=== PATIENT | male | born 1975 | race Caucasian/White ===

== ENCOUNTER 2017-04-22 06:57 | Inpatient (IN) | payer OTHER ==
[2017-04-22] MEDS ORDERED: ZOFRAN IV ONE (07:20)
[2017-04-22] MEDS ORDERED: NACL 0.9% 1000 ML 1,000 ML IV ONE (07:20)
[2017-04-22] MEDS ORDERED: DILAUDID IV ONE (07:20)
--- NOTE | 2017-04-22 07:31 | Emergency Department Report ---
ED Abdominal Pain HPI - General Chief Complaint: Nausea/Vomiting/Diarrhea Stated Complaint: N/V Time Seen by Provider: 04/22/17 07:17 Source: EMS Mode of arrival: Stretcher Limitations: No Limitations - History of Present Illness Initial Comments: Mr. Hanson has history of alcoholism. He is a patient at [facility]. He has noted his epistaxis and bleeding gums. Also has had vomit streaked with blood today. MD Complaint: abdominal pain -: Gradual, days(s) (1) Location: LUQ, epigastric Radiation: back Severity scale (0 -10): 10 Quality: sharp Consistency: constant Improves With: nothing Worsens With: movement Associated Symptoms: vomiting, hematemesis (mucous streaked with blood) - Related Data Previous Rx's Medication Instructions Recorded Last Taken Type Ibuprofen [Motrin] 600 mg PO Q8H PRN #60 tablet 12/27/14 Unknown Rx Ondansetron [Zofran Odt] 4 mg PO Q6H PRN #14 tab.rapdis 12/27/14 Unknown Rx traMADol [Ultram] 50 mg PO Q6HR PRN #14 tablet 12/27/14 Unknown Rx Allergies Allergy/AdvReac Type Severity Reaction Status Date / Time No Known Allergies Allergy Verified 12/26/14 12:21 ED Review of Systems ROS: Stated complaint: N/V Other details as noted in HPI Comment: All other systems reviewed and negative Constitutional: malaise. denies: chills, fever Gastrointestinal: abdominal pain, vomiting ED Past Medical Hx - Past Medical History Hx Hypertension: No Hx CVA: No Hx Heart Attack/AMI: No Hx Congestive Heart Failure: No Hx Diabetes: No Hx Deep Vein Thrombosis: No Hx Pulmonary Embolism: No Hx GERD: No Hx Liver Disease: No Hx Renal Disease: No Hx Sickle Cell Disease: No Hx Arthritis: No Hx Headaches / Migraines: No Hx Seizures: No Hx Kidney Stones: No Hx Psychiatric Treatment: No Hx Asthma: No Hx COPD: No Hx Tuberculosis: No Hx Dementia: No Hx HIV: No Additional medical history: Alcohol-induced pancreatitis - Surgical History Hx Coronary Stent: No Hx Open Heart Surgery: No Hx Pacemaker: No Hx Internal Defibrillator: No Hx Cholecystectomy: No Hx Appendectomy: No Hx Breast Surgery: No - Social History Smoking Status: Never Smoker Substance Use Type: Alcohol - Medications Home Medications: Home Medications Medication Instructions Recorded Confirmed Last Taken Type Ibuprofen [Motrin] 600 mg PO Q8H PRN #60 tablet 12/27/14 Unknown Rx Ondansetron [Zofran Odt] 4 mg PO Q6H PRN #14 tab.rapdis 12/27/14 Unknown Rx traMADol [Ultram] 50 mg PO Q6HR PRN #14 tablet 12/27/14 Unknown Rx ED Physical Exam - General Limitations: No Limitations General appearance: alert, in no apparent distress, other (appears ill, icteric sclera) - Head Head exam: Present: atraumatic, normocephalic - Eye Eye exam: Present: normal appearance, PERRL, scleral icterus. Absent: conjunctival injection, nystagmus - ENT ENT exam: Present: normal exam, mucous membranes moist - Neck Neck exam: Present: normal inspection. Absent: meningismus - Respiratory Respiratory exam: Present: normal lung sounds bilaterally. Absent: respiratory distress, wheezes, rales, rhonchi - Cardiovascular Cardiovascular Exam: Present: regular rate, normal rhythm. Absent: systolic murmur, diastolic murmur, rubs, gallop - GI/Abdominal GI/Abdominal exam: Present: soft, tenderness (left upper quadrant epigastric), guarding, normal bowel sounds. Absent: distended, rebound - Rectal Rectal exam: Present: deferred - Extremities Exam Extremities exam: Present: normal inspection - Back Exam Back exam: Present: normal inspection - Neurological Exam Neurological exam: Present: alert, oriented X3 - Psychiatric Psychiatric exam: Present: normal affect, normal mood - Skin Skin exam: Present: warm, dry, intact, normal color. Absent: rash ED Course Vital Signs 04/22/17 04/22/17 04/22/17 07:11 07:12 07:23 Temperature 98.6 F 98.6 F Pulse Rate 71 81 71 Respiratory 15 13 15 Rate Blood Pressure 128/49 Blood Pressure 128/49 [Right] O2 Sat by Pulse 100 99 99 Oximetry 04/22/17 04/22/17 04/22/17 07:30 08:00 08:30 Temperature Pulse Rate 64 81 89 Respiratory 13 12 13 Rate Blood Pressure 122/72 116/69 121/65 Blood Pressure [Right] O2 Sat by Pulse 99 98 99 Oximetry 04/22/17 04/22/17 04/22/17 09:00 10:00 10:30 Temperature Pulse Rate 85 72 69 Respiratory 12 12 10 L Rate Blood Pressure 109/62 134/68 126/68 Blood Pressure [Right] O2 Sat by Pulse 99 99 99 Oximetry ED Medical Decision Making - Lab Data Result diagrams: 04/22/17 07:34 04/22/17 07:34 Laboratory Results - last 24 hr 04/22/17 04/22/17 04/22/17 07:34 07:34 07:34 WBC 1.3 L* RBC 4.00 Hgb 12.2 Hct 36.0 MCV 90 MCH 31 MCHC 34 RDW 14.5 Plt Count 10 L* Add Manual Diff Complete Total Counted 50 Seg Neuts % (Manual) 68.0 Band Neutrophils % 0 Lymphocytes % (Manual) 20.0 Reactive Lymphs % (Man) 0 Monocytes % (Manual) 10.0 H Eosinophils % (Manual) 2.0 Basophils % (Manual) 0 Metamyelocytes % 0 Myelocytes % 0 Promyelocytes % 0 Blast Cells % 0 Nucleated RBC % Not Reportable Seg Neutrophils # Man 0.9 L Band Neutrophils # 0.0 Lymphocytes # (Manual) 0.3 L Abs React Lymphs (Man) 0.0 Monocytes # (Manual) 0.1 Eosinophils # (Manual) 0.0 Basophils # (Manual) 0.0 Metamyelocytes # 0.0 Myelocytes # 0.0 Promyelocytes # 0.0 Blast Cells # 0.0 WBC Morphology Not Reportable Hypersegmented Neuts Not Reportable Hyposegmented Neuts Not Reportable Hypogranular Neuts Not Reportable Smudge Cells Not Reportable Toxic Granulation Not Reportable Toxic Vacuolation Not Reportable Dohle Bodies Not Reportable Pelger-Huet Anomaly Not Reportable [place] Rods Not Reportable Platelet Estimate Cons Clumped Platelets Not Reportable Plt Clumps, EDTA Not Reportable Large Platelets Not Reportable Giant Platelets Not Reportable Platelet Satelliting Not Reportable Plt Morphology Comment Not Reportable RBC Morphology Normal Dimorphic RBCs Not Reportable Polychromasia Not Reportable Hypochromasia Not Reportable Poikilocytosis Not Reportable Anisocytosis Not Reportable Microcytosis Not Reportable Macrocytosis Not Reportable Spherocytes Not Reportable Pappenheimer Bodies Not Reportable Sickle Cells Not Reportable Target Cells Not Reportable Tear Drop Cells Not Reportable Ovalocytes Not Reportable Helmet Cells Not Reportable [place] Bodies Not Reportable [place] Rings Not Reportable Damian Cells Not Reportable Bite Cells Not Reportable Crenated Cell Not Reportable Elliptocytes Not Reportable Acanthocytes (Spur) Not Reportable Rouleaux Not Reportable Hemoglobin C Crystals Not Reportable Schistocytes Not Reportable Malaria parasites Not Reportable Chevy Bodies Not Reportable Hem Pathologist Commnt No PT 17.5 H INR 1.35 H Sodium Potassium Chloride Carbon Dioxide Anion Gap BUN Creatinine Estimated GFR BUN/Creatinine Ratio Glucose Calcium Total Bilirubin 2.80 H Direct Bilirubin 1.4 H Indirect Bilirubin 1.4 AST 174 H ALT 50 Alkaline Phosphatase 213 H Ammonia Total Protein 7.5 Albumin 3.2 L Albumin/Globulin Ratio 0.7 Lipase 78 H Blood Type 04/22/17 04/22/17 04/22/17 07:34 07:34 08:06 WBC RBC Hgb Hct MCV MCH MCHC RDW Plt Count Add Manual Diff Total Counted Seg Neuts % (Manual) Band Neutrophils % Lymphocytes % (Manual) Reactive Lymphs % (Man) Monocytes % (Manual) Eosinophils % (Manual) Basophils % (Manual) Metamyelocytes % Myelocytes % Promyelocytes % Blast Cells % Nucleated RBC % Seg Neutrophils # Man Band Neutrophils # Lymphocytes # (Manual) Abs React Lymphs (Man) Monocytes # (Manual) Eosinophils # (Manual) Basophils # (Manual) Metamyelocytes # Myelocytes # Promyelocytes # Blast Cells # WBC Morphology Hypersegmented Neuts Hyposegmented Neuts Hypogranular Neuts Smudge Cells Toxic Granulation Toxic Vacuolation Dohle Bodies Pelger-Huet Anomaly [place] Platelet Estimate Clumped Platelets Plt Clumps, EDTA Large Platelets Giant Platelets Platelet Satelliting Plt Morphology Comment RBC Morphology Dimorphic RBCs Polychromasia Hypochromasia Poikilocytosis Anisocytosis Microcytosis Macrocytosis Spherocytes Pappenheimer Bodies Sickle Cells Target Cells Tear Drop Cells Ovalocytes Helmet Cells [place]es[place] Bodies [place] Cells Bite Cells Crenated Cell Elliptocytes Acanthocytes (Spur) Rouleaux Hemoglobin C Crystals Schistocytes Malaria parasites Chevy Bodies Hem Pathologist Commnt PT INR Sodium 139 Potassium 3.4 L Chloride 100.2 Carbon Dioxide 21 L Anion Gap 21 BUN 6 L Creatinine 0.4 L Estimated GFR > 60 BUN/Creatinine Ratio 15 Glucose 113 H Calcium 8.1 L Total Bilirubin 2.70 H Direct Bilirubin Indirect Bilirubin AST 175 H ALT 50 Alkaline Phosphatase 212 H Ammonia 75.0 H Total Protein 7.4 Albumin 3.2 L Albumin/Globulin Ratio 0.8 Lipase Blood Type O POSITIVE - Radiology Data Radiology results: report reviewed - Medical Decision Making MR. Hanson presents with abdominal pain with thrombocytopenia and leukopenia due to cirrhosis. Abdominal pain could be attributed to chronic pancreatitis versus alcoholic gastritis. Admitted to Hospitalist service. Dr. Brothers accepted admission. Critical care attestation.: If time is entered above; I have spent that time in minutes in the direct care of this critically ill patient, excluding procedure time. ED Disposition Clinical Impression: Cirrhosis, Thrombocytopenia, Abdominal pain, Alcoholic gastritis Disposition: OP ADMIT IP TO THIS HOSP Is pt being admited?: Yes Does the pt Need Aspirin: No Condition: Fair Referrals: PRIMARY CARE, [Primary Care Provider] - 3-5 Days Time of Disposition: 12:08
[2017-04-22 07:45] LABS: Hemoglobin 12.2 gm/dl (11.8-15.2); Mean Corpuscular HGB Conc 34 % (32-34); Mean Corpuscular Hemoglobin 31 pg (28-32); Mean Corpuscular Volume 90 fl (84-94); Red Cell Distribution Width 14.5 % (13.2-15.2)
[2017-04-22 07:51] LABS: Platelet Count 10 K/mm3 (140-440)
[2017-04-22] MEDS ORDERED: NACL 0.9% 500 ML 500 ML IV ONE (07:58)
[2017-04-22 08:08] LABS: INR 1.35 (0.87-1.13)
[2017-04-22 08:16] LABS: Albumin 3.2 g/dL (3.9-5); Bilirubin,Direct 1.4 mg/dL (0-0.2)
[2017-04-22] MEDS ORDERED: ATIVAN IV ONE ×2 (08:28→12:16)
[2017-04-22 09:12] LABS: Alanine Aminotransferase 50 units/L (7-56); Albumin 3.2 g/dL (3.9-5); BUN/Creatinine Ratio 15; Blood Urea Nitrogen 6 mg/dL (9-20); Calcium 8.1 mg/dL (8.4-10.2); Hemolysis Index 11
[2017-04-22 09:19] LABS: Basophils % (Manual) 0 % (0.0-1.8); Total Cells Counted 50
[2017-04-22 09:21] LABS: Platelet Estimate Cons; RBC Morphology Normal
--- NOTE | 2017-04-22 10:25 | Cat Scan Report ---
CT ABDOMEN AND PELVIS WITH CONTRAST INDICATION: Abdominal pain. COMPARISON: 12/27/2014. FINDINGS: Abdomen and pelvis CT performed following intravenous administration of 100 cc of Omnipaque 300. LUNG BASES: Mild bibasilar dependent atelectasis. Top normal heart size. Nonspecific distal esophageal wall prominence/thickening, not excluded for gastroesophageal reflux and/or hiatal hernia, amongst others. ABDOMEN: Liver approximately 19.5 cm in midclavicular length (previously 21 cm) and mildly cirrhotic. Left hepatic lobe tip again wraps around the spleen in the left upper quadrant. Spleen approximately 17 cm craniocaudal, previously 15.6 cm, again partly effacing the left upper renal cortex. No focal suspicious lesions or biliary dilatation. Patent veins. Pancreas, adrenals, aorta, IVC and kidneys within normal limits. No ascites or size significant adenopathy. Nonopacified GI tract evaluation limited, though grossly nonobstructive. Normal appendix. Mild colonic stool, most along the ascending colon/cecum. PELVIS: Urinary bladder, seminal vesicles, prostate and rectosigmoid grossly within normal limits. No free fluid or significant adenopathy. Mild increased L3 degenerative changes superiorly. CONCLUSION: No acute CT abnormality in this patient with cirrhosis and splenomegaly again noted, as described. Please correlate. Thank you for the opportunity to participate in this patient's care.
[2017-04-22] MEDS ORDERED: ATIVAN ONE (12:12)
[2017-04-22] MEDS ORDERED: ATIVAN IV PRN ×3 (12:43)
--- NOTE | 2017-04-22 12:56 | History and Physical Report ---
History of Present Illness Chief complaint: confusion, Nausea, vomiting, History of present illness: 41 YO Male currently admitted to [place] with ETOH Abuse, Cirrhosis, Pancreatitis presents to ED for evaluation. Pt unable to provide detailed history, but history taken from ED staff, medical record, and [facility] staff. Pt was found to have nausea, vomiting, epistaxis, and gingival bleeding today. EMS notified, and patient was transported to [facility] for further care and evaluation. Pt seen and evaluated in the ED and found to have encephalopathy secondary to hepatic failure. Pt also found to have ETOH Withdrawl complicated by auditory/visual hallucinations, pancytopenia, with a platelet count of 10. Pt admitted to medical floor. Past History Past Medical History: liver disease, other (Cirrhosis, ETOH dependence) Past Surgical History: No surgical history, Other (reviewed) Social history: , lives with family, alcohol abuse. denies: smoking, prescription drug abuse, IV drug use Family history: no significant family history, other (reviewed) Medications and Allergies Allergies Allergy/AdvReac Type Severity Reaction Status Date / Time No Known Allergies Allergy Verified 12/26/14 12:21 Home Medications Medication Instructions Recorded Confirmed Last Taken Type No Known Home Medications [No 04/22/17 04/22/17 Unknown History Reported Home Medications] Active Meds: Active Medications Lorazepam (Ativan) 2 mg IV Q1HR PRN PRN Reason: CIWA-Ar 8-15 Lorazepam (Ativan) 4 mg IV Q1HR PRN PRN Reason: CIWA-Ar 16-25 Lorazepam (Ativan) 4 mg IV Q15MIN PRN PRN Reason: CIWA-Ar >25 Review of Systems ROS unobtainable: due to mental status Exam - Constitutional Vitals: Temp Pulse Resp BP Pulse Ox 98.6 F 69 10 L 126/68 99 04/22/17 07:23 04/22/17 10:30 04/22/17 10:30 04/22/17 10:30 04/22/17 10:30 General appearance: Present: mild distress - EENT Eyes: Present: PERRL - Neck Neck: Present: supple, normal ROM - Respiratory Respiratory effort: normal Respiratory: bilateral: CTA - Cardiovascular Heart Sounds: Present: S1 & S2. Absent: rub, click - Extremities Extremities: pulses symmetrical, No edema Peripheral Pulses: within normal limits - Abdominal General gastrointestinal: Present: soft, non-tender, non-distended, normal bowel sounds Male genitourinary: Present: normal - Integumentary Integumentary: Present: clear, dry, clammy, decreased turgor - Musculoskeletal Musculoskeletal: generalized weakness - Psychiatric Psychiatric: no intact judgment & insight, no memory intact, agitated - Neurologic Neurologic: CNII-XII intact, moves all extremities, no gait normal Results - Labs CBC & Chem 7: 04/22/17 07:34 04/22/17 07:34 Labs: Abnormal lab results 04/22/17 04/22/17 04/22/17 Range/Units 07:34 07:34 07:34 WBC 1.3 L* (4.5-11.0) K/mm3 Plt Count 10 L* (140-440) K/mm3 Monocytes % (Manual) 10.0 H (0.0-7.3) % Seg Neutrophils # Man 0.9 L (1.8-7.7) K/mm3 Lymphocytes # (Manual) 0.3 L (1.2-5.4) K/mm3 PT 17.5 H (12.2-14.9) Sec. INR 1.35 H (0.87-1.13) Potassium (3.6-5.0) mmol/L Carbon Dioxide (22-30) mmol/L BUN (9-20) mg/dL Creatinine (0.8-1.5) mg/dL Glucose (75-100) mg/dL Calcium (8.4-10.2) mg/dL Total Bilirubin 2.80 H (0.1-1.2) mg/dL Direct Bilirubin 1.4 H (0-0.2) mg/dL AST 174 H (5-40) units/L Alkaline Phosphatase 213 H (35-129) units/L Ammonia (25-60) umol/L Albumin 3.2 L (3.9-5) g/dL Lipase 78 H (13-60) units/L 04/22/17 04/22/17 Range/Units 07:34 07:34 WBC (4.5-11.0) K/mm3 Plt Count (140-440) K/mm3 Monocytes % (Manual) (0.0-7.3) % Seg Neutrophils # Man (1.8-7.7) K/mm3 Lymphocytes # (Manual) (1.2-5.4) K/mm3 PT (12.2-14.9) Sec. INR (0.87-1.13) Potassium 3.4 L (3.6-5.0) mmol/L Carbon Dioxide 21 L (22-30) mmol/L BUN 6 L (9-20) mg/dL Creatinine 0.4 L (0.8-1.5) mg/dL Glucose 113 H (75-100) mg/dL Calcium 8.1 L (8.4-10.2) mg/dL Total Bilirubin 2.70 H (0.1-1.2) mg/dL Direct Bilirubin (0-0.2) mg/dL AST 175 H (5-40) units/L Alkaline Phosphatase 212 H (35-129) units/L Ammonia 75.0 H (25-60) umol/L Albumin 3.2 L (3.9-5) g/dL Lipase (13-60) units/L Assessment and Plan - Patient Problems (1) Alcohol withdrawal delirium Current Visit: Yes Status: Acute Plan to address problem: IVF resuscitation, CIWA protocol, Ativan prn, Banana bag, supportive care, neuro checks. (2) Metabolic acidosis Current Visit: Yes Status: Acute Plan to address problem: repeat bmp, IVF resuscitation, supportive care. (3) Cirrhosis Current Visit: Yes Status: Acute Qualifiers: Hepatic cirrhosis type: alcoholic cirrhosis Ascites presence: with ascites Qualified Code(s): K70.31 - Alcoholic cirrhosis of liver with ascites Plan to address problem: Fluid restriction, pain control, supportive care, outpatient GI f/u, ETOH cessation. (4) Thrombocytopenia Current Visit: Yes Status: Acute Plan to address problem: Platelet transfusion, supportive care, fall precautions, (5) Alcohol abuse Current Visit: No Status: Acute Plan to address problem: ETOH cessation counseling when awake and alert, IVF resuscitation, CIWA protocol. (6) Metabolic encephalopathy Current Visit: Yes Status: Acute Plan to address problem: IVF, supportive care, Ammonia level, CT head, Neuro checks, (7) DVT prophylaxis Current Visit: Yes Status: Acute
[2017-04-22] MEDS ORDERED: ZOFRAN IV PRN (13:16)
[2017-04-22] MEDS ORDERED: MILK OF MAGNESIA PO PRN (13:16)
[2017-04-22] MEDS ORDERED: DULCOLAX PR PRN (13:16)
[2017-04-22] MEDS ORDERED: PROVENTIL IH PRN (13:16)
[2017-04-22] MEDS ORDERED: NACL 0.9% 500 ML 500 ML ONE (16:42)
[2017-04-23] MEDS ORDERED: NACL 0.9% 500 ML 500 ML IV ONE (09:33)
--- NOTE | 2017-04-23 09:33 | Progress Note ---
Assessment and Plan Assessment and plan: Alcohol withdrawal delirium IVF resuscitation, CIWA protocol, Ativan prn, Banana bag, supportive care, neuro checks. Cirrhosis Fluid restriction, pain control, supportive care, outpatient GI f/u, ETOH cessation. Pancytopenia Pt. with significant thrombocytopenia. Platelet transfusion for plt < 10, supportive care, fall precautions. No active bleeding. Etiology likely secondary to Alcoholism/Cirrhosis. Heme consult Thrombocytopenia As above Alcohol abuse ETOH cessation counseling when awake and alert, IVF resuscitation, CIWA protocol. Metabolic encephalopathy IVF, supportive care, Ammonia level, CT head, Neuro checks, DVT prophylaxis SCDs given thrombocytopenia History Interval history: no new issues Hospitalist Physical - Constitutional Vitals: Temp Pulse Resp BP Pulse Ox 98.6 F 89 22 112/71 98 04/23/17 08:02 04/23/17 08:02 04/23/17 08:02 04/23/17 08:02 04/23/17 08:02 General appearance: Present: mild distress - EENT Eyes: Present: PERRL, EOM intact ENT: hearing intact, clear oral mucosa, dentition normal - Neck Neck: Present: supple, normal ROM - Respiratory Respiratory effort: normal Respiratory: bilateral: CTA - Cardiovascular Rhythm: regular Heart Sounds: Present: S1 & S2. Absent: gallop, rub - Extremities Extremities: no ischemia, No edema, Full ROM - Abdominal General gastrointestinal: soft, non-tender, non-distended, normal bowel sounds - Integumentary Integumentary: Present: clear, warm, dry - Neurologic Neurologic: CNII-XII intact, moves all extremities Results - Labs CBC & Chem 7: 04/22/17 07:34 04/22/17 07:34 Labs: Laboratory Last Values WBC 1.3 K/mm3 (4.5-11.0) L* 04/22/17 07:34 RBC 4.00 M/mm3 (3.65-5.03) 04/22/17 07:34 Hgb 12.2 gm/dl (11.8-15.2) 04/22/17 07:34 Hct 36.0 % (35.5-45.6) 04/22/17 07:34 MCV 90 fl (84-94) 04/22/17 07:34 MCH 31 pg (28-32) 04/22/17 07:34 MCHC 34 % (32-34) 04/22/17 07:34 RDW 14.5 % (13.2-15.2) 04/22/17 07:34 Plt Count 10 K/mm3 (140-440) L* 04/22/17 07:34 Add Manual Diff Complete 04/22/17 07:34 Total Counted 50 04/22/17 07:34 Seg Neuts % (Manual) 68.0 % (40.0-70.0) 04/22/17 07:34 Band Neutrophils % 0 % 04/22/17 07:34 Lymphocytes % (Manual) 20.0 % (13.4-35.0) 04/22/17 07:34 Reactive Lymphs % (Man) 0 % 04/22/17 07:34 Monocytes % (Manual) 10.0 % (0.0-7.3) H 04/22/17 07:34 Eosinophils % (Manual) 2.0 % (0.0-4.3) 04/22/17 07:34 Basophils % (Manual) 0 % (0.0-1.8) 04/22/17 07:34 Metamyelocytes % 0 % 04/22/17 07:34 Myelocytes % 0 % 04/22/17 07:34 Promyelocytes % 0 % 04/22/17 07:34 Blast Cells % 0 % 04/22/17 07:34 Nucleated RBC % Not Reportable 04/22/17 07:34 Seg Neutrophils # Man 0.9 K/mm3 (1.8-7.7) L 04/22/17 07:34 Band Neutrophils # 0.0 K/mm3 04/22/17 07:34 Lymphocytes # (Manual) 0.3 K/mm3 (1.2-5.4) L 04/22/17 07:34 Abs React Lymphs (Man) 0.0 K/mm3 04/22/17 07:34 Monocytes # (Manual) 0.1 K/mm3 (0.0-0.8) 04/22/17 07:34 Eosinophils # (Manual) 0.0 K/mm3 (0.0-0.4) 04/22/17 07:34 Basophils # (Manual) 0.0 K/mm3 (0.0-0.1) 04/22/17 07:34 Metamyelocytes # 0.0 K/mm3 04/22/17 07:34 Myelocytes # 0.0 K/mm3 04/22/17 07:34 Promyelocytes # 0.0 K/mm3 04/22/17 07:34 Blast Cells # 0.0 K/mm3 04/22/17 07:34 WBC Morphology Not Reportable 04/22/17 07:34 Hypersegmented Neuts Not Reportable 04/22/17 07:34 Hyposegmented Neuts Not Reportable 04/22/17 07:34 Hypogranular Neuts Not Reportable 04/22/17 07:34 Smudge Cells Not Reportable 04/22/17 07:34 Toxic Granulation Not Reportable 04/22/17 07:34 Toxic Vacuolation Not Reportable 04/22/17 07:34 Dohle Bodies Not Reportable 04/22/17 07:34 Pelger-Huet Anomaly Not Reportable 04/22/17 07:34 El Rods Not Reportable 04/22/17 07:34 Platelet Estimate Cons 04/22/17 07:34 Clumped Platelets Not Reportable 04/22/17 07:34 Plt Clumps, EDTA Not Reportable 04/22/17 07:34 Large Platelets Not Reportable 04/22/17 07:34 Giant Platelets Not Reportable 04/22/17 07:34 Platelet Satelliting Not Reportable 04/22/17 07:34 Plt Morphology Comment Not Reportable 04/22/17 07:34 RBC Morphology Normal 04/22/17 07:34 Dimorphic RBCs Not Reportable 04/22/17 07:34 Polychromasia Not Reportable 04/22/17 07:34 Hypochromasia Not Reportable 04/22/17 07:34 Poikilocytosis Not Reportable 04/22/17 07:34 Anisocytosis Not Reportable 04/22/17 07:34 Microcytosis Not Reportable 04/22/17 07:34 Macrocytosis Not Reportable 04/22/17 07:34 Spherocytes Not Reportable 04/22/17 07:34 Pappenheimer Bodies Not Reportable 04/22/17 07:34 Sickle Cells Not Reportable 04/22/17 07:34 Target Cells Not Reportable 04/22/17 07:34 Tear Drop Cells Not Reportable 04/22/17 07:34 Ovalocytes Not Reportable 04/22/17 07:34 Helmet Cells Not Reportable 04/22/17 07:34 Gongora-Padroni Bodies Not Reportable 04/22/17 07:34 [place] Rings Not Reportable 04/22/17 07:34 Damian Cells Not Reportable 04/22/17 07:34 Bite Cells Not Reportable 04/22/17 07:34 Crenated Cell Not Reportable 04/22/17 07:34 Elliptocytes Not Reportable 04/22/17 07:34 Acanthocytes (Spur) Not Reportable 04/22/17 07:34 Rouleaux Not Reportable 04/22/17 07:34 Hemoglobin C Crystals Not Reportable 04/22/17 07:34 Schistocytes Not Reportable 04/22/17 07:34 Malaria parasites Not Reportable 04/22/17 07:34 Chevy Bodies Not Reportable 04/22/17 07:34 Hem Pathologist Commnt No 04/22/17 07:34 PT 17.5 Sec. (12.2-14.9) H 04/22/17 07:34 INR 1.35 (0.87-1.13) H 04/22/17 07:34 Sodium 139 mmol/L (137-145) 04/22/17 07:34 Potassium 3.4 mmol/L (3.6-5.0) L 04/22/17 07:34 Chloride 100.2 mmol/L (98-107) 04/22/17 07:34 Carbon Dioxide 21 mmol/L (22-30) L 04/22/17 07:34 Anion Gap 21 mmol/L 04/22/17 07:34 BUN 6 mg/dL (9-20) L 04/22/17 07:34 Creatinine 0.4 mg/dL (0.8-1.5) L 04/22/17 07:34 Estimated GFR > 60 ml/min 04/22/17 07:34 BUN/Creatinine Ratio 15 % 04/22/17 07:34 Glucose 113 mg/dL (75-100) H 04/22/17 07:34 Calcium 8.1 mg/dL (8.4-10.2) L 04/22/17 07:34 Total Bilirubin 2.70 mg/dL (0.1-1.2) H 04/22/17 07:34 Direct Bilirubin 1.4 mg/dL (0-0.2) H 04/22/17 07:34 Indirect Bilirubin 1.4 mg/dL 04/22/17 07:34 AST 175 units/L (5-40) H 04/22/17 07:34 ALT 50 units/L (7-56) 04/22/17 07:34 Alkaline Phosphatase 212 units/L (35-129) H 04/22/17 07:34 Ammonia 75.0 umol/L (25-60) H 04/22/17 07:34 Total Protein 7.4 g/dL (6.3-8.2) 04/22/17 07:34 Albumin 3.2 g/dL (3.9-5) L 04/22/17 07:34 Albumin/Globulin Ratio 0.8 % 04/22/17 07:34 Lipase 78 units/L (13-60) H 04/22/17 07:34 Plasma/Serum Alcohol < 0.01 % (0-0.07) 04/22/17 16:13 Blood Type O POSITIVE 04/22/17 08:06
--- NOTE | 2017-04-23 15:24 | Hem/Onc Consultation ---
History of Present Illness - Reason for Consult Consult date: 04/23/17 - History of Present Illness 41 YO Male currently with ETOH Abuse, Cirrhosis, Pancreatitis. Pt unable to provide detailed history, but history taken from ED staff, medical record, and [facility] staff. Pt was found to have nausea, vomiting, epistaxis, and gingival bleeding today. EMS notified, and patient was transported to [facility] for further care and evaluation. Pt seen and evaluated in the ED and found to have encephalopathy secondary to hepatic failure. Pt also found to have ETOH Withdrawl complicated by auditory/visual hallucinations, pancytopenia, with a platelet count of 10. Pt admitted to medical floor. He denies any bleeding now except stain on the pillow. Complains of abdominal pain. And reports chills. Past History Past Medical History: liver disease, other (Cirrhosis, ETOH dependence) Past Surgical History: No surgical history, Other (reviewed) Social history: , lives with family, alcohol abuse. denies: smoking, prescription drug abuse, IV drug use Family history: no significant family history, other (reviewed) Medications and Allergies Allergies Allergy/AdvReac Type Severity Reaction Status Date / Time No Known Allergies Allergy Verified 12/26/14 12:21 Home Medications Medication Instructions Recorded Confirmed Last Taken Type No Known Home Medications [No 04/22/17 04/22/17 Unknown History Reported Home Medications] Active Meds: Active Medications Albuterol (Proventil) 2.5 mg IH Q4HRT PRN PRN Reason: Shortness Of Breath Bisacodyl (Dulcolax) 10 mg CO QDAY PRN PRN Reason: Constipation unrelieved by MOM Lorazepam (Ativan) 2 mg IV Q1HR PRN PRN Reason: CIWA-Ar 8-15 Last Admin: 04/23/17 14:08 Dose: 2 mg Lorazepam (Ativan) 4 mg IV Q1HR PRN PRN Reason: CIWA-Ar 16-25 Last Admin: 04/23/17 00:02 Dose: 4 mg Lorazepam (Ativan) 4 mg IV Q15MIN PRN PRN Reason: CIWA-Ar >25 Magnesium Hydroxide (Milk Of Magnesia) 30 ml PO Q4H PRN PRN Reason: Constipation Ondansetron HCl (Zofran) 4 mg IV Q8H PRN PRN Reason: N/V unrelieved by Reglan Review of Systems All systems: negative Exam - Constitutional Vitals: Last Vital Signs Temp 98.6 F 04/23/17 08:02 Pulse 89 04/23/17 08:02 Resp 22 04/23/17 08:02 BP 112/71 04/23/17 08:02 Pulse Ox 98 04/23/17 10:15 General appearance: no acute distress Performance status: 3-limited selfcare - EENT Eyes: scleral icterus Lymph node exam: negative cervical, negative supraclavicular, negative axillary - Respiratory Respiratory: negative: CTA - Cardiovascular Rhythm: regular Heart Sounds: Present: S1 & S2 Extremities: no ischemia, No edema, normal color (no petechiae) Results - Labs lab Results: Laboratory Results - last 24 hr 04/22/17 04/23/17 16:13 09:46 Plasma/Serum Alcohol < 0.01 Blood Type O POSITIVE - Imaging and cardiology CT scan - abdomen: report reviewed Assessment and Plan 1-pancytopenia: WBC1.3, platelets 10- s/p one unit plat. transfusion in the ER. I suspect this all related to alcohol abuse and cirrhosis with bone marrow suppression. will order a CBC before the other platelets units are transfused. Continue supportive care. would consider culturing to r/o an infection contributing to the pancytopenia. 2- Cirrhosis with splenomegaly 3- alcohol withdrawal. 4- metabolic encephalopathy- improving
[2017-04-23 17:36] LABS: Hemoglobin 11.9 gm/dl (11.8-15.2); Mean Corpuscular HGB Conc 34 % (32-34); Mean Corpuscular Hemoglobin 31 pg (28-32); Mean Corpuscular Volume 90 fl (84-94); Red Blood Count 3.87 M/mm3 (3.65-5.03); Red Cell Distribution Width 14.6 % (13.2-15.2)
[2017-04-23 17:39] LABS: Platelet Count 16 K/mm3 (140-440)
[2017-04-23 19:05] LABS: Total Cells Counted 100
[2017-04-23 19:09] LABS: Anisocytosis 1+; Ovalocytes 1+; Platelet Estimate Appears Decreased
[2017-04-24 05:58] LABS: Hematocrit 34.6 % (35.5-45.6); Hemoglobin 11.7 gm/dl (11.8-15.2); Mean Corpuscular HGB Conc 34 % (32-34); Mean Corpuscular Hemoglobin 31 pg (28-32); Mean Corpuscular Volume 91 fl (84-94); Red Blood Count 3.82 M/mm3 (3.65-5.03); Red Cell Distribution Width 14.6 % (13.2-15.2)
[2017-04-24 06:06] LABS: Platelet Count 36 K/mm3 (140-440)
[2017-04-24 06:21] LABS: BUN/Creatinine Ratio 15; Blood Urea Nitrogen 6 mg/dL (9-20); Hemolysis Index 0
[2017-04-24 07:08] LABS: Band Neutrophils # (Manual) 0.1 K/mm3; Basophils % (Manual) 0 % (0.0-1.8); Total Cells Counted 100
[2017-04-24 07:09] LABS: Anisocytosis 1+; Platelet Estimate Consistent w Auto
--- NOTE | 2017-04-24 07:31 | Hem/Onc Progress Note ---
Assessment and Plan 1-pancytopenia: WBC and platelets are better. s/p 3 units plat transfusion. would continue to monitor counts and support as needed. cultures are pending 2- Cirrhosis with splenomegaly 3- alcohol withdrawal. 4- metabolic encephalopathy- improving Subjective Date of service: 04/24/17 Interval history: feels better. tremors better. Objective - Constitutional Vitals: Last Vital Signs Temp 98.2 F 04/23/17 23:00 Pulse 70 04/23/17 23:00 Resp 18 04/23/17 23:00 BP 118/68 04/23/17 23:00 Pulse Ox 98 04/23/17 23:00 General appearance: no acute distress - Respiratory Respiratory: bilateral: CTA - Cardiovascular Rhythm: regular - Neurologic Neurologic: CNII-XII intact - Labs Lab Results: Laboratory Results - last 24 hr 04/23/17 04/23/17 04/24/17 09:46 17:13 05:48 WBC 1.4 L* 1.6 L* RBC 3.87 3.82 Hgb 11.9 11.7 L Hct 35.0 L 34.6 L MCV 90 91 MCH 31 31 MCHC 34 34 RDW 14.6 14.6 Plt Count 16 L* 36 L D Add Manual Diff Complete Complete Total Counted 100 100 Seg Neuts % (Manual) 58.0 57.0 Band Neutrophils % 2.0 9.0 Lymphocytes % (Manual) 32.0 25.0 Reactive Lymphs % (Man) 0 0 Monocytes % (Manual) 4.0 6.0 Eosinophils % (Manual) 3.0 3.0 Basophils % (Manual) 1.0 0 Metamyelocytes % 0 0 Myelocytes % 0 0 Promyelocytes % 0 0 Blast Cells % 0 0 Nucleated RBC % Not Reportable Not Reportable Seg Neutrophils # Man 0.8 L 0.9 L Band Neutrophils # 0.0 0.1 Lymphocytes # (Manual) 0.4 L 0.4 L Abs React Lymphs (Man) 0.0 0.0 Monocytes # (Manual) 0.1 0.1 Eosinophils # (Manual) 0.0 0.0 Basophils # (Manual) 0.0 0.0 Metamyelocytes # 0.0 0.0 Myelocytes # 0.0 0.0 Promyelocytes # 0.0 0.0 Blast Cells # 0.0 0.0 WBC Morphology Not Reportable Not Reportable Hypersegmented Neuts Not Reportable Not Reportable Hyposegmented Neuts Not Reportable Not Reportable Hypogranular Neuts Not Reportable Not Reportable Smudge Cells Not Reportable Not Reportable Toxic Granulation Not Reportable Not Reportable Toxic Vacuolation Not Reportable Not Reportable Dohle Bodies Not Reportable Not Reportable Pelger-Huet Anomaly Not Reportable Not Reportable [place] Rods Not Reportable Not Reportable Platelet Estimate Appears decreased Consistent w auto Clumped Platelets Not Reportable Not Reportable Plt Clumps, EDTA Not Reportable Not Reportable Large Platelets Not Reportable Not Reportable Giant Platelets Not Reportable Not Reportable Platelet Satelliting Not Reportable Not Reportable Plt Morphology Comment Not Reportable Not Reportable RBC Morphology Not Reportable Not Reportable Dimorphic RBCs Not Reportable Not Reportable Polychromasia Not Reportable Not Reportable Hypochromasia Not Reportable Not Reportable Poikilocytosis Not Reportable Not Reportable Anisocytosis 1+ 1+ Microcytosis Not Reportable Not Reportable Macrocytosis Not Reportable Not Reportable Spherocytes Not Reportable Not Reportable Pappenheimer Bodies Not Reportable Not Reportable Sickle Cells Not Reportable Not Reportable Target Cells Not Reportable Not Reportable Tear Drop Cells Not Reportable Not Reportable Ovalocytes 1+ Not Reportable Helmet Cells Not Reportable Not Reportable [place] Bodies Not Reportable Not Reportable [place] Rings Not Reportable Not Reportable Damian Cells Not Reportable Not Reportable Bite Cells Not Reportable Not Reportable Crenated Cell Not Reportable Not Reportable Elliptocytes Not Reportable Not Reportable Acanthocytes (Spur) Not Reportable Not Reportable Rouleaux Not Reportable Not Reportable Hemoglobin C Crystals Not Reportable Not Reportable Schistocytes Not Reportable Not Reportable Malaria parasites Not Reportable Not Reportable [place] Bodies Not Reportable Not Reportable Hem Pathologist Commnt No No Sodium Potassium Chloride Carbon Dioxide Anion Gap BUN Creatinine Estimated GFR BUN/Creatinine Ratio Glucose Calcium Blood Type O POSITIVE 04/24/17 05:48 WBC RBC Hgb Hct MCV MCH MCHC RDW Plt Count Add Manual Diff Total Counted Seg Neuts % (Manual) Band Neutrophils % Lymphocytes % (Manual) Reactive Lymphs % (Man) Monocytes % (Manual) Eosinophils % (Manual) Basophils % (Manual) Metamyelocytes % Myelocytes % Promyelocytes % Blast Cells % Nucleated RBC % Seg Neutrophils # Man Band Neutrophils # Lymphocytes # (Manual) Abs React Lymphs (Man) Monocytes # (Manual) Eosinophils # (Manual) Basophils # (Manual) Metamyelocytes # Myelocytes # Promyelocytes # Blast Cells # WBC Morphology Hypersegmented Neuts Hyposegmented Neuts Hypogranular Neuts Smudge Cells Toxic Granulation Toxic Vacuolation Dohle Bodies Pelger-Huet Anomaly [place] Platelet Estimate Clumped Platelets Plt Clumps, EDTA Large Platelets Giant Platelets Platelet Satelliting Plt Morphology Comment RBC Morphology Dimorphic RBCs Polychromasia Hypochromasia Poikilocytosis Anisocytosis Microcytosis Macrocytosis Spherocytes Pappenheimer Bodies Sickle Cells Target Cells Tear Drop Cells Ovalocytes Helmet Cells [place] Bodies [place] Clear Cells Bite Cells Crenated Cell Elliptocytes Acanthocytes (Spur) Rouleaux Hemoglobin C Crystals Schistocytes Malaria parasites Chevy Bodies Hem Pathologist Commnt Sodium 138 Potassium 3.5 L Chloride 100.2 Carbon Dioxide 23 Anion Gap 18 BUN 6 L Creatinine 0.4 L Estimated GFR > 60 BUN/Creatinine Ratio 15 Glucose 101 H Calcium 8.0 L Blood Type
--- NOTE | 2017-04-24 09:52 | Progress Note ---
Assessment and Plan Assessment and plan: Alcohol withdrawal delirium IVF resuscitation, CIWA protocol, Ativan prn, Banana bag, supportive care, neuro checks. Cirrhosis with splenomegaly Fluid restriction, pain control, supportive care, outpatient GI f/u, ETOH cessation. Pancytopenia Pt. with significant thrombocytopenia. Platelet transfusion for plt < 10, supportive care, fall precautions. No active bleeding. Etiology likely secondary to Alcoholism/Cirrhosiswith splenomegaly/splenic sequestration/bone marrow suppression. Heme following Thrombocytopenia As above Alcohol abuse ETOH cessation counseling when awake and alert, IVF resuscitation, CIWA protocol. Metabolic encephalopathy IVF, supportive care, Ammonia level, CT head, Neuro check. Recheck ammonia levels Bilateral LE cramping check lytes DVT prophylaxis SCDs given thrombocytopenia History Interval history: no new issues. CIWA score aprox 4-6 Hospitalist Physical - Constitutional Vitals: Temp Pulse Resp BP Pulse Ox 98.3 F 66 20 113/61 100 04/24/17 07:37 04/24/17 07:37 04/24/17 07:37 04/24/17 07:37 04/24/17 08:26 General appearance: Present: mild distress - EENT Eyes: Present: PERRL, EOM intact ENT: hearing intact, clear oral mucosa, dentition normal - Neck Neck: Present: supple, normal ROM - Respiratory Respiratory effort: normal Respiratory: bilateral: CTA - Cardiovascular Rhythm: regular Heart Sounds: Present: S1 & S2. Absent: gallop, rub - Extremities Extremities: no ischemia, No edema, Full ROM - Abdominal General gastrointestinal: soft, non-tender, non-distended, normal bowel sounds - Integumentary Integumentary: Present: clear, warm, dry - Neurologic Neurologic: CNII-XII intact, moves all extremities Results - Labs CBC & Chem 7: 04/24/17 05:48 04/24/17 05:48 Labs: Laboratory Last Values WBC 1.6 K/mm3 (4.5-11.0) L* 04/24/17 05:48 RBC 3.82 M/mm3 (3.65-5.03) 04/24/17 05:48 Hgb 11.7 gm/dl (11.8-15.2) L 04/24/17 05:48 Hct 34.6 % (35.5-45.6) L 04/24/17 05:48 MCV 91 fl (84-94) 04/24/17 05:48 MCH 31 pg (28-32) 04/24/17 05:48 MCHC 34 % (32-34) 04/24/17 05:48 RDW 14.6 % (13.2-15.2) 04/24/17 05:48 Plt Count 36 K/mm3 (140-440) L D 04/24/17 05:48 Add Manual Diff Complete 04/24/17 05:48 Total Counted 100 04/24/17 05:48 Seg Neuts % (Manual) 57.0 % (40.0-70.0) 04/24/17 05:48 Band Neutrophils % 9.0 % 04/24/17 05:48 Lymphocytes % (Manual) 25.0 % (13.4-35.0) 04/24/17 05:48 Reactive Lymphs % (Man) 0 % 04/24/17 05:48 Monocytes % (Manual) 6.0 % (0.0-7.3) 04/24/17 05:48 Eosinophils % (Manual) 3.0 % (0.0-4.3) 04/24/17 05:48 Basophils % (Manual) 0 % (0.0-1.8) 04/24/17 05:48 Metamyelocytes % 0 % 04/24/17 05:48 Myelocytes % 0 % 04/24/17 05:48 Promyelocytes % 0 % 04/24/17 05:48 Blast Cells % 0 % 04/24/17 05:48 Nucleated RBC % Not Reportable 04/24/17 05:48 Seg Neutrophils # Man 0.9 K/mm3 (1.8-7.7) L 04/24/17 05:48 Band Neutrophils # 0.1 K/mm3 04/24/17 05:48 Lymphocytes # (Manual) 0.4 K/mm3 (1.2-5.4) L 04/24/17 05:48 Abs React Lymphs (Man) 0.0 K/mm3 04/24/17 05:48 Monocytes # (Manual) 0.1 K/mm3 (0.0-0.8) 04/24/17 05:48 Eosinophils # (Manual) 0.0 K/mm3 (0.0-0.4) 04/24/17 05:48 Basophils # (Manual) 0.0 K/mm3 (0.0-0.1) 04/24/17 05:48 Metamyelocytes # 0.0 K/mm3 04/24/17 05:48 Myelocytes # 0.0 K/mm3 04/24/17 05:48 Promyelocytes # 0.0 K/mm3 04/24/17 05:48 Blast Cells # 0.0 K/mm3 04/24/17 05:48 WBC Morphology Not Reportable 04/24/17 05:48 Hypersegmented Neuts Not Reportable 04/24/17 05:48 Hyposegmented Neuts Not Reportable 04/24/17 05:48 Hypogranular Neuts Not Reportable 04/24/17 05:48 Smudge Cells Not Reportable 04/24/17 05:48 Toxic Granulation Not Reportable 04/24/17 05:48 Toxic Vacuolation Not Reportable 04/24/17 05:48 Dohle Bodies Not Reportable 04/24/17 05:48 Pelger-Huet Anomaly Not Reportable 04/24/17 05:48 El Rods Not Reportable 04/24/17 05:48 Platelet Estimate Consistent w auto 04/24/17 05:48 Clumped Platelets Not Reportable 04/24/17 05:48 Plt Clumps, EDTA Not Reportable 04/24/17 05:48 Large Platelets Not Reportable 04/24/17 05:48 Giant Platelets Not Reportable 04/24/17 05:48 Platelet Satelliting Not Reportable 04/24/17 05:48 Plt Morphology Comment Not Reportable 04/24/17 05:48 RBC Morphology Not Reportable 04/24/17 05:48 Dimorphic RBCs Not Reportable 04/24/17 05:48 Polychromasia Not Reportable 04/24/17 05:48 Hypochromasia Not Reportable 04/24/17 05:48 Poikilocytosis Not Reportable 04/24/17 05:48 Anisocytosis 1+ 04/24/17 05:48 Microcytosis Not Reportable 04/24/17 05:48 Macrocytosis Not Reportable 04/24/17 05:48 Spherocytes Not Reportable 04/24/17 05:48 Pappenheimer Bodies Not Reportable 04/24/17 05:48 Sickle Cells Not Reportable 04/24/17 05:48 Target Cells Not Reportable 04/24/17 05:48 Tear Drop Cells Not Reportable 04/24/17 05:48 Ovalocytes Not Reportable 04/24/17 05:48 Helmet Cells Not Reportable 04/24/17 05:48 [place] Bodies Not Reportable 04/24/17 05:48 [place] Rings Not Reportable 04/24/17 05:48 [place] Cells Not Reportable 04/24/17 05:48 Bite Cells Not Reportable 04/24/17 05:48 Crenated Cell Not Reportable 04/24/17 05:48 Elliptocytes Not Reportable 04/24/17 05:48 Acanthocytes (Spur) Not Reportable 04/24/17 05:48 Rouleaux Not Reportable 04/24/17 05:48 Hemoglobin C Crystals Not Reportable 04/24/17 05:48 Schistocytes Not Reportable 04/24/17 05:48 Malaria parasites Not Reportable 04/24/17 05:48 Chevy Bodies Not Reportable 04/24/17 05:48 Hem Pathologist Commnt No 04/24/17 05:48 PT 17.5 Sec. (12.2-14.9) H 04/22/17 07:34 INR 1.35 (0.87-1.13) H 04/22/17 07:34 Sodium 138 mmol/L (137-145) 04/24/17 05:48 Potassium 3.5 mmol/L (3.6-5.0) L 04/24/17 05:48 Chloride 100.2 mmol/L (98-107) 04/24/17 05:48 Carbon Dioxide 23 mmol/L (22-30) 04/24/17 05:48 Anion Gap 18 mmol/L 04/24/17 05:48 BUN 6 mg/dL (9-20) L 04/24/17 05:48 Creatinine 0.4 mg/dL (0.8-1.5) L 04/24/17 05:48 Estimated GFR > 60 ml/min 04/24/17 05:48 BUN/Creatinine Ratio 15 % 04/24/17 05:48 Glucose 101 mg/dL (75-100) H 04/24/17 05:48 Calcium 8.0 mg/dL (8.4-10.2) L 04/24/17 05:48 Magnesium 1.30 mg/dL (1.7-2.3) L 04/24/17 05:48 Total Bilirubin 2.70 mg/dL (0.1-1.2) H 04/22/17 07:34 Direct Bilirubin 1.4 mg/dL (0-0.2) H 04/22/17 07:34 Indirect Bilirubin 1.4 mg/dL 04/22/17 07:34 AST 175 units/L (5-40) H 04/22/17 07:34 ALT 50 units/L (7-56) 04/22/17 07:34 Alkaline Phosphatase 212 units/L (35-129) H 04/22/17 07:34 Ammonia 75.0 umol/L (25-60) H 04/22/17 07:34 Total Protein 7.4 g/dL (6.3-8.2) 04/22/17 07:34 Albumin 3.2 g/dL (3.9-5) L 04/22/17 07:34 Albumin/Globulin Ratio 0.8 % 04/22/17 07:34 Lipase 78 units/L (13-60) H 04/22/17 07:34 Plasma/Serum Alcohol < 0.01 % (0-0.07) 04/22/17 16:13 Blood Type O POSITIVE 04/23/17 09:46
[2017-04-24] MEDS ORDERED: MORPHINE IV PRN ×2 (11:09→16:00)
[2017-04-24] MEDS ORDERED: MAGNESIUM SULFATE IV ONE (11:11)
[2017-04-24] MEDS ORDERED: MAGNESIUM SULFATE 2GM/50ML 2 GM/50 ML BAG IV SCH (12:30)
[2017-04-25 05:26] LABS: Hematocrit 34.9 % (35.5-45.6); Hemoglobin 11.8 gm/dl (11.8-15.2); Mean Corpuscular HGB Conc 34 % (32-34); Mean Corpuscular Hemoglobin 31 pg (28-32); Mean Corpuscular Volume 91 fl (84-94); Red Blood Count 3.85 M/mm3 (3.65-5.03); Red Cell Distribution Width 15.1 % (13.2-15.2)
[2017-04-25 05:40] LABS: Platelet Count 38 K/mm3 (140-440)
[2017-04-25 06:34] LABS: Band Neutrophils # (Manual) 0.1 K/mm3; Basophils % (Manual) 0 % (0.0-1.8); Monocytes % (Manual) 0 % (0.0-7.3); Total Cells Counted 25
[2017-04-25 06:35] LABS: Macrocytosis Few; Platelet Estimate Appears Decreased
[2017-04-25 07:05] LABS: BUN/Creatinine Ratio 14; Blood Urea Nitrogen 7 mg/dL (9-20); Hemolysis Index 8
--- NOTE | 2017-04-25 09:29 | Discharge Summary ---
Providers - Providers Date of Admission: 04/22/17 13:16 Date of discharge: 04/25/17 Attending physician: IGNACIO IBRAHIM 04/23/17 09:33 Consult to Physician [CONS] Routine Consulting Provider: GRACIA JHA Reason For Exam: pancytopenia Place consult to:: dr. jha Notified:: answering service Phone number called:: Was contact made?: Yes If yes, spoke with:: yoselin Time called:: 10:28 Primary care physician: [facility] Hospitalization Condition: Fair Exam - Constitutional Vitals: Temp Pulse Resp BP Pulse Ox 98.4 F 82 18 117/73 98 04/25/17 08:38 04/25/17 08:38 04/25/17 08:38 04/25/17 08:38 04/25/17 08:38 Plan Follow up with: PRIMARY MD PATSY [Primary Care Provider] - 3-5 Days
[2017-04-25 12:35] VITALS: BP 133/82
--- NOTE | 2017-04-25 14:21 | Hem/Onc Progress Note ---
Assessment and Plan 1. pancytopenia- likely related to cirrhosis and toxic effect from heavy alcohol use. Counts improving, continue to monitor. Subjective Date of service: 04/25/17 Interval history: Pt states he is feeling much better. No bleeding. Tremor improving. Objective - Constitutional Vitals: Last Vital Signs Temp 97.9 F 04/25/17 12:30 Pulse 84 04/25/17 12:30 Resp 18 04/25/17 12:30 BP 133/82 04/25/17 12:30 Pulse Ox 98 04/25/17 12:30 General appearance: no acute distress - Neck Neck: supple - Respiratory Respiratory effort: Positive: normal Respiratory: bilateral: CTA - Cardiovascular Rhythm: regular Extremities: No edema - Gastrointestinal General gastrointestinal: Present: soft - Psychiatric Psychiatric: appropriate mood/affect - Labs Lab Results: Laboratory Results - last 24 hr 04/25/17 04/25/17 05:05 05:05 WBC 1.9 L* RBC 3.85 Hgb 11.8 Hct 34.9 L MCV 91 MCH 31 MCHC 34 RDW 15.1 Plt Count 38 L Add Manual Diff Complete Total Counted 25 Seg Neuts % (Manual) 56.0 Band Neutrophils % 4.0 Lymphocytes % (Manual) 32.0 Reactive Lymphs % (Man) 0 Monocytes % (Manual) 0 Eosinophils % (Manual) 8.0 H Basophils % (Manual) 0 Metamyelocytes % 0 Myelocytes % 0 Promyelocytes % 0 Blast Cells % 0 Nucleated RBC % Not Reportable Seg Neutrophils # Man 1.1 L Band Neutrophils # 0.1 Lymphocytes # (Manual) 0.6 L Abs React Lymphs (Man) 0.0 Monocytes # (Manual) 0.0 Eosinophils # (Manual) 0.2 Basophils # (Manual) 0.0 Metamyelocytes # 0.0 Myelocytes # 0.0 Promyelocytes # 0.0 Blast Cells # 0.0 WBC Morphology Not Reportable Hypersegmented Neuts Not Reportable Hyposegmented Neuts Not Reportable Hypogranular Neuts Not Reportable Smudge Cells Not Reportable Toxic Granulation Not Reportable Toxic Vacuolation Not Reportable Dohle Bodies Not Reportable Pelger-Huet Anomaly Not Reportable [place] Not Reportable Platelet Estimate Appears decreased Clumped Platelets Not Reportable Plt Clumps, EDTA Not Reportable Large Platelets Not Reportable Giant Platelets Not Reportable Platelet Satelliting Not Reportable Plt Morphology Comment Not Reportable RBC Morphology Not Reportable Dimorphic RBCs Not Reportable Polychromasia Not Reportable Hypochromasia Not Reportable Poikilocytosis Not Reportable Anisocytosis Not Reportable Microcytosis Not Reportable Macrocytosis Few Spherocytes Not Reportable Pappenheimer Bodies Not Reportable Sickle Cells Not Reportable Target Cells Not Reportable Tear Drop Cells Not Reportable Ovalocytes Not Reportable Helmet Cells Not Reportable [place] Bodies Not Reportable [place] Rings Not Reportable Damian Cells Not Reportable Bite Cells Not Reportable Crenated Cell Not Reportable Elliptocytes Not Reportable Acanthocytes (Spur) Not Reportable Rouleaux Not Reportable Hemoglobin C Crystals Not Reportable Schistocytes Not Reportable Malaria parasites Not Reportable [place]vy Bodies Not Reportable Hem Pathologist Commnt No Sodium 136 L Potassium 3.7 Chloride 100.2 Carbon Dioxide 23 Anion Gap 17 BUN 7 L Creatinine 0.5 L Estimated GFR > 60 BUN/Creatinine Ratio 14 Glucose 111 H Calcium 8.0 L
== END 2017-04-25 14:35 | disposition home or self-care (01) | DRG 441 ==
LOC: ED 06:57 → 3A 13:16
PROVIDERS: ADMIT Internal Medicine; ATTEND Hospitalist
PROC: 30233R1 Transfusion of Nonautologous Platelets into Peripheral Vein, Percutaneous Approach (ICD-10-PCS; principal; 2017-04-22)
DX: K72.90 Hepatic failure, unspecified without coma (principal); G93.41 Metabolic encephalopathy; D61.818 Other pancytopenia; F10.239 Alcohol dependence with withdrawal, unspecified; F10.231 Alcohol dependence with withdrawal delirium; K74.60 Unspecified cirrhosis of liver; D69.6 Thrombocytopenia, unspecified; R04.0 Epistaxis; K29.20 Alcoholic gastritis without bleeding; Y90.9 Presence of alcohol in blood, level not specified
CPT/HCPCS: 36415; 36430; 74177; 80048; 80053; 80074; 80320; 82140; 83690; 83735; 85007; 85025; 85610; 86900; 86901; 87040; 93970; 96361; 96374; 96375; 96376; G0480; J1170; J2060; J2270; J2405; J3475; J7030; J7040; P9035; Q9967

== ENCOUNTER 2018-09-22 23:44 | Inpatient (IN) | payer OTHER ==
[2018-09-23 01:04] LABS: Hematocrit 37.8 % (35.5-45.6); Hemoglobin 12.7 gm/dl (11.8-15.2); Mean Corpuscular HGB Conc 34 % (32-34); Mean Corpuscular Volume 90 fl (84-94); Red Blood Count 4.22 M/mm3 (3.65-5.03); Red Cell Distribution Width 17.1 % (13.2-15.2)
[2018-09-23 01:31] LABS: Alanine Aminotransferase 47 units/L (7-56); Albumin 3.7 g/dL (3.9-5); BUN/Creatinine Ratio 10; Blood Urea Nitrogen 6 mg/dL (9-20); Calcium 8.9 mg/dL (8.4-10.2); Hemolysis Index 3
[2018-09-23] MEDS ORDERED: MORPHINE IV ONE (01:52)
[2018-09-23] MEDS ORDERED: ZOFRAN IV ONE (01:52)
--- NOTE | 2018-09-23 01:56 | Emergency Department Report ---
ED GI Bleed HPI - General Chief complaint: Abdominal Pain Stated complaint: ABD PAIN/EMESIS/ABD CRAMPS Time Seen by Provider: 09/23/18 01:41 Source: patient, family Mode of arrival: Ambulatory Limitations: Language Barrier - History of Present Illness Initial comments: Patient is 42 years old male with history of alcoholic liver cirrhosis presented to the ER complaining of hematemesis and hematochezia that he started today. Patient is vomiting blood in the emergency room. Patient stated that he had this episodes before. Patient is also complaining of abdominal pain, diffuse with no radiation. Patient denied any fever or chills. MD complaint: gross hematemesis, gross hematochezia -: This morning Location: diffuse Radiation: none Severity scale (0 -10): 6 Quality: sharp Consistency: constant Context: history of GI bleed, liver disease - Related Data Home Medications Medication Instructions Recorded Confirmed Last Taken No Known Home Medications [No 04/22/17 04/22/17 Unknown Reported Home Medications] Allergies Allergy/AdvReac Type Severity Reaction Status Date / Time No Known Allergies Allergy Verified 12/26/14 12:21 ED Review of Systems ROS: Stated complaint: ABD PAIN/EMESIS/ABD CRAMPS Other details as noted in HPI Comment: All other systems reviewed and negative Constitutional: denies: chills, fever Respiratory: denies: cough, shortness of breath, SOB with exertion Cardiovascular: denies: chest pain, palpitations Gastrointestinal: abdominal pain, nausea, vomiting, hematemesis, hematochezia Genitourinary: denies: urgency, dysuria, frequency, hematuria Musculoskeletal: denies: back pain Neurological: denies: headache, weakness ED Past Medical Hx - Past Medical History Previous Medical History?: Yes Hx Hypertension: Yes (as stated by patient.) Hx CVA: No Hx Heart Attack/AMI: No Hx Congestive Heart Failure: No Hx Diabetes: Yes Hx Deep Vein Thrombosis: No Hx Pulmonary Embolism: No Hx GERD: No Hx Liver Disease: No Hx Renal Disease: No Hx Sickle Cell Disease: No Hx Arthritis: No Hx Headaches / Migraines: No Hx Seizures: No Hx Kidney Stones: No Hx Psychiatric Treatment: No Hx Asthma: No Hx COPD: No Hx Tuberculosis: No Hx Dementia: No Hx HIV: No Additional medical history: Alcohol-induced pancreatitis - Surgical History Past Surgical History?: No Hx Coronary Stent: No Hx Open Heart Surgery: No Hx Pacemaker: No Hx Internal Defibrillator: No Hx Cholecystectomy: No Hx Appendectomy: No Hx Breast Surgery: No - Social History Smoking Status: Never Smoker Substance Use Type: Alcohol - Medications Home Medications: Home Medications Medication Instructions Recorded Confirmed Last Taken Type No Known Home Medications [No 04/22/17 04/22/17 Unknown History Reported Home Medications] ED Physical Exam - General Limitations: Language Barrier General appearance: alert, in no apparent distress - Head Head exam: Present: atraumatic, normocephalic, normal inspection - Eye Eye exam: Present: normal appearance, PERRL - ENT ENT exam: Present: normal exam, normal orophraynx, mucous membranes moist - Neck Neck exam: Present: normal inspection, full ROM. Absent: tenderness, meningismus, lymphadenopathy, thyromegaly - Respiratory Respiratory exam: Present: normal lung sounds bilaterally - Cardiovascular Cardiovascular Exam: Present: regular rate, normal rhythm, normal heart sounds - GI/Abdominal GI/Abdominal exam: Present: soft, normal bowel sounds. Absent: distended, tenderness, guarding, rebound, rigid, organomegaly, mass, bruit, pulsatile mass, hernia - Extremities Exam Extremities exam: Present: normal inspection, full ROM, normal capillary refill - Back Exam Back exam: Present: normal inspection, full ROM. Absent: CVA tenderness (R), CVA tenderness (L), muscle spasm, paraspinal tenderness, vertebral tenderness - Neurological Exam Neurological exam: Present: alert, oriented X3, CN II-XII intact, normal gait, reflexes normal - Psychiatric Psychiatric exam: Present: normal mood - Skin Skin exam: Present: warm, intact, normal color ED Course Vital Signs 09/23/18 00:07 Temperature 98.2 F Pulse Rate 84 Respiratory 18 Rate Blood Pressure 137/84 O2 Sat by Pulse 98 Oximetry ED Medical Decision Making - Lab Data Result diagrams: 09/23/18 00:21 09/23/18 00:21 - Radiology Data Radiology results: report reviewed - Medical Decision Making Patient is 42 years old male with history of alcoholic liver cirrhosis presented to the ER complaining of hematemesis and hematochezia that he started today. Patient is vomiting blood in the emergency room. Patient stated that he had this episodes before. Patient is also complaining of abdominal pain, diffuse with no radiation. Patient denied any fever or chills. I discussed the patient was Drs. TRAN, from gastroenterology. Advised patient needed to be admitted to the ICU for possible endoscopy in the morning. Patient remained stable with a stable vital signs. No more hematemesis or hematochezia noticed in the ER. CT abdomen and pelvis is unremarkable for acute findings. I Discussed the patient with Dr. Josefina Wells, She agreed to admit the patient to medical service. Critical Care Time: Yes Critical care time in (mins) excluding proc time.: 30 Critical care attestation.: If time is entered above; I have spent that time in minutes in the direct care of this critically ill patient, excluding procedure time. ED Disposition Clinical Impression: Alcohol abuse, GI bleed Disposition: OP ADMIT IP TO THIS HOSP Is pt being admited?: Yes Condition: Stable Referrals: BRANDEE RIOS MD [Primary Care Provider] - 3-5 Days
[2018-09-23 02:36] LABS: INR 1.49 (0.87-1.13)
[2018-09-23 02:37] LABS: Partial Thromboplastin Time 36.2 Sec. (24.2-36.6)
[2018-09-23 02:39] LABS: Bilirubin,Urine NEG (Negative); Blood,Urine SM (Negative); Color,Urine Yellow (Yellow); Mucus,Urine FEW /HPF; Protein,Urine <15 mg/dL mg/dL (Negative); RBC,Urine < 1.0 /HPF (0.0-6.0); Urobilinogen,Urine < 2.0 mg/dL (<2.0); WBC,Urine < 1.0 /HPF (0.0-6.0)
--- NOTE | 2018-09-23 03:34 | Cat Scan Report ---
CT abdomen pelvis w con INDICATION / CLINICAL INFORMATION: abdominal pain. TECHNIQUE: All CT scans at this location are performed using CT dose reduction for ALARA by means of automated e xposure control. 100 cc of Omnipaque 300 was administered intravenously COMPARISON: Report from 04/22/2017. Images are not available FINDINGS: No free fluid is seen in the abdomen. Diffuse fatty infiltration is present in the liver without foca l abnormality. Splenomegaly is present. Gastric wall is thickened although the stomach is not markedl y distended. The kidneys, pancreas, adrenal glands and great vessels are normal. No enlarged retroper itoneal lymph nodes are seen. In the pelvis, no free fluid is seen. No enlarged lymph nodes are identified. Bladder is minimally di stended. The appendix is normal. No significant skeletal abnormality is identified. IMPRESSION: 1. Thickening of the gastric wall which may be due to a lack of distention 2. Splenomegaly 3. Diffuse fatty infiltration in the liver without focal abnormality Signer Name: Pa ROSE Signed: 09/23/2018 3:30 AM Workstation Name: [id number]
[2018-09-23] MEDS ORDERED: MORPHINE ONE (04:38)
[2018-09-23] MEDS ORDERED: ZOFRAN ONE (04:39)
[2018-09-23] MEDS: PROTONIX 80 MG in NACL 0.9% 100 ML IV SCH ×2 (04:50→13:34)
[2018-09-23] MEDS: SandoSTATIN 500 MCG in NACL 0.9% 100 ML IV SCH (04:50)
--- NOTE | 2018-09-23 05:08 | History and Physical Report ---
History of Present Illness History of present illness: 42 -year-old man with a history of cirrhosis comes to the emergency room with complaints of vomiting blood since yesrerday, multiple episodes. also had episodes of voting blood last week. He also complained of abdominal pain, LLQ, intermittent every 20 minutes, described as a dull sensation, with intensity of 7/10, no radiation, relieved with pain medications. No NSAIDS use Review of systems Constitutional: no weight loss, fever, chills Ears, eyes, nose, mouth and throat: no nasal congestion, no nasal discharge, no sinus pressure, no vision change, no red eye. Neck: No neck pain or rigidity. Cardiovascular: no palpitations, chest pain Respiratory: no cough, shortness of breath Gastrointestinal: no hematochezia Genitourinary : no frequency , no hematuria Musculoskeletal: no joint swelling or muscle ache Integumentary: no rash, no pruritis Neurological: no parathesias, no focal weakness Endocrine: no cold or heat intolerance, no polyuria or polydipsia Hematologic/Lymphatic: no easy bruising, no easy bleeding, no gland swelling Allergic/Immunologic: no urticaria, no angioedema. PAST MEDICAL HISTORY: Cirrhoss PAST SURGICAL HISTORY: None SOCIAL HISTORY: Drinks 8 beers/day, no tobacco or drug use FAMILY HISTORY: Hypertension Medications and Allergies Allergies Allergy/AdvReac Type Severity Reaction Status Date / Time No Known Allergies Allergy Verified 12/26/14 12:21 Home Medications Medication Instructions Recorded Confirmed Last Taken Type No Known Home Medications [No 09/23/18 09/23/18 Unknown History Reported Home Medications] Active Meds: Active Medications Pantoprazole Sodium 80 mg/ (Sodium Chloride) 100 mls @ 10 mls/hr IV DIRECT JORDAN Last Admin: 09/23/18 04:50 Dose: 8 mg/hr, 10 mls/hr Documented by: Octreotide Acetate 500 mcg/ (Sodium Chloride) 101 mls @ 5.05 mls/hr IV TITR JORDAN; Protocol Last Admin: 09/23/18 04:50 Dose: 25 mcg/hr, 5.05 mls/hr Documented by: Exam - Physical Exam Narrative exam: Gen. appearance: Patient lying in bed, no apparent distress HEENT: Normocephalic, atraumatic, pupils equally round and reactive to light, extraocular movement intact, and no sclericterus,. No JVD or thyromegaly or nodule,neck supple, no carotid bruit ,mucous membranes moist, no exudate or erythema Heart: S1, S2, regular rate and rhythm Lungs: Clear to auscultation bilaterally, breathing comfortable Abdomen: Positive bowel sounds, tender in LLQ, nondistended Extremity: No edema, cyanosis, clubbing Skin: No rash, nodules, warm, dry Neuro: Oriented 3, cranial nerves II-12 intact, speech/motor fluent - Constitutional Vitals: Temp Pulse Resp BP Pulse Ox 98.2 F 74 16 118/67 98 09/23/18 00:07 09/23/18 04:30 09/23/18 04:30 09/23/18 04:30 09/23/18 04:30 Results - Labs CBC & Chem 7: 09/29/18 08:39 09/29/18 04:01 Labs: Abnormal lab results 09/23/18 09/23/18 09/23/18 Range/Units 00:21 00:21 02:04 WBC 2.2 L (4.5-11.0) K/mm3 RDW 17.1 H (13.2-15.2) % PT 17.7 H (12.2-14.9) Sec. INR 1.49 H (0.87-1.13) BUN 6 L (9-20) mg/dL Creatinine 0.6 L (0.8-1.5) mg/dL Glucose 148 H (75-100) mg/dL Total Bilirubin 3.50 H (0.1-1.2) mg/dL AST 203 H (5-40) units/L Alkaline Phosphatase 195 H (35-129) units/L Total Protein 9.2 H (6.3-8.2) g/dL Albumin 3.7 L (3.9-5) g/dL Lipase 90 H (13-60) units/L - Imaging and Cardiology CT scan - abdomen: report reviewed CT scan - pelvis: report reviewed Assessment and Plan Assessment GI Bleed , r/o variceal Abdominal pain Thrombocytopenia Cirrhosis Plan Admit to [facility] [place] Continue protonix, octreotide drip, IV fluid check serial h/h, Gi was consulted to see pt Consult critical care,IV morphine Monitor platelets DVT prophalaxis
[2018-09-23] MEDS ORDERED: SODIUM CHLORIDE FLUSH SYRINGE 10 ML IV PRN (05:09)
[2018-09-23] MEDS ORDERED: ZOFRAN IV PRN (05:09)
[2018-09-23 05:10] LABS: Anisocytosis 1+; Basophils % (Manual) 0 % (0.0-1.8); Eosinophils % (Manual) 0 % (0.0-4.3); Total Cells Counted 100
[2018-09-23 05:11] LABS: Platelet Estimate Consistent w Auto
[2018-09-23 05:14] LABS: Platelet Count 41 K/mm3 (140-440)
[2018-09-23] MEDS ORDERED: NACL 0.9% 1000 ML 1,000 ML IV SCH (06:00)
[2018-09-23 06:07] LABS: Hemoglobin 11.4 gm/dl (11.8-15.2)
[2018-09-23] MEDS: NACL 0.9% 1000 ML 1,000 ML IV SCH ×3 (06:36→20:21)
--- NOTE | 2018-09-23 09:16 | Consultation ---
History of Present Illness Consult date: 09/23/18 Requesting physician: YORDAN WELLS Reason for consult: other (Acute G.I. Bleed; EtOH Abuse) History of present illness: PULMONARY/CCM CONSULT NOTE (Full dictation # [id number] & [id number]) Please see dictated notes for full details - serial H&H - endoscopy - empiric CIWA protocol - thiamine and folate placement - empiric AB's in likely cirrhotic - octreotide - PPI therapy .... thanks for the consult Dr. Wells ...... we will follow along Medications and Allergies Allergies Allergy/AdvReac Type Severity Reaction Status Date / Time No Known Allergies Allergy Verified 12/26/14 12:21 Home Medications Medication Instructions Recorded Confirmed Last Taken Type No Known Home Medications [No 09/23/18 09/23/18 Unknown History Reported Home Medications] Active Meds: Active Medications Pantoprazole Sodium 80 mg/ (Sodium Chloride) 100 mls @ 10 mls/hr IV DIRECT JORDAN Last Admin: 09/23/18 04:50 Dose: 8 mg/hr, 10 mls/hr Documented by: Octreotide Acetate 500 mcg/ (Sodium Chloride) 101 mls @ 5.05 mls/hr IV TITR JORDAN; Protocol Last Admin: 09/23/18 04:50 Dose: 25 mcg/hr, 5.05 mls/hr Documented by: Sodium Chloride (Nacl 0.9% 1000 Ml) 1,000 mls @ 150 mls/hr IV DIRECT JORDAN Last Admin: 09/23/18 06:36 Dose: 150 mls/hr Documented by: Morphine Sulfate (Morphine) 2 mg IV Q4H PRN PRN Reason: Pain, Moderate (4-6) Ondansetron HCl (Zofran) 4 mg IV Q4H PRN PRN Reason: Nausea And Vomiting Sodium Chloride (Sodium Chloride Flush Syringe 10 Ml) 10 ml IV BID JORDAN Sodium Chloride (Sodium Chloride Flush Syringe 10 Ml) 10 ml IV PRN PRN PRN Reason: LINE FLUSH Physical Examination Vital signs: Vital Signs Temp Pulse Resp BP Pulse Ox 98.2 F 84 18 137/84 98 09/23/18 00:07 09/23/18 00:07 09/23/18 00:07 09/23/18 00:07 09/23/18 00:07 Results - Laboratory Findings CBC and BMP: 09/23/18 09:20 09/23/18 00:21 PT/INR, D-dimer PT 17.7 Sec. (12.2-14.9) H 09/23/18 02:04 INR 1.49 (0.87-1.13) H 09/23/18 02:04 Abnormal lab findings: Abnormal Labs 09/23/18 09/23/18 09/23/18 00:21 00:21 02:04 WBC 2.2 L Hgb Hct RDW 17.1 H Plt Count 41 L Seg Neutrophils # Man 1.3 L Lymphocytes # (Manual) 0.7 L PT 17.7 H INR 1.49 H BUN 6 L Creatinine 0.6 L Glucose 148 H Total Bilirubin 3.50 H AST 203 H Alkaline Phosphatase 195 H Total Protein 9.2 H Albumin 3.7 L Lipase 90 H 09/23/18 05:36 WBC Hgb 11.4 L Hct 34.0 L RDW Plt Count Seg Neutrophils # Man Lymphocytes # (Manual) PT INR BUN Creatinine Glucose Total Bilirubin AST Alkaline Phosphatase Total Protein Albumin Lipase
[2018-09-23] MEDS: SODIUM CHLORIDE FLUSH SYRINGE 10 ML IV SCH ×2 (09:31→22:00)
[2018-09-23 09:33] LABS: Hemoglobin 11.3 gm/dl (11.8-15.2)
[2018-09-23] MEDS ORDERED: ATIVAN IV PRN ×2 (09:46)
[2018-09-23] MEDS ORDERED: HALDOL IV PRN (09:46)
[2018-09-23] MEDS ORDERED: XYLOCAINE 1% MPF 5 mL INFILTRATI ONE (09:49)
[2018-09-23] MEDS ORDERED: ROCEPHIN IM SCH (10:00)
--- NOTE | 2018-09-23 10:13 | Event Note ---
Date: 09/23/18 Resting comfortable still encephalopathic Continue current management, GI eval pending.
[2018-09-23] MEDS ORDERED: VERSED ONE (10:23)
[2018-09-23] MEDS ORDERED: XYLOCAINE 1% 20 mL ONE (10:23)
[2018-09-23] MEDS ORDERED: DIPRIVAN 10 MG/ML IV ONE ×2 (10:23)
[2018-09-23] MEDS ORDERED: WATER FOR IRRIG STERILE IR ONE (10:33)
[2018-09-23] MEDS ORDERED: WATER FOR IRRIG STERILE ONE (10:33)
--- NOTE | 2018-09-23 10:33 | Consultation ---
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 He had 4 bouts of hematemesis and presented to the emergency room. The last bout was witnessed in the emergency room and patient was therefore admitted for further evaluation. Patient has a known history of alcohol abuse and drinks up to 8 beers a day. He last drank 2 days ago. Patient states at the left upper quadrant pain is sharp and stabbing. He had a very mildly for the last 3 months but it became worse yesterday. He denies aspirin or non-steroidal usage. As been no change in his bowel movements. He denies melena or hematochezia. Patient has a history of alcohol abuse since at least 2013, when he was apparently in rehabilitation at [facility]. He underwent an upper endoscopy by Dr. kenneth herring and had gastritis and esophagitis. He was hospitalized here in March and noted to have marked thrombocytopenia and leukopenia. He was seen by hematology and findings were determined to be due to alcohol abuse. Currently, patient awake and alert. Mild left upper quadrant pain, he denies complaints. He did have a small amount of emesis 5 minutes prior to visit with blood in emesis bag noted. Past History Past Medical History: hypertension, liver disease, other (alcohol abuse) Past Surgical History: No surgical history Social history: alcohol abuse. denies: smoking Family history: no significant family history Medications and Allergies Allergies Allergy/AdvReac Type Severity Reaction Status Date / Time No Known Allergies Allergy Verified 12/26/14 12:21 Home Medications Medication Instructions Recorded Confirmed Last Taken Type No Known Home Medications [No 09/23/18 09/23/18 Unknown History Reported Home Medications] Active Meds: Active Medications Ceftriaxone Sodium (Rocephin) 1 gm IM Q24HR JORDAN; Protocol Haloperidol Lactate (Haldol) 5 mg IV Q4H PRN PRN Reason: Unrespon. to mult. doses BZD's Stop: 09/26/18 09:45 Pantoprazole Sodium 80 mg/ (Sodium Chloride) 100 mls @ 10 mls/hr IV DIRECT JORDAN Last Admin: 09/23/18 04:50 Dose: 8 mg/hr, 10 mls/hr Documented by: Octreotide Acetate 500 mcg/ (Sodium Chloride) 101 mls @ 5.05 mls/hr IV TITR JORDAN; Protocol Last Admin: 09/23/18 04:50 Dose: 25 mcg/hr, 5.05 mls/hr Documented by: Sodium Chloride (Nacl 0.9% 1000 Ml) 1,000 mls @ 150 mls/hr IV DIRECT JORDAN Last Admin: 09/23/18 06:36 Dose: 150 mls/hr Documented by: Folic Acid 1 mg/ Sodium (Chloride) 50.2 mls @ 200.8 mls/hr IV QDAY JORDAN Thiamine HCl 100 mg/ Sodium (Chloride) 51 mls @ 100 mls/hr IV QDAY JORDAN Lidocaine (Xylocaine 1% Mpf 5 Ml) 2 ml INFILTRATI ONCE ONE Stop: 09/23/18 09:50 Lorazepam (Ativan) 2 mg IV Q1HR PRN PRN Reason: CIWA-Ar 8-15 Lorazepam (Ativan) 4 mg IV Q1HR PRN PRN Reason: CIWA-Ar 16-25 Morphine Sulfate (Morphine) 2 mg IV Q4H PRN PRN Reason: Pain, Moderate (4-6) Ondansetron HCl (Zofran) 4 mg IV Q4H PRN PRN Reason: Nausea And Vomiting Sodium Chloride (Sodium Chloride Flush Syringe 10 Ml) 10 ml IV BID JORDAN Last Admin: 09/23/18 09:31 Dose: 10 ml Documented by: Sodium Chloride (Sodium Chloride Flush Syringe 10 Ml) 10 ml IV PRN PRN PRN Reason: LINE FLUSH Meds reviewed. Review of Systems All systems: negative (as noted in HPI. No CP or SOB. Denies GERD symptoms.) Exam - Constitutional Vitals: Temp Pulse Resp BP Pulse Ox 98.2 F 75 10 L 130/44 98 09/23/18 00:07 09/23/18 10:20 09/23/18 10:20 09/23/18 10:20 09/23/18 10:20 General appearance: Present: no acute distress - EENT Eyes: Present: PERRL, EOM intact, scleral icterus ENT: hearing intact - Respiratory Respiratory effort: normal Respiratory: bilateral: CTA - Cardiovascular Rhythm: regular Heart Sounds: Present: S1 & S2 - Extremities Extremities: No edema - Abdominal General gastrointestinal: Present: soft, tender (Mild in LUQ) - Rectal Rectal Exam: stool brown Results - Labs CBC & Chem 7: 09/23/18 09:20 09/23/18 00:21 Labs: Abnormal lab results 09/23/18 09/23/18 09/23/18 Range/Units 00:21 00:21 02:04 WBC 2.2 L (4.5-11.0) K/mm3 Hgb (11.8-15.2) gm/dl Hct (35.5-45.6) % RDW 17.1 H (13.2-15.2) % Plt Count 41 L (140-440) K/mm3 Seg Neutrophils # Man 1.3 L (1.8-7.7) K/mm3 Lymphocytes # (Manual) 0.7 L (1.2-5.4) K/mm3 PT 17.7 H (12.2-14.9) Sec. INR 1.49 H (0.87-1.13) BUN 6 L (9-20) mg/dL Creatinine 0.6 L (0.8-1.5) mg/dL Glucose 148 H (75-100) mg/dL Total Bilirubin 3.50 H (0.1-1.2) mg/dL AST 203 H (5-40) units/L Alkaline Phosphatase 195 H (35-129) units/L Total Protein 9.2 H (6.3-8.2) g/dL Albumin 3.7 L (3.9-5) g/dL Lipase 90 H (13-60) units/L 09/23/18 09/23/18 Range/Units 05:36 09:20 WBC (4.5-11.0) K/mm3 Hgb 11.4 L 11.3 L (11.8-15.2) gm/dl Hct 34.0 L 34.0 L (35.5-45.6) % RDW (13.2-15.2) % Plt Count (140-440) K/mm3 Seg Neutrophils # Man (1.8-7.7) K/mm3 Lymphocytes # (Manual) (1.2-5.4) K/mm3 PT (12.2-14.9) Sec. INR (0.87-1.13) BUN (9-20) mg/dL Creatinine (0.8-1.5) mg/dL Glucose (75-100) mg/dL Total Bilirubin (0.1-1.2) mg/dL AST (5-40) units/L Alkaline Phosphatase (35-129) units/L Total Protein (6.3-8.2) g/dL Albumin (3.9-5) g/dL Lipase (13-60) units/L - Imaging and Cardiology CT scan - abdomen: report reviewed Assessment and Plan 1. Hematemesis - H/H stable, no melena. C/w esophagitis bleed, though PUD and varices need to be considered. Hemodynamically stable. On PPI and octreotide drip. - will do urgent EGD to assess and treat appropriately 2. LUQ pain - etiology unclear. CT negative. May be related to PUD. - monitor for response 3. EtOH abuse - with likely cirrhosis. - discussed abstinence and prognosis. 4. Abnormal LFTs - due to EtOH most likely. May consider U/S.
--- NOTE | 2018-09-23 11:13 | Consultation ---
PULMONARY CRITICAL CARE CONSULTATION CONSULTING PHYSICIAN: Izzy Wells DO REASON FOR CONSULTATION: Acute GI bleeding. CHIEF COMPLAINT AND HISTORY OF PRESENT ILLNESS: As follows: The patient is a 42-year-old male with past medical history significant for, according to him, daily alcohol use, but in moderation he tells me, came into the Emergency Room complaining of hematemesis and hematochezia that started on the day of presentation, which was yesterday. He was having episodes of hematemesis in the Emergency Room. He mentions when I asked him that he may have a history of esophageal varices, he was also complaining of diffuse abdominal pain. He denied any trauma. He denied any excessive analgesic use in particular, denies aspirin or NSAID use. He was evaluated in the Emergency Room and was mostly relatively hemodynamically stable. A CT scan of the abdomen and pelvis shows thickening of the gastric wall, splenomegaly and diffuse fatty infiltration of the liver without any real mention of cirrhosis. When I stopped by to see him, he was resting on the bed. He was still throwing up some minor amounts of blood. He denied fevers or chills. He denies a history of tobacco use or abuse. He also denies any history of delirium tremens or alcohol withdrawal symptoms in the past, but he also tells me that he had endoscopy last night, and he reportedly did not have it done. PAST MEDICAL HISTORY: 1. Alcohol abuse. 2. Possible history of esophageal varices. 3. Also has history of hypertension per the patient. 4. History of diabetes. 5. History of alcohol-induced pancreatitis in the past. PAST SURGICAL HISTORY: He denied. MEDICATIONS: He was on at the time I stopped by to see him were reviewed. Pertinent medications included the following, morphine sulfate 2 mg IV q. 4 hours p.r.n. moderate pain, octreotide drip was going at 25 mcg per hour, Protonix drip was going at 8 mg per hour, Zofran 4 mg IV q. 4 hours p.r.n. nausea and vomiting. ALLERGIES: No known drug allergies. DIET: Well-built gentleman. Denies acute weight loss or gain in the preceding few weeks to months. FAMILY AND SOCIAL HISTORY: Lives in the community, daily alcohol drinker. Denies tobacco or illicit drug use or abuse. Family history is otherwise unknown. REVIEW OF SYSTEMS: No loss of consciousness. No new onset seizures. No new onset focal weakness. He did complain of hematochezia. He has had hematemesis. He denies heat or cold intolerance. Denies polydipsia. Denies polyuria. Denies any new lumps, bumps, or rashes on his body. Denies periods of unexplained sadness and/or elation as may be consistent with clinical depression or eugenio. Complete 13-system review of systems obtained. Pertinent positives and/or negatives as in body of history above, otherwise noncontributory. PHYSICAL EXAMINATION: VITAL SIGNS: At presentation, afebrile, temperature 98.2 degrees Fahrenheit, pulse of 84, respiratory rate of 18, blood pressure 137/84, and O2 sats were 98%, inspired oxygen concentration was not recorded. At the time I saw him, O2 sats were 98% and that was on room air. GENERAL: He is a middle-aged male, normocephalic, atraumatic, talking to me in full sentences without significant respiratory distress. HEAD, EYES, EARS, NOSE AND THROAT: He has scleral icterus. No erythema. Oropharynx is moist. There is some crusted blood over the lower lip. No gross jugular venous distention, no thyromegaly. Oropharynx is a Mallampati #2 oropharynx. Grossly no palpable lymph nodes in the supraclavicular or submandibular lymph node chains. LUNGS: Auscultation of both lung reis unremarkable. Lungs are clear bilaterally. HEART: Heart sounds 1 and 2 are heard. They were regular in rate and rhythm at time of my evaluation without overt rubs or murmurs. ABDOMEN: Soft, flat. Bowel sounds are positive, mildly tender in the epigastric area in particular. No hepatosplenomegaly. EXTREMITIES: Without overt digital clubbing or cyanosis and no pedal edema. Pedal pulses are palpable 2+ bilaterally. NEUROLOGIC: Pupils equal, round, about 4 mm, reactive to light. Extraocular movements were intact. He moved all 4 extremities spontaneously. SKIN: Skin is of normal turgor without overt cellulitis or rash. PSYCHIATRIC: Mood is normal. Affect is appropriate. LABORATORY DATA: From my review, white cell count 2200, hemoglobin 12.7, hematocrit 37.8, platelet count was 41. INR 1.49. Serum sodium 139, potassium 3.9, chloride 101, bicarbonate 25, BUN 6, creatinine 0.6, glucose 148. Total bilirubin was up at 3.5. AST was up at 203, ALT within normal limits. Albumin was 3.7, lipase was also elevated at 90. Urinalysis: Small blood, negative for leukocyte esterase and nitrites. No microbiology studies. A CT scan of the abdomen and pelvis has been described as above. ASSESSMENT AND PLAN: 1. Acute gastrointestinal bleed. 2. Possible liver cirrhosis based on clinical characteristics, although not described on the CT abdomen and pelvis. 3. Abdominal pain. 4. Alcohol abuse. 5. Thrombocytopenia. 6. History of hypertension. 7. History of diabetes. 8. Leukopenia. 9. Coagulopathy. 10. Hyperbilirubinemia. 11. Acute pancreatitis. PLAN: We will continue to observe him in the intensive care unit. We will have the GI team, is planning to scope him here this morning. With relative pancytopenia, leukopenia, thrombocytopenia, history of liver cirrhosis, despite the mention of a cirrhotic liver, we will empirically cover him with Rocephin monotherapy. In the meantime, in fact, I will draw blood cultures, especially in light of his leukopenia before we give him the antibiotics. He is hemodynamically stable at this time. We will be getting magnesium and phosphorus levels and repeat those as necessary. I will start him empirically on IV thiamine and folic acid. We will continue serial H and H determinations. We will continue the octreotide drip and continue the proton pump inhibitor drip. We will watch very closely for withdrawal symptoms. I will actually start him on a CIWA protocol just empirically. He will be placed on DVT prophylaxis in the form of SCDs. Flu and pneumonia vaccination will be addressed per protocol. He looks relatively stable now, but certainly, I know that could change at any point. He is critically ill, at very high risk of decompensation including the risk of from gastrointestinal and hematologic system decompensation. At this time, I spent about 35-40 minutes of critical care time without overlap and excluding any procedural time that will be necessary. Tobacco abstinence has been counseled. Thank you very much for the consult, Dr. Wells. We will follow along. We will make further recommendations as picture progresses/becomes clearer. make further recommendations as picture progresses/becomes clearer. JOB# [id number] ALEX/TONY CRISTINA
--- NOTE | 2018-09-23 11:50 | Post Operative Note ---
Pre-op diagnosis: Hematemesis Post-op diagnosis: other (Esophageal varices) Findings: 1. Grade 4 distal esophageal varices - 6 bands placed. No active bleeding or stigmata. 2. Normal stomach except for small amount of adherent blood in cardia. No ulcers. 3. Normal duodenum and bulb. Procedure: EGD with variceal banding Anesthesia: MAC Surgeon: ANN TRAN Estimated blood loss: none Pathology: none Condition: stable Disposition: ICU (Keep on octreotide drip. NPO today. Monitor H/H and transfuse as needed.)
--- NOTE | 2018-09-23 11:56 | Anesthesia Consultation ---
Anesthesia Consult and Med Hx Date of service: 09/23/18 - Airway Anesthetic Teeth Evaluation: Good ROM Head & Neck: Adequate Mental/Hyoid Distance: Adequate Mallampati Class: Class II Intubation Access Assessment: Good - Pulmonary Exam CTA: Yes - Pre-Operative Health Status ASA Pre-Surgery Classification: ASA4, Emergency Proposed Anesthetic Plan: MAC - Pulmonary Hx Asthma: No COPD: No Hx Pneumonia: No - Cardiovascular System Hx Hypertension: Yes (as stated by patient.) Hx Heart Attack/AMI: No Hx Pacemaker: No Hx Internal Defibrillator: No - Central Nervous System Hx Seizures: No Hx Psychiatric Problems: No - Endocrine Hx Renal Disease: No Hx End Stage Renal Disease: No Hx Liver Disease: No - Hematic Hx Anemia: No Hx Sickle Cell Disease: No - Other Systems Hx Cancer: No
--- NOTE | 2018-09-23 11:57 | Anesthesia Day of Surgery ---
Anesthesia Day of Surgery - Day of Surgery Patient Examined: Yes Patient H&P Reviewed: Yes Patient is NPO: Yes
[2018-09-23] MEDS ORDERED: MAGNESIUM SULFATE 4GM/100ML 4 GM/100 ML BAG IV NR (12:00)
[2018-09-23] MEDS: FOLVITE 1 MG in NACL 0.9% 50 ML IV SCH (12:03)
[2018-09-23] MEDS: ROCEPHIN/NS 1 GM/50 ML 1 GM/50 ML BAG IV SCH (12:11)
[2018-09-23] MEDS: MORPHINE IV PRN (12:11)
--- NOTE | 2018-09-23 12:20 | Operative Report ---
PROCEDURE: Upper endoscopy with variceal banding. PREOPERATIVE DIAGNOSIS: Hematemesis. POSTOPERATIVE DIAGNOSIS: Esophageal varices. SEDATION: MAC by Anesthesia. 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 He has thrombocytopenia. He comes in with a 1-day history of hematemesis and left upper quadrant pain. He has no melena. Procedure, indications, risks, and benefits were explained and consent was obtained. The patient was placed in left lateral decubitus position and sedated. Video upper endoscope was passed through the mouth and oropharynx into the descending duodenum and then gradually withdrawn with close inspection of mucosa. FINDINGS: 1. Grade 4 distal esophageal varices with no stigmata or active bleeding noted. Six bands were placed sequentially. 2. Retroflexed examination of gastric cardia showed small amount of fresh adherent blood, but no active bleeding and no source identified. There were no gastric varices or ulcers. 3. Normal stomach otherwise. 4. Normal appearing duodenal bulb and duodenum. The patient tolerated the procedure well without immediate complication. IMPRESSION: 1. Grade 4 esophageal varices - banded x 6. 2. Small amount of fresh adherent blood in gastric cardia with no bleeding source other than likely, the varices or portal gastropathy. 3. Otherwise, normal stomach. 4. Normal duodenal bulb and duodenum. JOB# [id number] HRC/NTS
[2018-09-23 14:33] LABS: Hematocrit 32.5 % (35.5-45.6); Hemoglobin 10.9 gm/dl (11.8-15.2)
[2018-09-23] MEDS: VITAMIN B-1 100 MG in NACL 0.9% 50 ML IV SCH (16:00)
[2018-09-23 16:31] LABS: Hematocrit 34.1 % (35.5-45.6); Hemoglobin 11.4 gm/dl (11.8-15.2)
[2018-09-24] MEDS: PROTONIX 80 MG in NACL 0.9% 100 ML IV SCH (02:58)
[2018-09-24 03:49] LABS: Hematocrit 33.7 % (35.5-45.6); Hemoglobin 11.3 gm/dl (11.8-15.2); Mean Corpuscular HGB Conc 34 % (32-34); Mean Corpuscular Volume 89 fl (84-94)
[2018-09-24 04:02] LABS: Platelet Count 7 K/mm3 (140-440)
[2018-09-24 04:09] LABS: BUN/Creatinine Ratio 16; Blood Urea Nitrogen 8 mg/dL (9-20); Calcium 7.6 mg/dL (8.4-10.2); Hemolysis Index 4
[2018-09-24] MEDS: NACL 0.9% 1000 ML 1,000 ML IV SCH ×3 (04:57→18:57)
[2018-09-24 05:05] LABS: Total Cells Counted 100
[2018-09-24 05:06] LABS: Anisocytosis Few; Platelet Estimate Consistent w Auto
--- NOTE | 2018-09-24 08:54 | Progress Note ---
Assessment and Plan Assessment and plan: Patient 42 -year-old man with a history of cirrhosis comes to the emergency room with complaints of vomiting blood since yesterday, multiple episodes. also had episodes of voting blood last week. He also complained of abdominal pain, LLQ, intermittent every 20 minutes, described as a dull sensation, with intensity of 7/10, no radiation, relieved with pain medications. No NSAIDS use Patient is not quit forthcoming about his medical condition but appears to have extensive ETOH history. * Patient underwent EGD s/p EGD with variceal banding with notation as below * Grade 4 distal esophageal varices - 6 bands placed. No active bleeding or stigmata. * Normal stomach except for small amount of adherent blood in cardiac. No ulcers. * Normal duodenum and bulb. * ICU (Keep on octreotide drip. NPO today. 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 ETOH USE DISORDER Hypomoagesemia Plan Continue supportive care Replace electrolytes GI and Belting Cutter input noted Transfuse Platelet Hematology consult Keep Neutropenic precautions Continue octreotide drip, Monitor H/H, IV fluid Change Protonix to IV BID Extensive counselling about Etoh use, also advised need for [id number] US of liver for HCC screening Consult critical care, IV morphine DVT prophalaxis The high probability of a clinically significant, sudden or life threatening deterioration of the [GI, AMS] system(s) required my full and direct attention, intervention and personal management. The aggregate critical care time was [35] minutes. This time is in addition to time spent performing reported procedures but includes the following: [x] Data Review and interpretation [x] Patient assessment and monitoring of vital signs [x] Documentation [x] Medication orders and management History Interval history: Patient seen and examined, clinically improving but still with some abdominal pain. No nausea or vomiting reported overnight. Hospitalist Physical - Physical exam Narrative exam: General Appearance: Patient lying in bed, no apparent distress HEENT: Normocephalic, atraumatic, pupils equally round and reactive to light, extraocular movement intact, and no sclericterus,. No JVD or thyromegaly or nodule,neck supple, no carotid bruit ,mucous membranes moist, no exudate or erythema, Heart: S1, S2, regular rate and rhythm Lungs: Clear to auscultation bilaterally, breathing comfortable Abdomen: Positive bowel sounds, tender in LLQ improved, non-distended Extremity: No edema, cyanosis, clubbing Skin: No rash, nodules, warm, dry Neuro: Oriented 3, cranial nerves II-12 intact, speech/motor fluent - Constitutional Vitals: Temp Pulse Resp BP Pulse Ox 99.2 F 76 15 122/59 98 09/24/18 07:56 09/24/18 08:00 09/24/18 08:00 09/24/18 08:00 09/24/18 08:00 General appearance: Present: no acute distress Results - Labs CBC & Chem 7: 09/24/18 03:30 09/24/18 03:30 Labs: Laboratory Last Values WBC 1.1 K/mm3 (4.5-11.0) L* 09/24/18 03:30 RBC 3.80 M/mm3 (3.65-5.03) 09/24/18 03:30 Hgb 11.3 gm/dl (11.8-15.2) L 09/24/18 03:30 Hct 33.7 % (35.5-45.6) L 09/24/18 03:30 MCV 89 fl (84-94) 09/24/18 03:30 MCH 30 pg (28-32) 09/24/18 03:30 MCHC 34 % (32-34) 09/24/18 03:30 RDW 17.0 % (13.2-15.2) H 09/24/18 03:30 Plt Count 7 K/mm3 (140-440) L* 09/24/18 03:30 Add Manual Diff Complete 09/24/18 03:30 Total Counted 100 09/24/18 03:30 Seg Neuts % (Manual) 80.0 % (40.0-70.0) H 09/24/18 03:30 0 % 09/24/18 03:30 12.0 % (13.4-35.0) L 09/24/18 03:30 Reactive Lymphs % (Man) 0 % 09/24/18 03:30 5.0 % (0.0-7.3) 09/24/18 03:30 1.0 % (0.0-4.3) 09/24/18 03:30 2.0 % (0.0-1.8) H 09/24/18 03:30 0 % 09/24/18 03:30 0 % 09/24/18 03:30 0 % 09/24/18 03:30 0 % 09/24/18 03:30 Nucleated RBC % Not Reportable 09/24/18 03:30 Seg Neutrophils # Man 0.9 K/mm3 (1.8-7.7) L 09/24/18 03:30 Band Neutrophils # 0.0 K/mm3 09/24/18 03:30 0.1 K/mm3 (1.2-5.4) L 09/24/18 03:30 Abs React Lymphs (Man) 0.0 K/mm3 09/24/18 03:30 0.1 K/mm3 (0.0-0.8) 09/24/18 03:30 0.0 K/mm3 (0.0-0.4) 09/24/18 03:30 0.0 K/mm3 (0.0-0.1) 09/24/18 03:30 0.0 K/mm3 09/24/18 03:30 0.0 K/mm3 09/24/18 03:30 0.0 K/mm3 09/24/18 03:30 Blast Cells # 0.0 K/mm3 09/24/18 03:30 WBC Morphology Not Reportable 09/24/18 03:30 Hypersegmented Neuts Not Reportable 09/24/18 03:30 Hyposegmented Neuts Not Reportable 09/24/18 03:30 Hypogranular Neuts Not Reportable 09/24/18 03:30 Not Reportable 09/24/18 03:30 Not Reportable 09/24/18 03:30 Not Reportable 09/24/18 03:30 Not Reportable 09/24/18 03:30 Not Reportable 09/24/18 03:30 Not Reportable 09/24/18 03:30 Consistent w auto 09/24/18 03:30 Not Reportable 09/24/18 03:30 Plt Clumps, EDTA Not Reportable 09/24/18 03:30 Not Reportable 09/24/18 03:30 Not Reportable 09/24/18 03:30 Not Reportable 09/24/18 03:30 Plt Morphology Comment Not Reportable 09/24/18 03:30 RBC Morphology Not Reportable 09/24/18 03:30 Dimorphic RBCs Not Reportable 09/24/18 03:30 Not Reportable 09/24/18 03:30 Not Reportable 09/24/18 03:30 Not Reportable 09/24/18 03:30 Few 09/24/18 03:30 Not Reportable 09/24/18 03:30 Not Reportable 09/24/18 03:30 Not Reportable 09/24/18 03:30 Not Reportable 09/24/18 03:30 Not Reportable 09/24/18 03:30 Not Reportable 09/24/18 03:30 Not Reportable 09/24/18 03:30 Not Reportable 09/24/18 03:30 Not Reportable 09/24/18 03:30 Not Reportable 09/24/18 03:30 Not Reportable 09/24/18 03:30 Not Reportable 09/24/18 03:30 Not Reportable 09/24/18 03:30 Not Reportable 09/24/18 03:30 Not Reportable 09/24/18 03:30 Acanthocytes (Spur) Not Reportable 09/24/18 03:30 Rouleaux Not Reportable 09/24/18 03:30 Not Reportable 09/24/18 03:30 Not Reportable 09/24/18 03:30 Not Reportable 09/24/18 03:30 Not Reportable 09/24/18 03:30 Hem Pathologist Commnt No 09/24/18 03:30 PT 17.7 Sec. (12.2-14.9) H 09/23/18 02:04 INR 1.49 (0.87-1.13) H 09/23/18 02:04 APTT 36.2 Sec. (24.2-36.6) 09/23/18 02:04 Sodium 136 mmol/L (137-145) L 09/24/18 03:30 Potassium 4.0 mmol/L (3.6-5.0) 09/24/18 03:30 Chloride 100.7 mmol/L (98-107) 09/24/18 03:30 Carbon Dioxide 24 mmol/L (22-30) 09/24/18 03:30 15 mmol/L 09/24/18 03:30 BUN 8 mg/dL (9-20) L 09/24/18 03:30 0.5 mg/dL (0.8-1.5) L 09/24/18 03:30 Estimated GFR > 60 ml/min 09/24/18 03:30 16 % 09/24/18 03:30 Glucose 126 mg/dL (75-100) H 09/24/18 03:30 POC Glucose 92 (70-105) 09/23/18 06:57 Lactic Acid 1.20 mmol/L (0.7-2.0) 09/24/18 03:30 Calcium 7.6 mg/dL (8.4-10.2) L 09/24/18 03:30 Phosphorus 3.10 mg/dL (2.5-4.5) 09/24/18 03:30 Magnesium 1.50 mg/dL (1.7-2.3) L 09/24/18 03:30 3.50 mg/dL (0.1-1.2) H 09/23/18 00:21 AST 203 units/L (5-40) H 09/23/18 00:21 ALT 47 units/L (7-56) 09/23/18 00:21 195 units/L (35-129) H 09/23/18 00:21 81.0 umol/L (25-60) H 09/23/18 10:03 0.20 mg/dL (0.00-1.30) 09/23/18 10:03 9.2 g/dL (6.3-8.2) H 09/23/18 00:21 3.7 g/dL (3.9-5) L 09/23/18 00:21 0.7 % 09/23/18 00:21 90 units/L (13-60) H 09/23/18 00:21 Yellow (Yellow) 09/23/18 01:50 Clear (Clear) 09/23/18 01:50 6.0 (5.0-7.0) 09/23/18 01:50 Ur Specific Payne 1.005 (1.003-1.030) 09/23/18 01:50 <15 mg/dl mg/dL (Negative) 09/23/18 01:50 Neg mg/dL (Negative) 09/23/18 01:50 Neg mg/dL (Negative) 09/23/18 01:50 Sm (Negative) 09/23/18 01:50 Neg (Negative) 09/23/18 01:50 Neg (Negative) 09/23/18 01:50 < 2.0 mg/dL (<2.0) 09/23/18 01:50 Ur Leukocyte Esterase Neg (Negative) 09/23/18 01:50 < 1.0 /HPF (0.0-6.0) 09/23/18 01:50 < 1.0 /HPF (0.0-6.0) 09/23/18 01:50 Few /HPF 09/23/18 01:50 Blood Type O POSITIVE 09/23/18 02:05 Antibody Screen Negative 09/23/18 02:05 Active Medications - Current Medications Current Medications: Generic Name Dose Route Start Last Admin Trade Name Freq PRN Reason Stop Dose Admin Haloperidol Lactate 5 mg 09/23/18 09:46 Haldol IV 09/26/18 09:45 Q4H PRN Unrespon. to mult. doses BZD's Octreotide Acetate 500 mcg/ 101 mls @ 5.05 mls/hr 09/23/18 03:00 09/23/18 04: 50 Sodium Chloride IV 25 mcg/hr TITR JORDAN 5.05 mls/hr Administration Protocol 25 MCG/HR Sodium Chloride 1,000 mls @ 150 mls/hr 09/23/18 06:00 09/24/18 04:57 Nacl 0.9% 1000 Ml IV 150 mls/hr DIRECT JORDAN Administration Folic Acid 1 mg/ Sodium 50.2 mls @ 200.8 mls/hr 09/23/18 11:00 09/23/18 12:03 Chloride IV 200.8 mls/hr QDAY JORDAN Administration Thiamine HCl 100 mg/ Sodium 51 mls @ 100 mls/hr 09/23/18 12:00 09/23/18 16:00 Chloride IV 100 mls/hr QDAY JORDAN Administration Ceftriaxone Sodium 1 gm in 50 mls @ 100 mls/hr 09/23/18 11:00 09/23/18 12:11 Rocephin/Ns 1 Gm/50 Ml IV 100 mls/hr Q24H JORDAN Administration Sodium Chloride 500 mls @ 0 mls/hr 09/24/18 09:00 Nacl 0.9% 500 Ml IV 09/24/18 09:01 ONCE ONE As Directed Lorazepam 2 mg 09/23/18 09:46 09/24/18 00:55 Ativan IV 2 mg Q1HR PRN Administration CIWA-Ar 8-15 Lorazepam 4 mg 09/23/18 09:46 Ativan IV Q1HR PRN CIWA-Ar 16-25 Morphine Sulfate 2 mg 09/23/18 05:09 09/23/18 12:11 Morphine IV 2 mg Q4H PRN Administration Pain, Moderate (4-6) Ondansetron HCl 4 mg 09/23/18 05:09 Zofran IV Q4H PRN Nausea And Vomiting Pantoprazole Sodium 40 mg 09/24/18 10:00 Protonix IV BID JORDAN Sodium Chloride 10 ml 09/23/18 10:00 09/23/18 22:00 Sodium Chloride Flush Syringe 10 Ml IV 10 ml BID JORDAN Administration Sodium Chloride 10 ml 09/23/18 05:09 Sodium Chloride Flush Syringe 10 Ml IV PRN PRN LINE FLUSH
[2018-09-24] MEDS ORDERED: NACL 0.9% 500 ML 500 ML IV ONE (09:00)
[2018-09-24] MEDS: PROTONIX IV SCH ×2 (09:24→21:50)
[2018-09-24] MEDS ORDERED: MAGNESIUM SULFATE 1 GM in NACL 0.9% 50 ML IV ONE (09:25)
[2018-09-24] MEDS: SODIUM CHLORIDE FLUSH SYRINGE 10 ML IV SCH ×2 (10:17→21:50)
[2018-09-24] MEDS: MORPHINE IV PRN ×2 (10:22→17:17)
[2018-09-24] MEDS: FOLVITE 1 MG in NACL 0.9% 50 ML IV SCH (11:52)
[2018-09-24] MEDS: ROCEPHIN/NS 1 GM/50 ML 1 GM/50 ML BAG IV SCH (12:19)
[2018-09-24] MEDS: VITAMIN B-1 100 MG in NACL 0.9% 50 ML IV SCH (13:25)
--- NOTE | 2018-09-24 14:30 | Progress Note ---
Assessment and Plan 1. Variceal bleed - s/p banding. H/H stable, no melena. Continue octreotide drip. - clear liquids - transfuse plt > 40K - monitor H/H and transfuse as needed 3. EtOH abuse - with likely cirrhosis. - discussed abstinence and prognosis. 4. Abnormal LFTs - due to EtOH most likely. May consider U/S. Subjective Date of service: 09/24/18 Interval history: Patient resting comfortably in bed. Complains of mild epigastric and substernal discomfort. No evidence of ongoing GI bleeding. Objective - Constitutional Vitals: Vital Signs - 12hr 09/24/18 09/24/18 09/24/18 02:30 02:40 02:50 Temperature Pulse Rate 76 77 69 Respiratory 14 13 15 Rate Blood Pressure 135/80 135/80 135/80 O2 Sat by Pulse 98 98 99 Oximetry 09/24/18 09/24/18 09/24/18 03:00 03:10 03:20 Temperature Pulse Rate 79 72 76 Respiratory 16 15 15 Rate Blood Pressure 135/80 116/56 135/80 O2 Sat by Pulse 96 98 97 Oximetry 09/24/18 09/24/18 09/24/18 03:30 03:40 03:50 Temperature Pulse Rate 91 H 73 73 Respiratory 15 14 14 Rate Blood Pressure 135/80 125/71 125/71 O2 Sat by Pulse 98 96 97 Oximetry 09/24/18 09/24/18 09/24/18 03:53 04:00 04:10 Temperature 98.8 F Pulse Rate 76 78 Respiratory 18 17 Rate Blood Pressure 137/78 137/78 O2 Sat by Pulse 98 98 Oximetry 09/24/18 09/24/18 09/24/18 04:20 04:30 04:40 Temperature Pulse Rate 75 78 71 Respiratory 16 16 15 Rate Blood Pressure 137/78 112/57 112/57 O2 Sat by Pulse 98 96 97 Oximetry 09/24/18 09/24/18 09/24/18 04:50 05:00 05:10 Temperature Pulse Rate 77 90 83 Respiratory 13 14 20 Rate Blood Pressure 112/57 124/87 124/87 O2 Sat by Pulse 98 99 98 Oximetry 09/24/18 09/24/18 09/24/18 05:20 05:30 05:40 Temperature Pulse Rate 70 72 79 Respiratory 17 16 15 Rate Blood Pressure 124/87 117/58 117/58 O2 Sat by Pulse 98 97 99 Oximetry 09/24/18 09/24/18 09/24/18 05:50 06:00 06:10 Temperature Pulse Rate 79 86 74 Respiratory 15 20 16 Rate Blood Pressure 117/58 121/87 121/87 O2 Sat by Pulse 98 98 97 Oximetry 09/24/18 09/24/18 09/24/18 06:20 06:30 06:40 Temperature Pulse Rate 79 78 75 Respiratory 13 14 15 Rate Blood Pressure 121/87 124/79 124/79 O2 Sat by Pulse 97 97 98 Oximetry 09/24/18 09/24/18 09/24/18 06:50 07:00 07:10 Temperature Pulse Rate 77 90 73 Respiratory 14 13 13 Rate Blood Pressure 124/79 126/62 126/62 O2 Sat by Pulse 97 97 97 Oximetry 09/24/18 09/24/18 09/24/18 07:16 07:20 07:30 Temperature Pulse Rate 84 81 Respiratory 16 16 14 Rate Blood Pressure 126/62 126/62 O2 Sat by Pulse 98 98 97 Oximetry 09/24/18 09/24/18 09/24/18 07:40 07:50 07:56 Temperature 99.2 F Pulse Rate 74 68 Respiratory 14 17 Rate Blood Pressure 117/60 117/60 O2 Sat by Pulse 97 98 Oximetry 09/24/18 09/24/18 09/24/18 08:00 08:10 08:20 Temperature Pulse Rate 76 72 76 Respiratory 15 15 18 Rate Blood Pressure 122/59 122/59 122/59 O2 Sat by Pulse 98 98 97 Oximetry 09/24/18 09/24/18 09/24/18 08:30 08:40 08:50 Temperature Pulse Rate 88 70 69 Respiratory 17 16 13 Rate Blood Pressure 131/62 131/62 131/62 O2 Sat by Pulse 96 98 98 Oximetry 09/24/18 09/24/18 09/24/18 09:00 09:08 09:10 Temperature Pulse Rate 73 87 Respiratory 16 17 Rate Blood Pressure 122/67 122/67 O2 Sat by Pulse 97 98 97 Oximetry 09/24/18 09/24/18 09/24/18 09:20 09:30 09:40 Temperature Pulse Rate 76 81 73 Respiratory 16 17 14 Rate Blood Pressure 122/67 135/79 135/79 O2 Sat by Pulse 98 100 98 Oximetry 09/24/18 09/24/18 09/24/18 09:50 10:00 10:10 Temperature Pulse Rate 72 76 70 Respiratory 14 13 16 Rate Blood Pressure 135/79 110/59 110/59 O2 Sat by Pulse 98 98 99 Oximetry 09/24/18 09/24/18 09/24/18 10:20 10:30 10:40 Temperature Pulse Rate 75 78 75 Respiratory 13 12 14 Rate Blood Pressure 110/59 128/72 128/72 O2 Sat by Pulse 98 94 98 Oximetry 09/24/18 09/24/18 09/24/18 10:50 11:00 11:10 Temperature Pulse Rate 79 76 76 Respiratory 13 11 L 11 L Rate Blood Pressure 128/72 132/74 132/74 O2 Sat by Pulse 98 94 97 Oximetry 09/24/18 09/24/18 09/24/18 11:20 11:30 11:40 Temperature Pulse Rate 76 78 76 Respiratory 12 15 12 Rate Blood Pressure 132/74 131/71 131/71 O2 Sat by Pulse 97 97 97 Oximetry 09/24/18 09/24/18 09/24/18 11:50 12:00 12:10 Temperature 98.6 F Pulse Rate 75 83 76 Respiratory 12 10 L 8 L Rate Blood Pressure 131/71 128/82 128/82 O2 Sat by Pulse 98 98 97 Oximetry 09/24/18 09/24/18 09/24/18 12:20 12:30 12:40 Temperature Pulse Rate 70 68 67 Respiratory 11 L 11 L 12 Rate Blood Pressure 128/82 128/82 112/50 O2 Sat by Pulse 98 99 99 Oximetry 09/24/18 09/24/18 09/24/18 12:50 13:00 13:10 Temperature Pulse Rate 70 73 71 Respiratory 10 L 10 L 14 Rate Blood Pressure 112/50 120/60 112/50 O2 Sat by Pulse 97 96 97 Oximetry 09/24/18 09/24/18 09/24/18 13:20 13:30 13:40 Temperature Pulse Rate 84 73 87 Respiratory 15 12 21 Rate Blood Pressure 112/50 130/70 130/70 O2 Sat by Pulse 99 97 100 Oximetry 09/24/18 09/24/18 13:50 14:02 Temperature Pulse Rate 75 73 Respiratory 14 13 Rate Blood Pressure 130/70 O2 Sat by Pulse 99 98 Oximetry General appearance: Present: no acute distress - EENT Eyes: PERRL, EOM intact, scleral icterus ENT: hearing intact - Respiratory Respiratory effort: normal - Gastrointestinal General gastrointestinal: Present: soft, non-tender - Labs CBC & Chem 7: 09/24/18 03:30 09/24/18 03:30 Labs: Abnormal lab results 09/23/18 09/23/18 09/23/18 Range/Units 14:00 14:00 15:59 WBC (4.5-11.0) K/mm3 Hgb 10.9 L 11.4 L (11.8-15.2) gm/dl Hct 32.5 L 34.1 L (35.5-45.6) % RDW (13.2-15.2) % Plt Count (140-440) K/mm3 Seg Neuts % (Manual) (40.0-70.0) % Lymphocytes % (Manual) (13.4-35.0) % Basophils % (Manual) (0.0-1.8) % Seg Neutrophils # Man (1.8-7.7) K/mm3 Lymphocytes # (Manual) (1.2-5.4) K/mm3 Sodium (137-145) mmol/L BUN (9-20) mg/dL Creatinine (0.8-1.5) mg/dL Glucose (75-100) mg/dL Lactic Acid 2.50 H* (0.7-2.0) mmol/L Calcium (8.4-10.2) mg/dL Magnesium (1.7-2.3) mg/dL 09/24/18 09/24/18 09/24/18 Range/Units 03:30 03:30 03:30 WBC 1.1 L* (4.5-11.0) K/mm3 Hgb 11.3 L (11.8-15.2) gm/dl Hct 33.7 L (35.5-45.6) % RDW 17.0 H (13.2-15.2) % Plt Count 7 L* (140-440) K/mm3 Seg Neuts % (Manual) 80.0 H (40.0-70.0) % Lymphocytes % (Manual) 12.0 L (13.4-35.0) % Basophils % (Manual) 2.0 H (0.0-1.8) % Seg Neutrophils # Man 0.9 L (1.8-7.7) K/mm3 Lymphocytes # (Manual) 0.1 L (1.2-5.4) K/mm3 Sodium 136 L (137-145) mmol/L BUN 8 L (9-20) mg/dL Creatinine 0.5 L (0.8-1.5) mg/dL Glucose 126 H (75-100) mg/dL Lactic Acid (0.7-2.0) mmol/L Calcium 7.6 L (8.4-10.2) mg/dL Magnesium 1.50 L (1.7-2.3) mg/dL Medications & Allergies - Medications Allergies/Adverse Reactions: Allergies No Known Allergies Allergy (Verified 12/26/14 12:21) Home Medications: Home Medications Medication Instructions Recorded Confirmed Last Taken Type No Known Home Medications [No 09/23/18 09/23/18 Unknown History Reported Home Medications] Active Medications: Generic Name Dose Route Start Last Admin Trade Name Freq PRN Reason Stop Dose Admin Haloperidol Lactate 5 mg 09/23/18 09:46 Haldol IV 09/26/18 09:45 Q4H PRN Unrespon. to mult. doses BZD's Octreotide Acetate 500 mcg/ 101 mls @ 5.05 mls/hr 09/23/18 03:00 09/23/18 04:50 Sodium Chloride IV 25 mcg/hr TITR JORDAN 5.05 mls/hr Administration Protocol 25 MCG/HR Sodium Chloride 1,000 mls @ 150 mls/hr 09/23/18 06:00 09/24/18 11:52 Nacl 0.9% 1000 Ml IV 150 mls/hr DIRECT JORDAN Administration Folic Acid 1 mg/ Sodium 50.2 mls @ 200.8 mls/hr 09/23/18 11:00 09/24/18 11:52 Chloride IV 200.8 mls/hr QDAY JORDAN Administration Thiamine HCl 100 mg/ Sodium 51 mls @ 100 mls/hr 09/23/18 12:00 09/24/18 13:25 Chloride IV 100 mls/hr QDAY JORDAN Administration Ceftriaxone Sodium 1 gm in 50 mls @ 100 mls/hr 09/23/18 11:00 09/24/18 12:19 Rocephin/Ns 1 Gm/50 Ml IV 100 mls/hr Q24H JORDAN Administration Lorazepam 2 mg 09/23/18 09:46 09/24/18 00:55 Ativan IV 2 mg Q1HR PRN Administration CIWA-Ar 8-15 Lorazepam 4 mg 09/23/18 09:46 Ativan IV Q1HR PRN CIWA-Ar 16-25 Morphine Sulfate 2 mg 09/23/18 05:09 09/24/18 10:22 Morphine IV 2 mg Q4H PRN Administration Pain, Moderate (4-6) Ondansetron HCl 4 mg 09/23/18 05:09 Zofran IV Q4H PRN Nausea And Vomiting Pantoprazole Sodium 40 mg 09/24/18 10:00 09/24/18 09:24 Protonix IV Not Given BID JORDAN Sodium Chloride 10 ml 09/23/18 10:00 09/24/18 10:17 Sodium Chloride Flush Syringe 10 Ml IV 10 ml BID JORDAN Administration Sodium Chloride 10 ml 09/23/18 05:09 Sodium Chloride Flush Syringe 10 Ml IV PRN PRN LINE FLUSH
--- NOTE | 2018-09-24 15:14 | Progress Note ---
Assessment and Plan Acute gastrointestinal bleed (Suspect Variceal) Likely liver cirrhosis Abdominal pain. Alcohol abuse. Thrombocytopenia. History of hypertension. History of diabetes. Leukopenia. Coagulopathy. Hyperbilirubinemia. Acute pancreatitis. - continue PPI therapy - continue octreeotide - to begin clear liquids - contine CIWA protocol - watch closely for bleeding as still with significant coagulopathy - ID consulted re: leucopenia - platel;et transfusion today for platelet count of 7k - neutropenic precations - continue other cafe per attending / other consultants ... re-evaluate in am & prn I have spent ( >35 ) minutes with the patient w/ >50% of the time spent counseling and/or coordinating care for this patient. Counseling topics and/or how time was spent coordinating patient's care is outlined in the impression and plan above. Subjective Date of service: 09/24/18 Principal diagnosis: Ac GI Bleed; Cirrhosis ; Ac pancreatitis; Pancytopenia; HTN; DM II Interval history: Patient is seen today for: Acute GI Bleed; liver cirrhosis ; Acute pancreatitis; Abdominal pain; Alcohol abuse; Thrombocytopenia; HTN; DM II; Leukopenia; Coagulopathy; Hyperbilirubinemia Seen and examined at bedside; 24hour events reviewed; nursing and respiratory care staff consulted; no adverse overnight events reported to me; resting peacefully in bed; EGD revealed stigmata of variceal bleed; no recurrence; denies acute chest pains or palpitations Objective Vital Signs - 12hr 09/24/18 09/24/18 09/24/18 03:20 03:30 03:40 Temperature Pulse Rate 76 91 H 73 Respiratory 15 15 14 Rate Blood Pressure 135/80 135/80 125/71 O2 Sat by Pulse 97 98 96 Oximetry 09/24/18 09/24/18 09/24/18 03:50 03:53 04:00 Temperature 98.8 F Pulse Rate 73 76 Respiratory 14 18 Rate Blood Pressure 125/71 137/78 O2 Sat by Pulse 97 98 Oximetry 09/24/18 09/24/18 09/24/18 04:10 04:20 04:30 Temperature Pulse Rate 78 75 78 Respiratory 17 16 16 Rate Blood Pressure 137/78 137/78 112/57 O2 Sat by Pulse 98 98 96 Oximetry 09/24/18 09/24/18 09/24/18 04:40 04:50 05:00 Temperature Pulse Rate 71 77 90 Respiratory 15 13 14 Rate Blood Pressure 112/57 112/57 124/87 O2 Sat by Pulse 97 98 99 Oximetry 09/24/18 09/24/18 09/24/18 05:10 05:20 05:30 Temperature Pulse Rate 83 70 72 Respiratory 20 17 16 Rate Blood Pressure 124/87 124/87 117/58 O2 Sat by Pulse 98 98 97 Oximetry 09/24/18 09/24/18 09/24/18 05:40 05:50 06:00 Temperature Pulse Rate 79 79 86 Respiratory 15 15 20 Rate Blood Pressure 117/58 117/58 121/87 O2 Sat by Pulse 99 98 98 Oximetry 09/24/18 09/24/18 09/24/18 06:10 06:20 06:30 Temperature Pulse Rate 74 79 78 Respiratory 16 13 14 Rate Blood Pressure 121/87 121/87 124/79 O2 Sat by Pulse 97 97 97 Oximetry 09/24/18 09/24/18 09/24/18 06:40 06:50 07:00 Temperature Pulse Rate 75 77 90 Respiratory 15 14 13 Rate Blood Pressure 124/79 124/79 126/62 O2 Sat by Pulse 98 97 97 Oximetry 09/24/18 09/24/18 09/24/18 07:10 07:16 07:20 Temperature Pulse Rate 73 84 Respiratory 13 16 16 Rate Blood Pressure 126/62 126/62 O2 Sat by Pulse 97 98 98 Oximetry 09/24/18 09/24/18 09/24/18 07:30 07:40 07:50 Temperature Pulse Rate 81 74 68 Respiratory 14 14 17 Rate Blood Pressure 126/62 117/60 117/60 O2 Sat by Pulse 97 97 98 Oximetry 09/24/18 09/24/18 09/24/18 07:56 08:00 08:10 Temperature 99.2 F Pulse Rate 76 72 Respiratory 15 15 Rate Blood Pressure 122/59 122/59 O2 Sat by Pulse 98 98 Oximetry 09/24/18 09/24/18 09/24/18 08:20 08:30 08:40 Temperature Pulse Rate 76 88 70 Respiratory 18 17 16 Rate Blood Pressure 122/59 131/62 131/62 O2 Sat by Pulse 97 96 98 Oximetry 09/24/18 09/24/18 09/24/18 08:50 09:00 09:08 Temperature Pulse Rate 69 73 Respiratory 13 16 Rate Blood Pressure 131/62 122/67 O2 Sat by Pulse 98 97 98 Oximetry 09/24/18 09/24/18 09/24/18 09:10 09:20 09:30 Temperature Pulse Rate 87 76 81 Respiratory 17 16 17 Rate Blood Pressure 122/67 122/67 135/79 O2 Sat by Pulse 97 98 100 Oximetry 09/24/18 09/24/18 09/24/18 09:40 09:50 10:00 Temperature Pulse Rate 73 72 76 Respiratory 14 14 13 Rate Blood Pressure 135/79 135/79 110/59 O2 Sat by Pulse 98 98 98 Oximetry 09/24/18 09/24/18 09/24/18 10:10 10:20 10:30 Temperature Pulse Rate 70 75 78 Respiratory 16 13 12 Rate Blood Pressure 110/59 110/59 128/72 O2 Sat by Pulse 99 98 94 Oximetry 09/24/18 09/24/18 09/24/18 10:40 10:50 11:00 Temperature Pulse Rate 75 79 76 Respiratory 14 13 11 L Rate Blood Pressure 128/72 128/72 132/74 O2 Sat by Pulse 98 98 94 Oximetry 09/24/18 09/24/18 09/24/18 11:10 11:20 11:30 Temperature Pulse Rate 76 76 78 Respiratory 11 L 12 15 Rate Blood Pressure 132/74 132/74 131/71 O2 Sat by Pulse 97 97 97 Oximetry 09/24/18 09/24/18 09/24/18 11:40 11:50 12:00 Temperature 98.6 F Pulse Rate 76 75 83 Respiratory 12 12 10 L Rate Blood Pressure 131/71 131/71 128/82 O2 Sat by Pulse 97 98 98 Oximetry 09/24/18 09/24/18 09/24/18 12:10 12:20 12:30 Temperature Pulse Rate 76 70 68 Respiratory 8 L 11 L 11 L Rate Blood Pressure 128/82 128/82 128/82 O2 Sat by Pulse 97 98 99 Oximetry 09/24/18 09/24/18 09/24/18 12:40 12:50 13:00 Temperature Pulse Rate 67 70 73 Respiratory 12 10 L 10 L Rate Blood Pressure 112/50 112/50 120/60 O2 Sat by Pulse 99 97 96 Oximetry 09/24/18 09/24/18 09/24/18 13:10 13:20 13:30 Temperature Pulse Rate 71 84 73 Respiratory 14 15 12 Rate Blood Pressure 112/50 112/50 130/70 O2 Sat by Pulse 97 99 97 Oximetry 09/24/18 09/24/18 09/24/18 13:40 13:50 14:02 Temperature Pulse Rate 87 75 73 Respiratory 21 14 13 Rate Blood Pressure 130/70 130/70 O2 Sat by Pulse 100 99 98 Oximetry 09/24/18 09/24/18 09/24/18 14:11 14:21 14:31 Temperature Pulse Rate 68 68 81 Respiratory 12 12 11 L Rate Blood Pressure 135/78 138/77 O2 Sat by Pulse 98 98 99 Oximetry 09/24/18 09/24/18 09/24/18 14:41 14:46 14:51 Temperature 98.5 F Pulse Rate 74 71 Respiratory 12 12 Rate Blood Pressure 138/77 138/77 O2 Sat by Pulse 97 98 Oximetry 09/24/18 15:00 Temperature Pulse Rate 68 Respiratory 13 Rate Blood Pressure 116/61 O2 Sat by Pulse 97 Oximetry Constitutional: no acute distress, other (middle aged male, normocephalic and atraumatic wit normal respiratory effort at rest) Eyes: icteric ENT: oropharynx moist, other (mallampati 2) Neck: supple, no lymphadenopathy, no JVD Effort: mildly labored Ascultation: Bilateral: clear Percussion: Bilateral: not dull Cardiovascular: regular rate and rhythm Gastrointestinal: normoactive bowel sounds, soft, tender (mild epigastric), non- distended Integumentary: normal Extremities: no cyanosis, no edema, pink and warm, pulses normal, no ischemia or petechiae Neurologic: normal mental status, non-focal exam, pupils equal and round, motor strength normal and Psychiatric: mood appropriate, affect normal CBC and BMP: 09/27/18 09:56 09/27/18 04:55 ABG, PT/INR, D-dimer: PT/INR, D-dimer PT 17.7 Sec. (12.2-14.9) H 09/23/18 02:04 INR 1.49 (0.87-1.13) H 09/23/18 02:04 Abnormal lab findings: Abnormal Labs 09/23/18 09/23/18 09/23/18 00:21 00:21 02:04 WBC 2.2 L Hgb Hct RDW 17.1 H Plt Count 41 L Seg Neuts % (Manual) Lymphocytes % (Manual) Basophils % (Manual) Seg Neutrophils # Man 1.3 L Lymphocytes # (Manual) 0.7 L PT 17.7 H INR 1.49 H Sodium BUN 6 L Creatinine 0.6 L Glucose 148 H Lactic Acid Calcium Magnesium Total Bilirubin 3.50 H AST 203 H Alkaline Phosphatase 195 H Ammonia Total Protein 9.2 H Albumin 3.7 L Lipase 90 H 09/23/18 09/23/18 09/23/18 05:36 09:20 10:03 WBC Hgb 11.4 L 11.3 L Hct 34.0 L 34.0 L RDW Plt Count Seg Neuts % (Manual) Lymphocytes % (Manual) Basophils % (Manual) Seg Neutrophils # Man Lymphocytes # (Manual) PT INR Sodium BUN Creatinine Glucose Lactic Acid Calcium Magnesium Total Bilirubin AST Alkaline Phosphatase Ammonia 81.0 H Total Protein Albumin Lipase 09/23/18 09/23/18 09/23/18 10:03 10:03 14:00 WBC Hgb 10.9 L Hct 32.5 L RDW Plt Count Seg Neuts % (Manual) Lymphocytes % (Manual) Basophils % (Manual) Seg Neutrophils # Man Lymphocytes # (Manual) PT INR Sodium BUN Creatinine Glucose Lactic Acid 2.60 H* Calcium Magnesium 1.30 L Total Bilirubin AST Alkaline Phosphatase Ammonia Total Protein Albumin Lipase 09/23/18 09/23/18 09/24/18 14:00 15:59 03:30 WBC 1.1 L* Hgb 11.4 L 11.3 L Hct 34.1 L 33.7 L RDW 17.0 H Plt Count 7 L* Seg Neuts % (Manual) 80.0 H Lymphocytes % (Manual) 12.0 L Basophils % (Manual) 2.0 H Seg Neutrophils # Man 0.9 L Lymphocytes # (Manual) 0.1 L PT INR Sodium BUN Creatinine Glucose Lactic Acid 2.50 H* Calcium Magnesium Total Bilirubin AST Alkaline Phosphatase Ammonia Total Protein Albumin Lipase 09/24/18 09/24/18 03:30 03:30 WBC Hgb Hct RDW Plt Count Seg Neuts % (Manual) Lymphocytes % (Manual) Basophils % (Manual) Seg Neutrophils # Man Lymphocytes # (Manual) PT INR Sodium 136 L BUN 8 L Creatinine 0.5 L Glucose 126 H Lactic Acid Calcium 7.6 L Magnesium 1.50 L Total Bilirubin AST Alkaline Phosphatase Ammonia Total Protein Albumin Lipase Allied health notes reviewed: nursing
--- NOTE | 2018-09-24 15:54 | Consultation ---
History of Present Illness - Reason for Consult Consult date: 09/24/18 Leucopenia, lactic acidosis Requesting physician: JANINE MELÉNDEZ - History of Present Illness The patient is a 42-year-old male with alcohol abuse, cirrhosis presented to the emergency room on 09/23/2018 with complaints of hematemesis. He underwent an EGD which showed grade 4 distal esophageal varices which were banded. He is currently in ICU. Infectious diseases was consulted due to leukopenia and lactic acidosis. Currently, he denies any fevers or chills. Has remained afebrile. Complains of upper abdominal pain. Admits to significant, ongoing alcohol use. Denies previously been tested for HIV. Review of Systems: General: no fevers, chills or rigors HEENT: no new visual disturbance Respiratory: No cough, sputum, hemoptysis or shortness of breath Cardiovascular: No chest pain, syncope Gastrointestinal: No nausea, vomiting or diarrhea Genitourinary: No dysuria or hematuria Musculoskeletal: No new or worsening neck pain or back pain Neurologic: No headaches, seizures Hematologic: No easy bruising or active bleeding Endocrine: No night sweats or acute weight loss Skin: negative for rash, jaundice Psychiatric: No suicidal or homicidal ideation Past History Past Medical History: hypertension, liver disease, other (alcohol abuse) Past Surgical History: No surgical history Social history: alcohol abuse. denies: smoking Family history: no significant family history Medications and Allergies Allergies Allergy/AdvReac Type Severity Reaction Status Date / Time No Known Allergies Allergy Verified 12/26/14 12:21 Home Medications Medication Instructions Recorded Confirmed Last Taken Type No Known Home Medications [No 09/23/18 09/23/18 Unknown History Reported Home Medications] Active Meds: Active Medications Haloperidol Lactate (Haldol) 5 mg IV Q4H PRN PRN Reason: Unrespon. to mult. doses BZD's Stop: 09/26/18 09:45 Octreotide Acetate 500 mcg/ (Sodium Chloride) 101 mls @ 5.05 mls/hr IV TITR JORDAN; Protocol Last Admin: 09/23/18 04:50 Dose: 25 mcg/hr, 5.05 mls/hr Documented by: Sodium Chloride (Nacl 0.9% 1000 Ml) 1,000 mls @ 150 mls/hr IV DIRECT JORDAN Last Admin: 09/24/18 11:52 Dose: 150 mls/hr Documented by: Folic Acid 1 mg/ Sodium (Chloride) 50.2 mls @ 200.8 mls/hr IV QDAY [facility] Last Admin: 09/24/18 11:52 Dose: 200.8 mls/hr Documented by: Thiamine HCl 100 mg/ Sodium (Chloride) 51 mls @ 100 mls/hr IV QDAY [facility] Last Admin: 09/24/18 13:25 Dose: 100 mls/hr Documented by: Ceftriaxone Sodium (Rocephin/Ns 1 Gm/50 Ml) 1 gm in 50 mls @ 100 mls/hr IV Q24H [facility] Last Admin: 09/24/18 12:19 Dose: 100 mls/hr Documented by: Lorazepam (Ativan) 2 mg IV Q1HR PRN PRN Reason: Ninfa 8-15 Last Admin: 09/24/18 00:55 Dose: 2 mg Documented by: Lorazepam (Ativan) 4 mg IV Q1HR PRN PRN Reason: iNnfa 16- Morphine Sulfate (Morphine) 2 mg IV Q4H PRN PRN Reason: Pain, Moderate (4-6) Last Admin: 09/24/18 10:22 Dose: 2 mg Documented by: Ondansetron HCl (Zofran) 4 mg IV Q4H PRN PRN Reason: Nausea And Vomiting Pantoprazole Sodium (Protonix) 40 mg IV BID [facility] Last Admin: 09/24/18 09:24 Dose: Not Given Documented by: Sodium Chloride (Sodium Chloride Flush Syringe 10 Ml) 10 ml IV BID [facility] Last Admin: 09/24/18 10:17 Dose: 10 ml Documented by: Sodium Chloride (Sodium Chloride Flush Syringe 10 Ml) 10 ml IV PRN PRN PRN Reason: LINE FLUSH Physical Examination - Physical Exam Narrative exam: Physical Exam: Constitutional: Alert, cooperative. No acute distress Head, Ears, Nose: Normocephalic, atraumatic. External ears, nose normal Eyes: Conjunctivae/corneas clear. No icterus. No ptosis. Neck: Supple, no meningeal signs Cardiovascular: S1, S2 normal. Respiratory: Good air entry, clear to auscultation bilaterally GI: Soft, mild epigastric tenderness; bowel sounds normal. No peritoneal signs Musculoskeletal: No pedal edema, no cyanosis. Skin: No rash or abscess Hem/Lymphatic: No palpable cervical or supraclavicular nodes. No lymphangitis Psych: Mood ok. Affect normal Neurological: Awake, alert, oriented. No gross abnormality - Constitutional Vitals: Vital Signs Temp Pulse Resp BP Pulse Ox 98.5 F 68 13 116/61 97 09/24/18 14:46 09/24/18 15:00 09/24/18 15:00 09/24/18 15:00 09/24/18 15:00 Temperature -Last 24 Hours Temperature 98.5 F Temperature 98.6 F Temperature 99.2 F Temperature 98.8 F Temperature 98.7 F Temperature 98.6 F Temperature 97.9 F Results - Labs CBC & Chem 7: 09/24/18 03:30 09/24/18 03:30 Labs: Abnormal lab results 09/23/18 09/24/18 09/24/18 Range/Units 15:59 03:30 03:30 WBC 1.1 L* (4.5-11.0) K/mm3 Hgb 11.4 L 11.3 L (11.8-15.2) gm/dl Hct 34.1 L 33.7 L (35.5-45.6) % RDW 17.0 H (13.2-15.2) % Plt Count 7 L* (140-440) K/mm3 Seg Neuts % (Manual) 80.0 H (40.0-70.0) % Lymphocytes % (Manual) 12.0 L (13.4-35.0) % Basophils % (Manual) 2.0 H (0.0-1.8) % Seg Neutrophils # Man 0.9 L (1.8-7.7) K/mm3 Lymphocytes # (Manual) 0.1 L (1.2-5.4) K/mm3 Sodium 136 L (137-145) mmol/L BUN 8 L (9-20) mg/dL Creatinine 0.5 L (0.8-1.5) mg/dL Glucose 126 H (75-100) mg/dL Calcium 7.6 L (8.4-10.2) mg/dL Magnesium (1.7-2.3) mg/dL 09/24/18 Range/Units 03:30 WBC (4.5-11.0) K/mm3 Hgb (11.8-15.2) gm/dl Hct (35.5-45.6) % RDW (13.2-15.2) % Plt Count (140-440) K/mm3 Seg Neuts % (Manual) (40.0-70.0) % Lymphocytes % (Manual) (13.4-35.0) % Basophils % (Manual) (0.0-1.8) % Seg Neutrophils # Man (1.8-7.7) K/mm3 Lymphocytes # (Manual) (1.2-5.4) K/mm3 Sodium (137-145) mmol/L BUN (9-20) mg/dL Creatinine (0.8-1.5) mg/dL Glucose (75-100) mg/dL Calcium (8.4-10.2) mg/dL Magnesium 1.50 L (1.7-2.3) mg/dL - Imaging and Cardiology CT scan - abdomen: report reviewed, image reviewed (Splenomegaly) Assessment and Plan Cultures: 09/23/2018 blood culture: No growth in 24 hours A/P: 42-year-old male with alcohol abuse, cirrhosis presented to the emergency room on 09/23/2018 with complaints of hematemesis. also with: 1) Pancytopenia: Anemia is likely due to acute blood loss. Patient has significant thrombocytopenia as well as leukopenia. His appears chronic and was noted on his labs during his previous hospitalization in March 2017. Suspected secondary to alcohol abuse and cirrhosis, hypersplenism/splenomegaly. We will also check HIV, consent obtained from patient. 2) Lactic acidosis: Now resolved. 3) Acute blood loss anemia, esophageal varices: There is some data with benefit from ceftriaxone for acute variceal bleed. Recs: HIV test ordered IV ceftriaxone 1 g daily for 5 days D/W Dr. Arnaldo Sheikh MD, FACP [facility] C: [phone] O: [phone] F: [phone]
[2018-09-24] MEDS: SandoSTATIN 500 MCG in NACL 0.9% 100 ML IV SCH (20:05)
[2018-09-25] MEDS: NACL 0.9% 1000 ML 1,000 ML IV SCH ×4 (01:19→21:56)
[2018-09-25 05:08] LABS: Hematocrit 32.5 % (35.5-45.6); Mean Corpuscular HGB Conc 34 % (32-34); Mean Corpuscular Volume 89 fl (84-94); Red Blood Count 3.64 M/mm3 (3.65-5.03); Red Cell Distribution Width 16.7 % (13.2-15.2)
[2018-09-25 05:18] LABS: Platelet Count 13 K/mm3 (140-440)
[2018-09-25 05:25] LABS: Alanine Aminotransferase 28 units/L (7-56); Albumin 2.8 g/dL (3.9-5); BUN/Creatinine Ratio 20; Blood Urea Nitrogen 8 mg/dL (9-20); Calcium 7.8 mg/dL (8.4-10.2); Hemolysis Index 31
[2018-09-25 08:36] LABS: Iron 103 ug/dL (49-181); Total Iron Binding Capacity 235 mcg/dL (250-450)
--- NOTE | 2018-09-25 09:56 | Progress Note ---
Assessment and Plan 1. Variceal bleed - s/p banding. H/H relatively stable, no melena. Continue octreotide drip. - advance diet - transfuse plt > 40K - monitor H/H and transfuse as needed - if remains stable, may consider D/C tomorrow, possibly on nonselective B- blockers - agree with Ceftriaxone 3. EtOH abuse - with likely cirrhosis. - discussed abstinence and prognosis. 4. Abnormal LFTs - due to EtOH most likely. May consider U/S in future. Subjective Date of service: 09/25/18 Principal diagnosis: Ac GI Bleed; Cirrhosis ; Ac pancreatitis; Pancytopenia; HTN; DM II Interval history: Patient resting comfortably in bed. Complains of mild epigastric and substernal discomfort. No evidence of ongoing GI bleeding. Asking when he gets to go home. Objective - Constitutional Vitals: Vital Signs - 12hr 09/24/18 09/24/18 09/24/18 22:00 22:15 22:31 Temperature Pulse Rate 73 71 80 Pulse Rate [ From Monitor] Respiratory 13 14 11 L Rate Respiratory 12 Rate [Abdomen] Blood Pressure 143/62 143/62 143/62 O2 Sat by Pulse 97 98 98 Oximetry 09/24/18 09/24/18 09/24/18 22:45 23:00 23:15 Temperature Pulse Rate 81 75 69 Pulse Rate [ From Monitor] Respiratory 15 13 12 Rate Respiratory Rate [Abdomen] Blood Pressure 143/62 145/67 145/67 O2 Sat by Pulse 98 98 98 Oximetry 09/24/18 09/24/18 09/25/18 23:31 23:45 00:00 Temperature 99.1 F Pulse Rate 78 91 H 77 Pulse Rate [ 73 From Monitor] Respiratory 14 14 12 Rate Respiratory Rate [Abdomen] Blood Pressure 145/67 145/67 143/69 O2 Sat by Pulse 98 99 97 Oximetry 09/25/18 09/25/18 09/25/18 00:15 00:31 00:45 Temperature Pulse Rate 72 79 74 Pulse Rate [ From Monitor] Respiratory 13 15 14 Rate Respiratory Rate [Abdomen] Blood Pressure 143/69 143/69 143/69 O2 Sat by Pulse 97 98 98 Oximetry 09/25/18 09/25/18 09/25/18 01:00 01:15 01:31 Temperature Pulse Rate 69 71 86 Pulse Rate [ From Monitor] Respiratory 13 12 12 Rate Respiratory Rate [Abdomen] Blood Pressure 128/59 143/69 143/69 O2 Sat by Pulse 96 98 97 Oximetry 09/25/18 09/25/18 09/25/18 01:45 02:00 02:15 Temperature Pulse Rate 71 69 75 Pulse Rate [ From Monitor] Respiratory 13 12 12 Rate Respiratory Rate [Abdomen] Blood Pressure 143/69 138/61 128/59 O2 Sat by Pulse 98 97 98 Oximetry 09/25/18 09/25/18 09/25/18 02:31 02:45 03:00 Temperature Pulse Rate 76 77 71 Pulse Rate [ From Monitor] Respiratory 10 L 13 13 Rate Respiratory Rate [Abdomen] Blood Pressure 128/59 128/59 125/55 O2 Sat by Pulse 98 98 96 Oximetry 09/25/18 09/25/18 09/25/18 03:15 03:31 03:45 Temperature Pulse Rate 72 73 76 Pulse Rate [ From Monitor] Respiratory 12 13 18 Rate Respiratory Rate [Abdomen] Blood Pressure 138/61 138/61 138/61 O2 Sat by Pulse 96 98 98 Oximetry 09/25/18 09/25/18 09/25/18 04:00 04:15 04:31 Temperature 99.0 F Pulse Rate 75 74 69 Pulse Rate [ 76 From Monitor] Respiratory 14 13 11 L Rate Respiratory Rate [Abdomen] Blood Pressure 135/72 135/72 135/72 O2 Sat by Pulse 97 96 97 Oximetry 09/25/18 09/25/18 09/25/18 04:45 05:00 05:15 Temperature Pulse Rate 81 68 78 Pulse Rate [ From Monitor] Respiratory 12 12 13 Rate Respiratory Rate [Abdomen] Blood Pressure 135/72 131/53 131/53 O2 Sat by Pulse 97 98 97 Oximetry 09/25/18 09/25/18 09/25/18 05:31 05:45 06:00 Temperature Pulse Rate 72 94 H 68 Pulse Rate [ From Monitor] Respiratory 13 14 13 Rate Respiratory Rate [Abdomen] Blood Pressure 131/53 131/53 124/54 O2 Sat by Pulse 96 97 97 Oximetry 09/25/18 09/25/18 06:15 08:00 Temperature 98.7 F Pulse Rate 69 Pulse Rate [ From Monitor] Respiratory 13 Rate Respiratory Rate [Abdomen] Blood Pressure 131/53 O2 Sat by Pulse 97 Oximetry General appearance: Present: no acute distress - EENT Eyes: PERRL, EOM intact, scleral icterus ENT: hearing intact - Respiratory Respiratory effort: normal - Gastrointestinal General gastrointestinal: Present: soft, tender (Mild epigastric) - Labs CBC & Chem 7: 09/25/18 04:02 09/25/18 04:02 Labs: Abnormal lab results 09/24/18 09/25/18 09/25/18 Range/Units 03:30 04:02 04:02 WBC 1.1 L* 1.7 L* (4.5-11.0) K/mm3 RBC 3.64 L (3.65-5.03) M/mm3 Hgb 11.3 L 11.0 L (11.8-15.2) gm/dl Hct 33.7 L 32.5 L (35.5-45.6) % RDW 17.0 H 16.7 H (13.2-15.2) % Plt Count 7 L* 13 L* (140-440) K/mm3 Seg Neuts % (Manual) 80.0 H (40.0-70.0) % Lymphocytes % (Manual) 12.0 L (13.4-35.0) % Basophils % (Manual) 2.0 H (0.0-1.8) % Seg Neutrophils # Man 0.9 L (1.8-7.7) K/mm3 Lymphocytes # (Manual) 0.1 L (1.2-5.4) K/mm3 Sodium 133 L (137-145) mmol/L Carbon Dioxide 20 L (22-30) mmol/L BUN 8 L (9-20) mg/dL Creatinine 0.4 L (0.8-1.5) mg/dL Glucose 102 H (75-100) mg/dL Calcium 7.8 L (8.4-10.2) mg/dL TIBC (250-450) mcg/dL Total Bilirubin 3.70 H (0.1-1.2) mg/dL AST 96 H (5-40) units/L Alkaline Phosphatase 134 H (35-129) units/L Albumin 2.8 L (3.9-5) g/dL Vitamin B12 (211-911) pg/mL 09/25/18 09/25/18 Range/Units 07:57 07:57 WBC (4.5-11.0) K/mm3 RBC (3.65-5.03) M/mm3 Hgb (11.8-15.2) gm/dl Hct (35.5-45.6) % RDW (13.2-15.2) % Plt Count (140-440) K/mm3 Seg Neuts % (Manual) (40.0-70.0) % Lymphocytes % (Manual) (13.4-35.0) % Basophils % (Manual) (0.0-1.8) % Seg Neutrophils # Man (1.8-7.7) K/mm3 Lymphocytes # (Manual) (1.2-5.4) K/mm3 Sodium (137-145) mmol/L Carbon Dioxide (22-30) mmol/L BUN (9-20) mg/dL Creatinine (0.8-1.5) mg/dL Glucose (75-100) mg/dL Calcium (8.4-10.2) mg/dL TIBC 235 L (250-450) mcg/dL Total Bilirubin (0.1-1.2) mg/dL AST (5-40) units/L Alkaline Phosphatase (35-129) units/L Albumin (3.9-5) g/dL Vitamin B12 1824 H (211-911) pg/mL Medications & Allergies - Medications Allergies/Adverse Reactions: Allergies No Known Allergies Allergy (Verified 12/26/14 12:21) Home Medications: Home Medications Medication Instructions Recorded Confirmed Last Taken Type No Known Home Medications [No 09/23/18 09/23/18 Unknown History Reported Home Medications] Active Medications: Generic Name Dose Route Start Last Admin Trade Name Mateoq PRN Reason Stop Dose Admin Haloperidol Lactate 5 mg 09/23/18 09:46 Haldol IV 09/26/18 09:45 Q4H PRN Unrespon. to mult. doses BZD's Octreotide Acetate 500 mcg/ 101 mls @ 5.05 mls/hr 09/23/18 03:00 09/24/18 20:05 Sodium Chloride IV 25 mcg/hr TITR JORDAN 5.05 mls/hr Administration Protocol 25 MCG/HR Sodium Chloride 1,000 mls @ 150 mls/hr 09/23/18 06:00 09/25/18 07:27 Nacl 0.9% 1000 Ml IV 150 mls/hr DIRECT JORDAN Administration Folic Acid 1 mg/ Sodium 50.2 mls @ 200.8 mls/hr 09/23/18 11:00 09/24/18 11:52 Chloride IV 200.8 mls/hr QDAY JORDAN Administration Thiamine HCl 100 mg/ Sodium 51 mls @ 100 mls/hr 09/23/18 12:00 09/24/18 13:25 Chloride IV 100 mls/hr QDAY JORDAN Administration Ceftriaxone Sodium 1 gm in 50 mls @ 100 mls/hr 09/23/18 11:00 09/24/18 12:19 Rocephin/Ns 1 Gm/50 Ml IV 09/27/18 11:29 100 mls/hr Q24H JORDAN Administration Magnesium Sulfate 1 gm/ Sodium 52 mls @ 52 mls/hr 09/25/18 10:00 Chloride IV 09/25/18 10:59 ONCE ONE Lorazepam 2 mg 09/23/18 09:46 09/24/18 00:55 Ativan IV 2 mg Q1HR PRN Administration CIWA-Ar 8-15 Lorazepam 4 mg 09/23/18 09:46 Ativan IV Q1HR PRN CIWA-Ar 16-25 Morphine Sulfate 2 mg 09/23/18 05:09 09/24/18 17:17 Morphine IV 2 mg Q4H PRN Administration Pain, Moderate (4-6) Ondansetron HCl 4 mg 09/23/18 05:09 Zofran IV Q4H PRN Nausea And Vomiting Pantoprazole Sodium 40 mg 09/25/18 10:00 Protonix PO DAILY JORDAN Sodium Chloride 10 ml 09/23/18 10:00 09/24/18 21:50 Sodium Chloride Flush Syringe 10 Ml IV 10 ml BID JORDAN Administration Sodium Chloride 10 ml 09/23/18 05:09 09/24/18 17:18 Sodium Chloride Flush Syringe 10 Ml IV 10 ml PRN PRN Administration LINE FLUSH
[2018-09-25] MEDS ORDERED: MAGNESIUM SULFATE 1 GM in NACL 0.9% 50 ML IV ONE (10:00)
--- NOTE | 2018-09-25 10:42 | Progress Note ---
Assessment and Plan 09/23/2018 BCx - NGTD 42 yo M with PMHx of EtOH abuse, cirrhosis initially presented due to hematemesis 2/2 esophageal varices. 1) Acute blood loss 2/2 esophageal varices - will continue to prophylax for infection with ceftriaxone to complete 5 days (stop date: 2) Pancytopenia - thrombocytopenia and leukopenia, most likely 2/2 cirrhosis and alcohol abuse. Appears to be chronic based on previous admission labs. HIV is ne gative. 3) Lactic acidosis - resolved Recs: IV ceftriaxone 1g q24h for 5 days (stop date: 09/28/18) Discussed with Dr. Albertina Ramirez MD [facility] ([facility]) C: [phone] O: [phone] F: [phone] Subjective Date of service: 09/25/18 Principal diagnosis: Ac GI Bleed; Cirrhosis ; Ac pancreatitis; Pancytopenia; HTN; DM II Interval history: Feels well, no complaints at the current time. Denies fevers, sweats, chills. Denies SOB and abdominal pain. Tolerating medications without difficulty. Objective - Constitutional Vitals: Vital Signs Temp Pulse Resp BP Pulse Ox 98.7 F 69 13 131/53 97 09/25/18 08:00 09/25/18 06:15 09/25/18 06:15 09/25/18 06:15 09/25/18 06:15 Temperature -Last 24 Hours Temperature 98.7 F Temperature 99.0 F Temperature 99.1 F Temperature 98.8 F Temperature 98.4 F Temperature 98.4 F Temperature 98.5 F Temperature 98.6 F General appearance: Present: no acute distress, well-nourished - EENT Eyes: no scleral icterus, no conjunctival injection ENT: hearing intact, clear oral mucosa, dentition normal - Neck Neck: supple, normal ROM - Respiratory Respiratory effort: normal Respiratory: bilateral: CTA - Cardiovascular Rhythm: regular Heart Sounds: Present: S1 & S2 Extremities: pulses intact, No edema, normal temperature, Full ROM - Gastrointestinal General gastrointestinal: Present: soft, non-tender, normal bowel sounds - Genitourinary Male genitourinary: deferred - Integumentary Integumentary: clear, warm, dry - Musculoskeletal Musculoskeletal: strength equal bilaterally - Neurologic Neurologic: no focal deficits, moves all extremities - Labs CBC & Chem 7: 09/25/18 04:02 09/25/18 04:02 Labs: Abnormal lab results 09/24/18 09/25/18 09/25/18 Range/Units 03:30 04:02 04:02 WBC 1.1 L* 1.7 L* (4.5-11.0) K/mm3 RBC 3.64 L (3.65-5.03) M/mm3 Hgb 11.3 L 11.0 L (11.8-15.2) gm/dl Hct 33.7 L 32.5 L (35.5-45.6) % RDW 17.0 H 16.7 H (13.2-15.2) % Plt Count 7 L* 13 L* (140-440) K/mm3 Seg Neuts % (Manual) 80.0 H (40.0-70.0) % Lymphocytes % (Manual) 12.0 L (13.4-35.0) % Basophils % (Manual) 2.0 H (0.0-1.8) % Seg Neutrophils # Man 0.9 L (1.8-7.7) K/mm3 Lymphocytes # (Manual) 0.1 L (1.2-5.4) K/mm3 Sodium 133 L (137-145) mmol/L Carbon Dioxide 20 L (22-30) mmol/L BUN 8 L (9-20) mg/dL Creatinine 0.4 L (0.8-1.5) mg/dL Glucose 102 H (75-100) mg/dL Calcium 7.8 L (8.4-10.2) mg/dL TIBC (250-450) mcg/dL Total Bilirubin 3.70 H (0.1-1.2) mg/dL AST 96 H (5-40) units/L Alkaline Phosphatase 134 H (35-129) units/L Albumin 2.8 L (3.9-5) g/dL Vitamin B12 (211-911) pg/mL 09/25/18 09/25/18 Range/Units 07:57 07:57 WBC (4.5-11.0) K/mm3 RBC (3.65-5.03) M/mm3 Hgb (11.8-15.2) gm/dl Hct (35.5-45.6) % RDW (13.2-15.2) % Plt Count (140-440) K/mm3 Seg Neuts % (Manual) (40.0-70.0) % Lymphocytes % (Manual) (13.4-35.0) % Basophils % (Manual) (0.0-1.8) % Seg Neutrophils # Man (1.8-7.7) K/mm3 Lymphocytes # (Manual) (1.2-5.4) K/mm3 Sodium (137-145) mmol/L Carbon Dioxide (22-30) mmol/L BUN (9-20) mg/dL Creatinine (0.8-1.5) mg/dL Glucose (75-100) mg/dL Calcium (8.4-10.2) mg/dL TIBC 235 L (250-450) mcg/dL Total Bilirubin (0.1-1.2) mg/dL AST (5-40) units/L Alkaline Phosphatase (35-129) units/L Albumin (3.9-5) g/dL Vitamin B12 1824 H (211-911) pg/mL - Imaging and cardiology CT scan - abdomen: image reviewed (No acture infectious process)
[2018-09-25] MEDS: FOLVITE 1 MG in NACL 0.9% 50 ML IV SCH (10:47)
[2018-09-25] MEDS: SODIUM CHLORIDE FLUSH SYRINGE 10 ML IV SCH ×2 (10:48→21:56)
[2018-09-25] MEDS: VITAMIN B-1 100 MG in NACL 0.9% 50 ML IV SCH (10:48)
[2018-09-25] MEDS: PROTONIX PO SCH (10:48)
[2018-09-25] MEDS: ROCEPHIN/NS 1 GM/50 ML 1 GM/50 ML BAG IV SCH (10:48)
--- NOTE | 2018-09-25 13:32 | Progress Note ---
Assessment and Plan Patient resting on room air. No complaint of chest pain or shortness of breath or cough.O2 saturation 98%. - Patient Problems (1) Alcohol withdrawal delirium Current Visit: No Status: Acute Plan to address problem: Management as per primary care. (2) Cirrhosis Current Visit: No Status: Acute Qualifiers: Hepatic cirrhosis type: alcoholic cirrhosis Ascites presence: with ascites Qualified Code(s): K70.31 - Alcoholic cirrhosis of liver with ascites Plan to address problem: Management as per primary care. (3) Metabolic acidosis Current Visit: No Status: Acute Plan to address problem: Obtaining blood gases. (4) Metabolic encephalopathy Current Visit: No Status: Acute Plan to address problem: Management as per primary care. (5) Pancreatitis Current Visit: No Status: Acute Plan to address problem: Management as per primary care. Subjective Date of service: 09/25/18 Principal diagnosis: Ac GI Bleed; Cirrhosis ; Ac pancreatitis; Pancytopenia; HTN; DM II Interval history: Patient resting on room air. No complaint of chest pain or shortness of breath or cough.O2 saturation 98%. Objective Vital Signs - 12hr 09/25/18 09/25/18 09/25/18 01:31 01:45 02:00 Temperature Pulse Rate 86 71 69 Pulse Rate [ From Monitor] Respiratory 12 13 12 Rate Blood Pressure 143/69 143/69 138/61 O2 Sat by Pulse 97 98 97 Oximetry 09/25/18 09/25/18 09/25/18 02:15 02:31 02:45 Temperature Pulse Rate 75 76 77 Pulse Rate [ From Monitor] Respiratory 12 10 L 13 Rate Blood Pressure 128/59 128/59 128/59 O2 Sat by Pulse 98 98 98 Oximetry 09/25/18 09/25/18 09/25/18 03:00 03:15 03:31 Temperature Pulse Rate 71 72 73 Pulse Rate [ From Monitor] Respiratory 13 12 13 Rate Blood Pressure 125/55 138/61 138/61 O2 Sat by Pulse 96 96 98 Oximetry 09/25/18 09/25/18 09/25/18 03:45 04:00 04:15 Temperature 99.0 F Pulse Rate 76 75 74 Pulse Rate [ 76 From Monitor] Respiratory 18 14 13 Rate Blood Pressure 138/61 135/72 135/72 O2 Sat by Pulse 98 97 96 Oximetry 09/25/18 09/25/18 09/25/18 04:31 04:45 05:00 Temperature Pulse Rate 69 81 68 Pulse Rate [ From Monitor] Respiratory 11 L 12 12 Rate Blood Pressure 135/72 135/72 131/53 O2 Sat by Pulse 97 97 98 Oximetry 09/25/18 09/25/18 09/25/18 05:15 05:31 05:45 Temperature Pulse Rate 78 72 94 H Pulse Rate [ From Monitor] Respiratory 13 13 14 Rate Blood Pressure 131/53 131/53 131/53 O2 Sat by Pulse 97 96 97 Oximetry 09/25/18 09/25/18 09/25/18 06:00 06:15 08:00 Temperature 98.7 F Pulse Rate 68 69 Pulse Rate [ From Monitor] Respiratory 13 13 Rate Blood Pressure 124/54 131/53 O2 Sat by Pulse 97 97 Oximetry Constitutional: no acute distress, alert, other (middle aged male, normocephalic and atraumatic wit normal respiratory effort at rest) Eyes: icteric ENT: oropharynx moist, other (mallampati 2) Neck: supple, no lymphadenopathy, no JVD Effort: mildly labored Ascultation: Bilateral: clear Percussion: Bilateral: not dull Cardiovascular: regular rate and rhythm Gastrointestinal: normoactive bowel sounds, soft, tender (mild epigastric), non- distended Integumentary: normal Extremities: no cyanosis, no edema, pink and warm, pulses normal, no ischemia or petechiae Neurologic: normal mental status, non-focal exam, pupils equal and round, motor strength normal and Psychiatric: mood appropriate, affect normal CBC and BMP: 09/25/18 04:02 09/25/18 04:02 ABG, PT/INR, D-dimer: PT/INR, D-dimer PT 17.7 Sec. (12.2-14.9) H 09/23/18 02:04 INR 1.49 (0.87-1.13) H 09/23/18 02:04 Abnormal lab findings: Abnormal Labs 09/23/18 09/23/18 09/23/18 00:21 00:21 02:04 WBC 2.2 L RBC Hgb Hct RDW 17.1 H Plt Count 41 L Seg Neuts % (Manual) Lymphocytes % (Manual) Basophils % (Manual) Seg Neutrophils # Man 1.3 L Lymphocytes # (Manual) 0.7 L PT 17.7 H INR 1.49 H Sodium Carbon Dioxide BUN 6 L Creatinine 0.6 L Glucose 148 H Lactic Acid Calcium Magnesium TIBC Total Bilirubin 3.50 H AST 203 H Alkaline Phosphatase 195 H Ammonia Total Protein 9.2 H Albumin 3.7 L Lipase 90 H Vitamin B12 09/23/18 09/23/18 09/23/18 05:36 09:20 10:03 WBC RBC Hgb 11.4 L 11.3 L Hct 34.0 L 34.0 L RDW Plt Count Seg Neuts % (Manual) Lymphocytes % (Manual) Basophils % (Manual) Seg Neutrophils # Man Lymphocytes # (Manual) PT INR Sodium Carbon Dioxide BUN Creatinine Glucose Lactic Acid Calcium Magnesium TIBC Total Bilirubin AST Alkaline Phosphatase Ammonia 81.0 H Total Protein Albumin Lipase Vitamin B12 09/23/18 09/23/18 09/23/18 10:03 10:03 14:00 WBC RBC Hgb 10.9 L Hct 32.5 L RDW Plt Count Seg Neuts % (Manual) Lymphocytes % (Manual) Basophils % (Manual) Seg Neutrophils # Man Lymphocytes # (Manual) PT INR Sodium Carbon Dioxide BUN Creatinine Glucose Lactic Acid 2.60 H* Calcium Magnesium 1.30 L TIBC Total Bilirubin AST Alkaline Phosphatase Ammonia Total Protein Albumin Lipase Vitamin B12 09/23/18 09/23/18 09/24/18 14:00 15:59 03:30 WBC 1.1 L* RBC Hgb 11.4 L 11.3 L Hct 34.1 L 33.7 L RDW 17.0 H Plt Count 7 L* Seg Neuts % (Manual) 80.0 H Lymphocytes % (Manual) 12.0 L Basophils % (Manual) 2.0 H Seg Neutrophils # Man 0.9 L Lymphocytes # (Manual) 0.1 L PT INR Sodium Carbon Dioxide BUN Creatinine Glucose Lactic Acid 2.50 H* Calcium Magnesium TIBC Total Bilirubin AST Alkaline Phosphatase Ammonia Total Protein Albumin Lipase Vitamin B12 09/24/18 09/24/18 09/25/18 03:30 03:30 04:02 WBC 1.7 L* RBC 3.64 L Hgb 11.0 L Hct 32.5 L RDW 16.7 H Plt Count 13 L* Seg Neuts % (Manual) Lymphocytes % (Manual) Basophils % (Manual) Seg Neutrophils # Man Lymphocytes # (Manual) PT INR Sodium 136 L Carbon Dioxide BUN 8 L Creatinine 0.5 L Glucose 126 H Lactic Acid Calcium 7.6 L Magnesium 1.50 L TIBC Total Bilirubin AST Alkaline Phosphatase Ammonia Total Protein Albumin Lipase Vitamin B12 09/25/18 09/25/18 09/25/18 04:02 07:57 07:57 WBC RBC Hgb Hct RDW Plt Count Seg Neuts % (Manual) Lymphocytes % (Manual) Basophils % (Manual) Seg Neutrophils # Man Lymphocytes # (Manual) PT INR Sodium 133 L Carbon Dioxide 20 L BUN 8 L Creatinine 0.4 L Glucose 102 H Lactic Acid Calcium 7.8 L Magnesium TIBC 235 L Total Bilirubin 3.70 H AST 96 H Alkaline Phosphatase 134 H Ammonia Total Protein Albumin 2.8 L Lipase Vitamin B12 1824 H Allied health notes reviewed: nursing
[2018-09-25] MEDS: SandoSTATIN 500 MCG in NACL 0.9% 100 ML IV SCH (16:16)
[2018-09-25] MEDS ORDERED: NACL 0.9% 500 ML 500 ML IV SCH (17:00)
--- NOTE | 2018-09-25 17:04 | Progress Note ---
Assessment and Plan Assessment and plan: Patient 42 -year-old man with a history of cirrhosis comes to the emergency room with complaints of vomiting blood since yesterday, multiple episodes. also had episodes of voting blood last week. He also complained of abdominal pain, LLQ, intermittent every 20 minutes, described as a dull sensation, with intensity of 7/10, no radiation, relieved with pain medications. No NSAIDS use Patient is not quit forthcoming about his medical condition but appears to have extensive ETOH history. * Patient underwent EGD s/p EGD with variceal banding with notation as below * Grade 4 distal esophageal varices - 6 bands placed. No active bleeding or stigmata. * Normal stomach except for small amount of adherent blood in cardiac. No ulcers. * Normal duodenum and bulb. * ICU (Keep on octreotide drip. Monitor H/H and transfuse as needed.) * Transfused platelet with mild improvement. Additional transfusion planned for today GI Bleed Secondary grade 4 distal esophageal variceal Acute Metabolic Encephalopathy-Now resolved Abdominal pain Nuetropenia Acute Metabolic Acidosis Thrombocytopenia Pancytopenia Cirrhosis secondary to Etoh abuse ETOH USE DISORDER Hypomoagesemia Plan Continue supportive care Transfuse Platelet Continue ABX PER ID with ceftriaxone Advance diet Replace electrolytes GI, ID and Shipping Team Leader input noted Transfuse Platelet Hematology consult Keep Neutropenic precautions Continue octreotide drip, Monitor H/H, IV fluid HIV negative per hx Change Protonix to IV BID Extensive counselling about Etoh use, also advised need for [id number] US of liver for HCC screening Consult critical care, IV morphine DVT prophalaxis History Interval history: Patient seen and examined, no new complaints, stable, wants diet advanced. Hospitalist Physical - Physical exam Narrative exam: General Appearance: Patient lying in bed, no apparent distress HEENT: Normocephalic, atraumatic, pupils equally round and reactive to light, extraocular movement intact, and icteric sclera. No JVD or thyromegaly or nodule,neck supple, no carotid bruit ,mucous membranes moist, no exudate or erythema, Heart: S1, S2, regular rate and rhythm Lungs: Clear to auscultation bilaterally, breathing comfortable Abdomen: Positive bowel sounds, tender in LLQ improved, non-distended Extremity: No edema, cyanosis, clubbing Skin: No rash, nodules, warm, dry Neuro: Oriented 3, cranial nerves II-12 intact, speech/motor fluent - Constitutional Vitals: Temp Pulse Resp BP Pulse Ox 98.4 F 72 14 123/50 98 09/25/18 12:00 09/25/18 15:01 09/25/18 15:01 09/25/18 15:01 09/25/18 15:01 General appearance: Present: no acute distress, well-nourished Results - Labs CBC & Chem 7: 09/25/18 04:02 09/25/18 04:02 Labs: Laboratory Last Values WBC 1.7 K/mm3 (4.5-11.0) L* 09/25/18 04:02 RBC 3.64 M/mm3 (3.65-5.03) L 09/25/18 04:02 Hgb 11.0 gm/dl (11.8-15.2) L 09/25/18 04:02 Hct 32.5 % (35.5-45.6) L 09/25/18 04:02 MCV 89 fl (84-94) 09/25/18 04:02 MCH 30 pg (28-32) 09/25/18 04:02 MCHC 34 % (32-34) 09/25/18 04:02 RDW 16.7 % (13.2-15.2) H 09/25/18 04:02 Plt Count 13 K/mm3 (140-440) L* 09/25/18 04:02 Add Manual Diff Complete 09/24/18 03:30 Total Counted 100 09/24/18 03:30 Seg Neuts % (Manual) 80.0 % (40.0-70.0) H 09/24/18 03:30 0 % 09/24/18 03:30 12.0 % (13.4-35.0) L 09/24/18 03:30 Reactive Lymphs % (Man) 0 % 09/24/18 03:30 5.0 % (0.0-7.3) 09/24/18 03:30 1.0 % (0.0-4.3) 09/24/18 03:30 2.0 % (0.0-1.8) H 09/24/18 03:30 0 % 09/24/18 03:30 0 % 09/24/18 03:30 0 % 09/24/18 03:30 0 % 09/24/18 03:30 Nucleated RBC % Not Reportable 09/24/18 03:30 Seg Neutrophils # Man 0.9 K/mm3 (1.8-7.7) L 09/24/18 03:30 Band Neutrophils # 0.0 K/mm3 09/24/18 03:30 0.1 K/mm3 (1.2-5.4) L 09/24/18 03:30 Abs React Lymphs (Man) 0.0 K/mm3 09/24/18 03:30 0.1 K/mm3 (0.0-0.8) 09/24/18 03:30 0.0 K/mm3 (0.0-0.4) 09/24/18 03:30 0.0 K/mm3 (0.0-0.1) 09/24/18 03:30 0.0 K/mm3 09/24/18 03:30 0.0 K/mm3 09/24/18 03:30 0.0 K/mm3 09/24/18 03:30 Blast Cells # 0.0 K/mm3 09/24/18 03:30 Pathologist Review 09/24/18 03:30 WBC Morphology Not Reportable 09/23/18 00:21 Hypersegmented Neuts Not Reportable 09/24/18 03:30 Hyposegmented Neuts Not Reportable 09/24/18 03:30 Hypogranular Neuts Not Reportable 09/24/18 03:30 Not Reportable 09/24/18 03:30 Not Reportable 09/24/18 03:30 Not Reportable 09/24/18 03:30 Not Reportable 09/24/18 03:30 Not Reportable 09/24/18 03:30 Not Reportable 09/24/18 03:30 Consistent w auto 09/24/18 03:30 Not Reportable 09/24/18 03:30 Plt Clumps, EDTA Not Reportable 09/24/18 03:30 Not Reportable 09/24/18 03:30 Not Reportable 09/24/18 03:30 Not Reportable 09/24/18 03:30 Plt Morphology Comment Not Reportable 09/24/18 03:30 RBC Morphology Not Reportable 09/24/18 03:30 Dimorphic RBCs Not Reportable 09/24/18 03:30 Not Reportable 09/24/18 03:30 Not Reportable 09/24/18 03:30 Not Reportable 09/24/18 03:30 Few 09/24/18 03:30 Not Reportable 09/24/18 03:30 Not Reportable 09/24/18 03:30 Not Reportable 09/24/18 03:30 Not Reportable 09/24/18 03:30 Not Reportable 09/24/18 03:30 Not Reportable 09/24/18 03:30 Not Reportable 09/24/18 03:30 Not Reportable 09/24/18 03:30 Not Reportable 09/24/18 03:30 Not Reportable 09/24/18 03:30 Not Reportable 09/24/18 03:30 Not Reportable 09/24/18 03:30 Not Reportable 09/24/18 03:30 Not Reportable 09/24/18 03:30 Not Reportable 09/24/18 03:30 Acanthocytes (Spur) Not Reportable 09/24/18 03:30 Rouleaux Not Reportable 09/24/18 03:30 Not Reportable 09/24/18 03:30 Not Reportable 09/24/18 03:30 Not Reportable 09/24/18 03:30 Not Reportable 09/24/18 03:30 Hem Pathologist Commnt Sent to pathology 09/24/18 03:30 PT 17.7 Sec. (12.2-14.9) H 09/23/18 02:04 INR 1.49 (0.87-1.13) H 09/23/18 02:04 APTT 36.2 Sec. (24.2-36.6) 09/23/18 02:04 Sodium 133 mmol/L (137-145) L 09/25/18 04:02 Potassium 4.1 mmol/L (3.6-5.0) 09/25/18 04:02 Chloride 101.0 mmol/L (98-107) 09/25/18 04:02 Carbon Dioxide 20 mmol/L (22-30) L 09/25/18 04:02 16 mmol/L 09/25/18 04:02 BUN 8 mg/dL (9-20) L 09/25/18 04:02 0.4 mg/dL (0.8-1.5) L 09/25/18 04:02 Estimated GFR > 60 ml/min 09/25/18 04:02 20 % 09/25/18 04:02 Glucose 102 mg/dL (75-100) H 09/25/18 04:02 POC Glucose 92 (70-105) 09/23/18 06:57 Lactic Acid 1.20 mmol/L (0.7-2.0) 09/24/18 03:30 Calcium 7.8 mg/dL (8.4-10.2) L 09/25/18 04:02 Phosphorus 3.10 mg/dL (2.5-4.5) 09/24/18 03:30 Magnesium 1.50 mg/dL (1.7-2.3) L 09/24/18 03:30 Iron 103 ug/dL (49-181) 09/25/18 07:57 TIBC 235 mcg/dL (250-450) L 09/25/18 07:57 126.2 ng/mL (13.0-400.0) 09/25/18 07:57 3.70 mg/dL (0.1-1.2) H 09/25/18 04:02 AST 96 units/L (5-40) H 09/25/18 04:02 ALT 28 units/L (7-56) 09/25/18 04:02 134 units/L (35-129) H 09/25/18 04:02 81.0 umol/L (25-60) H 09/23/18 10:03 0.20 mg/dL (0.00-1.30) 09/23/18 10:03 7.4 g/dL (6.3-8.2) 09/25/18 04:02 2.8 g/dL (3.9-5) L 09/25/18 04:02 0.6 % 09/25/18 04:02 90 units/L (13-60) H 09/23/18 00:21 Vitamin B12 1824 pg/mL (211-911) H 09/25/18 07:57 12.38 ng/mL (7.3-26.0) 09/25/18 07:57 Yellow (Yellow) 09/23/18 01:50 Clear (Clear) 09/23/18 01:50 6.0 (5.0-7.0) 09/23/18 01:50 Ur Specific [place] 1.005 (1.003-1.030) 09/23/18 01:50 <15 mg/dl mg/dL (Negative) 09/23/18 01:50 Neg mg/dL (Negative) 09/23/18 01:50 Neg mg/dL (Negative) 09/23/18 01:50 Sm (Negative) 09/23/18 01:50 Neg (Negative) 09/23/18 01:50 Neg (Negative) 09/23/18 01:50 < 2.0 mg/dL (<2.0) 09/23/18 01:50 Ur Leukocyte Esterase Neg (Negative) 09/23/18 01:50 < 1.0 /HPF (0.0-6.0) 09/23/18 01:50 < 1.0 /HPF (0.0-6.0) 09/23/18 01:50 Few /HPF 09/23/18 01:50 HIV 1&2 Antibody Rapid Non react (Non React) 09/25/18 04:02 Non react (Non React) 09/25/18 04:02 Blood Type O POSITIVE 09/23/18 02:05 Antibody Screen Negative 09/23/18 02:05 Active Medications - Current Medications Current Medications: Generic Name Dose Route Start Last Admin Trade Name Freq PRN Reason Stop Dose Admin Haloperidol Lactate 5 mg 09/23/18 09:46 Haldol IV 09/26/18 09:45 Q4H PRN Unrespon. to mult. doses BZD's Octreotide Acetate 500 mcg/ 101 mls @ 5.05 mls/hr 09/23/18 03:00 09/25/18 16:16 Sodium Chloride IV 25 mcg/hr TITR JORDAN 5.05 mls/hr Administration Protocol 25 MCG/HR Sodium Chloride 1,000 mls @ 150 mls/hr 09/23/18 06:00 09/25/18 16:16 Nacl 0.9% 1000 Ml IV 150 mls/hr DIRECT JORDAN Administration Folic Acid 1 mg/ Sodium 50.2 mls @ 200.8 mls/hr 09/23/18 11:00 09/25/18 10:47 Chloride IV 200.8 mls/hr QDAY JORDAN Administration Thiamine HCl 100 mg/ Sodium 51 mls @ 100 mls/hr 09/23/18 12:00 09/25/18 10:48 Chloride IV 100 mls/hr QDAY JORDAN Administration Ceftriaxone Sodium 1 gm in 50 mls @ 100 mls/hr 09/23/18 11:00 09/25/18 10:48 Rocephin/Ns 1 Gm/50 Ml IV 09/27/18 11:29 100 mls/hr Q24H JORDAN Administration Sodium Chloride 500 mls @ 0 mls/hr 09/25/18 17:00 Nacl 0.9% 500 Ml IV 09/25/18 17:01 ONCE ONE As Directed Lorazepam 2 mg 09/23/18 09:46 09/24/18 00:55 Ativan IV 2 mg Q1HR PRN Administration CIWA-Ar 8-15 Lorazepam 4 mg 09/23/18 09:46 Ativan IV Q1HR PRN CIWA-Ar 16-25 Morphine Sulfate 2 mg 09/23/18 05:09 09/24/18 17:17 Morphine IV 2 mg Q4H PRN Administration Pain, Moderate (4-6) Ondansetron HCl 4 mg 09/23/18 05:09 Zofran IV Q4H PRN Nausea And Vomiting Pantoprazole Sodium 40 mg 09/25/18 10:00 09/25/18 10:48 Protonix PO 40 mg DAILY JORDAN Administration Sodium Chloride 10 ml 09/23/18 10:00 09/25/18 10:48 Sodium Chloride Flush Syringe 10 Ml IV 10 ml BID JORDAN Administration Sodium Chloride 10 ml 09/23/18 05:09 09/24/18 17:18 Sodium Chloride Flush Syringe 10 Ml IV 10 ml PRN PRN Administration LINE FLUSH
[2018-09-26 04:50] LABS: Hematocrit 32.6 % (35.5-45.6); Mean Corpuscular HGB Conc 34 % (32-34); Mean Corpuscular Volume 90 fl (84-94); Red Blood Count 3.64 M/mm3 (3.65-5.03); Red Cell Distribution Width 16.8 % (13.2-15.2)
[2018-09-26 05:04] LABS: Platelet Count 16 K/mm3 (140-440)
[2018-09-26 05:18] LABS: Alanine Aminotransferase 27 units/L (7-56); Albumin 3.1 g/dL (3.9-5); BUN/Creatinine Ratio 10; Blood Urea Nitrogen 5 mg/dL (9-20); Calcium 7.8 mg/dL (8.4-10.2); Hemolysis Index 3
[2018-09-26] MEDS: NACL 0.9% 1000 ML 1,000 ML IV SCH (05:53)
--- NOTE | 2018-09-26 06:55 | Event Note ---
Date: 09/25/18 [id number]
[2018-09-26] MEDS ORDERED: NACL 0.9% 500 ML 500 ML IV NR (07:12)
--- NOTE | 2018-09-26 07:12 | Hem/Onc Progress Note ---
Assessment and Plan low plt - h/o ETOH splenomegaly 1. Thrombocytopenia. This may be secondary to alcohol consumption, cirrhosis, splenomegaly and consumption secondary to the bleeding. 2. History of esophageal varices, as per the information status post banding. 3. The patient has had platelet transfusion. 4. No bowel movement. 5. Leukopenia, is in isolation. Commonly patients with cirrhosis and leukopenia do not have risk of infection. 6. 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 7. History of hematemesis, seen by GI. 8. History of abdominal pain, on supportive care. 9. We will do supportive care for now. I discussed with the patient regarding quitting alcohol. - Patient Problems (1) Thrombocytopenia Current Visit: No Status: Acute Subjective Date of service: 09/26/18 Principal diagnosis: low plt Interval history: wants to eat and go home Objective - Exam Narrative Exam: Pain - none General appearance no acute distress Performance status limited self care Eyes - icterus ENT no thrush LNs cervical not palpable Neck - normal ROM Respiratory Normal Breath sounds - CTA CVS S1 S2 + Extremities normal temperature General GI Soft - distended Rectal deferred male - deferred Skin warm Musculoskeletal moving normal Neurologically no focal deficit - Constitutional Vitals: Last Vital Signs Temp 98.8 F 09/26/18 04:00 Pulse 66 09/26/18 06:00 Resp 13 09/26/18 06:00 BP 138/77 09/26/18 06:00 Pulse Ox 98 09/26/18 06:00 - Labs Lab Results: Laboratory Results - last 24 hr 09/23/18 09/24/18 09/25/18 02:05 03:30 07:57 WBC RBC Hgb Hct MCV MCH MCHC RDW Plt Count Pathologist Review Sodium Potassium Chloride Carbon Dioxide Anion Gap BUN Creatinine Estimated GFR BUN/Creatinine Ratio Glucose Calcium Magnesium Iron 103 TIBC 235 L Ferritin Total Bilirubin AST ALT Alkaline Phosphatase Total Protein Albumin Albumin/Globulin Ratio Vitamin B12 Folate Blood Type O POSITIVE Antibody Screen Negative 09/25/18 09/25/18 09/25/18 07:57 07:57 07:57 WBC RBC Hgb Hct MCV MCH MCHC RDW Plt Count Pathologist Review Sodium Potassium Chloride Carbon Dioxide Anion Gap BUN Creatinine Estimated GFR BUN/Creatinine Ratio Glucose Calcium Magnesium Iron TIBC Ferritin 126.2 Total Bilirubin AST ALT Alkaline Phosphatase Total Protein Albumin Albumin/Globulin Ratio Vitamin B12 1824 H Folate 12.38 Blood Type Antibody Screen 09/26/18 09/26/18 03:45 03:45 WBC 1.6 L* RBC 3.64 L Hgb 11.0 L Hct 32.6 L MCV 90 MCH 30 MCHC 34 RDW 16.8 H Plt Count 16 L* Pathologist Review Sodium 139 Potassium 3.6 Chloride 107.6 H Carbon Dioxide 22 Anion Gap 13 BUN 5 L Creatinine 0.5 L Estimated GFR > 60 BUN/Creatinine Ratio 10 Glucose 108 H Calcium 7.8 L Magnesium 1.40 L Iron TIBC Ferritin Total Bilirubin 3.60 H AST 81 H ALT 27 Alkaline Phosphatase 139 H Total Protein 7.6 Albumin 3.1 L Albumin/Globulin Ratio 0.7 Vitamin B12 Folate Blood Type Antibody Screen Medications & Allergies - Medications Allergies/Adverse Reactions: Allergies No Known Allergies Allergy (Verified 12/26/14 12:21) Home Medications: Home Medications Medication Instructions Recorded Confirmed Last Taken Type RX: No Known Home Medications [No 09/23/18 09/23/18 Unknown History Reported Home Medications] Active Medications: Generic Name Dose Route Start Last Admin Trade Name Freq PRN Reason Stop Dose Admin Haloperidol Lactate 5 mg 09/23/18 09:46 Haldol IV 09/26/18 09:45 Q4H PRN Unrespon. to mult. doses BZD's Octreotide Acetate 500 mcg/ 101 mls @ 5.05 mls/hr 09/23/18 03:00 09/25/18 16:16 Sodium Chloride IV 25 mcg/hr TITR JORDAN 5.05 mls/hr Administration Protocol 25 MCG/HR Sodium Chloride 1,000 mls @ 150 mls/hr 09/23/18 06:00 09/26/18 05:53 Nacl 0.9% 1000 Ml IV 150 mls/hr DIRECT JORDAN Administration Folic Acid 1 mg/ Sodium 50.2 mls @ 200.8 mls/hr 09/23/18 11:00 09/25/18 10:47 Chloride IV 200.8 mls/hr QDAY JORDAN Administration Thiamine HCl 100 mg/ Sodium 51 mls @ 100 mls/hr 09/23/18 12:00 09/25/18 10:48 Chloride IV 100 mls/hr QDAY JORDAN Administration Ceftriaxone Sodium 1 gm in 50 mls @ 100 mls/hr 09/23/18 11:00 09/25/18 10:48 Rocephin/Ns 1 Gm/50 Ml IV 09/27/18 11:29 100 mls/hr Q24H JORDAN Administration Lorazepam 2 mg 09/23/18 09:46 09/24/18 00:55 Ativan IV 2 mg Q1HR PRN Administration CIWA-Ar 8-15 Lorazepam 4 mg 09/23/18 09:46 Ativan IV Q1HR PRN CIWA-Ar 16-25 Morphine Sulfate 2 mg 09/23/18 05:09 09/24/18 17:17 Morphine IV 2 mg Q4H PRN Administration Pain, Moderate (4-6) Ondansetron HCl 4 mg 09/23/18 05:09 Zofran IV Q4H PRN Nausea And Vomiting Pantoprazole Sodium 40 mg 09/25/18 10:00 09/25/18 10:48 Protonix PO 40 mg DAILY JORDAN Administration Sodium Chloride 10 ml 09/23/18 10:00 09/25/18 21:56 Sodium Chloride Flush Syringe 10 Ml IV 10 ml BID JORDAN Administration Sodium Chloride 10 ml 09/23/18 05:09 09/24/18 17:18 Sodium Chloride Flush Syringe 10 Ml IV 10 ml PRN PRN Administration LINE FLUSH
--- NOTE | 2018-09-26 07:50 | Consultation ---
REASON FOR CONSULTATION: Thrombocytopenia. HISTORY OF PRESENT ILLNESS: I saw the patient, a 42-year-old male in the medical floor. The patient has a history of cirrhosis, history of alcohol usage, daily about 5 beers. He came to the hospital because of hematemesis. As per the , he has been having some blood in the morning for a few days. He was found to have low platelets. GI team saw the patient, EGD was done, banding was done. Transfusion platelet support has been given. He has not needed blood transfusion. I was asked to evaluate the patient for low platelet. ID team has seen the patient. HIV test is ongoing. The patient was in ICU. Multiple family members were present. At this time, no headache, no visual disturbances, no ear discharge, no chest pain, no palpitations, no vomiting, no diarrhea, no dysuria. The patient was on n.p.o. and is now on a liquid diet with a plan to progression as tolerated. He did not have a bowel movement. No seizure or syncope. No loss of consciousness. No fever, no chills. PAST MEDICAL HISTORY: Cirrhosis. SOCIAL HISTORY: Drinks 5-8 beers a day. No tobacco. No drug usage. Works in construction industry. SURGICAL HISTORY: None. FAMILY HISTORY: Hypertension. ALLERGIES: None. ACTIVE MEDICATIONS: During this admission include octreotide, thiamine, ceftriaxone, folic acid. PHYSICAL EXAMINATION: VITAL SIGNS: Temperature 98.3, pulse 62, respirations 14, BP 128/65. HEENT: No pallor, icterus present. NECK: No neck lymph nodes. HEART: S1, S2. LUNGS: Clear to auscultation. ABDOMEN: Soft. EXTREMITIES: No calf tenderness. NEUROLOGIC: Alert, awake, oriented. LABORATORY DATA: White cell 1.7, hemoglobin 11, MCV 89, platelet 13, platelet was 7 at admission, potassium 4.1, creatinine 0.4, calcium 7.8, serum iron 103, ferritin 126, bilirubin 3.7, B12 of 1824, folate 12. HIV negative. RADIOLOGY: CT abdomen was done, thickening of gastric wall, splenomegaly, diffuse fatty infiltration of the liver. ASSESSMENT AND PLAN: 1. Thrombocytopenia. This may be secondary to alcohol consumption, cirrhosis, splenomegaly and consumption secondary to the bleeding. 2. History of esophageal varices, as per the information status post banding. 3. The patient has had platelet transfusion. 4. No bowel movement. 5. Leukopenia, is in isolation. Commonly patients with cirrhosis and leukopenia do not have risk of infection. 6. 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 7. History of hematemesis, seen by GI. 8. History of abdominal pain, on supportive care. 9. We will do supportive care for now. I discussed with the patient regarding quitting alcohol. JOB# [id number] NM/NTS
--- NOTE | 2018-09-26 08:03 | XRay Report ---
CHEST 1 VIEW INDICATION: Possible Aspiration. Cough COMPARISON: FINDINGS: Support devices: None. Heart: Within normal limits. Lungs/Pleura: No acute air space or interstitial disease. Additional findings: None. IMPRESSION: No acute findings. Signer Name: Edmundo Lynn Jr, MD Signed: 09/26/2018 7:59 AM Workstation Name: [id number]
[2018-09-26] MEDS ORDERED: MAGNESIUM SULFATE 4GM/100ML 4 GM/100 ML BAG IV ONE (08:30)
[2018-09-26] MEDS: PROTONIX PO SCH (09:54)
[2018-09-26] MEDS: FOLVITE 1 MG in NACL 0.9% 50 ML IV SCH (09:54)
[2018-09-26] MEDS: SODIUM CHLORIDE FLUSH SYRINGE 10 ML IV SCH (09:54)
[2018-09-26] MEDS: VITAMIN B-1 100 MG in NACL 0.9% 50 ML IV SCH (09:54)
--- NOTE | 2018-09-26 11:57 | Progress Note ---
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 -s/p EGD with variceal banding -On octreotide drip, IV Rocephin and Protonix -H/H stable, will monitor -GI following Acute on chronic Thrombocytopenia -Status post transfusion with 1 unit of platelet -Level slightly improved, will cont to monitor Acute Metabolic Encephalopathy -resolved Neutropenia -We'll continue to monitor -Continue neutropenic precautions -Hematology following Acute Metabolic Acidosis -Resolved Pancytopenia -Probably secondary to chronic liver disease -HIV screen negative Hypomagnesemia -Repleted, we'll monitor level Hyponatremia -Improved 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 He denies abdominal pain or bleeding from any orifice. Hospitalist Physical - Constitutional Vitals: Temp Pulse Resp BP Pulse Ox 98.5 F 59 L 14 132/68 99 09/26/18 08:00 09/26/18 11:00 09/26/18 11:00 09/26/18 11:00 09/26/18 11:00 General appearance: Present: no acute distress, well-nourished - EENT Eyes: Present: PERRL, EOM intact ENT: hearing intact, clear oral mucosa - Neck Neck: Present: supple - Respiratory Respiratory effort: normal Respiratory: bilateral: CTA - Cardiovascular Rhythm: regular Heart Sounds: Present: S1 & S2 - Extremities Extremities: No edema - Abdominal General gastrointestinal: soft, non-tender, non-distended, normal bowel sounds - Integumentary Integumentary: Present: clear, warm, dry - Psychiatric Psychiatric: appropriate mood/affect - Neurologic Neurologic: CNII-XII intact Results - Labs CBC & Chem 7: 09/26/18 03:45 09/26/18 03:45 Labs: Laboratory Last Values WBC 1.6 K/mm3 (4.5-11.0) L* 09/26/18 03:45 RBC 3.64 M/mm3 (3.65-5.03) L 09/26/18 03:45 Hgb 11.0 gm/dl (11.8-15.2) L 09/26/18 03:45 Hct 32.6 % (35.5-45.6) L 09/26/18 03:45 MCV 90 fl (84-94) 09/26/18 03:45 MCH 30 pg (28-32) 09/26/18 03:45 MCHC 34 % (32-34) 09/26/18 03:45 RDW 16.8 % (13.2-15.2) H 09/26/18 03:45 Plt Count 16 K/mm3 (140-440) L* 09/26/18 03:45 Add Manual Diff Complete 09/24/18 03:30 Total Counted 100 09/24/18 03:30 Seg Neuts % (Manual) 80.0 % (40.0-70.0) H 09/24/18 03:30 0 % 09/24/18 03:30 12.0 % (13.4-35.0) L 09/24/18 03:30 Reactive Lymphs % (Man) 0 % 09/24/18 03:30 5.0 % (0.0-7.3) 09/24/18 03:30 1.0 % (0.0-4.3) 09/24/18 03:30 2.0 % (0.0-1.8) H 09/24/18 03:30 0 % 09/24/18 03:30 0 % 09/24/18 03:30 0 % 09/24/18 03:30 0 % 09/24/18 03:30 Nucleated RBC % Not Reportable 09/24/18 03:30 Seg Neutrophils # Man 0.9 K/mm3 (1.8-7.7) L 09/24/18 03:30 Band Neutrophils # 0.0 K/mm3 09/24/18 03:30 0.1 K/mm3 (1.2-5.4) L 09/24/18 03:30 Abs React Lymphs (Man) 0.0 K/mm3 09/24/18 03:30 0.1 K/mm3 (0.0-0.8) 09/24/18 03:30 0.0 K/mm3 (0.0-0.4) 09/24/18 03:30 0.0 K/mm3 (0.0-0.1) 09/24/18 03:30 0.0 K/mm3 09/24/18 03:30 0.0 K/mm3 09/24/18 03:30 0.0 K/mm3 09/24/18 03:30 Blast Cells # 0.0 K/mm3 09/24/18 03:30 Pathologist Review 09/24/18 03:30 WBC Morphology Not Reportable 09/24/18 03:30 Hypersegmented Neuts Not Reportable 09/24/18 03:30 Hyposegmented Neuts Not Reportable 09/24/18 03:30 Hypogranular Neuts Not Reportable 09/24/18 03:30 Not Reportable 09/24/18 03:30 Not Reportable 09/24/18 03:30 Not Reportable 09/24/18 03:30 Not Reportable 09/24/18 03:30 Not Reportable 09/24/18 03:30 Not Reportable 09/24/18 03:30 Consistent w auto 09/24/18 03:30 Not Reportable 09/24/18 03:30 Plt Clumps, EDTA Not Reportable 09/24/18 03:30 Not Reportable 09/24/18 03:30 Not Reportable 09/24/18 03:30 Not Reportable 09/24/18 03:30 Plt Morphology Comment Not Reportable 09/24/18 03:30 RBC Morphology Not Reportable 09/24/18 03:30 Dimorphic RBCs Not Reportable 09/24/18 03:30 Not Reportable 09/24/18 03:30 Not Reportable 09/24/18 03:30 Not Reportable 09/24/18 03:30 Few 09/24/18 03:30 Not Reportable 09/24/18 03:30 Not Reportable 09/24/18 03:30 Not Reportable 09/24/18 03:30 Not Reportable 09/24/18 03:30 Not Reportable 09/24/18 03:30 Not Reportable 09/24/18 03:30 Not Reportable 09/24/18 03:30 Not Reportable 09/24/18 03:30 Not Reportable 09/24/18 03:30 Not Reportable 09/24/18 03:30 Not Reportable 09/24/18 03:30 Not Reportable 09/24/18 03:30 Not Reportable 09/24/18 03:30 Not Reportable 09/24/18 03:30 Not Reportable 09/24/18 03:30 Acanthocytes (Spur) Not Reportable 09/24/18 03:30 Rouleaux Not Reportable 09/24/18 03:30 Not Reportable 09/24/18 03:30 Not Reportable 09/24/18 03:30 Not Reportable 09/24/18 03:30 Not Reportable 09/24/18 03:30 Hem Pathologist Commnt Sent to pathology 09/24/18 03:30 PT 17.7 Sec. (12.2-14.9) H 09/23/18 02:04 INR 1.49 (0.87-1.13) H 09/23/18 02:04 APTT 36.2 Sec. (24.2-36.6) 09/23/18 02:04 Sodium 139 mmol/L (137-145) 09/26/18 03:45 Potassium 3.6 mmol/L (3.6-5.0) 09/26/18 03:45 Chloride 107.6 mmol/L (98-107) H 09/26/18 03:45 Carbon Dioxide 22 mmol/L (22-30) 09/26/18 03:45 13 mmol/L 09/26/18 03:45 BUN 5 mg/dL (9-20) L 09/26/18 03:45 0.5 mg/dL (0.8-1.5) L 09/26/18 03:45 Estimated GFR > 60 ml/min 09/26/18 03:45 10 % 09/26/18 03:45 Glucose 108 mg/dL (75-100) H 09/26/18 03:45 POC Glucose 92 (70-105) 09/23/18 06:57 Lactic Acid 1.20 mmol/L (0.7-2.0) 09/24/18 03:30 Calcium 7.8 mg/dL (8.4-10.2) L 09/26/18 03:45 Phosphorus 3.10 mg/dL (2.5-4.5) 09/24/18 03:30 Magnesium 1.40 mg/dL (1.7-2.3) L 09/26/18 03:45 Iron 103 ug/dL (49-181) 09/25/18 07:57 TIBC 235 mcg/dL (250-450) L 09/25/18 07:57 126.2 ng/mL (13.0-400.0) 09/25/18 07:57 3.60 mg/dL (0.1-1.2) H 09/26/18 03:45 AST 81 units/L (5-40) H 09/26/18 03:45 ALT 27 units/L (7-56) 09/26/18 03:45 139 units/L (35-129) H 09/26/18 03:45 81.0 umol/L (25-60) H 09/23/18 10:03 0.20 mg/dL (0.00-1.30) 09/23/18 10:03 7.6 g/dL (6.3-8.2) 09/26/18 03:45 3.1 g/dL (3.9-5) L 09/26/18 03:45 0.7 % 09/26/18 03:45 90 units/L (13-60) H 09/23/18 00:21 Vitamin B12 1824 pg/mL (211-911) H 09/25/18 07:57 12.38 ng/mL (7.3-26.0) 09/25/18 07:57 Yellow (Yellow) 09/23/18 01:50 Clear (Clear) 09/23/18 01:50 6.0 (5.0-7.0) 09/23/18 01:50 Ur Specific [place] 1.005 (1.003-1.030) 09/23/18 01:50 <15 mg/dl mg/dL (Negative) 09/23/18 01:50 Neg mg/dL (Negative) 09/23/18 01:50 Neg mg/dL (Negative) 09/23/18 01:50 Sm (Negative) 09/23/18 01:50 Neg (Negative) 09/23/18 01:50 Neg (Negative) 09/23/18 01:50 < 2.0 mg/dL (<2.0) 09/23/18 01:50 Ur Leukocyte Esterase Neg (Negative) 09/23/18 01:50 < 1.0 /HPF (0.0-6.0) 09/23/18 01:50 < 1.0 /HPF (0.0-6.0) 09/23/18 01:50 Few /HPF 09/23/18 01:50 HIV 1&2 Antibody Rapid Non react (Non React) 09/25/18 04:02 Non react (Non React) 09/25/18 04:02 Blood Type O POSITIVE 09/23/18 02:05 Antibody Screen Negative 09/23/18 02:05 Active Medications - Current Medications Current Medications: Generic Name Dose Route Start Last Admin Trade Name Freq PRN Reason Stop Dose Admin Folic Acid 1 mg 09/27/18 10:00 Folvite PO DAILY JORDAN Octreotide Acetate 500 mcg/ 101 mls @ 5.05 mls/hr 09/23/18 03:00 09/25/18 16:16 Sodium Chloride IV 25 mcg/hr TITR JORDAN 5.05 mls/hr Administration Protocol 25 MCG/HR Sodium Chloride 1,000 mls @ 150 mls/hr 09/23/18 06:00 09/26/18 05:53 Nacl 0.9% 1000 Ml IV 150 mls/hr DIRECT JORDAN Administration Folic Acid 1 mg/ Sodium 50.2 mls @ 200.8 mls/hr 09/23/18 11:00 09/26/18 09:54 Chloride IV 09/26/18 23:59 200.8 mls/hr QDAY JORDAN Administration Thiamine HCl 100 mg/ Sodium 51 mls @ 100 mls/hr 09/23/18 12:00 09/26/18 09:54 Chloride IV 09/26/18 23:59 100 mls/hr QDAY JORDAN Administration Ceftriaxone Sodium 1 gm in 50 mls @ 100 mls/hr 09/23/18 11:00 09/25/18 10:48 Rocephin/Ns 1 Gm/50 Ml IV 09/27/18 11:29 100 mls/hr Q24H JORDAN Administration Sodium Chloride 500 mls @ 0 mls/hr 09/26/18 07:12 Nacl 0.9% 500 Ml IV 09/26/18 13:00 ONCE NR As Directed Magnesium Sulfate 4 gm in 100 mls @ 25 mls/hr 09/26/18 08:30 09/26/18 09:54 Magnesium Sulfate 4gm/100ml IV 09/26/18 12:29 25 mls/hr ONCE ONE Administration Lorazepam 2 mg 09/23/18 09:46 09/24/18 00:55 Ativan IV 2 mg Q1HR PRN Administration CIWA-Ar 8-15 Lorazepam 4 mg 09/23/18 09:46 Ativan IV Q1HR PRN CIWA-Ar 16-25 Morphine Sulfate 2 mg 09/23/18 05:09 09/24/18 17:17 Morphine IV 2 mg Q4H PRN Administration Pain, Moderate (4-6) Ondansetron HCl 4 mg 09/23/18 05:09 Zofran IV Q4H PRN Nausea And Vomiting Pantoprazole Sodium 40 mg 09/25/18 10:00 09/26/18 09:54 Protonix PO 40 mg DAILY JORDAN Administration Sodium Chloride 10 ml 09/23/18 10:00 09/26/18 09:54 Sodium Chloride Flush Syringe 10 Ml IV 10 ml BID JORDAN Administration Sodium Chloride 10 ml 09/23/18 05:09 09/24/18 17:18 Sodium Chloride Flush Syringe 10 Ml IV 10 ml PRN PRN Administration LINE FLUSH Thiamine HCl 100 mg 09/27/18 10:00 Vitamin B-1 PO QDAY JORDAN
[2018-09-26] MEDS: ROCEPHIN/NS 1 GM/50 ML 1 GM/50 ML BAG IV SCH (12:48)
--- NOTE | 2018-09-26 13:51 | Progress Note ---
Assessment and Plan Patient resting on room air. No complaint of chest pain or shortness of breath or cough.O2 saturation 95% on room air. ABGs done on room air PH 7.43, PCO2 31, PO2 100, HCO3 21, O2 saturation 98%. - Patient Problems (1) Alcohol withdrawal delirium Current Visit: No Status: Acute Plan to address problem: Management as per primary care. (2) Cirrhosis Current Visit: No Status: Acute Qualifiers: Hepatic cirrhosis type: alcoholic cirrhosis Ascites presence: with ascites Qualified Code(s): K70.31 - Alcoholic cirrhosis of liver with ascites Plan to address problem: Management as per primary care. (3) Metabolic acidosis Current Visit: No Status: Acute Plan to address problem: Improved. (4) Metabolic encephalopathy Current Visit: No Status: Acute Plan to address problem: Management as per primary care. (5) Pancreatitis Current Visit: No Status: Acute Plan to address problem: Management as per primary care. Subjective Date of service: 09/26/18 Principal diagnosis: low plt Interval history: Patient resting on room air. No complaint of chest pain or shortness of breath or cough.O2 saturation 95% on room air. ABGs done on room air PH 7.43, PCO2 31, PO2 100, HCO3 21, O2 saturation 98%. Objective Vital Signs - 12hr 09/26/18 09/26/18 09/26/18 02:00 02:42 03:00 Temperature 98.8 F Pulse Rate 67 74 Pulse Rate [ From Monitor] Respiratory 14 13 Rate Blood Pressure 147/69 143/81 O2 Sat by Pulse 99 99 Oximetry 09/26/18 09/26/18 09/26/18 04:00 05:00 06:00 Temperature 98.8 F Pulse Rate 60 100 H 66 Pulse Rate [ 60 From Monitor] Respiratory 10 L 18 13 Rate Blood Pressure 153/76 153/76 138/77 O2 Sat by Pulse 99 97 98 Oximetry 09/26/18 09/26/18 09/26/18 07:00 08:00 09:00 Temperature 98.5 F Pulse Rate 59 L 87 62 Pulse Rate [ From Monitor] Respiratory 13 17 13 Rate Blood Pressure 136/75 136/75 134/81 O2 Sat by Pulse 99 97 98 Oximetry 09/26/18 09/26/18 09/26/18 10:00 11:00 12:00 Temperature 98.3 F Pulse Rate 70 59 L 76 Pulse Rate [ From Monitor] Respiratory 13 14 15 Rate Blood Pressure 134/81 132/68 141/63 O2 Sat by Pulse 100 99 98 Oximetry 09/26/18 13:00 Temperature Pulse Rate 75 Pulse Rate [ From Monitor] Respiratory 13 Rate Blood Pressure 141/63 O2 Sat by Pulse 98 Oximetry Constitutional: no acute distress, alert, other (middle aged male, normocephalic and atraumatic wit normal respiratory effort at rest) Eyes: icteric ENT: oropharynx moist, other (mallampati 2) Neck: supple, no lymphadenopathy, no JVD Effort: mildly labored Ascultation: Bilateral: clear Percussion: Bilateral: not dull Cardiovascular: regular rate and rhythm Gastrointestinal: normoactive bowel sounds, soft, tender (mild epigastric), non- distended Integumentary: normal Extremities: no cyanosis, no edema, pink and warm, pulses normal, no ischemia or petechiae Neurologic: normal mental status, non-focal exam, pupils equal and round, motor strength normal and Psychiatric: mood appropriate, affect normal CBC and BMP: 09/26/18 03:45 09/26/18 03:45 ABG, PT/INR, D-dimer: PT/INR, D-dimer PT 17.7 Sec. (12.2-14.9) H 09/23/18 02:04 INR 1.49 (0.87-1.13) H 09/23/18 02:04 Abnormal lab findings: Abnormal Labs 09/23/18 09/23/18 09/23/18 00:21 00:21 02:04 WBC 2.2 L RBC Hgb Hct RDW 17.1 H Plt Count 41 L Seg Neuts % (Manual) Lymphocytes % (Manual) Basophils % (Manual) Seg Neutrophils # Man 1.3 L Lymphocytes # (Manual) 0.7 L PT 17.7 H INR 1.49 H Sodium Chloride Carbon Dioxide BUN 6 L Creatinine 0.6 L Glucose 148 H Lactic Acid Calcium Magnesium TIBC Total Bilirubin 3.50 H AST 203 H Alkaline Phosphatase 195 H Ammonia Total Protein 9.2 H Albumin 3.7 L Lipase 90 H Vitamin B12 09/23/18 09/23/18 09/23/18 05:36 09:20 10:03 WBC RBC Hgb 11.4 L 11.3 L Hct 34.0 L 34.0 L RDW Plt Count Seg Neuts % (Manual) Lymphocytes % (Manual) Basophils % (Manual) Seg Neutrophils # Man Lymphocytes # (Manual) PT INR Sodium Chloride Carbon Dioxide BUN Creatinine Glucose Lactic Acid Calcium Magnesium TIBC Total Bilirubin AST Alkaline Phosphatase Ammonia 81.0 H Total Protein Albumin Lipase Vitamin B12 09/23/18 09/23/18 09/23/18 10:03 10:03 14:00 WBC RBC Hgb 10.9 L Hct 32.5 L RDW Plt Count Seg Neuts % (Manual) Lymphocytes % (Manual) Basophils % (Manual) Seg Neutrophils # Man Lymphocytes # (Manual) PT INR Sodium Chloride Carbon Dioxide BUN Creatinine Glucose Lactic Acid 2.60 H* Calcium Magnesium 1.30 L TIBC Total Bilirubin AST Alkaline Phosphatase Ammonia Total Protein Albumin Lipase Vitamin B12 09/23/18 09/23/18 09/24/18 14:00 15:59 03:30 WBC 1.1 L* RBC Hgb 11.4 L 11.3 L Hct 34.1 L 33.7 L RDW 17.0 H Plt Count 7 L* Seg Neuts % (Manual) 80.0 H Lymphocytes % (Manual) 12.0 L Basophils % (Manual) 2.0 H Seg Neutrophils # Man 0.9 L Lymphocytes # (Manual) 0.1 L PT INR Sodium Chloride Carbon Dioxide BUN Creatinine Glucose Lactic Acid 2.50 H* Calcium Magnesium TIBC Total Bilirubin AST Alkaline Phosphatase Ammonia Total Protein Albumin Lipase Vitamin B12 09/24/18 09/24/18 09/25/18 03:30 03:30 04:02 WBC 1.7 L* RBC 3.64 L Hgb 11.0 L Hct 32.5 L RDW 16.7 H Plt Count 13 L* Seg Neuts % (Manual) Lymphocytes % (Manual) Basophils % (Manual) Seg Neutrophils # Man Lymphocytes # (Manual) PT INR Sodium 136 L Chloride Carbon Dioxide BUN 8 L Creatinine 0.5 L Glucose 126 H Lactic Acid Calcium 7.6 L Magnesium 1.50 L TIBC Total Bilirubin AST Alkaline Phosphatase Ammonia Total Protein Albumin Lipase Vitamin B12 09/25/18 09/25/18 09/25/18 04:02 07:57 07:57 WBC RBC Hgb Hct RDW Plt Count Seg Neuts % (Manual) Lymphocytes % (Manual) Basophils % (Manual) Seg Neutrophils # Man Lymphocytes # (Manual) PT INR Sodium 133 L Chloride Carbon Dioxide 20 L BUN 8 L Creatinine 0.4 L Glucose 102 H Lactic Acid Calcium 7.8 L Magnesium TIBC 235 L Total Bilirubin 3.70 H AST 96 H Alkaline Phosphatase 134 H Ammonia Total Protein Albumin 2.8 L Lipase Vitamin B12 1824 H 09/26/18 09/26/18 03:45 03:45 WBC 1.6 L* RBC 3.64 L Hgb 11.0 L Hct 32.6 L RDW 16.8 H Plt Count 16 L* Seg Neuts % (Manual) Lymphocytes % (Manual) Basophils % (Manual) Seg Neutrophils # Man Lymphocytes # (Manual) PT INR Sodium Chloride 107.6 H Carbon Dioxide BUN 5 L Creatinine 0.5 L Glucose 108 H Lactic Acid Calcium 7.8 L Magnesium 1.40 L TIBC Total Bilirubin 3.60 H AST 81 H Alkaline Phosphatase 139 H Ammonia Total Protein Albumin 3.1 L Lipase Vitamin B12 Chest x-ray: report reviewed (Reported no acute process.), image reviewed Allied health notes reviewed: nursing
--- NOTE | 2018-09-26 14:02 | Progress Note ---
Assessment and Plan 09/23/2018 BCx - NGTD 42 yo M with PMHx of EtOH abuse, cirrhosis initially presented due to hematemesis 2/2 esophageal varices. 1) Acute blood loss 2/2 esophageal varices - will continue to prophylax for infection with ceftriaxone to complete 5 days (stop date: 09/27/18) 2) Pancytopenia - thrombocytopenia and leukopenia, most likely 2/2 cirrhosis and alcohol abuse. Appears to be chronic based on previous admission labs. HIV is negative. 3) Lactic acidosis - resolved Recs: IV ceftriaxone 1g q24h for 5 days (stop date: 09/27/18) We will sign off. Thank you for involving us int eh care of Mr. Margie Johns. Please call us back if you have any questions. Jose Luis Ramirez MD [facility] ([facility]) C: [phone] O: [phone] F: [phone] Subjective Date of service: 09/26/18 Principal diagnosis: low plt Interval history: No new concerns at this time. Afebrile, white count stable. Objective - Exam Narrative Exam: Constitutional: awake, no distress, following commands Head, Ears, Nose: Normocephalic, atraumatic. External ears, nose normal Eyes: Conjunctivae/corneas clear. No icterus. No ptosis. Neck: Supple, no meningeal signs Oral: fair dentition, moist mucous membranes Cardiovascular: S1, S2 normal. Normal rhythm Respiratory: Good air entry, clear to auscultation bilaterally GI: Soft, non-tender; bowel sounds normal. No peritoneal signs Musculoskeletal: No pedal edema, Skin: No rash or abscess Hem/Lymphatic: No palpable cervical or supraclavicular nodes. No lymphangitis Psych: no agitation Neurological: Moves all extremities, no focal defects - Constitutional Vitals: Vital Signs Temp Pulse Resp BP Pulse Ox 98.3 F 75 13 141/63 98 09/26/18 12:00 09/26/18 13:00 09/26/18 13:00 09/26/18 13:00 09/26/18 13:00 Temperature -Last 24 Hours Temperature 98.3 F Temperature 98.5 F Temperature 98.8 F Temperature 98.8 F Temperature 98.3 F Temperature 99 F - Labs CBC & Chem 7: 09/26/18 03:45 09/26/18 03:45 Labs: Abnormal lab results 09/26/18 09/26/18 Range/Units 03:45 03:45 WBC 1.6 L* (4.5-11.0) K/mm3 RBC 3.64 L (3.65-5.03) M/mm3 Hgb 11.0 L (11.8-15.2) gm/dl Hct 32.6 L (35.5-45.6) % RDW 16.8 H (13.2-15.2) % Plt Count 16 L* (140-440) K/mm3 Chloride 107.6 H (98-107) mmol/L BUN 5 L (9-20) mg/dL Creatinine 0.5 L (0.8-1.5) mg/dL Glucose 108 H (75-100) mg/dL Calcium 7.8 L (8.4-10.2) mg/dL Magnesium 1.40 L (1.7-2.3) mg/dL Total Bilirubin 3.60 H (0.1-1.2) mg/dL AST 81 H (5-40) units/L Alkaline Phosphatase 139 H (35-129) units/L Albumin 3.1 L (3.9-5) g/dL - Imaging and cardiology Chest x-ray: image reviewed (Normal. )
--- NOTE | 2018-09-26 17:14 | Progress Note ---
Assessment and Plan 1. Variceal bleed - s/p banding. H/H relatively stable, no melena. - stop octreotide - advance diet - monitor H/H and transfuse as needed - if remains stable, may D/C, possibly on nonselective B-blockers - agree with Ceftriaxone - needs to f/u with GI in 2 wks 3. EtOH abuse - with likely cirrhosis. - discussed abstinence and prognosis. 4. Abnormal LFTs - due to EtOH most likely. May consider U/S in future. Subjective Date of service: 09/26/18 Principal diagnosis: low plt Interval history: Patient resting comfortably in bed. Mild epigastric and substernal discomfort resolved. No evidence of ongoing GI bleeding. Objective - Constitutional Vitals: Vital Signs - 12hr 09/26/18 09/26/18 09/26/18 06:00 07:00 08:00 Temperature 98.5 F Pulse Rate 66 59 L 87 Respiratory 13 13 17 Rate Blood Pressure 138/77 136/75 136/75 O2 Sat by Pulse 98 99 97 Oximetry 09/26/18 09/26/18 09/26/18 09:00 10:00 11:00 Temperature Pulse Rate 62 70 59 L Respiratory 13 13 14 Rate Blood Pressure 134/81 134/81 132/68 O2 Sat by Pulse 98 100 99 Oximetry 09/26/18 09/26/18 09/26/18 12:00 13:00 14:00 Temperature 98.3 F 98.0 F Pulse Rate 76 75 64 Respiratory 15 13 11 L Rate Blood Pressure 141/63 141/63 192/120 O2 Sat by Pulse 98 98 99 Oximetry 09/26/18 09/26/18 09/26/18 14:14 14:29 14:58 Temperature 98.1 F 98.1 F 98.1 F Pulse Rate 63 68 77 Respiratory 18 16 15 Rate Blood Pressure 136/79 130/74 142/68 O2 Sat by Pulse 100 97 98 Oximetry 09/26/18 15:00 Temperature Pulse Rate 68 Respiratory 12 Rate Blood Pressure 131/77 O2 Sat by Pulse 100 Oximetry General appearance: Present: no acute distress - EENT Eyes: PERRL, EOM intact, scleral icterus - Respiratory Respiratory effort: normal - Gastrointestinal General gastrointestinal: Present: soft, non-tender - Labs CBC & Chem 7: 09/26/18 03:45 09/26/18 03:45 Labs: Abnormal lab results 09/26/18 09/26/18 09/26/18 Range/Units 03:45 03:45 15:08 WBC 1.6 L* (4.5-11.0) K/mm3 RBC 3.64 L (3.65-5.03) M/mm3 Hgb 11.0 L (11.8-15.2) gm/dl Hct 32.6 L (35.5-45.6) % RDW 16.8 H (13.2-15.2) % Plt Count 16 L* (140-440) K/mm3 POC ABG pCO2 30.5 L (35-45) Chloride 107.6 H (98-107) mmol/L BUN 5 L (9-20) mg/dL Creatinine 0.5 L (0.8-1.5) mg/dL Glucose 108 H (75-100) mg/dL Calcium 7.8 L (8.4-10.2) mg/dL Magnesium 1.40 L (1.7-2.3) mg/dL Total Bilirubin 3.60 H (0.1-1.2) mg/dL AST 81 H (5-40) units/L Alkaline Phosphatase 139 H (35-129) units/L Albumin 3.1 L (3.9-5) g/dL Medications & Allergies - Medications Allergies/Adverse Reactions: Allergies No Known Allergies Allergy (Verified 12/26/14 12:21) Home Medications: Home Medications Medication Instructions Recorded Confirmed Last Taken Type RX: No Known Home Medications [No 09/23/18 09/23/18 Unknown History Reported Home Medications] Active Medications: Generic Name Dose Route Start Last Admin Trade Name Yulia PRN Reason Stop Dose Admin Folic Acid 1 mg 09/27/18 10:00 Folvite PO DAILY JORDAN Folic Acid 1 mg/ Sodium 50.2 mls @ 200.8 mls/hr 09/23/18 11:00 09/26/18 09:54 Chloride IV 09/26/18 23:59 200.8 mls/hr QDAY JORDAN Administration Thiamine HCl 100 mg/ Sodium 51 mls @ 100 mls/hr 09/23/18 12:00 09/26/18 09:54 Chloride IV 09/26/18 23:59 100 mls/hr QDAY JORDAN Administration Ceftriaxone Sodium 1 gm in 50 mls @ 100 mls/hr 09/23/18 11:00 09/26/18 12:48 Rocephin/Ns 1 Gm/50 Ml IV 09/27/18 11:29 100 mls/hr Q24H JORDAN Administration Lorazepam 2 mg 09/23/18 09:46 09/24/18 00:55 Ativan IV 2 mg Q1HR PRN Administration CIWA-Ar 8-15 Lorazepam 4 mg 09/23/18 09:46 Ativan IV Q1HR PRN CIWA-Ar 16-25 Morphine Sulfate 2 mg 09/23/18 05:09 09/24/18 17:17 Morphine IV 2 mg Q4H PRN Administration Pain, Moderate (4-6) Ondansetron HCl 4 mg 09/23/18 05:09 Zofran IV Q4H PRN Nausea And Vomiting Pantoprazole Sodium 40 mg 09/25/18 10:00 09/26/18 09:54 Protonix PO 40 mg DAILY JORDAN Administration Sodium Chloride 10 ml 09/23/18 10:00 09/26/18 09:54 Sodium Chloride Flush Syringe 10 Ml IV 10 ml BID JORDAN Administration Sodium Chloride 10 ml 09/23/18 05:09 09/24/18 17:18 Sodium Chloride Flush Syringe 10 Ml IV 10 ml PRN PRN Administration LINE FLUSH Thiamine HCl 100 mg 09/27/18 10:00 Vitamin B-1 PO QDAY JORDAN
[2018-09-27 05:59] LABS: BUN/Creatinine Ratio 12; Blood Urea Nitrogen 6 mg/dL (9-20); Calcium 8.3 mg/dL (8.4-10.2); Hemolysis Index 6
--- NOTE | 2018-09-27 07:41 | Hem/Onc Progress Note ---
Assessment and Plan low plt - h/o ETOH splenomegaly 1. Thrombocytopenia. This may be secondary to alcohol consumption, cirrhosis, splenomegaly and consumption secondary to the bleeding. 2. History of esophageal varices, as per the information status post banding. 3. The patient has had platelet transfusion. 4. No bowel movement. 5. Leukopenia, is in isolation. Commonly patients with cirrhosis and leukopenia do not have risk of infection. 6. 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 7. History of hematemesis, seen by GI. 8. History of abdominal pain, on supportive care. 9. We will do supportive care for now. I discussed with the patient regarding quitting alcohol. plt 31- will follow OP follow up an option wbc better - d/c neutropenic precautions hb stable - Patient Problems (1) Thrombocytopenia Current Visit: No Status: Acute Subjective Date of service: 09/27/18 Principal diagnosis: low plt Interval history: eating - feeling better as per RN - plt transfusion given Objective - Exam Narrative Exam: Pain - none General appearance no acute distress Performance status limited self care Eyes - icterus ENT no thrush LNs cervical not palpable Neck - normal ROM Respiratory Normal Breath sounds - CTA CVS S1 S2 + Extremities normal temperature General GI Soft - distended Rectal deferred male - deferred Skin warm Musculoskeletal moving normal Neurologically no focal deficit - Constitutional Vitals: Last Vital Signs Temp 97.8 F 09/27/18 04:00 Pulse 60 09/27/18 06:00 Resp 11 L 09/27/18 06:00 BP 132/77 09/27/18 06:00 Pulse Ox 100 09/27/18 06:00 - Labs Lab Results: Laboratory Results - last 24 hr 09/23/18 09/24/18 09/26/18 02:05 03:30 15:08 WBC Morphology Not Reportable POC ABG pH 7.437 POC ABG pCO2 30.5 L POC ABG pO2 100 POC ABG HCO3 20.6 POC ABG Total CO2 21 POC ABG O2 Sat 98 POC ABG Base Excess -4 FiO2 21 Sodium Potassium Chloride Carbon Dioxide Anion Gap BUN Creatinine Estimated GFR BUN/Creatinine Ratio Glucose Calcium Magnesium Blood Type O POSITIVE Antibody Screen Negative 09/27/18 04:55 WBC Morphology POC ABG pH POC ABG pCO2 POC ABG pO2 POC ABG HCO3 POC ABG Total CO2 POC ABG O2 Sat POC ABG Base Excess FiO2 Sodium 138 Potassium 3.5 L Chloride 103.2 Carbon Dioxide 22 Anion Gap 16 BUN 6 L Creatinine 0.5 L Estimated GFR > 60 BUN/Creatinine Ratio 12 Glucose 116 H Calcium 8.3 L Magnesium 1.60 L Blood Type Antibody Screen Medications & Allergies - Medications Allergies/Adverse Reactions: Allergies No Known Allergies Allergy (Verified 12/26/14 12:21) Home Medications: Home Medications Medication Instructions Recorded Confirmed Last Taken Type No Known Home Medications [No 09/23/18 09/23/18 Unknown History Reported Home Medications] Active Medications: Generic Name Dose Route Start Last Admin Trade Name Freq PRN Reason Stop Dose Admin Folic Acid 1 mg 09/27/18 10:00 Folvite PO DAILY JODRAN Ceftriaxone Sodium 1 gm in 50 mls @ 100 mls/hr 09/23/18 11:00 09/26/18 12:48 Rocephin/Ns 1 Gm/50 Ml IV 09/27/18 11:29 100 mls/hr Q24H JORDAN Administration Lorazepam 2 mg 09/23/18 09:46 09/24/18 00:55 Ativan IV 2 mg Q1HR PRN Administration CIWA-Ar 8-15 Lorazepam 4 mg 09/23/18 09:46 Ativan IV Q1HR PRN CIWA-Ar 16-25 Morphine Sulfate 2 mg 09/23/18 05:09 09/24/18 17:17 Morphine IV 2 mg Q4H PRN Administration Pain, Moderate (4-6) Ondansetron HCl 4 mg 09/23/18 05:09 Zofran IV Q4H PRN Nausea And Vomiting Pantoprazole Sodium 40 mg 09/25/18 10:00 09/26/18 09:54 Protonix PO 40 mg DAILY JORDAN Administration Sodium Chloride 10 ml 09/23/18 10:00 09/26/18 09:54 Sodium Chloride Flush Syringe 10 Ml IV 10 ml BID JORDAN Administration Sodium Chloride 10 ml 09/23/18 05:09 09/24/18 17:18 Sodium Chloride Flush Syringe 10 Ml IV 10 ml PRN PRN Administration LINE FLUSH Thiamine HCl 100 mg 09/27/18 10:00 Vitamin B-1 PO QDAY JORDAN
--- NOTE | 2018-09-27 09:30 | Progress Note ---
Assessment and Plan 1. Variceal bleed - s/p banding. H/H relatively stable, no melena. - advance diet - monitor H/H and transfuse as needed - if H/H stable, may D/C from GI standpoint, possibly on nonselective B-blockers - agree with Ceftriaxone - continue oral abx x 5 days total - needs to f/u with GI in 2 wks, and get repeat EGD for variceal ablation in 4-6 weeks. 3. EtOH abuse - with likely cirrhosis. - discussed abstinence and prognosis. 4. Abnormal LFTs - due to EtOH most likely. May consider U/S in future. Will sign off. Please call as needed. Subjective Date of service: 09/27/18 Principal diagnosis: low plt Interval history: Patient sitting up, eating breakfast. No evidence of ongoing GI bleeding. No BMs. Objective - Constitutional Vitals: Vital Signs - 12hr 09/26/18 09/26/18 09/26/18 22:00 22:59 23:00 Temperature Pulse Rate 66 64 66 Respiratory 10 L 13 12 Rate Blood Pressure 146/95 106/42 127/78 O2 Sat by Pulse 95 100 99 Oximetry 09/26/18 09/27/18 09/27/18 23:18 00:00 01:00 Temperature 98.0 F Pulse Rate 73 71 66 Respiratory 12 15 13 Rate Blood Pressure 127/78 97/58 105/64 O2 Sat by Pulse 99 99 99 Oximetry 09/27/18 09/27/18 09/27/18 02:00 03:00 04:00 Temperature 97.8 F Pulse Rate 74 72 Respiratory 15 11 L Rate Blood Pressure 105/64 105/64 105/64 O2 Sat by Pulse 100 97 Oximetry 09/27/18 09/27/18 09/27/18 05:00 06:00 07:00 Temperature Pulse Rate 67 60 72 Respiratory 14 11 L 14 Rate Blood Pressure 132/77 132/77 132/77 O2 Sat by Pulse 100 100 99 Oximetry 09/27/18 08:00 Temperature 98.3 F Pulse Rate Respiratory Rate Blood Pressure O2 Sat by Pulse Oximetry General appearance: Present: no acute distress - EENT Eyes: PERRL, EOM intact ENT: hearing intact - Respiratory Respiratory effort: normal - Gastrointestinal General gastrointestinal: Present: soft, non-tender - Labs CBC & Chem 7: 09/26/18 03:45 09/27/18 04:55 Labs: Abnormal lab results 09/26/18 09/27/18 Range/Units 15:08 04:55 POC ABG pCO2 30.5 L (35-45) Potassium 3.5 L (3.6-5.0) mmol/L BUN 6 L (9-20) mg/dL Creatinine 0.5 L (0.8-1.5) mg/dL Glucose 116 H (75-100) mg/dL Calcium 8.3 L (8.4-10.2) mg/dL Magnesium 1.60 L (1.7-2.3) mg/dL Medications & Allergies - Medications Allergies/Adverse Reactions: Allergies No Known Allergies Allergy (Verified 12/26/14 12:21) Home Medications: Home Medications Medication Instructions Recorded Confirmed Last Taken Type No Known Home Medications [No 09/23/18 09/23/18 Unknown History Reported Home Medications] Active Medications: Generic Name Dose Route Start Last Admin Trade Name Freq PRN Reason Stop Dose Admin Folic Acid 1 mg 09/27/18 10:00 Folvite PO DAILY JORDAN Ceftriaxone Sodium 1 gm in 50 mls @ 100 mls/hr 09/23/18 11:00 09/26/18 12:48 Rocephin/Ns 1 Gm/50 Ml IV 09/27/18 11:29 100 mls/hr Q24H JORDAN Administration Lorazepam 2 mg 09/23/18 09:46 09/24/18 00:55 Ativan IV 2 mg Q1HR PRN Administration CIWA-Ar 8-15 Lorazepam 4 mg 09/23/18 09:46 Ativan IV Q1HR PRN CIWA-Ar 16-25 Morphine Sulfate 2 mg 09/23/18 05:09 09/24/18 17:17 Morphine IV 2 mg Q4H PRN Administration Pain, Moderate (4-6) Ondansetron HCl 4 mg 09/23/18 05:09 Zofran IV Q4H PRN Nausea And Vomiting Pantoprazole Sodium 40 mg 09/25/18 10:00 09/26/18 09:54 Protonix PO 40 mg DAILY JORDAN Administration Sodium Chloride 10 ml 09/23/18 10:00 09/26/18 09:54 Sodium Chloride Flush Syringe 10 Ml IV 10 ml BID JORDAN Administration Sodium Chloride 10 ml 09/23/18 05:09 09/24/18 17:18 Sodium Chloride Flush Syringe 10 Ml IV 10 ml PRN PRN Administration LINE FLUSH Thiamine HCl 100 mg 09/27/18 10:00 Vitamin B-1 PO QDAY JORDAN
[2018-09-27] MEDS: FOLVITE PO SCH (09:52)
[2018-09-27] MEDS: PROTONIX PO SCH (09:53)
[2018-09-27] MEDS: VITAMIN B-1 PO SCH (09:53)
[2018-09-27] MEDS: ROCEPHIN/NS 1 GM/50 ML 1 GM/50 ML BAG IV SCH (10:02)
[2018-09-27 10:08] LABS: Hematocrit 36.5 % (35.5-45.6); Hemoglobin 12.3 gm/dl (11.8-15.2); Mean Corpuscular HGB Conc 34 % (32-34); Mean Corpuscular Volume 90 fl (84-94); Red Blood Count 4.07 M/mm3 (3.65-5.03); Red Cell Distribution Width 17.5 % (13.2-15.2)
[2018-09-27 10:09] LABS: Platelet Count 31 K/mm3 (140-440)
--- NOTE | 2018-09-27 13:41 | Progress Note ---
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 -s/p EGD with variceal banding -Off octreotide drip and IV Rocephin, cont oral Protonix -H/H stable, will monitor -GI signed off Acute on chronic Thrombocytopenia -Status post transfusion with 1 unit of platelet -Level improving, will cont to monitor Acute Metabolic Encephalopathy -resolved Neutropenia -levels improving, will monitor -Continue neutropenic precautions -Hematology following Acute Metabolic Acidosis -Resolved Pancytopenia -Probably secondary to chronic liver disease -HIV screen negative Hypomagnesemia -On repletion, will monitor level Hypokalemia -Repleted, will monitor Hyponatremia -Resolved 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 -For outpatient follow-up ETOH abuse -On alcohol withdrawal prophylaxis -Patient counseled on cessation Disposition: will transfer pt out of ICU and cont mgx. Pt to be d/lady when cleared by hematology. History Interval history: Patient has no new complaints. He denies abdominal pain or bleeding from any orifice. Hospitalist Physical - Constitutional Vitals: Temp Pulse Resp BP Pulse Ox 98.4 F 67 23 106/66 97 09/27/18 12:00 09/27/18 12:00 09/27/18 12:00 09/27/18 12:00 09/27/18 12:00 General appearance: Present: no acute distress, well-nourished - EENT Eyes: Present: PERRL, EOM intact ENT: hearing intact, clear oral mucosa - Neck Neck: Present: supple - Respiratory Respiratory effort: normal Respiratory: bilateral: CTA - Cardiovascular Rhythm: regular Heart Sounds: Present: S1 & S2 - Extremities Extremities: No edema - Abdominal General gastrointestinal: soft, non-tender, normal bowel sounds - Integumentary Integumentary: Present: clear, warm, dry - Psychiatric Psychiatric: appropriate mood/affect - Neurologic Neurologic: CNII-XII intact Results - Labs CBC & Chem 7: 09/27/18 09:56 09/27/18 04:55 Labs: Laboratory Last Values WBC 2.8 K/mm3 (4.5-11.0) L 09/27/18 09:56 RBC 4.07 M/mm3 (3.65-5.03) 09/27/18 09:56 Hgb 12.3 gm/dl (11.8-15.2) 09/27/18 09:56 Hct 36.5 % (35.5-45.6) 09/27/18 09:56 MCV 90 fl (84-94) 09/27/18 09:56 MCH 30 pg (28-32) 09/27/18 09:56 MCHC 34 % (32-34) 09/27/18 09:56 RDW 17.5 % (13.2-15.2) H 09/27/18 09:56 Plt Count 31 K/mm3 (140-440) L 09/27/18 09:56 Add Manual Diff Complete 09/24/18 03:30 Total Counted 100 09/24/18 03:30 Seg Neuts % (Manual) 80.0 % (40.0-70.0) H 09/24/18 03:30 0 % 09/24/18 03:30 12.0 % (13.4-35.0) L 09/24/18 03:30 Reactive Lymphs % (Man) 0 % 09/24/18 03:30 5.0 % (0.0-7.3) 09/24/18 03:30 1.0 % (0.0-4.3) 09/24/18 03:30 2.0 % (0.0-1.8) H 09/24/18 03:30 0 % 09/24/18 03:30 0 % 09/24/18 03:30 0 % 09/24/18 03:30 0 % 09/24/18 03:30 Nucleated RBC % Not Reportable 09/24/18 03:30 Seg Neutrophils # Man 0.9 K/mm3 (1.8-7.7) L 09/24/18 03:30 Band Neutrophils # 0.0 K/mm3 09/24/18 03:30 0.1 K/mm3 (1.2-5.4) L 09/24/18 03:30 Abs React Lymphs (Man) 0.0 K/mm3 09/24/18 03:30 0.1 K/mm3 (0.0-0.8) 09/24/18 03:30 0.0 K/mm3 (0.0-0.4) 09/24/18 03:30 0.0 K/mm3 (0.0-0.1) 09/24/18 03:30 0.0 K/mm3 09/24/18 03:30 0.0 K/mm3 09/24/18 03:30 0.0 K/mm3 09/24/18 03:30 Blast Cells # 0.0 K/mm3 09/24/18 03:30 Pathologist Review 09/24/18 03:30 WBC Morphology Not Reportable 09/24/18 03:30 Hypersegmented Neuts Not Reportable 09/24/18 03:30 Hyposegmented Neuts Not Reportable 09/24/18 03:30 Hypogranular Neuts Not Reportable 09/24/18 03:30 Not Reportable 09/24/18 03:30 Not Reportable 09/24/18 03:30 Not Reportable 09/24/18 03:30 Not Reportable 09/24/18 03:30 Not Reportable 09/24/18 03:30 Not Reportable 09/24/18 03:30 Consistent w auto 09/24/18 03:30 Not Reportable 09/24/18 03:30 Plt Clumps, EDTA Not Reportable 09/24/18 03:30 Not Reportable 09/24/18 03:30 Not Reportable 09/24/18 03:30 Not Reportable 09/24/18 03:30 Plt Morphology Comment Not Reportable 09/24/18 03:30 RBC Morphology Not Reportable 09/24/18 03:30 Dimorphic RBCs Not Reportable 09/24/18 03:30 Not Reportable 09/24/18 03:30 Not Reportable 09/24/18 03:30 Not Reportable 09/24/18 03:30 Few 09/24/18 03:30 Not Reportable 09/24/18 03:30 Not Reportable 09/24/18 03:30 Not Reportable 09/24/18 03:30 Not Reportable 09/24/18 03:30 Not Reportable 09/24/18 03:30 Not Reportable 09/24/18 03:30 Not Reportable 09/24/18 03:30 Not Reportable 09/24/18 03:30 Not Reportable 09/24/18 03:30 Not Reportable 09/24/18 03:30 Not Reportable 09/24/18 03:30 Not Reportable 09/24/18 03:30 Not Reportable 09/24/18 03:30 Not Reportable 09/24/18 03:30 Not Reportable 09/24/18 03:30 Acanthocytes (Spur) Not Reportable 09/24/18 03:30 Rouleaux Not Reportable 09/24/18 03:30 Not Reportable 09/24/18 03:30 Not Reportable 09/24/18 03:30 Not Reportable 09/24/18 03:30 Not Reportable 09/24/18 03:30 Hem Pathologist Commnt Sent to pathology 09/24/18 03:30 PT 17.7 Sec. (12.2-14.9) H 09/23/18 02:04 INR 1.49 (0.87-1.13) H 09/23/18 02:04 APTT 36.2 Sec. (24.2-36.6) 09/23/18 02:04 POC ABG pH 7.437 (7.35-7.45) 09/26/18 15:08 POC ABG pCO2 30.5 (35-45) L 09/26/18 15:08 POC ABG pO2 100 (80-105) 09/26/18 15:08 POC ABG HCO3 20.6 (22-26 mml/L) 09/26/18 15:08 POC ABG Total CO2 21 (23-27mmol/L) 09/26/18 15:08 POC ABG O2 Sat 98 09/26/18 15:08 POC ABG Base Excess -4 ((-2) - (+3)mmol/L) 09/26/18 15:08 21 % 09/26/18 15:08 Sodium 138 mmol/L (137-145) 09/27/18 04:55 Potassium 3.5 mmol/L (3.6-5.0) L 09/27/18 04:55 Chloride 103.2 mmol/L (98-107) 09/27/18 04:55 Carbon Dioxide 22 mmol/L (22-30) 09/27/18 04:55 16 mmol/L 09/27/18 04:55 BUN 6 mg/dL (9-20) L 09/27/18 04:55 0.5 mg/dL (0.8-1.5) L 09/27/18 04:55 Estimated GFR > 60 ml/min 09/27/18 04:55 12 % 09/27/18 04:55 Glucose 116 mg/dL (75-100) H 09/27/18 04:55 POC Glucose 92 (70-105) 09/23/18 06:57 Lactic Acid 1.20 mmol/L (0.7-2.0) 09/24/18 03:30 Calcium 8.3 mg/dL (8.4-10.2) L 09/27/18 04:55 Phosphorus 3.10 mg/dL (2.5-4.5) 09/24/18 03:30 Magnesium 1.60 mg/dL (1.7-2.3) L 09/27/18 04:55 Iron 103 ug/dL (49-181) 09/25/18 07:57 TIBC 235 mcg/dL (250-450) L 09/25/18 07:57 126.2 ng/mL (13.0-400.0) 09/25/18 07:57 3.60 mg/dL (0.1-1.2) H 09/26/18 03:45 AST 81 units/L (5-40) H 09/26/18 03:45 ALT 27 units/L (7-56) 09/26/18 03:45 139 units/L (35-129) H 09/26/18 03:45 81.0 umol/L (25-60) H 09/23/18 10:03 0.20 mg/dL (0.00-1.30) 09/23/18 10:03 7.6 g/dL (6.3-8.2) 09/26/18 03:45 3.1 g/dL (3.9-5) L 09/26/18 03:45 0.7 % 09/26/18 03:45 90 units/L (13-60) H 09/23/18 00:21 Vitamin B12 1824 pg/mL (211-911) H 09/25/18 07:57 12.38 ng/mL (7.3-26.0) 09/25/18 07:57 Yellow (Yellow) 09/23/18 01:50 Clear (Clear) 09/23/18 01:50 6.0 (5.0-7.0) 09/23/18 01:50 Ur Specific [place] 1.005 (1.003-1.030) 09/23/18 01:50 <15 mg/dl mg/dL (Negative) 09/23/18 01:50 Neg mg/dL (Negative) 09/23/18 01:50 Neg mg/dL (Negative) 09/23/18 01:50 Sm (Negative) 09/23/18 01:50 Neg (Negative) 09/23/18 01:50 Neg (Negative) 09/23/18 01:50 < 2.0 mg/dL (<2.0) 09/23/18 01:50 Ur Leukocyte Esterase Neg (Negative) 09/23/18 01:50 < 1.0 /HPF (0.0-6.0) 09/23/18 01:50 < 1.0 /HPF (0.0-6.0) 09/23/18 01:50 Few /HPF 09/23/18 01:50 HIV 1&2 Antibody Rapid Non react (Non React) 09/25/18 04:02 Non react (Non React) 09/25/18 04:02 Blood Type O POSITIVE 09/23/18 02:05 Antibody Screen Negative 09/23/18 02:05 Active Medications - Current Medications Current Medications: Generic Name Dose Route Start Last Admin Trade Name Freq PRN Reason Stop Dose Admin Folic Acid 1 mg 09/27/18 10:00 09/27/18 09:52 Folvite PO 1 mg DAILY JORDAN Administration Lorazepam 2 mg 09/23/18 09:46 09/24/18 00:55 Ativan IV 2 mg Q1HR PRN Administration CIWA-Ar 8-15 Lorazepam 4 mg 09/23/18 09:46 Ativan IV Q1HR PRN CIWA-Ar 16-25 Morphine Sulfate 2 mg 09/23/18 05:09 09/24/18 17:17 Morphine IV 2 mg Q4H PRN Administration Pain, Moderate (4-6) Ondansetron HCl 4 mg 09/23/18 05:09 Zofran IV Q4H PRN Nausea And Vomiting Pantoprazole Sodium 40 mg 09/25/18 10:00 09/27/18 09:53 Protonix PO 40 mg DAILY JORDAN Administration Sodium Chloride 10 ml 09/23/18 10:00 09/26/18 09:54 Sodium Chloride Flush Syringe 10 Ml IV 10 ml BID JORDAN Administration Sodium Chloride 10 ml 09/23/18 05:09 09/24/18 17:18 Sodium Chloride Flush Syringe 10 Ml IV 10 ml PRN PRN Administration LINE FLUSH Thiamine HCl 100 mg 09/27/18 10:00 09/27/18 09:53 Vitamin B-1 PO 100 mg QDAY JORDAN Administration
[2018-09-27] MEDS ORDERED: K-DUR PO NR (14:00)
[2018-09-27] MEDS ORDERED: MAGNESIUM SULFATE 2GM/50ML 2 GM/50 ML BAG IV ONE (14:00)
--- NOTE | 2018-09-27 21:35 | Event Note ---
Date: 09/27/18 Patient says feeling better. No complaint of chest pain ,shortness of breath or cough.O2 saturation 99% on room air.
[2018-09-28] MEDS: SODIUM CHLORIDE FLUSH SYRINGE 10 ML IV SCH ×5 (01:11→22:16)
[2018-09-28 06:27] LABS: BUN/Creatinine Ratio 18; Blood Urea Nitrogen 9 mg/dL (9-20); Calcium 8.4 mg/dL (8.4-10.2); Hemolysis Index 0
[2018-09-28 06:56] LABS: Hematocrit 31.9 % (35.5-45.6); Hemoglobin 10.4 gm/dl (11.8-15.2); Mean Corpuscular HGB Conc 33 % (32-34); Mean Corpuscular Volume 91 fl (84-94); Red Blood Count 3.51 M/mm3 (3.65-5.03); Red Cell Distribution Width 18.1 % (13.2-15.2)
[2018-09-28 07:03] LABS: Platelet Count 24 K/mm3 (140-440)
--- NOTE | 2018-09-28 07:54 | Hem/Onc Progress Note ---
Assessment and Plan low plt - h/o ETOH splenomegaly 1. Thrombocytopenia. This may be secondary to alcohol consumption, cirrhosis, splenomegaly and consumption secondary to the bleeding. 2. History of esophageal varices, as per the information status post banding. 3. The patient has had platelet transfusion. 4. No bowel movement. 5. Leukopenia, is in isolation. Commonly patients with cirrhosis and leukopenia do not have risk of infection. 6. 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 7. History of hematemesis, seen by GI. 8. History of abdominal pain, on supportive care. 9. We will do supportive care for now. I discussed with the patient regarding quitting alcohol. plt low- will follow OP follow up an option hb stable left eye discomfort - cipro cream trial - Patient Problems (1) Thrombocytopenia Current Visit: No Status: Acute Subjective Date of service: 09/28/18 Principal diagnosis: LOW PLT Interval history: C/O LEFT EYE DISCOMFORT Objective - Exam Narrative Exam: Pain - none General appearance no acute distress Performance status limited self care Eyes - icterus ENT no thrush LNs cervical not palpable Neck - normal ROM Respiratory Normal Breath sounds - CTA CVS S1 S2 + Extremities normal temperature General GI Soft - distended Rectal deferred male - deferred Skin warm Musculoskeletal moving normal Neurologically no focal deficit - Constitutional Vitals: Last Vital Signs Temp 98.8 F 09/28/18 05:56 Pulse 63 09/28/18 05:56 Resp 16 09/28/18 05:56 BP 104/55 09/28/18 05:56 Pulse Ox 98 09/28/18 05:56 - Labs Lab Results: Laboratory Results - last 24 hr 09/27/18 09/28/18 09/28/18 09:56 05:36 05:36 WBC 2.8 L 1.4 L* RBC 4.07 3.51 L Hgb 12.3 10.4 L Hct 36.5 31.9 L MCV 90 91 MCH 30 30 MCHC 34 33 RDW 17.5 H 18.1 H Plt Count 31 L 24 L [place] % (Auto) Pmo Manager Sodium 137 Potassium 3.6 Chloride 104.8 Carbon Dioxide 23 Anion Gap 13 BUN 9 Creatinine 0.5 L Estimated GFR > 60 BUN/Creatinine Ratio 18 Glucose 103 H Calcium 8.4 Magnesium 1.40 L Medications & Allergies - Medications Allergies/Adverse Reactions: Allergies No Known Allergies Allergy (Verified 12/26/14 12:21) Home Medications: Home Medications Medication Instructions Recorded Confirmed Last Taken Type No Known Home Medications [No 09/23/18 09/23/18 Unknown History Reported Home Medications] Active Medications: Generic Name Dose Route Start Last Admin Trade Name Yulia PRN Reason Stop Dose Admin Folic Acid 1 mg 09/27/18 10:00 09/27/18 09:52 Folvite PO 1 mg DAILY JORDAN Administration Magnesium Sulfate 3 gm/ Sodium 106 mls @ 35.333 mls/hr 09/28/18 09:00 Chloride IV 09/28/18 11:59 ONCE ONE Lorazepam 2 mg 09/23/18 09:46 09/24/18 00:55 Ativan IV 2 mg Q1HR PRN Administration CIWA-Ar 8-15 Lorazepam 4 mg 09/23/18 09:46 Ativan IV Q1HR PRN CIWA-Ar 16-25 Morphine Sulfate 2 mg 09/23/18 05:09 09/24/18 17:17 Morphine IV 2 mg Q4H PRN Administration Pain, Moderate (4-6) Moxifloxacin HCl 1 drops 09/28/18 08:00 Vigamox OU 09/30/18 06:01 Q8HR JORDAN Ondansetron HCl 4 mg 09/23/18 05:09 Zofran IV Q4H PRN Nausea And Vomiting Pantoprazole Sodium 40 mg 09/25/18 10:00 09/27/18 09:53 Protonix PO 40 mg DAILY JORDAN Administration Potassium Chloride 40 meq 09/28/18 08:00 K-Dur PO 09/28/18 08:01 ONCE ONE Sodium Chloride 10 ml 09/23/18 10:00 09/28/18 01:12 Sodium Chloride Flush Syringe 10 Ml IV 10 ml BID JORDAN Administration Sodium Chloride 10 ml 09/23/18 05:09 09/24/18 17:18 Sodium Chloride Flush Syringe 10 Ml IV 10 ml PRN PRN Administration LINE FLUSH Thiamine HCl 100 mg 09/27/18 10:00 09/27/18 09:53 Vitamin B-1 PO 100 mg QDAY JORDAN Administration
[2018-09-28] MEDS ORDERED: K-DUR PO ONE (08:00)
[2018-09-28] MEDS ORDERED: MAGNESIUM SULFATE 3 GM in NACL 0.9% 100 ML IV ONE (09:00)
--- NOTE | 2018-09-28 09:34 | Progress Note ---
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 -s/p EGD with variceal banding -Off octreotide drip and IV Rocephin, cont oral Protonix -H/H stable, will monitor -GI signed off Acute on chronic Thrombocytopenia -Status post transfusion with 2 units of platelet -Level trended down to 24,000 today, will cont to monitor -Hematology following Acute Metabolic Encephalopathy -resolved Neutropenia -level fluctuating, will cont to monitor -Continue neutropenic precautions -Hematology following LT eye bacterial conjuctivitis -On Moxifloxacin eye drop x 7 days Acute Metabolic Acidosis -Resolved Pancytopenia -Probably secondary to chronic liver disease -HIV screen negative Hypomagnesemia -On repletion, will monitor level Hypokalemia -Improving on repletion, will monitor Hyponatremia -Resolved 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 History Interval history: Patient complained of left eye discharge with redness Hospitalist Physical - Constitutional Vitals: Temp Pulse Resp BP Pulse Ox 98.8 F 63 16 104/55 98 09/28/18 05:56 09/28/18 05:56 09/28/18 05:56 09/28/18 05:56 09/28/18 05:56 General appearance: Present: no acute distress, well-nourished - EENT Eyes: Present: PERRL, EOM intact (discharge LT eye with mild erythema) ENT: hearing intact, clear oral mucosa - Neck Neck: Present: supple - Respiratory Respiratory effort: normal Respiratory: bilateral: CTA - Cardiovascular Rhythm: regular Heart Sounds: Present: S1 & S2 - Extremities Extremities: No edema - Abdominal General gastrointestinal: soft, non-tender, non-distended, normal bowel sounds - Integumentary Integumentary: Present: clear, warm, dry - Psychiatric Psychiatric: appropriate mood/affect - Neurologic Neurologic: CNII-XII intact Results - Labs CBC & Chem 7: 09/28/18 05:36 09/28/18 05:36 Labs: Laboratory Last Values WBC 1.4 K/mm3 (4.5-11.0) L* 09/28/18 05:36 RBC 3.51 M/mm3 (3.65-5.03) L 09/28/18 05:36 Hgb 10.4 gm/dl (11.8-15.2) L 09/28/18 05:36 Hct 31.9 % (35.5-45.6) L 09/28/18 05:36 MCV 91 fl (84-94) 09/28/18 05:36 MCH 30 pg (28-32) 09/28/18 05:36 MCHC 33 % (32-34) 09/28/18 05:36 RDW 18.1 % (13.2-15.2) H 09/28/18 05:36 Plt Count 24 K/mm3 (140-440) L 09/28/18 05:36 [place] % (Auto) [employer] Operator 09/28/18 05:36 Add Manual Diff Complete 09/24/18 03:30 Total Counted 100 09/24/18 03:30 Seg Neuts % (Manual) 80.0 % (40.0-70.0) H 09/24/18 03:30 0 % 09/24/18 03:30 12.0 % (13.4-35.0) L 09/24/18 03:30 Reactive Lymphs % (Man) 0 % 09/24/18 03:30 5.0 % (0.0-7.3) 09/24/18 03:30 1.0 % (0.0-4.3) 09/24/18 03:30 2.0 % (0.0-1.8) H 09/24/18 03:30 0 % 09/24/18 03:30 0 % 09/24/18 03:30 0 % 09/24/18 03:30 0 % 09/24/18 03:30 Nucleated RBC % Not Reportable 09/24/18 03:30 Seg Neutrophils # Man 0.9 K/mm3 (1.8-7.7) L 09/24/18 03:30 Band Neutrophils # 0.0 K/mm3 09/24/18 03:30 0.1 K/mm3 (1.2-5.4) L 09/24/18 03:30 Abs React Lymphs (Man) 0.0 K/mm3 09/24/18 03:30 0.1 K/mm3 (0.0-0.8) 09/24/18 03:30 0.0 K/mm3 (0.0-0.4) 09/24/18 03:30 0.0 K/mm3 (0.0-0.1) 09/24/18 03:30 0.0 K/mm3 09/24/18 03:30 0.0 K/mm3 09/24/18 03:30 0.0 K/mm3 09/24/18 03:30 Blast Cells # 0.0 K/mm3 09/24/18 03:30 Pathologist Review 09/24/18 03:30 WBC Morphology Not Reportable 09/24/18 03:30 Hypersegmented Neuts Not Reportable 09/24/18 03:30 Hyposegmented Neuts Not Reportable 09/24/18 03:30 Hypogranular Neuts Not Reportable 09/24/18 03:30 Not Reportable 09/24/18 03:30 Not Reportable 09/24/18 03:30 Not Reportable 09/24/18 03:30 Not Reportable 09/24/18 03:30 Not Reportable 09/24/18 03:30 Not Reportable 09/24/18 03:30 Consistent w auto 09/24/18 03:30 Not Reportable 09/24/18 03:30 Plt Clumps, EDTA Not Reportable 09/24/18 03:30 Not Reportable 09/24/18 03:30 Not Reportable 09/24/18 03:30 Not Reportable 09/24/18 03:30 Plt Morphology Comment Not Reportable 09/24/18 03:30 RBC Morphology Not Reportable 09/24/18 03:30 Dimorphic RBCs Not Reportable 09/24/18 03:30 Not Reportable 09/24/18 03:30 Not Reportable 09/24/18 03:30 Not Reportable 09/24/18 03:30 Few 09/24/18 03:30 Not Reportable 09/24/18 03:30 Not Reportable 09/24/18 03:30 Not Reportable 09/24/18 03:30 Not Reportable 09/24/18 03:30 Not Reportable 09/24/18 03:30 Not Reportable 09/24/18 03:30 Not Reportable 09/24/18 03:30 Not Reportable 09/24/18 03:30 Not Reportable 09/24/18 03:30 Not Reportable 09/24/18 03:30 Not Reportable 09/24/18 03:30 Not Reportable 09/24/18 03:30 Not Reportable 09/24/18 03:30 Not Reportable 09/24/18 03:30 Not Reportable 09/24/18 03:30 Acanthocytes (Spur) Not Reportable 09/24/18 03:30 Rouleaux Not Reportable 09/24/18 03:30 Not Reportable 09/24/18 03:30 Not Reportable 09/24/18 03:30 Not Reportable 09/24/18 03:30 Not Reportable 09/24/18 03:30 Hem Pathologist Commnt Sent to pathology 09/24/18 03:30 PT 17.7 Sec. (12.2-14.9) H 09/23/18 02:04 INR 1.49 (0.87-1.13) H 09/23/18 02:04 APTT 36.2 Sec. (24.2-36.6) 09/23/18 02:04 POC ABG pH 7.437 (7.35-7.45) 09/26/18 15:08 POC ABG pCO2 30.5 (35-45) L 09/26/18 15:08 POC ABG pO2 100 (80-105) 09/26/18 15:08 POC ABG HCO3 20.6 (22-26 mml/L) 09/26/18 15:08 POC ABG Total CO2 21 (23-27mmol/L) 09/26/18 15:08 POC ABG O2 Sat 98 09/26/18 15:08 POC ABG Base Excess -4 ((-2) - (+3)mmol/L) 09/26/18 15:08 21 % 09/26/18 15:08 Sodium 137 mmol/L (137-145) 09/28/18 05:36 Potassium 3.6 mmol/L (3.6-5.0) 09/28/18 05:36 Chloride 104.8 mmol/L (98-107) 09/28/18 05:36 Carbon Dioxide 23 mmol/L (22-30) 09/28/18 05:36 13 mmol/L 09/28/18 05:36 BUN 9 mg/dL (9-20) 09/28/18 05:36 0.5 mg/dL (0.8-1.5) L 09/28/18 05:36 Estimated GFR > 60 ml/min 09/28/18 05:36 18 % 09/28/18 05:36 Glucose 103 mg/dL (75-100) H 09/28/18 05:36 POC Glucose 92 (70-105) 09/23/18 06:57 Lactic Acid 1.20 mmol/L (0.7-2.0) 09/24/18 03:30 Calcium 8.4 mg/dL (8.4-10.2) 09/28/18 05:36 Phosphorus 3.10 mg/dL (2.5-4.5) 09/24/18 03:30 Magnesium 1.40 mg/dL (1.7-2.3) L 09/28/18 05:36 Iron 103 ug/dL (49-181) 09/25/18 07:57 TIBC 235 mcg/dL (250-450) L 09/25/18 07:57 126.2 ng/mL (13.0-400.0) 09/25/18 07:57 3.60 mg/dL (0.1-1.2) H 09/26/18 03:45 AST 81 units/L (5-40) H 09/26/18 03:45 ALT 27 units/L (7-56) 09/26/18 03:45 139 units/L (35-129) H 09/26/18 03:45 81.0 umol/L (25-60) H 09/23/18 10:03 0.20 mg/dL (0.00-1.30) 09/23/18 10:03 7.6 g/dL (6.3-8.2) 09/26/18 03:45 3.1 g/dL (3.9-5) L 09/26/18 03:45 0.7 % 09/26/18 03:45 90 units/L (13-60) H 09/23/18 00:21 Vitamin B12 1824 pg/mL (211-911) H 09/25/18 07:57 12.38 ng/mL (7.3-26.0) 09/25/18 07:57 Yellow (Yellow) 09/23/18 01:50 Clear (Clear) 09/23/18 01:50 6.0 (5.0-7.0) 09/23/18 01:50 Ur Specific [place] 1.005 (1.003-1.030) 09/23/18 01:50 <15 mg/dl mg/dL (Negative) 09/23/18 01:50 Neg mg/dL (Negative) 09/23/18 01:50 Neg mg/dL (Negative) 09/23/18 01:50 Sm (Negative) 09/23/18 01:50 Neg (Negative) 09/23/18 01:50 Neg (Negative) 09/23/18 01:50 < 2.0 mg/dL (<2.0) 09/23/18 01:50 Ur Leukocyte Esterase Neg (Negative) 09/23/18 01:50 < 1.0 /HPF (0.0-6.0) 09/23/18 01:50 < 1.0 /HPF (0.0-6.0) 09/23/18 01:50 Few /HPF 09/23/18 01:50 HIV 1&2 Antibody Rapid Non react (Non React) 09/25/18 04:02 Non react (Non React) 09/25/18 04:02 Blood Type O POSITIVE 09/23/18 02:05 Antibody Screen Negative 09/23/18 02:05 Active Medications - Current Medications Current Medications: Generic Name Dose Route Start Last Admin Trade Name Freq PRN Reason Stop Dose Admin Folic Acid 1 mg 09/27/18 10:00 09/27/18 09:52 Folvite PO 1 mg DAILY [facility] Administration Magnesium Sulfate 3 gm/ Sodium 106 mls @ 35.333 mls/hr 09/28/18 09:00 Chloride IV 09/28/18 11:59 ONCE ONE Lorazepam 2 mg 09/23/18 09:46 09/24/18 00:55 Ativan IV 2 mg Q1HR PRN Administration CIWA-Ar 8-15 Lorazepam 4 mg 09/23/18 09:46 Ativan IV Q1HR PRN CIWA-Ar 16-25 Morphine Sulfate 2 mg 09/23/18 05:09 09/24/18 17:17 Morphine IV 2 mg Q4H PRN Administration Pain, Moderate (4-6) Moxifloxacin HCl 1 drops 09/28/18 09:00 Vigamox OU 09/30/18 06:01 Q8HR JORDAN Ondansetron HCl 4 mg 09/23/18 05:09 Zofran IV Q4H PRN Nausea And Vomiting Pantoprazole Sodium 40 mg 09/25/18 10:00 09/27/18 09:53 Protonix PO 40 mg DAILY JORDAN Administration Sodium Chloride 10 ml 09/23/18 10:00 09/28/18 01:12 Sodium Chloride Flush Syringe 10 Ml IV 10 ml BID JORDAN Administration Sodium Chloride 10 ml 09/23/18 05:09 09/24/18 17:18 Sodium Chloride Flush Syringe 10 Ml IV 10 ml PRN PRN Administration LINE FLUSH Thiamine HCl 100 mg 09/27/18 10:00 09/27/18 09:53 Vitamin B-1 PO 100 mg QDAY JORDAN Administration
[2018-09-28 09:42] LABS: Basophils % (Manual) 0 % (0.0-1.8); Smudge Cells Rare; Total Cells Counted 100
[2018-09-28 09:43] LABS: Platelet Estimate Consistent w Auto
[2018-09-28 09:44] LABS: Hypochromasia Few; Macrocytosis 1+
--- NOTE | 2018-09-28 10:16 | Progress Note ---
Assessment and Plan Acute gastrointestinal bleed (Suspect Variceal) Likely liver cirrhosis Abdominal pain. Alcohol abuse. Thrombocytopenia. History of hypertension. History of diabetes. Leukopenia. Coagulopathy. Hyperbilirubinemia. Acute pancreatitis. - continue PPI therapy - continue octreeotide - to begin clear liquids - contine CIWA protocol - watch closely for bleeding as still with significant coagulopathy - ID consulted re: leucopenia - platel;et transfusion today for platelet count of 7k - neutropenic precations - continue other cafe per attending / other consultants ... re-evaluate in am & prn I have spent ( >35 ) minutes with the patient w/ >50% of the time spent counseling and/or coordinating care for this patient. Counseling topics and/or how time was spent coordinating patient's care is outlined in the impression and plan above. Subjective Date of service: 09/28/18 Principal diagnosis: Ac GI Bleed; Cirrhosis ; Ac pancreatitis; Pancytopenia; HTN; DM II Interval history: Patient is seen today for: Acute GI Bleed; liver cirrhosis ; Acute pancreatitis; Abdominal pain; Alcohol abuse; Thrombocytopenia; HTN; DM II; Leukopenia; Coagulopathy; Hyperbilirubinemia Seen and examined at bedside; 24hour events reviewed; nursing and respiratory care staff consulted; no adverse overnight events reported to me; resting peacefully in bed; EGD revealed stigmata of variceal bleed; no recurrence; denies acute chest pains or palpitations Objective Vital Signs - 12hr 09/27/18 09/28/18 22:44 05:56 Temperature 98.4 F 98.8 F Pulse Rate 64 63 Respiratory 18 16 Rate Blood Pressure 101/62 104/55 O2 Sat by Pulse 99 98 Oximetry Constitutional: no acute distress, other (middle aged male, normocephalic and atraumatic wit normal respiratory effort at rest) Eyes: icteric ENT: oropharynx moist, other (mallampati 2) Neck: supple, no lymphadenopathy, no JVD Effort: mildly labored Ascultation: Bilateral: clear Percussion: Bilateral: not dull Cardiovascular: regular rate and rhythm Gastrointestinal: normoactive bowel sounds, soft, tender (mild epigastric), non- distended Integumentary: normal Extremities: no cyanosis, no edema, pink and warm, pulses normal, no ischemia or petechiae Neurologic: normal mental status, non-focal exam, pupils equal and round, motor strength normal and Psychiatric: mood appropriate, affect normal CBC and BMP: 09/28/18 05:36 09/28/18 05:36 ABG, PT/INR, D-dimer: ABG POC ABG pH 7.437 (7.35-7.45) 09/26/18 15:08 POC ABG pCO2 30.5 (35-45) L 09/26/18 15:08 POC ABG pO2 100 (80-105) 09/26/18 15:08 POC ABG HCO3 20.6 (22-26 mml/L) 09/26/18 15:08 POC ABG Total CO2 21 (23-27mmol/L) 09/26/18 15:08 POC ABG O2 Sat 98 09/26/18 15:08 PT/INR, D-dimer PT 17.7 Sec. (12.2-14.9) H 09/23/18 02:04 INR 1.49 (0.87-1.13) H 09/23/18 02:04 Abnormal lab findings: Abnormal Labs 09/23/18 09/23/18 09/23/18 00:21 00:21 02:04 WBC 2.2 L RBC Hgb Hct RDW 17.1 H Plt Count 41 L Seg Neuts % (Manual) Lymphocytes % (Manual) Monocytes % (Manual) Basophils % (Manual) Seg Neutrophils # Man 1.3 L Lymphocytes # (Manual) 0.7 L PT 17.7 H INR 1.49 H POC ABG pCO2 Sodium Potassium Chloride Carbon Dioxide BUN 6 L Creatinine 0.6 L Glucose 148 H Lactic Acid Calcium Magnesium TIBC Total Bilirubin 3.50 H AST 203 H Alkaline Phosphatase 195 H Ammonia Total Protein 9.2 H Albumin 3.7 L Lipase 90 H Vitamin B12 09/23/18 09/23/18 09/23/18 05:36 09:20 10:03 WBC RBC Hgb 11.4 L 11.3 L Hct 34.0 L 34.0 L RDW Plt Count Seg Neuts % (Manual) Lymphocytes % (Manual) Monocytes % (Manual) Basophils % (Manual) Seg Neutrophils # Man Lymphocytes # (Manual) PT INR POC ABG pCO2 Sodium Potassium Chloride Carbon Dioxide BUN Creatinine Glucose Lactic Acid Calcium Magnesium TIBC Total Bilirubin AST Alkaline Phosphatase Ammonia 81.0 H Total Protein Albumin Lipase Vitamin B12 09/23/18 09/23/18 09/23/18 10:03 10:03 14:00 WBC RBC Hgb 10.9 L Hct 32.5 L RDW Plt Count Seg Neuts % (Manual) Lymphocytes % (Manual) Monocytes % (Manual) Basophils % (Manual) Seg Neutrophils # Man Lymphocytes # (Manual) PT INR POC ABG pCO2 Sodium Potassium Chloride Carbon Dioxide BUN Creatinine Glucose Lactic Acid 2.60 H* Calcium Magnesium 1.30 L TIBC Total Bilirubin AST Alkaline Phosphatase Ammonia Total Protein Albumin Lipase Vitamin B12 09/23/18 09/23/18 09/24/18 14:00 15:59 03:30 WBC 1.1 L* RBC Hgb 11.4 L 11.3 L Hct 34.1 L 33.7 L RDW 17.0 H Plt Count 7 L* Seg Neuts % (Manual) 80.0 H Lymphocytes % (Manual) 12.0 L Monocytes % (Manual) Basophils % (Manual) 2.0 H Seg Neutrophils # Man 0.9 L Lymphocytes # (Manual) 0.1 L PT INR POC ABG pCO2 Sodium Potassium Chloride Carbon Dioxide BUN Creatinine Glucose Lactic Acid 2.50 H* Calcium Magnesium TIBC Total Bilirubin AST Alkaline Phosphatase Ammonia Total Protein Albumin Lipase Vitamin B12 09/24/18 09/24/18 09/25/18 03:30 03:30 04:02 WBC 1.7 L* RBC 3.64 L Hgb 11.0 L Hct 32.5 L RDW 16.7 H Plt Count 13 L* Seg Neuts % (Manual) Lymphocytes % (Manual) Monocytes % (Manual) Basophils % (Manual) Seg Neutrophils # Man Lymphocytes # (Manual) PT INR POC ABG pCO2 Sodium 136 L Potassium Chloride Carbon Dioxide BUN 8 L Creatinine 0.5 L Glucose 126 H Lactic Acid Calcium 7.6 L Magnesium 1.50 L TIBC Total Bilirubin AST Alkaline Phosphatase Ammonia Total Protein Albumin Lipase Vitamin B12 09/25/18 09/25/18 09/25/18 04:02 07:57 07:57 WBC RBC Hgb Hct RDW Plt Count Seg Neuts % (Manual) Lymphocytes % (Manual) Monocytes % (Manual) Basophils % (Manual) Seg Neutrophils # Man Lymphocytes # (Manual) PT INR POC ABG pCO2 Sodium 133 L Potassium Chloride Carbon Dioxide 20 L BUN 8 L Creatinine 0.4 L Glucose 102 H Lactic Acid Calcium 7.8 L Magnesium TIBC 235 L Total Bilirubin 3.70 H AST 96 H Alkaline Phosphatase 134 H Ammonia Total Protein Albumin 2.8 L Lipase Vitamin B12 1824 H 09/26/18 09/26/18 09/26/18 03:45 03:45 15:08 WBC 1.6 L* RBC 3.64 L Hgb 11.0 L Hct 32.6 L RDW 16.8 H Plt Count 16 L* Seg Neuts % (Manual) Lymphocytes % (Manual) Monocytes % (Manual) Basophils % (Manual) Seg Neutrophils # Man Lymphocytes # (Manual) PT INR POC ABG pCO2 30.5 L Sodium Potassium Chloride 107.6 H Carbon Dioxide BUN 5 L Creatinine 0.5 L Glucose 108 H Lactic Acid Calcium 7.8 L Magnesium 1.40 L TIBC Total Bilirubin 3.60 H AST 81 H Alkaline Phosphatase 139 H Ammonia Total Protein Albumin 3.1 L Lipase Vitamin B12 09/27/18 09/27/18 09/28/18 04:55 09:56 05:36 WBC 2.8 L RBC Hgb Hct RDW 17.5 H Plt Count 31 L Seg Neuts % (Manual) Lymphocytes % (Manual) Monocytes % (Manual) Basophils % (Manual) Seg Neutrophils # Man Lymphocytes # (Manual) PT INR POC ABG pCO2 Sodium Potassium 3.5 L Chloride Carbon Dioxide BUN 6 L Creatinine 0.5 L 0.5 L Glucose 116 H 103 H Lactic Acid Calcium 8.3 L Magnesium 1.60 L 1.40 L TIBC Total Bilirubin AST Alkaline Phosphatase Ammonia Total Protein Albumin Lipase Vitamin B12 09/28/18 05:36 WBC 1.4 L* RBC 3.51 L Hgb 10.4 L Hct 31.9 L RDW 18.1 H Plt Count 24 L Seg Neuts % (Manual) 71.0 H Lymphocytes % (Manual) Monocytes % (Manual) 10.0 H Basophils % (Manual) Seg Neutrophils # Man 1.0 L Lymphocytes # (Manual) 0.2 L PT INR POC ABG pCO2 Sodium Potassium Chloride Carbon Dioxide BUN Creatinine Glucose Lactic Acid Calcium Magnesium TIBC Total Bilirubin AST Alkaline Phosphatase Ammonia Total Protein Albumin Lipase Vitamin B12 Allied health notes reviewed: nursing
[2018-09-28] MEDS: PROTONIX PO SCH (10:21)
[2018-09-28] MEDS: VITAMIN B-1 PO SCH (10:21)
[2018-09-28] MEDS: FOLVITE PO SCH (10:21)
[2018-09-28] MEDS: VIGAMOX OU SCH ×3 (10:22→22:16)
[2018-09-29 05:23] LABS: BUN/Creatinine Ratio 14; Blood Urea Nitrogen 7 mg/dL (9-20); Calcium 8.4 mg/dL (8.4-10.2)
[2018-09-29 05:24] LABS: Hemolysis Index 10
[2018-09-29] MEDS: TYLENOL PO PRN ×3 (06:23→23:42)
[2018-09-29] MEDS: VIGAMOX OU SCH ×3 (06:23→22:23)
--- NOTE | 2018-09-29 07:58 | Hem/Onc Progress Note ---
Assessment and Plan low plt - h/o ETOH splenomegaly 1. Thrombocytopenia. This may be secondary to alcohol consumption, cirrhosis, splenomegaly and consumption secondary to the bleeding. 2. History of esophageal varices, as per the information status post banding. 3. The patient has had platelet transfusion. 4. No bowel movement. 5. Leukopenia, is in isolation. Commonly patients with cirrhosis and leukopenia do not have risk of infection. 6. 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 7. History of hematemesis, seen by GI. 8. History of abdominal pain, on supportive care. 9. We will do supportive care for now. I discussed with the patient regarding quitting alcohol. plt low- will follow OP follow up an option hb stable left eye discomfort - cipro cream trial FEVER - Neutropenia - d/w hospitalist reg need for antibiotics the fall in plt and counts is surprising - a smear was done, but I am not able to see the path report ( I had already spoken about this technical difficulty to the path dept) will follow counts pt may need more Ix for the low counts - ? tuesday - Patient Problems (1) Thrombocytopenia Current Visit: No Status: Acute Subjective Date of service: 09/29/18 Principal diagnosis: low plt Interval history: fever Objective - Exam Narrative Exam: Pain - none General appearance no acute distress Performance status limited self care Eyes - icterus ENT no thrush LNs cervical not palpable Neck - normal ROM Respiratory Normal Breath sounds - CTA CVS S1 S2 + Extremities normal temperature General GI Soft - distended Rectal deferred male - deferred Skin warm Musculoskeletal moving normal Neurologically no focal deficit - Constitutional Vitals: Last Vital Signs Temp 102.9 F H 09/29/18 05:49 Pulse 109 H 09/29/18 05:49 Resp 22 09/29/18 05:49 BP 127/69 09/29/18 05:49 Pulse Ox 99 09/29/18 05:49 - Labs Lab Results: Laboratory Results - last 24 hr 09/28/18 09/29/18 05:36 04:01 WBC 1.4 L* RBC 3.51 L Hgb 10.4 L Hct 31.9 L MCV 91 MCH 30 MCHC 33 RDW 18.1 H Plt Count 24 L [place] % (Auto) Rental Sales Associate Add Manual Diff Complete Total Counted 100 Seg Neuts % (Manual) 71.0 H Band Neutrophils % 0 Lymphocytes % (Manual) 17.0 Reactive Lymphs % (Man) 0 Monocytes % (Manual) 10.0 H Eosinophils % (Manual) 1.0 Basophils % (Manual) 0 Metamyelocytes % 1.0 Myelocytes % 0 Promyelocytes % 0 Blast Cells % 0 Nucleated RBC % Not Reportable Seg Neutrophils # Man 1.0 L Band Neutrophils # 0.0 Lymphocytes # (Manual) 0.2 L Abs React Lymphs (Man) 0.0 Monocytes # (Manual) 0.1 Eosinophils # (Manual) 0.0 Basophils # (Manual) 0.0 Metamyelocytes # 0.0 Myelocytes # 0.0 Promyelocytes # 0.0 Blast Cells # 0.0 Pathologist Review WBC Morphology Not Reportable Hypersegmented Neuts Not Reportable Hyposegmented Neuts Not Reportable Hypogranular Neuts Not Reportable Smudge Cells Rare Toxic Granulation Not Reportable Toxic Vacuolation Not Reportable Dohle Bodies Not Reportable Pelger-Huet Anomaly Not Reportable [place] Not Reportable Platelet Estimate Consistent w auto Clumped Platelets Not Reportable Plt Clumps, EDTA Not Reportable Large Platelets Not Reportable Giant Platelets Not Reportable Platelet Satelliting Not Reportable Plt Morphology Comment Not Reportable RBC Morphology Not Reportable Dimorphic RBCs Not Reportable Polychromasia Rare Hypochromasia Few Poikilocytosis Not Reportable Anisocytosis Not Reportable Microcytosis Not Reportable Macrocytosis 1+ Spherocytes Not Reportable Pappenheimer Bodies Not Reportable Sickle Cells Not Reportable Target Cells Not Reportable Tear Drop Cells Not Reportable Ovalocytes Not Reportable Helmet Cells Not Reportable [place] Bodies Not Reportable [place] Rings Not Reportable Damian Cells Not Reportable Bite Cells Not Reportable Crenated Cell Not Reportable Elliptocytes Not Reportable Acanthocytes (Spur) Not Reportable Rouleaux Not Reportable Hemoglobin C Crystals Not Reportable Schistocytes Not Reportable Malaria parasites Not Reportable [place] Bodies Not Reportable Hem Pathologist Commnt Sent to pathology Sodium 137 Potassium 4.0 Chloride 104.0 Carbon Dioxide 22 Anion Gap 15 BUN 7 L Creatinine 0.5 L Estimated GFR > 60 BUN/Creatinine Ratio 14 Glucose 103 H Calcium 8.4 Magnesium 1.40 L Medications & Allergies - Medications Allergies/Adverse Reactions: Allergies No Known Allergies Allergy (Verified 12/26/14 12:21) Home Medications: Home Medications Medication Instructions Recorded Confirmed Last Taken Type No Known Home Medications [No 09/23/18 09/23/18 Unknown History Reported Home Medications] Active Medications: Generic Name Dose Route Start Last Admin Trade Name Yulia PRN Reason Stop Dose Admin Acetaminophen 650 mg 09/29/18 05:57 09/29/18 06:23 Tylenol PO 650 mg Q4H PRN Administration Pain, Mild (1-3), Fever>100.5 Folic Acid 1 mg 09/27/18 10:00 09/28/18 10:21 Folvite PO 1 mg DAILY JORDAN Administration Lorazepam 2 mg 09/23/18 09:46 09/24/18 00:55 Ativan IV 2 mg Q1HR PRN Administration CIWA-Ar 8-15 Lorazepam 4 mg 09/23/18 09:46 Ativan IV Q1HR PRN CIWA-Ar 16-25 Morphine Sulfate 2 mg 09/23/18 05:09 09/24/18 17:17 Morphine IV 2 mg Q4H PRN Administration Pain, Moderate (4-6) Moxifloxacin HCl 1 drops 09/28/18 09:00 09/29/18 06:23 Vigamox OU 09/30/18 06:01 1 drops Q8HR JORDAN Administration Ondansetron HCl 4 mg 09/23/18 05:09 Zofran IV Q4H PRN Nausea And Vomiting Pantoprazole Sodium 40 mg 09/25/18 10:00 09/28/18 10:21 Protonix PO 40 mg DAILY JORDAN Administration Sodium Chloride 10 ml 09/23/18 10:00 09/28/18 22:16 Sodium Chloride Flush Syringe 10 Ml IV 10 ml BID JORDAN Administration Sodium Chloride 10 ml 09/23/18 05:09 09/24/18 17:18 Sodium Chloride Flush Syringe 10 Ml IV 10 ml PRN PRN Administration LINE FLUSH Thiamine HCl 100 mg 09/27/18 10:00 09/28/18 10:21 Vitamin B-1 PO 100 mg QDAY JORDAN Administration
[2018-09-29 09:10] LABS: Hemoglobin 11.9 gm/dl (11.8-15.2); Mean Corpuscular HGB Conc 34 % (32-34); Mean Corpuscular Volume 90 fl (84-94); Red Blood Count 3.91 M/mm3 (3.65-5.03); Red Cell Distribution Width 18.4 % (13.2-15.2)
[2018-09-29 09:14] LABS: Platelet Count 24 K/mm3 (140-440)
[2018-09-29] MEDS ORDERED: MAGNESIUM SULFATE 4GM/100ML 4 GM/100 ML BAG IV ONE (09:30)
[2018-09-29] MEDS: VITAMIN B-1 PO SCH (09:41)
[2018-09-29] MEDS: PROTONIX PO SCH (09:41)
[2018-09-29] MEDS: FOLVITE PO SCH (09:41)
[2018-09-29] MEDS: SODIUM CHLORIDE FLUSH SYRINGE 10 ML IV SCH ×2 (09:41→21:07)
--- NOTE | 2018-09-29 12:45 | Progress Note ---
Assessment and Plan Assessment and plan: Acute on chronic Thrombocytopenia -Status post transfusion with 2 units of platelet -Level remined stable at 24,000 today, will cont to monitor -Hematology following SIRS -Exact source of infection unknown -Blood cultures, urinalysis and lactic acid pending GI Bleed secondary grade 4 distal esophageal variceal -s/p EGD with variceal banding -Off octreotide drip and IV Rocephin, cont oral Protonix -H/H stable, will monitor -GI signed off Acute Metabolic Encephalopathy -resolved Neutropenia -level improved -neutropenic precautions d/lady -Hematology following LT eye bacterial conjuctivitis -On Moxifloxacin eye drop x 7 days Acute Metabolic Acidosis -Resolved Pancytopenia -Probably secondary to chronic liver disease -HIV screen negative Hypomagnesemia -On repletion, will monitor level Hypokalemia -Improving on repletion, will monitor Hyponatremia -Resolved 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 History Interval history: Patient complained of chills. Fever of 102.9F was reported early this morning. Hospitalist Physical - Constitutional Vitals: Temp Pulse Resp BP Pulse Ox 97.5 F L 98 H 22 110/55 99 09/29/18 11:36 09/29/18 11:36 09/29/18 11:36 09/29/18 11:36 09/29/18 11:36 General appearance: Present: no acute distress, well-nourished, other (was seen shaking) - EENT Eyes: Present: PERRL, EOM intact ENT: hearing intact, clear oral mucosa - Neck Neck: Present: supple - Respiratory Respiratory effort: normal Respiratory: bilateral: CTA - Cardiovascular Rhythm: regular Heart Sounds: Present: S1 & S2 - Extremities Extremities: No edema - Abdominal General gastrointestinal: soft, non-tender, normal bowel sounds - Integumentary Integumentary: Present: clear, warm, dry - Psychiatric Psychiatric: appropriate mood/affect - Neurologic Neurologic: CNII-XII intact Results - Labs CBC & Chem 7: 09/29/18 08:39 09/29/18 04:01 Labs: Laboratory Last Values WBC 2.2 K/mm3 (4.5-11.0) L 09/29/18 08:39 RBC 3.91 M/mm3 (3.65-5.03) 09/29/18 08:39 Hgb 11.9 gm/dl (11.8-15.2) 09/29/18 08:39 Hct 35.0 % (35.5-45.6) L 09/29/18 08:39 MCV 90 fl (84-94) 09/29/18 08:39 MCH 31 pg (28-32) 09/29/18 08:39 MCHC 34 % (32-34) 09/29/18 08:39 RDW 18.4 % (13.2-15.2) H 09/29/18 08:39 Plt Count 24 K/mm3 (140-440) L 09/29/18 08:39 [place] % (Auto) Apprentice Painter Brush 09/28/18 05:36 Add Manual Diff Complete 09/28/18 05:36 Total Counted 100 09/28/18 05:36 Seg Neuts % (Manual) 71.0 % (40.0-70.0) H 09/28/18 05:36 0 % 09/28/18 05:36 17.0 % (13.4-35.0) 09/28/18 05:36 Reactive Lymphs % (Man) 0 % 09/28/18 05:36 10.0 % (0.0-7.3) H 09/28/18 05:36 1.0 % (0.0-4.3) 09/28/18 05:36 0 % (0.0-1.8) 09/28/18 05:36 1.0 % 09/28/18 05:36 0 % 09/28/18 05:36 0 % 09/28/18 05:36 0 % 09/28/18 05:36 Nucleated RBC % Not Reportable 09/28/18 05:36 Seg Neutrophils # Man 1.0 K/mm3 (1.8-7.7) L 09/28/18 05:36 Band Neutrophils # 0.0 K/mm3 09/28/18 05:36 0.2 K/mm3 (1.2-5.4) L 09/28/18 05:36 Abs React Lymphs (Man) 0.0 K/mm3 09/28/18 05:36 0.1 K/mm3 (0.0-0.8) 09/28/18 05:36 0.0 K/mm3 (0.0-0.4) 09/28/18 05:36 0.0 K/mm3 (0.0-0.1) 09/28/18 05:36 0.0 K/mm3 09/28/18 05:36 0.0 K/mm3 09/28/18 05:36 0.0 K/mm3 09/28/18 05:36 Blast Cells # 0.0 K/mm3 09/28/18 05:36 Pathologist Review 09/28/18 05:36 WBC Morphology Not Reportable 09/28/18 05:36 Hypersegmented Neuts Not Reportable 09/28/18 05:36 Hyposegmented Neuts Not Reportable 09/28/18 05:36 Hypogranular Neuts Not Reportable 09/28/18 05:36 Rare 09/28/18 05:36 Not Reportable 09/28/18 05:36 Not Reportable 09/28/18 05:36 Not Reportable 09/28/18 05:36 Not Reportable 09/28/18 05:36 Not Reportable 09/28/18 05:36 Consistent w auto 09/28/18 05:36 Not Reportable 09/28/18 05:36 Plt Clumps, EDTA Not Reportable 09/28/18 05:36 Not Reportable 09/28/18 05:36 Not Reportable 09/28/18 05:36 Not Reportable 09/28/18 05:36 Plt Morphology Comment Not Reportable 09/28/18 05:36 RBC Morphology Not Reportable 09/28/18 05:36 Dimorphic RBCs Not Reportable 09/28/18 05:36 Rare 09/28/18 05:36 Few 09/28/18 05:36 Not Reportable 09/28/18 05:36 Not Reportable 09/28/18 05:36 Not Reportable 09/28/18 05:36 1+ 09/28/18 05:36 Not Reportable 09/28/18 05:36 Not Reportable 09/28/18 05:36 Not Reportable 09/28/18 05:36 Not Reportable 09/28/18 05:36 Not Reportable 09/28/18 05:36 Not Reportable 09/28/18 05:36 Not Reportable 09/28/18 05:36 Not Reportable 09/28/18 05:36 Not Reportable 09/28/18 05:36 Not Reportable 09/28/18 05:36 Not Reportable 09/28/18 05:36 Not Reportable 09/28/18 05:36 Not Reportable 09/28/18 05:36 Acanthocytes (Spur) Not Reportable 09/28/18 05:36 Rouleaux Not Reportable 09/28/18 05:36 Not Reportable 09/28/18 05:36 Not Reportable 09/28/18 05:36 Not Reportable 09/28/18 05:36 Not Reportable 09/28/18 05:36 Hem Pathologist Commnt Sent to pathology 09/28/18 05:36 PT 17.7 Sec. (12.2-14.9) H 09/23/18 02:04 INR 1.49 (0.87-1.13) H 09/23/18 02:04 APTT 36.2 Sec. (24.2-36.6) 09/23/18 02:04 POC ABG pH 7.437 (7.35-7.45) 09/26/18 15:08 POC ABG pCO2 30.5 (35-45) L 09/26/18 15:08 POC ABG pO2 100 (80-105) 09/26/18 15:08 POC ABG HCO3 20.6 (22-26 mml/L) 09/26/18 15:08 POC ABG Total CO2 21 (23-27mmol/L) 09/26/18 15:08 POC ABG O2 Sat 98 09/26/18 15:08 POC ABG Base Excess -4 ((-2) - (+3)mmol/L) 09/26/18 15:08 21 % 09/26/18 15:08 Sodium 137 mmol/L (137-145) 09/29/18 04:01 Potassium 4.0 mmol/L (3.6-5.0) 09/29/18 04:01 Chloride 104.0 mmol/L (98-107) 09/29/18 04:01 Carbon Dioxide 22 mmol/L (22-30) 09/29/18 04:01 15 mmol/L 09/29/18 04:01 BUN 7 mg/dL (9-20) L 09/29/18 04:01 0.5 mg/dL (0.8-1.5) L 09/29/18 04:01 Estimated GFR > 60 ml/min 09/29/18 04:01 14 % 09/29/18 04:01 Glucose 103 mg/dL (75-100) H 09/29/18 04:01 POC Glucose 92 (70-105) 09/23/18 06:57 Lactic Acid 1.20 mmol/L (0.7-2.0) 09/24/18 03:30 Calcium 8.4 mg/dL (8.4-10.2) 09/29/18 04:01 Phosphorus 3.10 mg/dL (2.5-4.5) 09/24/18 03:30 Magnesium 1.40 mg/dL (1.7-2.3) L 09/29/18 04:01 Iron 103 ug/dL (49-181) 09/25/18 07:57 TIBC 235 mcg/dL (250-450) L 09/25/18 07:57 126.2 ng/mL (13.0-400.0) 09/25/18 07:57 3.60 mg/dL (0.1-1.2) H 09/26/18 03:45 AST 81 units/L (5-40) H 09/26/18 03:45 ALT 27 units/L (7-56) 09/26/18 03:45 139 units/L (35-129) H 09/26/18 03:45 81.0 umol/L (25-60) H 09/23/18 10:03 0.20 mg/dL (0.00-1.30) 09/23/18 10:03 7.6 g/dL (6.3-8.2) 09/26/18 03:45 3.1 g/dL (3.9-5) L 09/26/18 03:45 0.7 % 09/26/18 03:45 90 units/L (13-60) H 09/23/18 00:21 Vitamin B12 1824 pg/mL (211-911) H 09/25/18 07:57 12.38 ng/mL (7.3-26.0) 09/25/18 07:57 Yellow (Yellow) 09/23/18 01:50 Clear (Clear) 09/23/18 01:50 6.0 (5.0-7.0) 09/23/18 01:50 Ur Specific [place] 1.005 (1.003-1.030) 09/23/18 01:50 <15 mg/dl mg/dL (Negative) 09/23/18 01:50 Neg mg/dL (Negative) 09/23/18 01:50 Neg mg/dL (Negative) 09/23/18 01:50 Sm (Negative) 09/23/18 01:50 Neg (Negative) 09/23/18 01:50 Neg (Negative) 09/23/18 01:50 < 2.0 mg/dL (<2.0) 09/23/18 01:50 Ur Leukocyte Esterase Neg (Negative) 09/23/18 01:50 < 1.0 /HPF (0.0-6.0) 09/23/18 01:50 < 1.0 /HPF (0.0-6.0) 09/23/18 01:50 Few /HPF 09/23/18 01:50 HIV 1&2 Antibody Rapid Non react (Non React) 09/25/18 04:02 Non react (Non React) 09/25/18 04:02 Blood Type O POSITIVE 09/23/18 02:05 Antibody Screen Negative 09/23/18 02:05 Active Medications - Current Medications Current Medications: Generic Name Dose Route Start Last Admin Trade Name Freq PRN Reason Stop Dose Admin Acetaminophen 650 mg 09/29/18 05:57 09/29/18 06:23 Tylenol PO 650 mg Q4H PRN Administration Pain, Mild (1-3), Fever>100.5 Folic Acid 1 mg 09/27/18 10:00 09/29/18 09:41 Folvite PO 1 mg DAILY JORDAN Administration Magnesium Sulfate 4 gm in 100 mls @ 25 mls/hr 09/29/18 09:30 09/29/18 10:18 Magnesium Sulfate 4gm/100ml IV 09/29/18 13:29 25 mls/hr ONCE ONE Administration Lorazepam 2 mg 09/23/18 09:46 09/24/18 00:55 Ativan IV 2 mg Q1HR PRN Administration CIWA-Ar 8-15 Lorazepam 4 mg 09/23/18 09:46 Ativan IV Q1HR PRN CIWA-Ar 16-25 Morphine Sulfate 2 mg 09/23/18 05:09 09/24/18 17:17 Morphine IV 2 mg Q4H PRN Administration Pain, Moderate (4-6) Moxifloxacin HCl 1 drops 09/28/18 09:00 09/29/18 06:23 Vigamox OU 09/30/18 06:01 1 drops Q8HR JORDAN Administration Ondansetron HCl 4 mg 09/23/18 05:09 Zofran IV Q4H PRN Nausea And Vomiting Pantoprazole Sodium 40 mg 09/25/18 10:00 09/29/18 09:41 Protonix PO 40 mg DAILY JORDAN Administration Sodium Chloride 10 ml 09/23/18 10:00 09/29/18 09:41 Sodium Chloride Flush Syringe 10 Ml IV 10 ml BID JORDAN Administration Sodium Chloride 10 ml 09/23/18 05:09 09/24/18 17:18 Sodium Chloride Flush Syringe 10 Ml IV 10 ml PRN PRN Administration LINE FLUSH Thiamine HCl 100 mg 09/27/18 10:00 09/29/18 09:41 Vitamin B-1 PO 100 mg QDAY JORDAN Administration
[2018-09-29] MEDS ORDERED: NACL 0.9% 1000 ML 1,000 ML IV ONE ×3 (15:42→15:53)
[2018-09-29] MEDS ORDERED: VANCOMYCIN PHARMACY TO DOSE IV SCH (16:00)
[2018-09-29 16:14] LABS: Bilirubin,Urine NEG (Negative); Blood,Urine NEG (Negative); Color,Urine Amber (Yellow); Granular Casts,Urine 7 /LPF; Mucus,Urine 3+ /HPF; Protein,Urine <15 mg/dL mg/dL (Negative)
[2018-09-29] MEDS: IBUPROFEN PO PRN (16:17)
[2018-09-29] MEDS ORDERED: VANCOMYCIN 1,750 MG in NACL 0.9% 500 ML 500 ML IV ONE (16:30)
[2018-09-29] MEDS ORDERED: VANCOMYCIN 1,500 MG in NACL 0.9% 500 ML 500 ML IV ONE (16:30)
--- NOTE | 2018-09-29 16:30 | XRay Report ---
CHEST 1 VIEW 09/29/2018 4:00 PM INDICATION / CLINICAL INFORMATION: febrile neutropenia. COMPARISON: One view of the chest from 09/26/2018. FINDINGS: SUPPORT DEVICES: None. HEART / MEDIASTINUM: No significant abnormality. LUNGS / PLEURA: No significant pulmonary or pleural abnormality. No pneumothorax. ADDITIONAL FINDINGS: No significant additional findings. IMPRESSION: No acute findings. Signer Name: Jani Montalvo MD Signed: 09/29/2018 4:26 PM Workstation Name: [id number]
[2018-09-29] MEDS: NACL 0.9% 1000 ML 1,000 ML IV SCH (18:41)
[2018-09-29] MEDS: MAXIPIME/NS 2 GM/100 ML 2 GM/100 ML BAG IV SCH ×2 (21:06→23:31)
[2018-09-30] MEDS: VANCOMYCIN 1,250 MG in NACL 0.9% 250ML 250 ML IV SCH ×2 (04:11→17:12)
[2018-09-30] MEDS: NACL 0.9% 1000 ML 1,000 ML IV SCH ×2 (04:17→10:07)
[2018-09-30] MEDS: MAXIPIME/NS 2 GM/100 ML 2 GM/100 ML BAG IV SCH ×3 (05:47→22:05)
[2018-09-30] MEDS: TYLENOL PO PRN (05:47)
[2018-09-30 06:07] LABS: Hematocrit 28.3 % (35.5-45.6); Hemoglobin 9.3 gm/dl (11.8-15.2); Mean Corpuscular HGB Conc 33 % (32-34); Mean Corpuscular Volume 91 fl (84-94); Red Cell Distribution Width 18.5 % (13.2-15.2)
[2018-09-30 06:17] LABS: BUN/Creatinine Ratio 15; Blood Urea Nitrogen 9 mg/dL (9-20); Calcium 7.6 mg/dL (8.4-10.2); Hemolysis Index 2; Platelet Count 15 K/mm3 (140-440)
[2018-09-30] MEDS: VIGAMOX OU SCH (07:21)
[2018-09-30] MEDS ORDERED: NACL 0.9% 500 ML 500 ML IV ONE ×2 (08:00→09:23)
[2018-09-30] MEDS: SODIUM CHLORIDE FLUSH SYRINGE 10 ML IV SCH ×2 (09:10→22:05)
[2018-09-30] MEDS: VITAMIN B-1 PO SCH (09:10)
[2018-09-30] MEDS: PROTONIX PO SCH (09:10)
[2018-09-30] MEDS: FOLVITE PO SCH (09:10)
[2018-09-30] MEDS: IBUPROFEN PO PRN (09:15)
[2018-09-30] MEDS ORDERED: NACL 0.9% 1000 ML 1,000 ML IV ONE (09:21)
[2018-09-30] MEDS ORDERED: MAGNESIUM SULFATE 4GM/100ML 4 GM/100 ML BAG IV ONE (09:22)
[2018-09-30] MEDS ORDERED: K-DUR PO ONE (09:22)
--- NOTE | 2018-09-30 12:17 | Progress Note ---
Assessment and Plan Assessment and plan: 42 year old [place] male who presented with UGI bleed and acute on chronic thrombocytopenia. He was initially admitted to the ICU on octreotide drip. He later had EGD showed variceal bleeding which was banded. Neutropenic fever -On IV antibiotics with cefepime and vancomycin -Urine culture on 09/29 negative so far. Blood cultures on 09/29 pending -Continue neutropenic precautions -Hematology following -ID consulted Acute on chronic Thrombocytopenia -Status post transfusion with 2 units of platelet -Level trended down to 15,000 today, will cont to monitor -Hematology following Severe sepsis, not present on admission -Probably secondary to UTI -Urinalysis positive but urine culture negative so far -Chest x-ray negative. Blood cultures pending Hypotension due to the sepsis -Status post IV fluid boluses -Continue maintenance IV fluids and monitor blood pressure GI Bleed secondary grade 4 distal esophageal variceal -s/p EGD with variceal banding -Off octreotide drip and completed IV Rocephin -Cont oral Protonix -H/H stable, will monitor -GI signed off Acute Metabolic Encephalopathy -resolved LT eye bacterial conjuctivitis -On Moxifloxacin eye drop x 7 days Acute Metabolic Acidosis -Resolved Pancytopenia -Probably secondary to chronic liver disease, will monitor levels -HIV screen negative Hypomagnesemia -On repletion, will monitor level Hypokalemia -Improved, will monitor Hyponatremia -Improved, will monitor Hyperglycemia -Hba1c pending 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 -For outpatient follow-up ETOH abuse -On alcohol withdrawal prophylaxis -Patient counseled on cessation Disposition: Pt's condition is guarded. He will be d/lady when medically stable and cleared by hematology. History Interval history: Patient complained of lower back pain and pain in the left elbow. He denied abdominal pain, nausea, vomiting, chest pain or shortness of breath. Hospitalist Physical - Constitutional Vitals: Temp Pulse Resp BP Pulse Ox 98.3 F 74 18 105/59 98 09/30/18 11:47 09/30/18 11:47 09/30/18 11:47 09/30/18 11:47 09/30/18 11:47 General appearance: Present: no acute distress, well-nourished - EENT Eyes: Present: PERRL, EOM intact ENT: hearing intact, clear oral mucosa - Neck Neck: Present: supple - Respiratory Respiratory effort: normal Respiratory: bilateral: CTA - Cardiovascular Rhythm: regular Heart Sounds: Present: S1 & S2 - Extremities Extremities: No edema - Abdominal General gastrointestinal: soft, tender (mild epigastric tenderness), non- distended, normal bowel sounds - Integumentary Integumentary: Present: clear, warm, dry - Psychiatric Psychiatric: appropriate mood/affect - Neurologic Neurologic: CNII-XII intact Results - Labs CBC & Chem 7: 09/30/18 05:02 09/30/18 05:02 Labs: Laboratory Last Values WBC 0.9 K/mm3 (4.5-11.0) L* 09/30/18 05:02 RBC 3.10 M/mm3 (3.65-5.03) L 09/30/18 05:02 Hgb 9.3 gm/dl (11.8-15.2) L 09/30/18 05:02 Hct 28.3 % (35.5-45.6) L D 09/30/18 05:02 MCV 91 fl (84-94) 09/30/18 05:02 MCH 30 pg (28-32) 09/30/18 05:02 MCHC 33 % (32-34) 09/30/18 05:02 RDW 18.5 % (13.2-15.2) H 09/30/18 05:02 Plt Count 15 K/mm3 (140-440) L* 09/30/18 05:02 [place] % (Auto) Shoulder Sawyer 09/28/18 05:36 Add Manual Diff Complete 09/28/18 05:36 Total Counted 100 09/28/18 05:36 Seg Neuts % (Manual) 71.0 % (40.0-70.0) H 09/28/18 05:36 0 % 09/28/18 05:36 17.0 % (13.4-35.0) 09/28/18 05:36 Reactive Lymphs % (Man) 0 % 09/28/18 05:36 10.0 % (0.0-7.3) H 09/28/18 05:36 1.0 % (0.0-4.3) 09/28/18 05:36 0 % (0.0-1.8) 09/28/18 05:36 1.0 % 09/28/18 05:36 0 % 09/28/18 05:36 0 % 09/28/18 05:36 0 % 09/28/18 05:36 Nucleated RBC % Not Reportable 09/28/18 05:36 Seg Neutrophils # Man 1.0 K/mm3 (1.8-7.7) L 09/28/18 05:36 Band Neutrophils # 0.0 K/mm3 09/28/18 05:36 0.2 K/mm3 (1.2-5.4) L 09/28/18 05:36 Abs React Lymphs (Man) 0.0 K/mm3 09/28/18 05:36 0.1 K/mm3 (0.0-0.8) 09/28/18 05:36 0.0 K/mm3 (0.0-0.4) 09/28/18 05:36 0.0 K/mm3 (0.0-0.1) 09/28/18 05:36 0.0 K/mm3 09/28/18 05:36 0.0 K/mm3 09/28/18 05:36 0.0 K/mm3 09/28/18 05:36 Blast Cells # 0.0 K/mm3 09/28/18 05:36 Pathologist Review 09/28/18 05:36 WBC Morphology Not Reportable 09/28/18 05:36 Hypersegmented Neuts Not Reportable 09/28/18 05:36 Hyposegmented Neuts Not Reportable 09/28/18 05:36 Hypogranular Neuts Not Reportable 09/28/18 05:36 Rare 09/28/18 05:36 Not Reportable 09/28/18 05:36 Not Reportable 09/28/18 05:36 Not Reportable 09/28/18 05:36 Not Reportable 09/28/18 05:36 Not Reportable 09/28/18 05:36 Consistent w auto 09/28/18 05:36 Not Reportable 09/28/18 05:36 Plt Clumps, EDTA Not Reportable 09/28/18 05:36 Not Reportable 09/28/18 05:36 Not Reportable 09/28/18 05:36 Not Reportable 09/28/18 05:36 Plt Morphology Comment Not Reportable 09/28/18 05:36 RBC Morphology Not Reportable 09/28/18 05:36 Dimorphic RBCs Not Reportable 09/28/18 05:36 Rare 09/28/18 05:36 Few 09/28/18 05:36 Not Reportable 09/28/18 05:36 Not Reportable 09/28/18 05:36 Not Reportable 09/28/18 05:36 1+ 09/28/18 05:36 Not Reportable 09/28/18 05:36 Not Reportable 09/28/18 05:36 Not Reportable 09/28/18 05:36 Not Reportable 09/28/18 05:36 Not Reportable 09/28/18 05:36 Not Reportable 09/28/18 05:36 Not Reportable 09/28/18 05:36 Not Reportable 09/28/18 05:36 Not Reportable 09/28/18 05:36 Not Reportable 09/28/18 05:36 Not Reportable 09/28/18 05:36 Not Reportable 09/28/18 05:36 Not Reportable 09/28/18 05:36 Acanthocytes (Spur) Not Reportable 09/28/18 05:36 Rouleaux Not Reportable 09/28/18 05:36 Not Reportable 09/28/18 05:36 Not Reportable 09/28/18 05:36 Not Reportable 09/28/18 05:36 Not Reportable 09/28/18 05:36 Hem Pathologist Commnt Sent to pathology 09/28/18 05:36 PT 17.7 Sec. (12.2-14.9) H 09/23/18 02:04 INR 1.49 (0.87-1.13) H 09/23/18 02:04 APTT 36.2 Sec. (24.2-36.6) 09/23/18 02:04 POC ABG pH 7.437 (7.35-7.45) 09/26/18 15:08 POC ABG pCO2 30.5 (35-45) L 09/26/18 15:08 POC ABG pO2 100 (80-105) 09/26/18 15:08 POC ABG HCO3 20.6 (22-26 mml/L) 09/26/18 15:08 POC ABG Total CO2 21 (23-27mmol/L) 09/26/18 15:08 POC ABG O2 Sat 98 09/26/18 15:08 POC ABG Base Excess -4 ((-2) - (+3)mmol/L) 09/26/18 15:08 21 % 09/26/18 15:08 Sodium 136 mmol/L (137-145) L 09/30/18 05:02 Potassium 3.7 mmol/L (3.6-5.0) 09/30/18 05:02 Chloride 107.7 mmol/L (98-107) H 09/30/18 05:02 Carbon Dioxide 20 mmol/L (22-30) L 09/30/18 05:02 12 mmol/L 09/30/18 05:02 BUN 9 mg/dL (9-20) 09/30/18 05:02 0.6 mg/dL (0.8-1.5) L 09/30/18 05:02 Estimated GFR > 60 ml/min 09/30/18 05:02 15 % 09/30/18 05:02 Glucose 132 mg/dL (75-100) H 09/30/18 05:02 POC Glucose 92 (70-105) 09/23/18 06:57 Lactic Acid 1.80 mmol/L (0.7-2.0) 09/29/18 14:40 Calcium 7.6 mg/dL (8.4-10.2) L 09/30/18 05:02 Phosphorus 3.10 mg/dL (2.5-4.5) 09/24/18 03:30 Magnesium 1.50 mg/dL (1.7-2.3) L 09/30/18 05:02 Iron 103 ug/dL (49-181) 09/25/18 07:57 TIBC 235 mcg/dL (250-450) L 09/25/18 07:57 126.2 ng/mL (13.0-400.0) 09/25/18 07:57 3.60 mg/dL (0.1-1.2) H 09/26/18 03:45 AST 81 units/L (5-40) H 09/26/18 03:45 ALT 27 units/L (7-56) 09/26/18 03:45 139 units/L (35-129) H 09/26/18 03:45 81.0 umol/L (25-60) H 09/23/18 10:03 0.20 mg/dL (0.00-1.30) 09/23/18 10:03 7.6 g/dL (6.3-8.2) 09/26/18 03:45 3.1 g/dL (3.9-5) L 09/26/18 03:45 0.7 % 09/26/18 03:45 90 units/L (13-60) H 09/23/18 00:21 Vitamin B12 1824 pg/mL (211-911) H 09/25/18 07:57 12.38 ng/mL (7.3-26.0) 09/25/18 07:57 Em (Yellow) 09/29/18 15:50 Slightly-cloudy (Clear) 09/29/18 15:50 5.0 (5.0-7.0) 09/29/18 15:50 Ur Specific [place] 1.032 (1.003-1.030) H 09/29/18 15:50 <15 mg/dl mg/dL (Negative) 09/29/18 15:50 Neg mg/dL (Negative) 09/29/18 15:50 Neg mg/dL (Negative) 09/29/18 15:50 Neg (Negative) 09/29/18 15:50 Neg (Negative) 09/29/18 15:50 Neg (Negative) 09/29/18 15:50 4.0 mg/dL (<2.0) 09/29/18 15:50 Ur Leukocyte Esterase Neg (Negative) 09/29/18 15:50 9.0 /HPF (0.0-6.0) H 09/29/18 15:50 1.0 /HPF (0.0-6.0) 09/29/18 15:50 U Epithel Cells (Auto) 2.0 /HPF (0-13.0) 09/29/18 15:50 Granular Casts 7 /LPF 09/29/18 15:50 3+ /HPF 09/29/18 15:50 HIV 1&2 Antibody Rapid Non react (Non React) 09/25/18 04:02 Non react (Non React) 09/25/18 04:02 Blood Type O POSITIVE 09/23/18 02:05 Antibody Screen Negative 09/23/18 02:05 Active Medications - Current Medications Current Medications: Generic Name Dose Route Start Last Admin Trade Name Freq PRN Reason Stop Dose Admin Acetaminophen 650 mg 09/29/18 05:57 09/30/18 05:47 Tylenol PO 650 mg Q4H PRN Administration Pain, Mild (1-3), Fever>100.5 Folic Acid 1 mg 09/27/18 10:00 09/30/18 09:10 Folvite PO 1 mg DAILY JORDAN Administration Sodium Chloride 1,000 mls @ 125 mls/hr 09/29/18 16:00 09/30/18 10:07 Nacl 0.9% 1000 Ml IV 125 mls/hr DIRECT JORDAN Administration Cefepime HCl 2 gm in 100 mls @ 200 mls/hr 09/29/18 16:00 09/30/18 05:47 Maxipime/Ns 2 Gm/100 Ml IV 200 mls/hr Q8HR JORDAN Administration Protocol Vancomycin HCl 1,250 mg/ 275 mls @ 166.667 mls/hr 09/30/18 05:00 09/30/18 04:11 Sodium Chloride IV 166.667 mls/hr Q12H JORDAN Administration Magnesium Sulfate 4 gm in 100 mls @ 25 mls/hr 09/30/18 09:22 09/30/18 10:16 Magnesium Sulfate 4gm/100ml IV 09/30/18 13:21 25 mls/hr ONCE ONE Administration Ibuprofen 600 mg 09/29/18 15:43 09/30/18 09:15 Ibuprofen PO 600 mg Q8H PRN Administration Fever >101 Lorazepam 2 mg 09/23/18 09:46 09/24/18 00:55 Ativan IV 2 mg Q1HR PRN Administration CIWA-Ar 8-15 Lorazepam 4 mg 09/23/18 09:46 Ativan IV Q1HR PRN CIWA-Ar 16-25 Morphine Sulfate 2 mg 09/23/18 05:09 09/24/18 17:17 Morphine IV 2 mg Q4H PRN Administration Pain, Moderate (4-6) Ondansetron HCl 4 mg 09/23/18 05:09 Zofran IV Q4H PRN Nausea And Vomiting Pantoprazole Sodium 40 mg 09/25/18 10:00 09/30/18 09:10 Protonix PO 40 mg DAILY JORDAN Administration Sodium Chloride 10 ml 09/23/18 10:00 09/30/18 09:10 Sodium Chloride Flush Syringe 10 Ml IV 10 ml BID JORDAN Administration Sodium Chloride 10 ml 09/23/18 05:09 09/24/18 17:18 Sodium Chloride Flush Syringe 10 Ml IV 10 ml PRN PRN Administration LINE FLUSH Thiamine HCl 100 mg 09/27/18 10:00 09/30/18 09:10 Vitamin B-1 PO 100 mg QDAY JORDAN Administration Nutrition/Malnutrition Assess - Dietary Evaluation Nutrition/Malnutrition Findings: Nutrition Notes Start: 09/29/18 17: 10 Freq: Status: Active Protocol: Document 09/29/18 17:10 RM (Rec: 09/29/18 17:12 RM [email or web address]) Nutrition Notes Need for Assessment generated from: LOS Initial or Follow up Brief Note Current Diagnosis Diabetes Other Pertinent Diagnosis Hx cirrhosis, GI bleed, abdominal pain, Alcohol abuse, Acute pancreatitis Height 5 ft 6 in Weight 76 kg [place] Body Weight (kg) 64.54 BMI 27.0 Subjective/Other Information Screened for LOS. Pt stated that his appetite is good and that he ate all of his breakfast. Denied vomiting . Nutrition Intervention Follow-Up By: 10/02/18 Additional Comments Follow for stable intakes
[2018-09-30] MEDS ORDERED: TYLENOL PO PRN (16:02)
--- NOTE | 2018-09-30 16:07 | Gastroenterology Progress Note ---
Assessment and Plan - Patient Problems (1) Acute blood loss anemia Current Visit: Yes Status: Acute Plan to address problem: - EGD with EV banding last week. - Continue protonix and add beta jose alfredo as tolerated. - Repeat EGD in 3-6 weeks. (2) Alcoholic liver disease Current Visit: Yes Status: Acute Plan to address problem: - Supportive care with MVI, protonix and beta jose alfredo if BP/HR tolerate. - EtOH avoidance discussed. - OK to d/c home when fevers resolved. (3) Fever and neutropenia Current Visit: Yes Status: Acute Plan to address problem: - New onset, and may be due to acute EtOH hepatitis; blood and urine cultures negative. - Will continue cefepime for likely EtOH-related neutropenia. - D/C abx after 72 hours if no positive cultures, and stable. Subjective Date of service: 09/30/18 Principal diagnosis: EtOH Liver Disease Interval history: Called to see patient because he remains anemic. He is eating regular food, and has no N/V, and denies melena. Mild epigastric/substernal pain at the site of variceal banding. No hematemesis or dysphagia. He has had low-grade fevers but no positive culture at present. Objective - Constitutional Vitals: Temp Pulse Resp BP Pulse Ox 98.3 F 74 18 105/59 98 09/30/18 11:47 09/30/18 11:47 09/30/18 11:47 09/30/18 11:47 09/30/18 11:47 General appearance: no acute distress - Neck Neck: supple, normal ROM - Respiratory Respiratory effort: normal Respiratory: bilateral: CTA - Cardiovascular Rhythm: regular Heart Sounds: Present: S1 & S2 - Gastrointestinal General gastrointestinal: Present: soft, tender (Minimal epigastric tenderness), non-distended - Labs CBC & Chem 7: 09/30/18 05:02 09/30/18 05:02 Labs: Laboratory Results - last 24 hr 09/29/18 09/30/18 09/30/18 15:50 05:02 05:02 WBC 0.9 L* RBC 3.10 L Hgb 9.3 L Hct 28.3 L D MCV 91 MCH 30 MCHC 33 RDW 18.5 H Plt Count 15 L* Sodium 136 L Potassium 3.7 Chloride 107.7 H Carbon Dioxide 20 L Anion Gap 12 BUN 9 Creatinine 0.6 L Estimated GFR > 60 BUN/Creatinine Ratio 15 Glucose 132 H Calcium 7.6 L Magnesium 1.50 L Urine Color Em Urine Turbidity Slightly-cloudy Urine pH 5.0 Ur Specific [place] 1.032 H Urine Protein <15 mg/dl Urine Glucose (UA) Neg Urine Ketones Neg Urine Blood Neg Urine Nitrite Neg Urine Bilirubin Neg Urine Urobilinogen 4.0 Ur Leukocyte Esterase Neg Urine WBC (Auto) 9.0 H Urine RBC (Auto) 1.0 U Epithel Cells (Auto) 2.0 Granular Casts 7 Urine Mucus 3+
[2018-10-01 05:00] LABS: Hematocrit 33.1 % (35.5-45.6); Hemoglobin 10.9 gm/dl (11.8-15.2); Mean Corpuscular HGB Conc 33 % (32-34); Mean Corpuscular Volume 91 fl (84-94); Red Blood Count 3.63 M/mm3 (3.65-5.03); Red Cell Distribution Width 18.8 % (13.2-15.2)
[2018-10-01 05:03] LABS: Platelet Count 14 K/mm3 (140-440)
[2018-10-01 05:20] LABS: BUN/Creatinine Ratio 13; Blood Urea Nitrogen 5 mg/dL (9-20); Calcium 7.7 mg/dL (8.4-10.2); Hemolysis Index 0
[2018-10-01 05:23] LABS: Albumin 2.9 g/dL (3.9-5); Bilirubin,Direct 1.4 mg/dL (0-0.2)
[2018-10-01] MEDS: VANCOMYCIN 1,250 MG in NACL 0.9% 250ML 250 ML IV SCH ×2 (05:52→17:23)
[2018-10-01] MEDS: NACL 0.9% 1000 ML 1,000 ML IV SCH (05:52)
[2018-10-01] MEDS: MAXIPIME/NS 2 GM/100 ML 2 GM/100 ML BAG IV SCH ×3 (06:00→22:39)
[2018-10-01] MEDS ORDERED: MAGNESIUM SULFATE 4GM/100ML 4 GM/100 ML BAG IV ONE (08:07)
[2018-10-01] MEDS ORDERED: NACL 0.9% 500 ML 500 ML IV ONE (08:09)
--- NOTE | 2018-10-01 08:37 | Progress Note ---
Assessment and Plan Assessment and plan: 42M who presented with UGI bleed and acute on chronic thrombocytopenia Acute variceal GI bleed, acute blood loss anemia Patient was in the ICU, received octreotide. He received EGD with variceal banding on 09/23, total of 6 bands were placed. Continue proton GI input appreciated, GI Bleed secondary grade 4 distal esophageal variceal Neutropenic fever Patient has been afebrile since 09/29. 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 have ITP sp 2 unit prbcs SIRS urine, blood cultures are negative Acute Metabolic Encephalopathy -resolved LT eye bacterial conjuctivitis -On Moxifloxacin eye drop x 7 days Acute Metabolic Acidosis -Resolved Pancytopenia -Probably secondary to chronic liver disease, will monitor levels -HIV screen negative Hypomagnesemia -On repletion, will monitor level Hypokalemia,repleted and resolved Hyponatremia- resolved with IVF DM A1c 7.7, lifelystle modification recommended 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 -For outpatient follow-up ETOH abuse -On alcohol withdrawal prophylaxis -Patient counseled on cessation > 17 minutes, preventative health counseling dvt ppx- scds History Interval history: Review of systems Constitutional: No fevers, no malaise, no joint pains CVS: No chest pain, no orthopnea, no dyspnea on exertion, no pedal edema GI: No abdominal pain, no diarrhea, no vomiting, no constipation Respiratory: no wheezing, no coughing Hospitalist Physical - Physical exam Narrative exam: General.: Appears well, no distress, nontoxic HEENT: Moist mucous membranes, extraocular muscles intact, no lymphadenopathy Neck: supple Cardiac: S1-S2 heard Lungs: clear to auscultation bilaterally Abdomen: soft , nontender, nondistended, bowel sounds positive Extremities: no edema clubbing or cyanosis Skin: no rash or lesions Neurologic: no gross focal deficits Psych: calm, and cooperative - Constitutional Vitals: Temp Pulse Resp BP Pulse Ox 98.7 F 78 20 109/69 99 10/01/18 04:41 10/01/18 04:41 10/01/18 04:41 10/01/18 04:41 10/01/18 04:41 General appearance: Present: no acute distress, well-nourished Results - Labs CBC & Chem 7: 10/01/18 04:43 10/01/18 04:43 Labs: Laboratory Last Values WBC 1.0 K/mm3 (4.5-11.0) L* 10/01/18 04:43 RBC 3.63 M/mm3 (3.65-5.03) L 10/01/18 04:43 Hgb 10.9 gm/dl (11.8-15.2) L 10/01/18 04:43 Hct 33.1 % (35.5-45.6) L 10/01/18 04:43 MCV 91 fl (84-94) 10/01/18 04:43 MCH 30 pg (28-32) 10/01/18 04:43 MCHC 33 % (32-34) 10/01/18 04:43 RDW 18.8 % (13.2-15.2) H 10/01/18 04:43 Plt Count 14 K/mm3 (140-440) L* 10/01/18 04:43 Hitchcock % (Auto) Vice President Business Development 09/28/18 05:36 Add Manual Diff Complete 09/28/18 05:36 Total Counted 100 09/28/18 05:36 Seg Neuts % (Manual) 71.0 % (40.0-70.0) H 09/28/18 05:36 0 % 09/28/18 05:36 17.0 % (13.4-35.0) 09/28/18 05:36 Reactive Lymphs % (Man) 0 % 09/28/18 05:36 10.0 % (0.0-7.3) H 09/28/18 05:36 1.0 % (0.0-4.3) 09/28/18 05:36 0 % (0.0-1.8) 09/28/18 05:36 1.0 % 09/28/18 05:36 0 % 09/28/18 05:36 0 % 09/28/18 05:36 0 % 09/28/18 05:36 Nucleated RBC % Not Reportable 09/28/18 05:36 Seg Neutrophils # Man 1.0 K/mm3 (1.8-7.7) L 09/28/18 05:36 Band Neutrophils # 0.0 K/mm3 09/28/18 05:36 0.2 K/mm3 (1.2-5.4) L 09/28/18 05:36 Abs React Lymphs (Man) 0.0 K/mm3 09/28/18 05:36 0.1 K/mm3 (0.0-0.8) 09/28/18 05:36 0.0 K/mm3 (0.0-0.4) 09/28/18 05:36 0.0 K/mm3 (0.0-0.1) 09/28/18 05:36 0.0 K/mm3 09/28/18 05:36 0.0 K/mm3 09/28/18 05:36 0.0 K/mm3 09/28/18 05:36 Blast Cells # 0.0 K/mm3 09/28/18 05:36 Pathologist Review 09/28/18 05:36 WBC Morphology Not Reportable 09/28/18 05:36 Hypersegmented Neuts Not Reportable 09/28/18 05:36 Hyposegmented Neuts Not Reportable 09/28/18 05:36 Hypogranular Neuts Not Reportable 09/28/18 05:36 Rare 09/28/18 05:36 Not Reportable 09/28/18 05:36 Not Reportable 09/28/18 05:36 Not Reportable 09/28/18 05:36 Not Reportable 09/28/18 05:36 Not Reportable 09/28/18 05:36 Consistent w auto 09/28/18 05:36 Not Reportable 09/28/18 05:36 Plt Clumps, EDTA Not Reportable 09/28/18 05:36 Not Reportable 09/28/18 05:36 Not Reportable 09/28/18 05:36 Not Reportable 09/28/18 05:36 Plt Morphology Comment Not Reportable 09/28/18 05:36 RBC Morphology Not Reportable 09/28/18 05:36 Dimorphic RBCs Not Reportable 09/28/18 05:36 Rare 09/28/18 05:36 Few 09/28/18 05:36 Not Reportable 09/28/18 05:36 Not Reportable 09/28/18 05:36 Not Reportable 09/28/18 05:36 1+ 09/28/18 05:36 Not Reportable 09/28/18 05:36 Not Reportable 09/28/18 05:36 Not Reportable 09/28/18 05:36 Not Reportable 09/28/18 05:36 Not Reportable 09/28/18 05:36 Not Reportable 09/28/18 05:36 Not Reportable 09/28/18 05:36 Not Reportable 09/28/18 05:36 Not Reportable 09/28/18 05:36 Not Reportable 09/28/18 05:36 Not Reportable 09/28/18 05:36 Not Reportable 09/28/18 05:36 Not Reportable 09/28/18 05:36 Acanthocytes (Spur) Not Reportable 09/28/18 05:36 Rouleaux Not Reportable 09/28/18 05:36 Not Reportable 09/28/18 05:36 Not Reportable 09/28/18 05:36 Not Reportable 09/28/18 05:36 Not Reportable 09/28/18 05:36 Hem Pathologist Commnt Sent to pathology 09/28/18 05:36 PT 17.7 Sec. (12.2-14.9) H 09/23/18 02:04 INR 1.49 (0.87-1.13) H 09/23/18 02:04 APTT 36.2 Sec. (24.2-36.6) 09/23/18 02:04 POC ABG pH 7.437 (7.35-7.45) 09/26/18 15:08 POC ABG pCO2 30.5 (35-45) L 09/26/18 15:08 POC ABG pO2 100 (80-105) 09/26/18 15:08 POC ABG HCO3 20.6 (22-26 mml/L) 09/26/18 15:08 POC ABG Total CO2 21 (23-27mmol/L) 09/26/18 15:08 POC ABG O2 Sat 98 09/26/18 15:08 POC ABG Base Excess -4 ((-2) - (+3)mmol/L) 09/26/18 15:08 21 % 09/26/18 15:08 Sodium 135 mmol/L (137-145) L 10/01/18 04:43 Potassium 3.9 mmol/L (3.6-5.0) 10/01/18 04:43 Chloride 105.0 mmol/L (98-107) 10/01/18 04:43 Carbon Dioxide 19 mmol/L (22-30) L 10/01/18 04:43 15 mmol/L 10/01/18 04:43 BUN 5 mg/dL (9-20) L 10/01/18 04:43 0.4 mg/dL (0.8-1.5) L 10/01/18 04:43 Estimated GFR > 60 ml/min 10/01/18 04:43 13 % 10/01/18 04:43 Glucose 123 mg/dL (75-100) H 10/01/18 04:43 POC Glucose 92 (70-105) 09/23/18 06:57 4.9 % (4-6) 10/01/18 04:43 Lactic Acid 1.80 mmol/L (0.7-2.0) 09/29/18 14:40 Calcium 7.7 mg/dL (8.4-10.2) L 10/01/18 04:43 Phosphorus 3.10 mg/dL (2.5-4.5) 09/24/18 03:30 Magnesium 1.50 mg/dL (1.7-2.3) L 10/01/18 04:43 Iron 103 ug/dL (49-181) 09/25/18 07:57 TIBC 235 mcg/dL (250-450) L 09/25/18 07:57 126.2 ng/mL (13.0-400.0) 09/25/18 07:57 2.10 mg/dL (0.1-1.2) H 10/01/18 04:43 1.4 mg/dL (0-0.2) H 10/01/18 04:43 0.7 mg/dL 10/01/18 04:43 AST 79 units/L (5-40) H 10/01/18 04:43 ALT 32 units/L (7-56) 10/01/18 04:43 142 units/L (35-129) H 10/01/18 04:43 81.0 umol/L (25-60) H 09/23/18 10:03 0.20 mg/dL (0.00-1.30) 09/23/18 10:03 7.0 g/dL (6.3-8.2) 10/01/18 04:43 2.9 g/dL (3.9-5) L 10/01/18 04:43 0.7 % 10/01/18 04:43 90 units/L (13-60) H 09/23/18 00:21 Vitamin B12 1824 pg/mL (211-911) H 09/25/18 07:57 12.38 ng/mL (7.3-26.0) 09/25/18 07:57 Em (Yellow) 09/29/18 15:50 Slightly-cloudy (Clear) 09/29/18 15:50 5.0 (5.0-7.0) 09/29/18 15:50 Ur Specific [place] 1.032 (1.003-1.030) H 09/29/18 15:50 <15 mg/dl mg/dL (Negative) 09/29/18 15:50 Neg mg/dL (Negative) 09/29/18 15:50 Neg mg/dL (Negative) 09/29/18 15:50 Neg (Negative) 09/29/18 15:50 Neg (Negative) 09/29/18 15:50 Neg (Negative) 09/29/18 15:50 4.0 mg/dL (<2.0) 09/29/18 15:50 Ur Leukocyte Esterase Neg (Negative) 09/29/18 15:50 9.0 /HPF (0.0-6.0) H 09/29/18 15:50 1.0 /HPF (0.0-6.0) 09/29/18 15:50 U Epithel Cells (Auto) 2.0 /HPF (0-13.0) 09/29/18 15:50 Granular Casts 7 /LPF 09/29/18 15:50 3+ /HPF 09/29/18 15:50 HIV 1&2 Antibody Rapid Non react (Non React) 09/25/18 04:02 Non react (Non React) 09/25/18 04:02 Blood Type O POSITIVE 09/23/18 02:05 Antibody Screen Negative 09/23/18 02:05 Active Medications - Current Medications Current Medications: Generic Name Dose Route Start Last Admin Trade Name Freq PRN Reason Stop Dose Admin Acetaminophen 650 mg 09/30/18 16:02 Tylenol PO Q6H PRN Pain, Mild (1-3), Fever>100.5 Sodium Chloride 1,000 mls @ 125 mls/hr 09/29/18 16:00 10/01/18 05:52 Nacl 0.9% 1000 Ml IV 125 mls/hr DIRECT JORDAN Administration Cefepime HCl 2 gm in 100 mls @ 200 mls/hr 09/29/18 16:00 10/01/18 06:00 Maxipime/Ns 2 Gm/100 Ml IV 200 mls/hr Q8HR JORDAN Administration Protocol Vancomycin HCl 1,250 mg/ 275 mls @ 166.667 mls/hr 09/30/18 05:00 10/01/18 05:52 Sodium Chloride IV 166.667 mls/hr Q12H JORDAN Administration Magnesium Sulfate 4 gm in 100 mls @ 25 mls/hr 10/01/18 08:07 Magnesium Sulfate 4gm/100ml IV 10/01/18 12:06 ONCE ONE Lorazepam 2 mg 09/23/18 09:46 09/24/18 00:55 Ativan IV 2 mg Q1HR PRN Administration CIWA-Ar 8-15 Lorazepam 4 mg 09/23/18 09:46 Ativan IV Q1HR PRN CIWA-Ar 16-25 Morphine Sulfate 2 mg 09/23/18 05:09 09/24/18 17:17 Morphine IV 2 mg Q4H PRN Administration Pain, Moderate (4-6) Multivitamins/Minerals 1 each 10/01/18 10:00 Theragran-M Tab PO QDAY JORDAN Ondansetron HCl 4 mg 09/23/18 05:09 Zofran IV Q4H PRN Nausea And Vomiting Pantoprazole Sodium 40 mg 09/25/18 10:00 09/30/18 09:10 Protonix PO 40 mg DAILY JORDAN Administration Sodium Chloride 10 ml 09/23/18 10:00 09/30/18 22:05 Sodium Chloride Flush Syringe 10 Ml IV 10 ml BID JORDAN Administration Sodium Chloride 10 ml 09/23/18 05:09 09/24/18 17:18 Sodium Chloride Flush Syringe 10 Ml IV 10 ml PRN PRN Administration LINE FLUSH Tbo-Filgrastim 480 mcg 10/01/18 10:00 Granix SUB-Q 10/06/18 09:59 DAILY [facility] Nutrition/Malnutrition Assess - Dietary Evaluation Nutrition/Malnutrition Findings: Nutrition Notes Start: 09/29/18 17:10 Freq: Status: Active Protocol: Document 09/29/18 17:10 RM (Rec: 09/29/18 17:12 RM [id number]) Nutrition Notes Need for Assessment generated from: LOS Initial or Follow up Brief Note Current Diagnosis Diabetes Other Pertinent Diagnosis Hx cirrhosis, GI bleed, abdominal pain, Alcohol abuse, Acute pancreatitis Height 5 ft 6 in Weight 76 kg [place] Body Weight (kg) 64.54 BMI 27.0 Subjective/Other Information Screened for LOS. Pt stated that his appetite is good and that he ate all of his breakfast. Denied vomiting . Nutrition Intervention Follow-Up By: 10/02/18 Additional Comments Follow for stable intakes
[2018-10-01] MEDS: PROTONIX PO SCH (09:22)
[2018-10-01] MEDS: THERAGRAN-M Tab PO SCH (09:22)
[2018-10-01] MEDS: SODIUM CHLORIDE FLUSH SYRINGE 10 ML IV SCH ×2 (09:28→22:39)
[2018-10-01] MEDS: GRANIX SUB-Q SCH (09:48)
--- NOTE | 2018-10-01 12:41 | Progress Note ---
Assessment and Plan 09/23/2018 BCx - NGTD 09/29/2018 BCx- No growth to date 42 yo M with PMHx of EtOH abuse, cirrhosis initially presented due to hematemesis 2/2 esophageal varices. 1) Febrile Neutropenia and Thrombocytopenia: Fever spike noted 102.9 on 09/29/18. No fevers in>24 hours. Repeat BC show no growth. HIV negative. 2) Acute blood loss 2/2 esophageal varices - Antibiotic course of ceftriaxone completed on 09/27/18. 3) Lactic acidosis - resolved Recs: -Continue Cefepime and Vancomycin -CBC ordered for tomorrow -Monitor fevers - If fever spikes continue will order CT Chest and abdomen with contrast [employer] M: [phone] O:[phone] Subjective Date of service: 10/01/18 Principal diagnosis: EtOH Liver Disease Interval history: Patient seen and examined. Reports no acute distress or generalized weakness. No fevers, Objective - Exam Narrative Exam: Constitutional: awake, no distress, following commands Head, Ears, Nose: Normocephalic, atraumatic. External ears, nose normal Eyes: Conjunctivae/corneas clear. No icterus. No ptosis. Neck: Supple, no meningeal signs Oral: fair dentition, moist mucous membranes Cardiovascular: S1, S2 normal. Normal rhythm Respiratory: Good air entry, clear to auscultation bilaterally GI: Soft, non-tender; bowel sounds normal. No peritoneal signs Musculoskeletal: No pedal edema, Skin: No rash or abscess Hem/Lymphatic: No palpable cervical or supraclavicular nodes. No lymphangitis Psych: no agitation Neurological: Moves all extremities, no focal defects - Constitutional Vitals: Vital Signs Temp Pulse Resp BP Pulse Ox 98.7 F 80 18 113/75 98 10/01/18 11:38 10/01/18 11:38 10/01/18 11:38 10/01/18 11:38 10/01/18 11:38 Temperature -Last 24 Hours Temperature 98.7 F Temperature 98.7 F Temperature 98.2 F Temperature 97.8 F - Labs CBC & Chem 7: 10/01/18 04:43 10/01/18 04:43 Labs: Abnormal lab results 08/04/19 08/04/19 08/04/19 Range/Units 04:43 04:43 04:43 WBC 1.0 L* (4.5-11.0) K/mm3 RBC 3.63 L (3.65-5.03) M/mm3 Hgb 10.9 L (11.8-15.2) gm/dl Hct 33.1 L (35.5-45.6) % RDW 18.8 H (13.2-15.2) % Plt Count 14 L* (140-440) K/mm3 Sodium 135 L (137-145) mmol/L Carbon Dioxide 19 L (22-30) mmol/L BUN 5 L (9-20) mg/dL Creatinine 0.4 L (0.8-1.5) mg/dL Glucose 123 H (75-100) mg/dL Calcium 7.7 L (8.4-10.2) mg/dL Magnesium 1.50 L (1.7-2.3) mg/dL Total Bilirubin 2.10 H (0.1-1.2) mg/dL Direct Bilirubin 1.4 H (0-0.2) mg/dL AST 79 H (5-40) units/L Alkaline Phosphatase 142 H (35-129) units/L Albumin 2.9 L (3.9-5) g/dL
--- NOTE | 2018-10-01 16:00 | Gastroenterology Progress Note ---
Assessment and Plan - Patient Problems (1) Acute blood loss anemia Current Visit: Yes Status: Acute Plan to address problem: - EGD with EV banding last week. - Continue protonix and add beta jose alfredo as tolerated. - Repeat EGD in 3-6 weeks. (2) Alcoholic liver disease Current Visit: Yes Status: Acute Plan to address problem: - Supportive care with MVI, protonix and beta jose alfredo if BP/HR tolerate. - EtOH avoidance discussed. - OK to d/c home when fevers resolved. (3) Fever and neutropenia Current Visit: Yes Status: Acute Plan to address problem: - New onset, and may be due to acute EtOH hepatitis; blood and urine cultures negative. - Improved in last 24 hours; will monitor; d/c cefepime in the AM if all cultures negative. - Agree with ID that low WBC and platelets (chronic over a year) may be Hematology or EtOH related; rare blood dyscrasias with protonix, but I am worried about stopping this given recent Grade IV varices with banding. Subjective Date of service: 10/01/18 Principal diagnosis: EtOH Liver Disease Interval history: The patient has no N/V/melena, and says his LUQ/epigastric pain is better. He has had resolution of his fevers in the last 24 hours. Objective - Constitutional Vitals: Temp Pulse Resp BP Pulse Ox 99.1 F 90 18 124/72 98 10/01/18 15:36 10/01/18 15:36 10/01/18 15:36 10/01/18 15:36 10/01/18 15:36 General appearance: no acute distress - EENT Eyes: PERRL, EOM intact ENT: hearing intact, clear oral mucosa - Respiratory Respiratory effort: normal Respiratory: bilateral: CTA - Cardiovascular Rhythm: regular Heart Sounds: Present: S1 & S2 - Gastrointestinal General gastrointestinal: Present: soft, non-tender, distended (Mild ascites) - Labs CBC & Chem 7: 10/01/18 04:43 10/01/18 04:43 Labs: Laboratory Results - last 24 hr 10/01/18 10/01/18 10/01/18 04:43 04:43 04:43 WBC 1.0 L* RBC 3.63 L Hgb 10.9 L Hct 33.1 L MCV 91 MCH 30 MCHC 33 RDW 18.8 H Plt Count 14 L* Sodium 135 L Potassium 3.9 Chloride 105.0 Carbon Dioxide 19 L Anion Gap 15 BUN 5 L Creatinine 0.4 L Estimated GFR > 60 BUN/Creatinine Ratio 13 Glucose 123 H Hemoglobin A1c 4.9 Calcium 7.7 L Magnesium 1.50 L Total Bilirubin Direct Bilirubin Indirect Bilirubin AST ALT Alkaline Phosphatase Total Protein Albumin Albumin/Globulin Ratio Blood Type 10/01/18 10/01/18 04:43 08:51 WBC RBC Hgb Hct MCV MCH MCHC RDW Plt Count Sodium Potassium Chloride Carbon Dioxide Anion Gap BUN Creatinine Estimated GFR BUN/Creatinine Ratio Glucose Hemoglobin A1c Calcium Magnesium Total Bilirubin 2.10 H Direct Bilirubin 1.4 H Indirect Bilirubin 0.7 AST 79 H ALT 32 Alkaline Phosphatase 142 H Total Protein 7.0 Albumin 2.9 L Albumin/Globulin Ratio 0.7 Blood Type O POSITIVE
--- NOTE | 2018-10-01 17:47 | Hem/Onc Progress Note ---
Assessment and Plan low plt - h/o ETOH splenomegaly 1. Thrombocytopenia. This may be secondary to alcohol consumption, cirrhosis, splenomegaly and consumption secondary to the bleeding. 2. History of esophageal varices, as per the information status post banding. 3. The patient has had platelet transfusion. 4. No bowel movement. 5. Leukopenia, is in isolation. Commonly patients with cirrhosis and leukopenia do not have risk of infection. 6. 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 7. History of hematemesis, seen by GI. 8. History of abdominal pain, on supportive care. 9. We will do supportive care for now. I discussed with the patient regarding quitting alcohol. plt low- will follow OP follow up an option hb stable left eye discomfort - cipro cream trial FEVER - Neutropenia will follow counts pt may need more Ix for the low counts - d/w pt reg bmbx - Patient Problems (1) Thrombocytopenia Current Visit: No Status: Acute Subjective Date of service: 10/01/18 Principal diagnosis: low wbc and low plt Interval history: h/o fever Objective - Exam Narrative Exam: Pain - none General appearance no acute distress Performance status limited self care Eyes - icterus ENT no thrush LNs cervical not palpable Neck - normal ROM Respiratory Normal Breath sounds - CTA CVS S1 S2 + Extremities normal temperature General GI Soft - distended Rectal deferred male - deferred Skin warm Musculoskeletal moving normal Neurologically no focal deficit - Constitutional Vitals: Last Vital Signs Temp 99.5 F 10/01/18 16:21 Pulse 85 10/01/18 16:21 Resp 18 10/01/18 16:21 BP 104/62 10/01/18 16:21 Pulse Ox 99 10/01/18 16:21 - Labs Lab Results: Laboratory Results - last 24 hr 10/01/18 10/01/18 10/01/18 04:43 04:43 04:43 WBC 1.0 L* RBC 3.63 L Hgb 10.9 L Hct 33.1 L MCV 91 MCH 30 MCHC 33 RDW 18.8 H Plt Count 14 L* Sodium 135 L Potassium 3.9 Chloride 105.0 Carbon Dioxide 19 L Anion Gap 15 BUN 5 L Creatinine 0.4 L Estimated GFR > 60 BUN/Creatinine Ratio 13 Glucose 123 H Hemoglobin A1c 4.9 Calcium 7.7 L Magnesium 1.50 L Total Bilirubin Direct Bilirubin Indirect Bilirubin AST ALT Alkaline Phosphatase Total Protein Albumin Albumin/Globulin Ratio Blood Type 10/01/18 10/01/18 04:43 08:51 WBC RBC Hgb Hct MCV MCH MCHC RDW Plt Count Sodium Potassium Chloride Carbon Dioxide Anion Gap BUN Creatinine Estimated GFR BUN/Creatinine Ratio Glucose Hemoglobin A1c Calcium Magnesium Total Bilirubin 2.10 H Direct Bilirubin 1.4 H Indirect Bilirubin 0.7 AST 79 H ALT 32 Alkaline Phosphatase 142 H Total Protein 7.0 Albumin 2.9 L Albumin/Globulin Ratio 0.7 Blood Type O POSITIVE Medications & Allergies - Medications Allergies/Adverse Reactions: Allergies No Known Allergies Allergy (Verified 12/26/14 12:21) Home Medications: Home Medications Medication Instructions Recorded Confirmed Last Taken Type No Known Home Medications [No 09/23/18 09/23/18 Unknown History Reported Home Medications] Active Medications: Generic Name Dose Route Start Last Admin Trade Name Freq PRN Reason Stop Dose Admin Acetaminophen 650 mg 09/30/18 16:02 10/01/18 15:24 Tylenol PO 650 mg Q6H PRN Administration Pain, Mild (1-3), Fever>100.5 Sodium Chloride 1,000 mls @ 125 mls/hr 09/29/18 16:00 10/01/18 05:52 Nacl 0.9% 1000 Ml IV 125 mls/hr DIRECT JORDAN Administration Cefepime HCl 2 gm in 100 mls @ 200 mls/hr 09/29/18 16:00 10/01/18 13:46 Maxipime/Ns 2 Gm/100 Ml IV 200 mls/hr Q8HR JORDAN Administration Protocol Vancomycin HCl 1,250 mg/ 275 mls @ 166.667 mls/hr 09/30/18 05:00 10/01/18 17:23 Sodium Chloride IV 166.667 mls/hr Q12H JORDAN Administration Multivitamins/Minerals 1 each 10/01/18 10:00 10/01/18 09:22 Theragran-M Tab PO 1 each QDAY JORDAN Administration Pantoprazole Sodium 40 mg 09/25/18 10:00 10/01/18 09:22 Protonix PO 40 mg DAILY JORDAN Administration Sodium Chloride 10 ml 09/23/18 10:00 10/01/18 09:28 Sodium Chloride Flush Syringe 10 Ml IV 10 ml BID JORDAN Administration Sodium Chloride 10 ml 09/23/18 05:09 09/24/18 17:18 Sodium Chloride Flush Syringe 10 Ml IV 10 ml PRN PRN Administration LINE FLUSH Tbo-Filgrastim 480 mcg 10/01/18 10:00 10/01/18 09:48 Granix SUB-Q 10/06/18 09:59 480 mcg DAILY JORDAN Administration
[2018-10-02] MEDS: NACL 0.9% 1000 ML 1,000 ML IV SCH ×2 (03:18→14:39)
[2018-10-02 05:25] LABS: Hematocrit 31.4 % (35.5-45.6); Hemoglobin 10.4 gm/dl (11.8-15.2); Mean Corpuscular HGB Conc 33 % (32-34); Mean Corpuscular Volume 91 fl (84-94); Red Blood Count 3.46 M/mm3 (3.65-5.03); Red Cell Distribution Width 18.3 % (13.2-15.2)
[2018-10-02 05:28] LABS: Platelet Count 21 K/mm3 (140-440)
[2018-10-02] MEDS: VANCOMYCIN 1,250 MG in NACL 0.9% 250ML 250 ML IV SCH (05:49)
[2018-10-02] MEDS: MAXIPIME/NS 2 GM/100 ML 2 GM/100 ML BAG IV SCH (05:50)
[2018-10-02 05:54] LABS: BUN/Creatinine Ratio 12; Blood Urea Nitrogen 6 mg/dL (9-20); Calcium 7.9 mg/dL (8.4-10.2); Hemolysis Index 1
--- NOTE | 2018-10-02 07:43 | Progress Note ---
Hospitalist Physical - Constitutional Vitals: Temp Pulse Resp BP Pulse Ox 98.1 F 82 16 102/61 99 10/02/18 05:31 10/02/18 05:31 10/02/18 05:31 10/02/18 05:31 10/02/18 05:31 General appearance: Present: no acute distress, well-nourished Results - Labs CBC & Chem 7: 10/02/18 05:12 10/02/18 05:12 Labs: Laboratory Last Values WBC 2.9 K/mm3 (4.5-11.0) L 10/02/18 05:12 RBC 3.46 M/mm3 (3.65-5.03) L 10/02/18 05:12 Hgb 10.4 gm/dl (11.8-15.2) L 10/02/18 05:12 Hct 31.4 % (35.5-45.6) L 10/02/18 05:12 MCV 91 fl (84-94) 10/02/18 05:12 MCH 30 pg (28-32) 10/02/18 05:12 MCHC 33 % (32-34) 10/02/18 05:12 RDW 18.3 % (13.2-15.2) H 10/02/18 05:12 Plt Count 21 K/mm3 (140-440) L 10/02/18 05:12 [place] % (Auto) Compounding Assistant 09/28/18 05:36 Add Manual Diff Complete 09/28/18 05:36 Total Counted 100 09/28/18 05:36 Seg Neuts % (Manual) 71.0 % (40.0-70.0) H 09/28/18 05:36 0 % 09/28/18 05:36 17.0 % (13.4-35.0) 09/28/18 05:36 Reactive Lymphs % (Man) 0 % 09/28/18 05:36 10.0 % (0.0-7.3) H 09/28/18 05:36 1.0 % (0.0-4.3) 09/28/18 05:36 0 % (0.0-1.8) 09/28/18 05:36 1.0 % 09/28/18 05:36 0 % 09/28/18 05:36 0 % 09/28/18 05:36 0 % 09/28/18 05:36 Nucleated RBC % Not Reportable 09/28/18 05:36 Seg Neutrophils # Man 1.0 K/mm3 (1.8-7.7) L 09/28/18 05:36 Band Neutrophils # 0.0 K/mm3 09/28/18 05:36 0.2 K/mm3 (1.2-5.4) L 09/28/18 05:36 Abs React Lymphs (Man) 0.0 K/mm3 09/28/18 05:36 0.1 K/mm3 (0.0-0.8) 09/28/18 05:36 0.0 K/mm3 (0.0-0.4) 09/28/18 05:36 0.0 K/mm3 (0.0-0.1) 09/28/18 05:36 0.0 K/mm3 09/28/18 05:36 0.0 K/mm3 09/28/18 05:36 0.0 K/mm3 09/28/18 05:36 Blast Cells # 0.0 K/mm3 09/28/18 05:36 Pathologist Review 09/28/18 05:36 WBC Morphology Not Reportable 09/28/18 05:36 Hypersegmented Neuts Not Reportable 09/28/18 05:36 Hyposegmented Neuts Not Reportable 09/28/18 05:36 Hypogranular Neuts Not Reportable 09/28/18 05:36 Rare 09/28/18 05:36 Not Reportable 09/28/18 05:36 Not Reportable 09/28/18 05:36 Not Reportable 09/28/18 05:36 Not Reportable 09/28/18 05:36 Not Reportable 09/28/18 05:36 Consistent w auto 09/28/18 05:36 Not Reportable 09/28/18 05:36 Plt Clumps, EDTA Not Reportable 09/28/18 05:36 Not Reportable 09/28/18 05:36 Not Reportable 09/28/18 05:36 Not Reportable 09/28/18 05:36 Plt Morphology Comment Not Reportable 09/28/18 05:36 RBC Morphology Not Reportable 09/28/18 05:36 Dimorphic RBCs Not Reportable 09/28/18 05:36 Rare 09/28/18 05:36 Few 09/28/18 05:36 Not Reportable 09/28/18 05:36 Not Reportable 09/28/18 05:36 Not Reportable 09/28/18 05:36 1+ 09/28/18 05:36 Not Reportable 09/28/18 05:36 Not Reportable 09/28/18 05:36 Not Reportable 09/28/18 05:36 Not Reportable 09/28/18 05:36 Not Reportable 09/28/18 05:36 Not Reportable 09/28/18 05:36 Not Reportable 09/28/18 05:36 Not Reportable 09/28/18 05:36 Not Reportable 09/28/18 05:36 Not Reportable 09/28/18 05:36 Not Reportable 09/28/18 05:36 Not Reportable 09/28/18 05:36 Not Reportable 09/28/18 05:36 Acanthocytes (Spur) Not Reportable 09/28/18 05:36 Rouleaux Not Reportable 09/28/18 05:36 Not Reportable 09/28/18 05:36 Not Reportable 09/28/18 05:36 Not Reportable 09/28/18 05:36 Not Reportable 09/28/18 05:36 Hem Pathologist Commnt Sent to pathology 09/28/18 05:36 PT 17.7 Sec. (12.2-14.9) H 09/23/18 02:04 INR 1.49 (0.87-1.13) H 09/23/18 02:04 APTT 36.2 Sec. (24.2-36.6) 09/23/18 02:04 POC ABG pH 7.437 (7.35-7.45) 09/26/18 15:08 POC ABG pCO2 30.5 (35-45) L 09/26/18 15:08 POC ABG pO2 100 (80-105) 09/26/18 15:08 POC ABG HCO3 20.6 (22-26 mml/L) 09/26/18 15:08 POC ABG Total CO2 21 (23-27mmol/L) 09/26/18 15:08 POC ABG O2 Sat 98 09/26/18 15:08 POC ABG Base Excess -4 ((-2) - (+3)mmol/L) 09/26/18 15:08 21 % 09/26/18 15:08 Sodium 136 mmol/L (137-145) L 10/02/18 05:12 Potassium 3.8 mmol/L (3.6-5.0) 10/02/18 05:12 Chloride 103.6 mmol/L (98-107) 10/02/18 05:12 Carbon Dioxide 21 mmol/L (22-30) L 10/02/18 05:12 15 mmol/L 10/02/18 05:12 BUN 6 mg/dL (9-20) L 10/02/18 05:12 0.5 mg/dL (0.8-1.5) L 10/02/18 05:12 Estimated GFR > 60 ml/min 10/02/18 05:12 12 % 10/02/18 05:12 Glucose 150 mg/dL (75-100) H 10/02/18 05:12 POC Glucose 92 (70-105) 09/23/18 06:57 4.9 % (4-6) 10/01/18 04:43 Lactic Acid 1.80 mmol/L (0.7-2.0) 09/29/18 14:40 Calcium 7.9 mg/dL (8.4-10.2) L 10/02/18 05:12 Phosphorus 3.10 mg/dL (2.5-4.5) 09/24/18 03:30 Magnesium 1.50 mg/dL (1.7-2.3) L 10/01/18 04:43 Iron 103 ug/dL (49-181) 09/25/18 07:57 TIBC 235 mcg/dL (250-450) L 09/25/18 07:57 126.2 ng/mL (13.0-400.0) 09/25/18 07:57 2.10 mg/dL (0.1-1.2) H 10/01/18 04:43 1.4 mg/dL (0-0.2) H 10/01/18 04:43 0.7 mg/dL 10/01/18 04:43 AST 79 units/L (5-40) H 10/01/18 04:43 ALT 32 units/L (7-56) 10/01/18 04:43 142 units/L (35-129) H 10/01/18 04:43 81.0 umol/L (25-60) H 09/23/18 10:03 0.20 mg/dL (0.00-1.30) 09/23/18 10:03 7.0 g/dL (6.3-8.2) 10/01/18 04:43 2.9 g/dL (3.9-5) L 10/01/18 04:43 0.7 % 10/01/18 04:43 90 units/L (13-60) H 09/23/18 00:21 Vitamin B12 1824 pg/mL (211-911) H 09/25/18 07:57 12.38 ng/mL (7.3-26.0) 09/25/18 07:57 Em (Yellow) 09/29/18 15:50 Slightly-cloudy (Clear) 09/29/18 15:50 5.0 (5.0-7.0) 09/29/18 15:50 Ur Specific [place] 1.032 (1.003-1.030) H 09/29/18 15:50 <15 mg/dl mg/dL (Negative) 09/29/18 15:50 Neg mg/dL (Negative) 09/29/18 15:50 Neg mg/dL (Negative) 09/29/18 15:50 Neg (Negative) 09/29/18 15:50 Neg (Negative) 09/29/18 15:50 Neg (Negative) 09/29/18 15:50 4.0 mg/dL (<2.0) 09/29/18 15:50 Ur Leukocyte Esterase Neg (Negative) 09/29/18 15:50 9.0 /HPF (0.0-6.0) H 09/29/18 15:50 1.0 /HPF (0.0-6.0) 09/29/18 15:50 U Epithel Cells (Auto) 2.0 /HPF (0-13.0) 09/29/18 15:50 Granular Casts 7 /LPF 09/29/18 15:50 3+ /HPF 09/29/18 15:50 HIV 1&2 Antibody Rapid Non react (Non React) 09/25/18 04:02 Non react (Non React) 09/25/18 04:02 Blood Type O POSITIVE 10/01/18 08:51 Antibody Screen Negative 09/23/18 02:05 Active Medications - Current Medications Current Medications: Generic Name Dose Route Start Last Admin Trade Name Freq PRN Reason Stop Dose Admin Acetaminophen 650 mg 09/30/18 16:02 10/01/18 15:24 Tylenol PO 650 mg Q6H PRN Administration Pain, Mild (1-3), Fever>100.5 Sodium Chloride 1,000 mls @ 125 mls/hr 09/29/18 16:00 10/02/18 03:18 Nacl 0.9% 1000 Ml IV 125 mls/hr DIRECT JORDAN Administration Cefepime HCl 2 gm in 100 mls @ 200 mls/hr 09/29/18 16:00 10/02/18 05:50 Maxipime/Ns 2 Gm/100 Ml IV 200 mls/hr Q8HR JORDAN Administration Protocol Vancomycin HCl 1,250 mg/ 275 mls @ 166.667 mls/hr 09/30/18 05:00 10/02/18 05:49 Sodium Chloride IV 166.667 mls/hr Q12H JORDAN Administration Multivitamins/Minerals 1 each 10/01/18 10:00 10/01/18 09:22 Theragran-M Tab PO 1 each QDAY JORDAN Administration Pantoprazole Sodium 40 mg 09/25/18 10:00 10/01/18 09:22 Protonix PO 40 mg DAILY JORDAN Administration Sodium Chloride 10 ml 09/23/18 10:00 10/01/18 22:39 Sodium Chloride Flush Syringe 10 Ml IV 10 ml BID JORDAN Administration Sodium Chloride 10 ml 09/23/18 05:09 09/24/18 17:18 Sodium Chloride Flush Syringe 10 Ml IV 10 ml PRN PRN Administration LINE FLUSH Tbo-Filgrastim 480 mcg 10/01/18 10:00 10/01/18 09:48 Granix SUB-Q 10/06/18 09:59 480 mcg DAILY JORDAN Administration Nutrition/Malnutrition Assess - Dietary Evaluation Nutrition/Malnutrition Findings: Nutrition Notes Start: 09/29/18 17:10 Freq: Status: Active Protocol: Document 09/29/18 17:10 RM (Rec: 09/29/18 17:12 RM [id number]) Nutrition Notes Need for Assessment generated from: LOS Initial or Follow up Brief Note Current Diagnosis Diabetes Other Pertinent Diagnosis Hx cirrhosis, GI bleed, abdominal pain, Alcohol abuse, Acute pancreatitis Height 5 ft 6 in Weight 76 kg [place] Body Weight (kg) 64.54 BMI 27.0 Subjective/Other Information Screened for LOS. Pt stated that his appetite is good and that he ate all of his breakfast. Denied vomiting . Nutrition Intervention Follow-Up By: 10/02/18 Additional Comments Follow for stable intakes
--- NOTE | 2018-10-02 08:32 | Hem/Onc Progress Note ---
Assessment and Plan low plt - h/o ETOH splenomegaly 1. Thrombocytopenia. This may be secondary to alcohol consumption, cirrhosis, splenomegaly and consumption secondary to the bleeding. 2. History of esophageal varices, as per the information status post banding. 3. The patient has had platelet transfusion. 4. No bowel movement. 5. Leukopenia, is in isolation. Commonly patients with cirrhosis and leukopenia do not have risk of infection. 6. 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 7. History of hematemesis, seen by GI. 8. History of abdominal pain, on supportive care. 9. We will do supportive care for now. I discussed with the patient regarding quitting alcohol. plt low- will follow OP follow up an option hb stable h/o left eye discomfort - cipro cream trial h/o FEVER - Neutropenia d/w pt reg bmbx in patient vs OP - as the counts are fluctuating - Patient Problems (1) Thrombocytopenia Current Visit: No Status: Acute Subjective Date of service: 10/02/18 Principal diagnosis: low plt , low wbc Interval history: no fever Objective - Exam Narrative Exam: Pain - none General appearance no acute distress Performance status limited self care Eyes - icterus ENT no thrush LNs cervical not palpable Neck - normal ROM Respiratory Normal Breath sounds - CTA CVS S1 S2 + Extremities normal temperature General GI Soft - distended Rectal deferred male - deferred Skin warm Musculoskeletal moving normal Neurologically no focal deficit - Constitutional Vitals: Last Vital Signs Temp 98.1 F 10/02/18 05:31 Pulse 82 10/02/18 05:31 Resp 16 10/02/18 05:31 BP 102/61 10/02/18 05:31 Pulse Ox 99 10/02/18 05:31 - Labs Lab Results: Laboratory Results - last 24 hr 10/01/18 10/02/18 10/02/18 08:51 05:12 05:12 WBC 2.9 L RBC 3.46 L Hgb 10.4 L Hct 31.4 L MCV 91 MCH 30 MCHC 33 RDW 18.3 H Plt Count 21 L Sodium 136 L Potassium 3.8 Chloride 103.6 Carbon Dioxide 21 L Anion Gap 15 BUN 6 L Creatinine 0.5 L Estimated GFR > 60 BUN/Creatinine Ratio 12 Glucose 150 H Calcium 7.9 L Blood Type O POSITIVE Medications & Allergies - Medications Allergies/Adverse Reactions: Allergies No Known Allergies Allergy (Verified 12/26/14 12:21) Home Medications: Home Medications Medication Instructions Recorded Confirmed Last Taken Type No Known Home Medications [No 09/23/18 09/23/18 Unknown History Reported Home Medications] Active Medications: Generic Name Dose Route Start Last Admin Trade Name Yulia PRN Reason Stop Dose Admin Acetaminophen 650 mg 09/30/18 16:02 10/01/18 15:24 Tylenol PO 650 mg Q6H PRN Administration Pain, Mild (1-3), Fever>100.5 Sodium Chloride 1,000 mls @ 125 mls/hr 09/29/18 16:00 10/02/18 03:18 Nacl 0.9% 1000 Ml IV 125 mls/hr DIRECT JORDAN Administration Cefepime HCl 2 gm in 100 mls @ 200 mls/hr 09/29/18 16:00 10/02/18 05:50 Maxipime/Ns 2 Gm/100 Ml IV 200 mls/hr Q8HR JORDAN Administration Protocol Vancomycin HCl 1,250 mg/ 275 mls @ 166.667 mls/hr 09/30/18 05:00 10/02/18 05:49 Sodium Chloride IV 166.667 mls/hr Q12H JORDAN Administration Multivitamins/Minerals 1 each 10/01/18 10:00 10/01/18 09:22 Theragran-M Tab PO 1 each QDAY JORDAN Administration Pantoprazole Sodium 40 mg 09/25/18 10:00 10/01/18 09:22 Protonix PO 40 mg DAILY JORDAN Administration Sodium Chloride 10 ml 09/23/18 10:00 10/01/18 22:39 Sodium Chloride Flush Syringe 10 Ml IV 10 ml BID JORDAN Administration Sodium Chloride 10 ml 09/23/18 05:09 09/24/18 17:18 Sodium Chloride Flush Syringe 10 Ml IV 10 ml PRN PRN Administration LINE FLUSH Tbo-Filgrastim 480 mcg 10/01/18 10:00 10/01/18 09:48 Granix SUB-Q 10/06/18 09:59 480 mcg DAILY JORDAN Administration
--- NOTE | 2018-10-02 09:07 | Progress Note ---
Assessment and Plan 09/23/2018 BCx - no growth 09/29/2018 BCx- No growth 09/29/2018 Ucx - no growth 42 yo M with PMHx of EtOH abuse, cirrhosis initially presented due to hematemesis 2/2 esophageal varices. 1) Febrile Neutropenia and Thrombocytopenia: Fever spike noted 102.9 on 09/29/18. No fevers in>24 hours. Repeat BC show no growth. Urine culture no growth. HIV negative. 2) Acute blood loss 2/2 esophageal varices - Antibiotic course of ceftriaxone completed on 09/27/18. 3) Lactic acidosis - resolved Recs: Discontinue Vancomycin and Cefepime Clinically stable- monitor off antibiotics Mayte Mahoney NP [facility] M: [id number] O:[phone] Subjective Date of service: 10/02/18 Principal diagnosis: low wbc and low plt Interval history: Patient seen and examined. Reports no acute distress or generalized weakness. No fevers. Objective - Exam Narrative Exam: Constitutional: awake, no distress, following commands Head, Ears, Nose: Normocephalic, atraumatic. External ears, nose normal Eyes: Conjunctivae/corneas clear. No icterus. No ptosis. Neck: Supple, no meningeal signs Oral: fair dentition, moist mucous membranes Cardiovascular: S1, S2 normal. Normal rhythm Respiratory: Good air entry, clear to auscultation bilaterally GI: Mild LLQ pain, bowel sounds normal. No peritoneal signs Musculoskeletal: No pedal edema, Skin: No rash or abscess Hem/Lymphatic: No palpable cervical or supraclavicular nodes. No lymphangitis Psych: no agitation Neurological: Moves all extremities, no focal defects - Constitutional Vitals: Vital Signs Temp Pulse Resp BP Pulse Ox 98.1 F 82 16 102/61 99 10/02/18 05:31 10/02/18 05:31 10/02/18 05:31 10/02/18 05:31 10/02/18 05:31 Temperature -Last 24 Hours Temperature 98.1 F Temperature 98.9 F Temperature 99.5 F Temperature 99.5 F Temperature 99.4 F Temperature 99.1 F Temperature 98.7 F - Labs CBC & Chem 7: 10/02/18 05:12 10/02/18 05:12 Labs: Abnormal lab results 10/02/18 10/02/18 Range/Units 05:12 05:12 WBC 2.9 L (4.5-11.0) K/mm3 RBC 3.46 L (3.65-5.03) M/mm3 Hgb 10.4 L (11.8-15.2) gm/dl Hct 31.4 L (35.5-45.6) % RDW 18.3 H (13.2-15.2) % Plt Count 21 L (140-440) K/mm3 Sodium 136 L (137-145) mmol/L Carbon Dioxide 21 L (22-30) mmol/L BUN 6 L (9-20) mg/dL Creatinine 0.5 L (0.8-1.5) mg/dL Glucose 150 H (75-100) mg/dL Calcium 7.9 L (8.4-10.2) mg/dL
[2018-10-02] MEDS: PROTONIX PO SCH (11:14)
[2018-10-02] MEDS: THERAGRAN-M Tab PO SCH (11:15)
[2018-10-02] MEDS: SODIUM CHLORIDE FLUSH SYRINGE 10 ML IV SCH ×2 (11:15→21:30)
--- NOTE | 2018-10-02 11:26 | Gastroenterology Progress Note ---
Assessment and Plan (1) Acute blood loss anemia Current Visit: Yes Status: Acute Plan to address problem: - H/H stable-no active signs of bleeding - EGD with EV banding last week. - Continue protonix and add beta jose alfredo as tolerated. - Repeat EGD in 3-6 weeks. (2) Alcoholic liver disease Current Visit: Yes Status: Acute Plan to address problem: - Supportive care with MVI, protonix and beta jose alfredo if BP/HR tolerate. - EtOH avoidance discussed. - will order MRA to r/o portal vein thrombis, if negative pateint okay to be d/c per GI standpoint with f/u in clinic for further management (3) Fever and neutropenia Current Visit: Yes Status: Acute Plan to address problem: - New onset, and may be due to acute EtOH hepatitis; blood and urine cultures negative. - Improved in last 24 hours; on cefepime - Agree with ID that low WBC and platelets (chronic over a year) may be Hematology or EtOH related; rare blood dyscrasias with protonix, but I am worried about stopping this given recent Grade IV varices with banding. -bone marrow bx pending for today Subjective Date of service: 10/02/18 Principal diagnosis: GI bleed Interval history: Patient sitting in bedside chair this am w/o acute distress. No active signs of bleeding overnight or this am. Tolerating diet. Objective - Constitutional Vitals: Temp Pulse Resp BP Pulse Ox 98.1 F 82 16 102/61 99 10/02/18 05:31 10/02/18 05:31 10/02/18 05:31 10/02/18 05:31 10/02/18 05:31 General appearance: no acute distress - Respiratory Respiratory effort: normal - Cardiovascular Rhythm: regular - Gastrointestinal General gastrointestinal: Present: soft, non-tender, distended (slightly ), normal bowel sounds - Neurologic Neurological: alert and oriented x3 - Labs CBC & Chem 7: 10/02/18 05:12 10/02/18 05:12 Labs: Laboratory Results - last 24 hr 10/01/18 10/02/18 10/02/18 08:51 05:12 05:12 WBC 2.9 L RBC 3.46 L Hgb 10.4 L Hct 31.4 L MCV 91 MCH 30 MCHC 33 RDW 18.3 H Plt Count 21 L Sodium 136 L Potassium 3.8 Chloride 103.6 Carbon Dioxide 21 L Anion Gap 15 BUN 6 L Creatinine 0.5 L Estimated GFR > 60 BUN/Creatinine Ratio 12 Glucose 150 H Calcium 7.9 L Blood Type O POSITIVE
[2018-10-02] MEDS: GRANIX SUB-Q SCH (14:40)
[2018-10-03 05:25] LABS: Hematocrit 32.9 % (35.5-45.6); Hemoglobin 11.1 gm/dl (11.8-15.2); Mean Corpuscular HGB Conc 34 % (32-34); Mean Corpuscular Volume 90 fl (84-94); Red Blood Count 3.67 M/mm3 (3.65-5.03); Red Cell Distribution Width 18.7 % (13.2-15.2)
[2018-10-03 05:26] LABS: Platelet Count 23 K/mm3 (140-440)
[2018-10-03] MEDS: NACL 0.9% 1000 ML 1,000 ML IV SCH ×2 (05:31→11:25)
--- NOTE | 2018-10-03 07:39 | Hem/Onc Progress Note ---
Assessment and Plan low plt - h/o ETOH splenomegaly 1. Thrombocytopenia. This may be secondary to alcohol consumption, cirrhosis, splenomegaly and consumption secondary to the bleeding. 2. History of esophageal varices, as per the information status post banding. 3. The patient has had platelet transfusion. 4. No bowel movement. 5. Leukopenia, is in isolation. Commonly patients with cirrhosis and leukopenia do not have risk of infection. 6. 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 7. History of hematemesis, seen by GI. 8. History of abdominal pain, on supportive care. 9. We will do supportive care for now. I discussed with the patient regarding quitting alcohol. plt low- will follow OP follow up an option hb stable h/o left eye discomfort - cipro cream trial h/o FEVER - Neutropenia d/w pt reg bmbx in patient vs OP - as the counts are fluctuating it is likely that the counts are low due to massive splenomegaly after BMBx - ok to d/c if stable - for OP follow up - Patient Problems (1) Thrombocytopenia Current Visit: No Status: Acute Subjective Date of service: 10/03/18 Principal diagnosis: low plt and low wbc Interval history: no fever had MRA abdomen Objective - Exam Narrative Exam: Pain - none General appearance no acute distress Performance status limited self care Eyes - icterus ENT no thrush LNs cervical not palpable Neck - normal ROM Respiratory Normal Breath sounds - CTA CVS S1 S2 + Extremities normal temperature General GI Soft - distended Rectal deferred male - deferred Skin warm Musculoskeletal moving normal Neurologically no focal deficit - Constitutional Vitals: Last Vital Signs Temp 98.0 F 10/03/18 05:49 Pulse 91 H 10/03/18 05:49 Resp 16 10/03/18 05:49 BP 101/63 10/03/18 05:49 Pulse Ox 99 10/03/18 05:49 - Labs Lab Results: Laboratory Results - last 24 hr 10/03/18 10/03/18 05:05 05:05 WBC 5.1 RBC 3.67 Hgb 11.1 L Hct 32.9 L MCV 90 MCH 30 MCHC 34 RDW 18.7 H Plt Count 23 L Magnesium 1.20 L Medications & Allergies - Medications Allergies/Adverse Reactions: Allergies No Known Allergies Allergy (Verified 12/26/14 12:21) Home Medications: Home Medications Medication Instructions Recorded Confirmed Last Taken Type No Known Home Medications [No 09/23/18 09/23/18 Unknown History Reported Home Medications] Active Medications: Generic Name Dose Route Start Last Admin Trade Name Mateoq PRN Reason Stop Dose Admin Acetaminophen 650 mg 09/30/18 16:02 10/01/18 15:24 Tylenol PO 650 mg Q6H PRN Administration Pain, Mild (1-3), Fever>100.5 Sodium Chloride 1,000 mls @ 125 mls/hr 09/29/18 16:00 10/03/18 05:31 Nacl 0.9% 1000 Ml IV 125 mls/hr DIRECT JORDAN Administration Multivitamins/Minerals 1 each 10/01/18 10:00 10/02/18 11:15 Theragran-M Tab PO 1 each QDAY JORDAN Administration Pantoprazole Sodium 40 mg 09/25/18 10:00 10/02/18 11:14 Protonix PO 40 mg DAILY JORDAN Administration Sodium Chloride 10 ml 09/23/18 10:00 10/02/18 21:30 Sodium Chloride Flush Syringe 10 Ml IV 10 ml BID JORDAN Administration Sodium Chloride 10 ml 09/23/18 05:09 09/24/18 17:18 Sodium Chloride Flush Syringe 10 Ml IV 10 ml PRN PRN Administration LINE FLUSH Tbo-Filgrastim 480 mcg 10/01/18 10:00 10/02/18 14:40 Granix SUB-Q 10/06/18 09:59 480 mcg DAILY JORDAN Administration
--- NOTE | 2018-10-03 08:08 | Magnetic Resonance Report ---
MR MRA/MRV abdomen with and without contrast HISTORY: Abdominal pain, evaluate for portal vein thrombosis COMPARISON: CT abdomen pelvis with contrast dated 09/23/2018 TECHNIQUE: Multiplane, multisequence MRA images of the abdomen and upper pelvis were obtained with an d without contrast. 3-D/MIP reformats were postprocessed. CONTRAST: 16 ml of MultiHance FINDINGS: Abdominal Aorta: No significant abnormality. Celiac Artery: No significant abnormality. Superior Mesenteric Artery: No significant abnormality. Renal Arteries: Right: No significant abnormality. Left: No significant abnormality. Inferior Mesenteric Artery: No significant abnormality. Common iliac arteries: No significant abnormality. Internal and external iliac arteries: No significant abnormality. IVC: The IVC is patent although the intrahepatic IVC appears narrowed/compressed measuring 8 mm in di ameter. Renal veins: No significant abnormality. Common iliac veins: No significant abnormality. Portal venous system: The main portal vein is patent and measures 1.5 cm in diameter. The right and l eft portal vein are within normal limits. The splenic confluence, splenic vein and superior mesenteri c vein patent. NONTARGET STRUCTURES: ABDOMEN: GI:The liver parenchyma is slightly heterogeneous. Subtle surface nodularity is identified consisten t with cirrhotic changes. There is marked splenomegaly measuring 21.6 x 15.9 x 7.9 cm. Mild splenic v ein varicosities are identified. Trace ascites. The biliary system and pancreas are unremarkable. :The kidneys and adrenal glands are unremarkable. Lymphatics:No significant abnormality. Musculoskeletal:No significant abnormality. Additional Findings: None. IMPRESSION: Essentially unremarkable MRA/MRV of the abdomen. Question mild narrowing of the intrahepatic IVC as d escribed. The main portal vein is patent. Cirrhosis, splenomegaly and trace ascites. Signer Name: Edmundo Lynn Jr, MD Signed: 10/03/2018 8:04 AM Workstation Name: [id number]
--- NOTE | 2018-10-03 09:02 | Progress Note ---
Assessment and Plan 09/23/2018 BCx - no growth 09/29/2018 BCx- No growth 09/29/2018 Ucx - no growth 42 yo M with PMHx of EtOH abuse, cirrhosis initially presented due to hematemesis 2/2 esophageal varices. 1) Febrile Neutropenia and Thrombocytopenia: Resolved. Repeat BC show no growth. Urine culture no growth. HIV negative. 2) Acute blood loss 2/2 esophageal varices - Antibiotic course of ceftriaxone completed on 09/27/18. MRA unremarkable. 3) Lactic acidosis - resolved Recs: Clinically stable- monitor off antibiotics ID is signing off, please call for questions Mayte Mahoney NP [facility] M: [id number] O:[phone] Subjective Date of service: 10/03/18 Principal diagnosis: low plt and low wbc Interval history: Patient seen and examined. Reports no acute distress or generalized weakness. No fevers. Objective - Exam Narrative Exam: Constitutional: awake, no distress, following commands Head, Ears, Nose: Normocephalic, atraumatic. External ears, nose normal Eyes: Conjunctivae/corneas clear. No icterus. No ptosis. Neck: Supple, no meningeal signs Oral: fair dentition, moist mucous membranes Cardiovascular: S1, S2 normal. Normal rhythm Respiratory: Good air entry, clear to auscultation bilaterally GI: Mild LLQ pain, bowel sounds normal. No peritoneal signs Musculoskeletal: No pedal edema, Skin: No rash or abscess Hem/Lymphatic: No palpable cervical or supraclavicular nodes. No lymphangitis Psych: no agitation Neurological: Moves all extremities, no focal defects - Constitutional Vitals: Vital Signs Temp Pulse Resp BP Pulse Ox 98.0 F 91 H 16 101/63 99 10/03/18 05:49 10/03/18 05:49 10/03/18 05:49 10/03/18 05:49 10/03/18 05:49 Temperature -Last 24 Hours Temperature 98.0 F Temperature 99.0 F Temperature 98.4 F Temperature 98.2 F - Labs CBC & Chem 7: 10/03/18 05:05 10/02/18 05:12 Labs: Abnormal lab results 10/03/18 10/03/18 Range/Units 05:05 05:05 Hgb 11.1 L (11.8-15.2) gm/dl Hct 32.9 L (35.5-45.6) % RDW 18.7 H (13.2-15.2) % Plt Count 23 L (140-440) K/mm3 Magnesium 1.20 L (1.7-2.3) mg/dL
[2018-10-03] MEDS ORDERED: MAGNESIUM SULFATE 4GM/100ML 4 GM/100 ML BAG IV ONE (09:30)
--- NOTE | 2018-10-03 10:50 | Gastroenterology Progress Note ---
Assessment and Plan (1) Acute blood loss anemia Current Visit: Yes Status: Acute Plan to address problem: - H/H trending up-no active signs of bleeding - EGD with EV banding last week. - Continue protonix and add beta jose alfredo as tolerated. - Repeat EGD in 3-6 weeks. (2) Alcoholic liver disease Current Visit: Yes Status: Acute Plan to address problem: - Supportive care with MVI, protonix and beta jose alfredo if BP/HR tolerate. - EtOH avoidance discussed. - MRA unremarkable with portal vein patent - patient okay to be d/c per GI standpoint with f/u in clinic for further management - will sign off, please call if needed (3) Fever and neutropenia Current Visit: Yes Status: Acute Plan to address problem: - fever resolved - urine/blood cultures negative; HIV negative - low WBC and platelets (chronic over a year) may be Hematology or EtOH related; rare blood dyscrasias with protonix, but I am worried about stopping this given recent Grade IV varices with banding. - bone marrow bx pending - further management per ID/hematology Subjective Date of service: 10/03/18 Principal diagnosis: GI bleed Interval history: Patient sitting in bedside chair this am w/o acute distress. No active signs of bleeding overnight or this am. Denies abd pain or N/v, Tolerating diet. Objective - Constitutional Vitals: Temp Pulse Resp BP Pulse Ox 98.0 F 91 H 16 101/63 99 10/03/18 05:49 10/03/18 05:49 10/03/18 05:49 10/03/18 05:49 10/03/18 05:49 General appearance: no acute distress - Respiratory Respiratory effort: normal - Cardiovascular Rhythm: regular - Gastrointestinal General gastrointestinal: Present: soft, non-tender, non-distended, normal bowel sounds - Neurologic Neurological: alert and oriented x3 - Labs CBC & Chem 7: 10/03/18 05:05 10/02/18 05:12 Labs: Laboratory Results - last 24 hr 10/03/18 10/03/18 05:05 05:05 WBC 5.1 RBC 3.67 Hgb 11.1 L Hct 32.9 L MCV 90 MCH 30 MCHC 34 RDW 18.7 H Plt Count 23 L Magnesium 1.20 L
[2018-10-03] MEDS: THERAGRAN-M Tab PO SCH (12:03)
[2018-10-03] MEDS: PROTONIX PO SCH (12:03)
[2018-10-03] MEDS: SODIUM CHLORIDE FLUSH SYRINGE 10 ML IV SCH ×2 (12:03→22:00)
[2018-10-03 12:07] LABS: INR 1.7 (0.87-1.13)
[2018-10-03] MEDS: GRANIX SUB-Q SCH (19:12)
--- NOTE | 2018-10-04 05:32 | Hem/Onc Progress Note ---
Assessment and Plan low plt - h/o ETOH splenomegaly 1. Thrombocytopenia. This may be secondary to alcohol consumption, cirrhosis, splenomegaly and consumption secondary to the bleeding. 2. History of esophageal varices, as per the information status post banding. 3. The patient has had platelet transfusion. 4. No bowel movement. 5. Leukopenia, is in isolation. Commonly patients with cirrhosis and leukopenia do not have risk of infection. 6. 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 7. History of hematemesis, seen by GI. 8. History of abdominal pain, on supportive care. 9. We will do supportive care for now. I discussed with the patient regarding quitting alcohol. plt low- will follow hb stable h/o left eye discomfort - s/p cipro cream trial h/o FEVER - Neutropenia - fever resolved I had d/w pt reg bmbx in patient vs OP - as the counts were fluctuating it is likely that the counts are low due to massive splenomegaly as clinically improving - will d/c as OP plt 20s Hospitalist team had started gcsf - d/c same OP follow up for trend of wbc and plt - Patient Problems (1) Thrombocytopenia Status: Acute Subjective Date of service: 10/04/18 Principal diagnosis: low plt - low wbc Interval history: feeling better no fever no bleeding Objective - Exam Narrative Exam: Pain - none General appearance no acute distress Performance status limited self care Eyes - icterus ENT no thrush LNs cervical not palpable Neck - normal ROM Respiratory Normal Breath sounds - CTA CVS S1 S2 + Extremities normal temperature General GI Soft - distended Rectal deferred male - deferred Skin warm Musculoskeletal moving normal Neurologically no focal deficit - Constitutional Vitals: Last Vital Signs Temp 98.6 F 10/03/18 23:51 Pulse 70 10/03/18 23:51 Resp 17 10/03/18 23:51 BP 105/56 10/03/18 23:51 Pulse Ox 98 10/03/18 23:51 - Labs Lab Results: Laboratory Results - last 24 hr 10/03/18 10/03/18 05:05 11:24 PT 19.6 H INR 1.70 H Magnesium 1.20 L Medications & Allergies - Medications Allergies/Adverse Reactions: Allergies No Known Allergies Allergy (Verified 12/26/14 12:21) Home Medications: Home Medications Medication Instructions Recorded Confirmed Last Taken Type Folic Acid [Folvite] 1 mg PO QDAY #30 tablet 10/04/18 Unknown Rx Multivitamin Tab W-MINERAL 1 each PO QDAY #30 tablet 10/04/18 Unknown Rx [Multiple Vitamin/Mineral (Theragran M)] Pantoprazole [Protonix TAB] 40 mg PO DAILY #30 tablet 10/04/18 Unknown Rx Thiamine [Vitamin B-1] 100 mg PO QDAY #30 tablet 10/04/18 Unknown Rx Active Medications: Generic Name Dose Route Start Last Admin Trade Name Freq PRN Reason Stop Dose Admin Acetaminophen 650 mg 09/30/18 16:02 10/01/18 15:24 Tylenol PO 650 mg Q6H PRN Administration Pain, Mild (1-3), Fever>100.5 Sodium Chloride 1,000 mls @ 125 mls/hr 09/29/18 16:00 10/03/18 11:25 Nacl 0.9% 1000 Ml IV 125 mls/hr DIRECT JORDAN Administration Multivitamins/Minerals 1 each 10/01/18 10:00 10/03/18 12:03 Theragran-M Tab PO 1 each QDAY JORDAN Administration Pantoprazole Sodium 40 mg 09/25/18 10:00 10/03/18 12:03 Protonix PO 40 mg DAILY JORDAN Administration Sodium Chloride 10 ml 09/23/18 10:00 10/03/18 22:00 Sodium Chloride Flush Syringe 10 Ml IV Not Given BID JORDAN Sodium Chloride 10 ml 09/23/18 05:09 09/24/18 17:18 Sodium Chloride Flush Syringe 10 Ml IV 10 ml PRN PRN Administration LINE FLUSH Tbo-Filgrastim 480 mcg 10/01/18 10:00 10/03/18 19:12 Granix SUB-Q 10/06/18 09:59 480 mcg DAILY JORDAN Administration
[2018-10-04] MEDS: NACL 0.9% 1000 ML 1,000 ML IV SCH (06:31)
[2018-10-04 06:51] LABS: Hematocrit 32.2 % (35.5-45.6); Hemoglobin 10.7 gm/dl (11.8-15.2); Mean Corpuscular HGB Conc 33 % (32-34); Mean Corpuscular Volume 91 fl (84-94); Red Blood Count 3.55 M/mm3 (3.65-5.03); Red Cell Distribution Width 18.7 % (13.2-15.2)
[2018-10-04 07:00] LABS: Platelet Count 30 K/mm3 (140-440)
--- NOTE | 2018-10-04 09:03 | Event Note ---
Date: 10/04/18 Patient with history of portal hypertension, splenomegaly and thrombocytopenia. Request for bone marrow biopsy however, platelets are 30 today. The patient will need to be scheduled for bone marrow biopsy when his platelets have reached greater than 50. This can be done on an outpatient basis if the patient is stable for discharge.
[2018-10-04] MEDS: PROTONIX PO SCH (10:02)
[2018-10-04] MEDS: SODIUM CHLORIDE FLUSH SYRINGE 10 ML IV SCH (10:02)
[2018-10-04] MEDS: THERAGRAN-M Tab PO SCH (10:02)
--- NOTE | 2018-10-04 10:24 | Discharge Summary ---
Providers - Providers Date of Admission: 09/23/18 07:35 Attending physician: RMAESH WILLIAM MD 09/23/18 03:00 Consult to Physician [CONS] Stat Comment: Dr. Leone spoke with Dr. Cuba @ 0256 Consulting Provider: ANN CUBA Physician Instructions: Reason For Exam: GI BLEED 09/23/18 05:09 Consult to Physician [CONS] Routine Comment: Consulting Provider: JANINE MELÉNDEZ Physician Instructions: Reason For Exam: cc 09/24/18 08:39 Consult to Physician [CONS] Routine Comment: Consulting Provider: STACY SAWYER Physician Instructions: Reason For Exam: PANCYTOPENIA 09/24/18 15:13 Consult to Physician [CONS] Routine Comment: Consulting Provider: BAILEY GILMORE Physician Instructions: Reason For Exam: leucopenia; lactic acidosis 09/30/18 09:39 Consult to Physician [CONS] Routine Comment: Consulting Provider: BRINA RODRIGUEZ Physician Instructions: Reason For Exam: NEUTROPENIC FEVER 10/02/18 08:31 Consult to Interventional Radiology [CONS] Routine Consulting Provider: SHERRY MONSIVAIS Reason For Exam: bmbx - low plt and low wbc -fever Place consult to:: DR. MONSIVAIS OFFICE Notified:: OFFICE Phone number called:: [phone] Was contact made?: Yes If yes, spoke with:: DANIEL Time called:: 09:38 Comment:: GUALBERTO NOTIFIED Primary care physician: EMBARRASS YEN OLIVIER MD Hospitalization Condition: Stable Core Measure Documentation - Palliative Care Palliative Care/ Comfort Measures: Not Applicable Exam - Constitutional Vitals: Temp Pulse Resp BP Pulse Ox 98.6 F 74 17 99/58 99 10/04/18 04:59 10/04/18 04:59 10/04/18 04:59 10/04/18 04:59 10/04/18 04:59 Plan Follow up with: BRANDEE RIOS MD [Primary Care Provider] - 3-5 Days Prescriptions: Folic Acid [Folvite] 1 mg PO QDAY #30 tablet Multivitamin Tab W-MINERAL [Multiple Vitamin/Mineral (Theragran M)] 1 each PO QDAY #30 tablet Pantoprazole [Protonix TAB] 40 mg PO DAILY #30 tablet Thiamine [Vitamin B-1] 100 mg PO QDAY #30 tablet
[2018-10-04 12:59] VITALS: BP 105/55
== END 2018-10-04 15:48 | disposition home or self-care (01) | DRG 432 ==
LOC: ED 23:44 → CC1 09-23 07:35 → IMCU 09-24 15:48 → 3A 09-27 16:48
PROVIDERS: ADMIT Internal Medicine; ATTEND Internal Medicine
PROC: 06L38CZ Occlusion of Esophageal Vein with Extraluminal Device, Via Natural or Artificial Opening Endoscopic (ICD-10-PCS; principal; 2018-09-23)
PROC: 30233N1 Transfusion of Nonautologous Red Blood Cells into Peripheral Vein, Percutaneous Approach (ICD-10-PCS; 2018-09-24)
PROC: 4A033R1 Measurement of Arterial Saturation, Peripheral, Percutaneous Approach (ICD-10-PCS; 2018-09-26)
DX: K70.31 Alcoholic cirrhosis of liver with ascites (principal); K85.90 Acute pancreatitis without necrosis or infection, unspecified; I85.11 Secondary esophageal varices with bleeding; G93.41 Metabolic encephalopathy; R65.21 Severe sepsis with septic shock; A41.9 Sepsis, unspecified organism; D68.9 Coagulation defect, unspecified; D62 Acute posthemorrhagic anemia; D61.818 Other pancytopenia; E87.2 Acidosis; E87.1 Hypo-osmolality and hyponatremia; K76.6 Portal hypertension; F10.10 Alcohol abuse, uncomplicated; Y90.9 Presence of alcohol in blood, level not specified; K70.0 Alcoholic fatty liver; E83.42 Hypomagnesemia; E11.65 Type 2 diabetes mellitus with hyperglycemia; I95.9 Hypotension, unspecified; H10.89 Other conjunctivitis; Z82.49 Family history of ischemic heart disease and other diseases of the circulatory system
CPT/HCPCS: 36415; 36600; 71045; 74177; 74185; 80048; 80053; 80076; 81001; 82140; 82607; 82728; 82747; 82803; 82962; 83010; 83036; 83550; 83690; 83735; 84100; 85007; 85014; 85018; 85025; 85027; 85610; 85730; 86140; 86850; 86900; 86901; 87040; 87086; 87806; 96374; 96375; G0378; A9577; C8902; C9113; J0692; J0696; J1447; J2060; J2250; J2270; J2354; J2405; J2704; J3370; J3411; J3475; J7030; J7040; J7050; P9035; Q9967

== ENCOUNTER 2019-11-27 15:21 | Inpatient (IN) | payer OTHER ==
[2019-11-27 16:37] LABS: Hematocrit 29.7 % (35.5-45.6); Hemoglobin 9.8 gm/dl (11.8-15.2); Mean Corpuscular HGB Conc 33 % (32-34); Mean Corpuscular Volume 89 fl (84-94); Red Blood Count 3.36 M/mm3 (3.65-5.03); Red Cell Distribution Width 18.9 % (13.2-15.2)
[2019-11-27] MEDS ORDERED: HYDROmorphone 1 MG/1 ML INJ IV ONE (16:40)
[2019-11-27] MEDS ORDERED: ONDANSETRON 4 MG/2 ML INJ IV ONE (16:40)
[2019-11-27 16:42] LABS: Platelet Count 30 K/mm3 (140-440)
[2019-11-27 16:48] LABS: INR 2.35 (0.87-1.13)
[2019-11-27 16:49] LABS: Partial Thromboplastin Time 42.5 Sec. (24.2-36.6)
--- NOTE | 2019-11-27 16:52 | Emergency Department Report ---
ED Abdominal Pain HPI - General Chief Complaint: Abdominal Pain Stated Complaint: ABD PAIN Time Seen by Provider: 11/27/19 16:16 Source: patient Mode of arrival: Stretcher Limitations: Language Barrier (headstart teacher used) - History of Present Illness Initial Comments: 44-year-old male with a past medical history of diabetes, hypertension, alcoholic liver cirrhosis with previous esophageal varices requiring banding, and pancytopenia secondary to EtOH abuse presents to the hospital with complaints of generalized arm pain x2 months worsening for the past 2 days. Pain feels like somebody is holding/gripping his abdomen and is constant but fluctuates in intensity. Currently 9/10 in intensity, worse to palpation, no alleviating factors. Patient denies nausea or vomiting. Patient states he had a temperature of 104 yesterday. He complains of dysuria and intermittent black and bloody stools for the past 15 days. Last bowel movement was 2 days ago. Patient was at [facility] yesterday after being sent to the ED by Dr. Silva (GI Doctor) from the clinic. Patient apparently had a CAT scan at that time. Was told by the GI doctor that he will likely need surgery to be performed here at [facility]. Patient denies previous abdominal surgeries - Related Data Previous Rx's Medication Instructions Recorded Last Taken Type Ondansetron [Zofran Odt] 4 mg PO Q8HR PRN #15 tab.rapdis 09/05/19 Unknown Rx Pantoprazole [Protonix TAB] 40 mg PO BID #60 tablet 09/05/19 Unknown Rx Allergies Allergy/AdvReac Type Severity Reaction Status Date / Time No Known Allergies Allergy Verified 11/27/19 19:27 ED Review of Systems ROS: Stated complaint: ABD PAIN Other details as noted in HPI Comment: All other systems reviewed and negative ED Past Medical Hx - Past Medical History Previous Medical History?: Yes Hx Hypertension: Yes (as stated by patient.) Hx CVA: No Hx Heart Attack/AMI: No Hx Congestive Heart Failure: No Hx Diabetes: Yes Hx Deep Vein Thrombosis: No Hx Pulmonary Embolism: No Hx GERD: No Hx Liver Disease: No Hx Renal Disease: No Hx Sickle Cell Disease: No Hx Arthritis: No Hx Headaches / Migraines: No Hx Seizures: No Hx Kidney Stones: No Hx Psychiatric Treatment: No Hx Asthma: No Hx COPD: No Hx Tuberculosis: No Hx Dementia: No Hx HIV: No Additional medical history: Alcohol-induced pancreatitis, alcohol induced liver cirrhosis, pancytopenia esophageal varices - Surgical History Past Surgical History?: Yes Hx Coronary Stent: No Hx Open Heart Surgery: No Hx Pacemaker: No Hx Internal Defibrillator: No Hx Cholecystectomy: No Hx Appendectomy: No Hx Breast Surgery: No Additional Surgical History: Esophageal varices banding here in August 2018 - Social History Smoking Status: Never Smoker Substance Use Type: None - Medications Home Medications: Home Medications Medication Instructions Recorded Confirmed Last Taken Type Ondansetron [Zofran Odt] 4 mg PO Q8HR PRN #15 tab.rapdis 09/05/19 Unknown Rx Pantoprazole [Protonix TAB] 40 mg PO BID #60 tablet 09/05/19 Unknown Rx ED Physical Exam - General Limitations: No Limitations - Other Other exam information: General: Moderate distress secondary to pain Head: Atraumatic Eyes: normal appearance ENT: Moist mucous membranes Neck: Normal appearance, no midline tenderness Chest: Clear to auscultation bilaterally CV: Regular rate and rhythm Abdomen: Soft, normal bowel sounds, distended abdomen with firm swelling at umbilical hernia, non reducible with significant pain with attempts. generalized tenderness greatest in the left abdomen and umbilical area. + rebound no guarding Back: Normal inspection Extremity: Normal inspection, full range of motion Neuro: Alert O x 3, no facial asymmetry, speech clear, no gross motor sensory deficit Psych: Appropriate behavior Skin: No rash ED Course Vital Signs 11/27/19 15:30 Temperature 98.4 F Pulse Rate 90 Respiratory 16 Rate Blood Pressure 127/80 O2 Sat by Pulse 98 Oximetry - Consultations Consultation #1: 11/27/19 22:00 Case d/w Dr Siegel taxation economist surgeon, informed hernia reduced in ed. rec admission and he will consult - Procedure Description Procedures done: incarcerated umbical hernia reduction requiring moderate sedation, headstart teacher used for consent: IV ketamine administered. Constant firm pressure held at the umbilicus with successful reduction of hernia. Residual swelling secondary to ascites and umbilical area is soft and nontender - Moderate Sedation Indications: other (Umbilical hernia without) ASA Class: II Mallampati Airway Score: 3 Preparation: compliance monitor applied, pulse oximeter, capnometry used, supplemental O2 applied, suction/airway equipment at bedside, IV secured Ketamine: IV Ketamine Dose: 75 Complications: none Interventions: oxygen applied Patient Tolerated Procedure: well ED Medical Decision Making - Lab Data Result diagrams: 11/27/19 16:21 11/27/19 16:21 Lab Results 11/27/19 11/27/19 11/27/19 Range/Units 16:21 16:21 16:21 WBC 1.3 L* (4.5-11.0) K/mm3 RBC 3.36 L (3.65-5.03) M/mm3 Hgb 9.8 L (11.8-15.2) gm/dl Hct 29.7 L (35.5-45.6) % MCV 89 (84-94) fl MCH 29 (28-32) pg MCHC 33 (32-34) % RDW 18.9 H (13.2-15.2) % Plt Count 30 L (140-440) K/mm3 Lipscomb % (Auto) Refinery Superintendent Add Manual Diff Complete Total Counted 100 Seg Neuts % (Manual) 90.0 H (40.0-70.0) % Band Neutrophils % 0 % Lymphocytes % (Manual) 3.0 L (13.4-35.0) % Reactive Lymphs % (Man) 0 % Monocytes % (Manual) 6.0 (0.0-7.3) % Eosinophils % (Manual) 0 (0.0-4.3) % Basophils % (Manual) 1.0 (0.0-1.8) % Metamyelocytes % 0 % Myelocytes % 0 % Promyelocytes % 0 % Blast Cells % 0 % Nucleated RBC % Not Reportable Seg Neutrophils # Man 1.2 L (1.8-7.7) K/mm3 Band Neutrophils # 0.0 K/mm3 Lymphocytes # (Manual) 0.0 L (1.2-5.4) K/mm3 Abs React Lymphs (Man) 0.0 K/mm3 Monocytes # (Manual) 0.1 (0.0-0.8) K/mm3 Eosinophils # (Manual) 0.0 (0.0-0.4) K/mm3 Basophils # (Manual) 0.0 (0.0-0.1) K/mm3 Metamyelocytes # 0.0 K/mm3 Myelocytes # 0.0 K/mm3 Promyelocytes # 0.0 K/mm3 Blast Cells # 0.0 K/mm3 WBC Morphology Not Reportable Hypersegmented Neuts Not Reportable Hyposegmented Neuts Not Reportable Hypogranular Neuts Not Reportable Smudge Cells Not Reportable Toxic Granulation Not Reportable Toxic Vacuolation Not Reportable Dohle Bodies Not Reportable Pelger-Huet Anomaly Not Reportable [place] Rod[place] Not Reportable Platelet Estimate Consistent w auto Clumped Platelets Not Reportable Plt Clumps, EDTA Not Reportable Large Platelets Not Reportable Giant Platelets Not Reportable Platelet Satelliting Not Reportable Plt Morphology Comment Not Reportable RBC Morphology Not Reportable Dimorphic RBCs Not Reportable Polychromasia Not Reportable Hypochromasia Not Reportable Poikilocytosis Not Reportable Anisocytosis 1+ Microcytosis Not Reportable Macrocytosis Not Reportable Spherocytes Not Reportable Pappenheimer Bodies Not Reportable Sickle Cells Not Reportable Target Cells Not Reportable Tear Drop Cells Not Reportable Ovalocytes Not Reportable Helmet Cells Not Reportable [place] Bodies Not Reportable Cotati Rings Not Reportable Damian Cells Not Reportable Bite Cells Not Reportable Crenated Cell Not Reportable Elliptocytes Not Reportable Acanthocytes (Spur) Not Reportable Rouleaux Not Reportable Hemoglobin C Crystals Not Reportable Schistocytes Not Reportable Malaria parasites Not Reportable Chevy Bodies Not Reportable Hem Pathologist Commnt No PT 26.1 H (12.2-14.9) Sec. INR 2.35 H (0.87-1.13) APTT 42.5 H (24.2-36.6) Sec. Sodium 133 L (137-145) mmol/L Potassium 3.8 (3.6-5.0) mmol/L Chloride 101.9 (98-107) mmol/L Carbon Dioxide 23 (22-30) mmol/L Anion Gap 12 mmol/L BUN 8 L (9-20) mg/dL Creatinine 0.6 L (0.8-1.3) mg/dL Estimated GFR > 60 ml/min BUN/Creatinine Ratio 13 % Glucose 112 H (75-100) mg/dL Calcium 7.4 L (8.4-10.2) mg/dL Magnesium 1.30 L (1.7-2.3) mg/dL Total Bilirubin 2.10 H (0.1-1.2) mg/dL AST 44 H (5-40) units/L ALT 21 (7-56) units/L Alkaline Phosphatase 138 H (35-129) units/L Total Protein 6.3 (6.3-8.2) g/dL Albumin 2.1 L (3.9-5) g/dL Albumin/Globulin Ratio 0.5 % Lipase 48 (13-60) units/L Plasma/Serum Alcohol (0-0.07) % 11/27/19 Range/Units 16:26 WBC (4.5-11.0) K/mm3 RBC (3.65-5.03) M/mm3 Hgb (11.8-15.2) gm/dl Hct (35.5-45.6) % MCV (84-94) fl MCH (28-32) pg MCHC (32-34) % RDW (13.2-15.2) % Plt Count (140-440) K/mm3 Lipscomb % (Auto) Add Manual Diff Total Counted Seg Neuts % (Manual) (40.0-70.0) % Band Neutrophils % % Lymphocytes % (Manual) (13.4-35.0) % Reactive Lymphs % (Man) % Monocytes % (Manual) (0.0-7.3) % Eosinophils % (Manual) (0.0-4.3) % Basophils % (Manual) (0.0-1.8) % Metamyelocytes % % Myelocytes % % Promyelocytes % % Blast Cells % % Nucleated RBC % Seg Neutrophils # Man (1.8-7.7) K/mm3 Band Neutrophils # K/mm3 Lymphocytes # (Manual) (1.2-5.4) K/mm3 Abs React Lymphs (Man) K/mm3 Monocytes # (Manual) (0.0-0.8) K/mm3 Eosinophils # (Manual) (0.0-0.4) K/mm3 Basophils # (Manual) (0.0-0.1) K/mm3 Metamyelocytes # K/mm3 Myelocytes # K/mm3 Promyelocytes # K/mm3 Blast Cells # K/mm3 WBC Morphology Hypersegmented Neuts Hyposegmented Neuts Hypogranular Neuts Smudge Cells Toxic Granulation Toxic Vacuolation Dohle Bodies Pelger-Huet Anomaly [place] Platelet Estimate Clumped Platelets Plt Clumps, EDTA Large Platelets Giant Platelets Platelet Satelliting Plt Morphology Comment RBC Morphology Dimorphic RBCs Polychromasia Hypochromasia Poikilocytosis Anisocytosis Microcytosis Macrocytosis Spherocytes Pappenheimer Bodies Sickle Cells Target Cells Tear Drop Cells Ovalocytes Helmet Cells [place] Bodies Cotati Rings Butler Cells Bite Cells Crenated Cell Elliptocytes Acanthocytes (Spur) Rouleaux Hemoglobin C Crystals Schistocytes Malaria parasites Chevy Bodies Hem Pathologist Commnt PT (12.2-14.9) Sec. INR (0.87-1.13) APTT (24.2-36.6) Sec. Sodium (137-145) mmol/L Potassium (3.6-5.0) mmol/L Chloride (98-107) mmol/L Carbon Dioxide (22-30) mmol/L Anion Gap mmol/L BUN (9-20) mg/dL Creatinine (0.8-1.3) mg/dL Estimated GFR ml/min BUN/Creatinine Ratio % Glucose (75-100) mg/dL Calcium (8.4-10.2) mg/dL Magnesium (1.7-2.3) mg/dL Total Bilirubin (0.1-1.2) mg/dL AST (5-40) units/L ALT (7-56) units/L Alkaline Phosphatase (35-129) units/L Total Protein (6.3-8.2) g/dL Albumin (3.9-5) g/dL Albumin/Globulin Ratio % Lipase (13-60) units/L Plasma/Serum Alcohol < 0.01 (0-0.07) % - Radiology Data Radiology results: report reviewed CT ABDOMEN AND PELVIS WITH CONTRAST INDICATION / CLINICAL INFORMATION: Diffuse abdominal pain and distention. History of cirrhosis and alcohol use. TECHNIQUE: Axial CT images were obtained through the abdomen and pelvis after 100 cc Omnipaque [address] scans at this location are performed using CT dose reduction for ALARA by means of automated exposure control. COMPARISON: CT abdomen and pelvis with contrast dated 09/02/2019. FINDINGS: LOWER CHEST: There is bilateral dependent atelectasis without additional significant abnormalities. LIVER: Similarly cirrhotic without additional significant abnormalities. GALLBLADDER: No significant abnormality. BILE DUCTS: No significant abnormality. PANCREAS: No significant abnormality. SPLEEN: Similarly enlarged without additional significant abnormalities. ADRENALS: No significant abnormality. RIGHT KIDNEY / URETER: No significant abnormality. LEFT KIDNEY / URETER: No significant abnormality. STOMACH / SMALL BOWEL: No significant abnormality of the stomach. The proximal jejunum is fluid filled and mildly dilated with a transition point seen within a bowel loop located in a previously seen umbilical hernia. No other significant abnormality of the small bowel. COLON: Sigmoid diverticulosis without evidence of diverticulitis. Thickening of the colon is likely secondary to liver disease. No other significant abnormality. APPENDIX: No significant abnormality. PERITONEUM: There is a large amount of ascites. No free air. No fluid collection. LYMPH NODES: No significant adenopathy. AORTA / ARTERIES: No significant abnormality. IVC / VEINS: Similar findings of portal hypertension. No other significant abnormality. URINARY BLADDER: No significant abnormality. REPRODUCTIVE ORGANS: No significant abnormality. ADDITIONAL FINDINGS: The previously seen umbilical hernia is larger and fluid- filled, measuring 5.8 cm on image 74 of series 4. The hernia defect measures 2-3 cm. SKELETAL SYSTEM: No significant abnormality. IMPRESSION: 1. Small bowel obstruction with a transition point located within an umbilical hernia as described above. 2. Similar findings of cirrhosis and portal hypertension with a large amount of ascites. - Medical Decision Making Patient presents to the hospital with acute exacerbation of chronic back pain secondary to incarcerated umbilical hernia containing bowel with associated small bowel obstruction. Patient denies nausea vomiting her last bowel movement was 2 days ago. No signs of bowel ischemia on CT. Patient is treated with Dilaudid, Zofran, and Benadryl 50 mg (due to itching without rash during mag infusion). Patient then prepped for conscious sedation and received ketamine 75 mg IV with successful reduction of umbilical hernia and improvement in pain. Case discussed with general surgeon on-call who advises admission and will consult. Pt does not require emergent surgical intervention a this time since hernia was reducible with conscious sedation. Critical Care Time: No Critical care attestation.: If time is entered above; I have spent that time in minutes in the direct care of this critically ill patient, excluding procedure time. ED Disposition Clinical Impression: Incarcerated umbilical hernia, Alcoholic cirrhosis, Hypomagnesemia, Coagulopathy, Pancytopenia, Abdominal ascites, Small bowel obstruction Disposition: OP ADMIT IP TO THIS HOSP Is pt being admited?: Yes Condition: Stable Time of Disposition: 22:25 (Dr Merlos/[facility])
[2019-11-27 16:58] LABS: Alanine Aminotransferase 21 units/L (7-56); Albumin 2.1 g/dL (3.9-5); BUN/Creatinine Ratio 13; Blood Urea Nitrogen 8 mg/dL (9-20); Calcium 7.4 mg/dL (8.4-10.2); Hemolysis Index 7
[2019-11-27] MEDS ORDERED: MAGNESIUM SULFATE 2 GM/50 ML BAG IV ONE (17:04)
[2019-11-27 18:17] LABS: Eosinophils % (Manual) 0 % (0.0-4.3); Total Cells Counted 100
[2019-11-27 18:18] LABS: Anisocytosis 1+; Platelet Estimate Consistent w Auto
--- NOTE | 2019-11-27 18:38 | Cat Scan Report ---
CT ABDOMEN AND PELVIS WITH CONTRAST INDICATION / CLINICAL INFORMATION: Diffuse abdominal pain and distention. History of cirrhosis and alcohol use. TECHNIQUE: Axial CT images were obtained through the abdomen and pelvis after 100 cc Omnipaque [address] scans at this location are performed using CT dose reduction for ALARA by means of automated exposure control. COMPARISON: CT abdomen and pelvis with contrast dated 09/02/2019. FINDINGS: LOWER CHEST: There is bilateral dependent atelectasis without additional significant abnormalities. LIVER: Similarly cirrhotic without additional significant abnormalities. GALLBLADDER: No significant abnormality. BILE DUCTS: No significant abnormality. PANCREAS: No significant abnormality. SPLEEN: Similarly enlarged without additional significant abnormalities. ADRENALS: No significant abnormality. RIGHT KIDNEY / URETER: No significant abnormality. LEFT KIDNEY / URETER: No significant abnormality. STOMACH / SMALL BOWEL: No significant abnormality of the stomach. The proximal jejunum is fluid fille d and mildly dilated with a transition point seen within a bowel loop located in a previously seen um bilical hernia. No other significant abnormality of the small bowel. COLON: Sigmoid diverticulosis without evidence of diverticulitis. Thickening of the colon is likely s econdary to liver disease. No other significant abnormality. APPENDIX: No significant abnormality. PERITONEUM: There is a large amount of ascites. No free air. No fluid collection. LYMPH NODES: No significant adenopathy. AORTA / ARTERIES: No significant abnormality. IVC / VEINS: Similar findings of portal hypertension. No other significant abnormality. URINARY BLADDER: No significant abnormality. REPRODUCTIVE ORGANS: No significant abnormality. ADDITIONAL FINDINGS: The previously seen umbilical hernia is larger and fluid-filled, measuring 5.8 c m on image 74 of series 4. The hernia defect measures 2-3 cm. SKELETAL SYSTEM: No significant abnormality. IMPRESSION: 1. Small bowel obstruction with a transition point located within an umbilical hernia as described ab ove. 2. Similar findings of cirrhosis and portal hypertension with a large amount of ascites. Signer Name: Jani Montalvo MD Signed: 11/27/2019 6:34 PM Workstation Name: [id number]
[2019-11-27] MEDS ORDERED: diphenhydrAMINE 50 MG/ML VIAL IV ONE (19:01)
[2019-11-27] MEDS ORDERED: KETAMINE 500 MG/5 ML VIAL MDV ONE (19:24)
[2019-11-27] MEDS ORDERED: KETAMINE 500 MG/5 ML VIAL MDV IV ONE (19:34)
[2019-11-27] MEDS ORDERED: MORPHINE 2 MG/1 ML INJ IV PRN (22:54)
[2019-11-27] MEDS ORDERED: ONDANSETRON 4 MG/2 ML INJ IV PRN (22:54)
--- NOTE | 2019-11-27 23:04 | History and Physical Report ---
History of Present Illness Date of examination: 11/27/19 Date of admission: 11/27/2019 Chief complaint: Abdominal Pain History of present illness: 44-year-old male with known history of diabetes mellitus, hypertension, alcoholic liver cirrhosis with previous esophageal varices requiring banding in the past presenting to the emergency room today complaining of abdominal pain which has been ongoing for the past 2 months. Abdominal pain is said to have gotten worse over the past 2 days. He has been no relieving or exacerbating factor. He has had some fever at home but denies any nausea vomiting, denies any diarrhea, he has had some black stools over the past couple of days. Patient denies any chest pain or shortness of breath, denies any headache or dizziness. He has had occasional dysuria but no hematuria. Upon arrival in the emergency room here patient was evaluated in the ER, CT scan of the abdomen and pelvis reveals:Small bowel obstruction with a transition point located within an umbilical hernia . Findings of cirrhosis and portal hypertension with a large amount of ascites. Further work-up reveals pancytopenia and also hypomagnesemia. General surgeon Dr. Siegel has been consulted by the ER physician for further evaluation. Past History Past Medical History: diabetes, hypertension, other (Esophageal Varices,Alcohol induced pancreatitis) Past Surgical History: Other (Esophageal Varices Banding 2018) Social history: alcohol abuse (Quit alcohol use 3-4 months ago.) Family history: no significant family history Medications and Allergies Allergies Allergy/AdvReac Type Severity Reaction Status Date / Time No Known Allergies Allergy Verified 11/27/19 19:27 Home Medications Medication Instructions Recorded Confirmed Last Taken Type Ondansetron [Zofran Odt] 4 mg PO Q8HR PRN #15 tab.rapdis 09/05/19 Unknown Rx Pantoprazole [Protonix TAB] 40 mg PO BID #60 tablet 09/05/19 Unknown Rx Active Meds: Active Medications Sodium Chloride (Nacl 0.9% 1000 Ml) 1,000 mls @ 75 mls/hr IV DIRECT JORDAN Morphine Sulfate (Morphine) 2 mg IV Q4H PRN PRN Reason: Pain, Moderate (4-6) Ondansetron HCl (Zofran) 4 mg IV Q8H PRN PRN Reason: Nausea And Vomiting Sodium Chloride (Sodium Chloride Flush Syringe 10 Ml) 10 ml IV BID JORDAN Sodium Chloride (Sodium Chloride Flush Syringe 10 Ml) 10 ml IV PRN PRN PRN Reason: LINE FLUSH Review of Systems Constitutional: no fever, no chills Ears, nose, mouth and throat: no nasal congestion, no sore throat Cardiovascular: no chest pain, no palpitations Respiratory: no cough, no shortness of breath Gastrointestinal: abdominal pain, no nausea, no vomiting, no diarrhea, no melena, no jaundice Genitourinary Male: no dysuria, no hematuria, no nocturia Musculoskeletal: no neck pain, no low back pain Integumentary: no rash, no pruritis Neurological: no headaches, no confusion Psychiatric: no anxiety, no depression Exam - Constitutional Vitals: Temp Pulse Resp BP Pulse Ox 98.4 F 90 16 127/80 98 11/27/19 15:30 11/27/19 15:30 11/27/19 15:30 11/27/19 15:30 11/27/19 15:30 General appearance: Present: no acute distress, well-nourished - EENT Eyes: Present: PERRL, EOM intact. Absent: scleral icterus ENT: hearing intact, clear oral mucosa, dentition normal - Neck Neck: Present: supple, normal ROM - Respiratory Respiratory effort: normal Respiratory: bilateral: CTA - Cardiovascular Rhythm: regular Heart Sounds: Present: S1 & S2. Absent: gallop, systolic murmur, diastolic murmur, rub - Extremities Extremities: no ischemia, pulses intact, pulses symmetrical, Full ROM Extremity abnormal: edema (1+ bilateral lower extremity edema) Peripheral Pulses: within normal limits - Abdominal General gastrointestinal: Present: soft, tender, distended (Slightly Distended). Absent: mass - Integumentary Integumentary: Present: clear, warm, dry - Musculoskeletal Musculoskeletal: strength equal bilaterally - Psychiatric Psychiatric: appropriate mood/affect, intact judgment & insight, memory intact, cooperative - Neurologic Neurologic: CNII-XII intact, no focal deficits, moves all extremities Results - Labs CBC & Chem 7: 11/27/19 16:21 11/27/19 16:21 Labs: Abnormal lab results 11/27/19 11/27/19 11/27/19 Range/Units 16:21 16:21 16:21 WBC 1.3 L* (4.5-11.0) K/mm3 RBC 3.36 L (3.65-5.03) M/mm3 Hgb 9.8 L (11.8-15.2) gm/dl Hct 29.7 L (35.5-45.6) % RDW 18.9 H (13.2-15.2) % Plt Count 30 L (140-440) K/mm3 Seg Neuts % (Manual) 90.0 H (40.0-70.0) % Lymphocytes % (Manual) 3.0 L (13.4-35.0) % Seg Neutrophils # Man 1.2 L (1.8-7.7) K/mm3 Lymphocytes # (Manual) 0.0 L (1.2-5.4) K/mm3 PT 26.1 H (12.2-14.9) Sec. INR 2.35 H (0.87-1.13) APTT 42.5 H (24.2-36.6) Sec. Sodium 133 L (137-145) mmol/L BUN 8 L (9-20) mg/dL Creatinine 0.6 L (0.8-1.3) mg/dL Glucose 112 H (75-100) mg/dL Calcium 7.4 L (8.4-10.2) mg/dL Magnesium 1.30 L (1.7-2.3) mg/dL Total Bilirubin 2.10 H (0.1-1.2) mg/dL AST 44 H (5-40) units/L Alkaline Phosphatase 138 H (35-129) units/L Albumin 2.1 L (3.9-5) g/dL Assessment and Plan - Patient Problems (1) Incarcerated umbilical hernia Current Visit: Yes Status: Acute Plan to address problem: Patient currently made n.p.o. We will place on analgesic medication and IV fluid. Patient also had findings of a small bowel obstruction on the CT scan of the abdomen and pelvis. General surgeon has been consulted for further evaluation. (2) Ascites Current Visit: Yes Status: Acute Plan to address problem: Patient has known history of alcoholic liver cirrhosis. We will request paracentesis if needed (3) Hypomagnesemia Current Visit: Yes Status: Acute Plan to address problem: Magnesium will be repleted and will monitor chemistry. (4) Pancytopenia Current Visit: Yes Status: Acute Plan to address problem: Possibly secondary to history of alcoholic liver disease. We will monitor CBC closely. (5) DVT prophylaxis Current Visit: No Status: Acute Plan to address problem: Patient placed on sequential compression device. (6) Full code status Current Visit: No Status: Acute
[2019-11-28] MEDS: SODIUM CHLORIDE 0.9% 1000 ML 1,000 ML IV SCH ×2 (02:33→16:05)
[2019-11-28 06:37] LABS: Bilirubin,Urine NEG (Negative); Blood,Urine NEG (Negative); Color,Urine Amber (Yellow); Mucus,Urine 2+ /HPF; Protein,Urine <15 mg/dL mg/dL (Negative)
[2019-11-28 07:26] LABS: Blood Urea Nitrogen 9 mg/dL (9-20); Calcium 7.6 mg/dL (8.4-10.2); Hemolysis Index 4
[2019-11-28 07:28] LABS: BUN/Creatinine Ratio 15; INR 2.4 (0.87-1.13)
[2019-11-28 07:33] LABS: Hematocrit 28.1 % (35.5-45.6); Hemoglobin 9.4 gm/dl (11.8-15.2); Mean Corpuscular HGB Conc 33 % (32-34); Mean Corpuscular Volume 88 fl (84-94); Red Blood Count 3.19 M/mm3 (3.65-5.03); Red Cell Distribution Width 18.5 % (13.2-15.2)
[2019-11-28 08:01] LABS: Platelet Count 28 K/mm3 (140-440)
--- NOTE | 2019-11-28 08:26 | Progress Note ---
Assessment and Plan Assessment and plan: 44-year-old male with known history of diabetes mellitus, hypertension, alcoholic liver cirrhosis with previous esophageal varices requiring banding in the past presenting to the emergency room today complaining of abdominal pain which has been ongoing for the past 2 months. Abdominal pain is said to have gotten worse over the past 2 days. He has been no relieving or exacerbating factor. He has had some fever at home but denies any nausea vomiting, denies any diarrhea, he has had some black stools over the past couple of days. Patient denies any chest pain or shortness of breath, denies any headache or dizziness. He has had occasional dysuria but no hematuria. Upon arrival in the emergency room here patient was evaluated in the ER, CT scan of the abdomen and pelvis reveals:Small bowel obstruction with a transition point located within an umbilical hernia . Findings of cirrhosis and portal hypertension with a large amount of ascites. Further work-up reveals pancytopenia and also hypomagnesemia. General surgeon Dr. Siegel has been consulted by the ER physician for further evaluation. 11/27: Patient had reduction done in the ED with aid of Ketamin, continue to monitor, will obtain Diagnostic and therapeutic paracentesis, Give a dose of FFP (1) Incarcerated umbilical hernia/SBO Current Visit: Yes Status: Acute Plan to address problem: Patient currently made n.p.o. We will place on analgesic medication and IV fluid. Patient also had findings of a small bowel obstruction on the CT scan of the abdomen and pelvis. General surgeon has been consulted for further evaluation. (2) Ascites Current Visit: Yes Status: Acute Plan to address problem: Patient has known history of alcoholic liver cirrhosis. We will request paracentesis if needed (3) Hypomagnesemia Current Visit: Yes Status: Acute Plan to address problem: Magnesium will be repleted and will monitor chemistry. (4) Pancytopenia/leukopenia Current Visit: Yes Status: Acute Plan to address problem: Possibly secondary to history of alcoholic liver disease. We will monitor CBC closely. 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 Full code status Current Visit: No Status: Acute .) History Interval history: Patient seen and examined, reports improvement with abdominal pain but still persistent. Hospitalist Physical - Constitutional Vitals: Temp Pulse Resp BP Pulse Ox 97.6 F 80 15 118/83 99 11/27/19 21:32 11/28/19 01:15 11/28/19 01:15 11/28/19 01:15 11/28/19 01:15 General appearance: Present: no acute distress, well-nourished Results - Labs CBC & Chem 7: 11/29/19 02:15 11/29/19 02:15 Labs: Laboratory Last Values WBC 1.3 K/mm3 (4.5-11.0) L* 11/28/19 06:17 RBC 3.19 M/mm3 (3.65-5.03) L 11/28/19 06:17 Hgb 9.4 gm/dl (11.8-15.2) L 11/28/19 06:17 Hct 28.1 % (35.5-45.6) L 11/28/19 06:17 MCV 88 fl (84-94) 11/28/19 06:17 MCH 30 pg (28-32) 11/28/19 06:17 MCHC 33 % (32-34) 11/28/19 06:17 RDW 18.5 % (13.2-15.2) H 11/28/19 06:17 Plt Count 28 K/mm3 (140-440) L 11/28/19 06:17 [place] % (Auto) Commercial Credit Head 11/27/19 16:21 Add Manual Diff Complete 11/27/19 16:21 Total Counted 100 11/27/19 16:21 Seg Neuts % (Manual) 90.0 % (40.0-70.0) H 11/27/19 16:21 Band Neutrophils % 0 % 11/27/19 16:21 Lymphocytes % (Manual) 3.0 % (13.4-35.0) L 11/27/19 16:21 Reactive Lymphs % (Man) 0 % 11/27/19 16:21 Monocytes % (Manual) 6.0 % (0.0-7.3) 11/27/19 16:21 Eosinophils % (Manual) 0 % (0.0-4.3) 11/27/19 16:21 Basophils % (Manual) 1.0 % (0.0-1.8) 11/27/19 16:21 Metamyelocytes % 0 % 11/27/19 16:21 Myelocytes % 0 % 11/27/19 16:21 Promyelocytes % 0 % 11/27/19 16:21 Blast Cells % 0 % 11/27/19 16:21 Nucleated RBC % Not Reportable 11/27/19 16:21 Seg Neutrophils # Man 1.2 K/mm3 (1.8-7.7) L 11/27/19 16:21 Band Neutrophils # 0.0 K/mm3 11/27/19 16:21 Lymphocytes # (Manual) 0.0 K/mm3 (1.2-5.4) L 11/27/19 16:21 Abs React Lymphs (Man) 0.0 K/mm3 11/27/19 16:21 Monocytes # (Manual) 0.1 K/mm3 (0.0-0.8) 11/27/19 16:21 Eosinophils # (Manual) 0.0 K/mm3 (0.0-0.4) 11/27/19 16:21 Basophils # (Manual) 0.0 K/mm3 (0.0-0.1) 11/27/19 16:21 Metamyelocytes # 0.0 K/mm3 11/27/19 16:21 Myelocytes # 0.0 K/mm3 11/27/19 16:21 Promyelocytes # 0.0 K/mm3 11/27/19 16:21 Blast Cells # 0.0 K/mm3 11/27/19 16:21 WBC Morphology Not Reportable 11/27/19 16:21 Hypersegmented Neuts Not Reportable 11/27/19 16:21 Hyposegmented Neuts Not Reportable 11/27/19 16:21 Hypogranular Neuts Not Reportable 11/27/19 16:21 Smudge Cells Not Reportable 11/27/19 16:21 Toxic Granulation Not Reportable 11/27/19 16:21 Toxic Vacuolation Not Reportable 11/27/19 16:21 Dohle Bodies Not Reportable 11/27/19 16:21 Pelger-Huet Anomaly Not Reportable 11/27/19 16:21 [place] Not Reportable 11/27/19 16:21 Platelet Estimate Consistent w auto 11/27/19 16:21 Clumped Platelets Not Reportable 11/27/19 16:21 Plt Clumps, EDTA Not Reportable 11/27/19 16:21 Large Platelets Not Reportable 11/27/19 16:21 Giant Platelets Not Reportable 11/27/19 16:21 Platelet Satelliting Not Reportable 11/27/19 16:21 Plt Morphology Comment Not Reportable 11/27/19 16:21 RBC Morphology Not Reportable 11/27/19 16:21 Dimorphic RBCs Not Reportable 11/27/19 16:21 Polychromasia Not Reportable 11/27/19 16:21 Hypochromasia Not Reportable 11/27/19 16:21 Poikilocytosis Not Reportable 11/27/19 16:21 Anisocytosis 1+ 11/27/19 16:21 Microcytosis Not Reportable 11/27/19 16:21 Macrocytosis Not Reportable 11/27/19 16:21 Spherocytes Not Reportable 11/27/19 16:21 Pappenheimer Bodies Not Reportable 11/27/19 16:21 Sickle Cells Not Reportable 11/27/19 16:21 Target Cells Not Reportable 11/27/19 16:21 Tear Drop Cells Not Reportable 11/27/19 16:21 Ovalocytes Not Reportable 11/27/19 16:21 Helmet Cells Not Reportable 11/27/19 16:21 [place] Bodies Not Reportable 11/27/19 16:21 [place] Rings Not Reportable 11/27/19 16:21 Damian Cells Not Reportable 11/27/19 16:21 Bite Cells Not Reportable 11/27/19 16:21 Crenated Cell Not Reportable 11/27/19 16:21 Elliptocytes Not Reportable 11/27/19 16:21 Acanthocytes (Spur) Not Reportable 11/27/19 16:21 Rouleaux Not Reportable 11/27/19 16:21 Hemoglobin C Crystals Not Reportable 11/27/19 16:21 Schistocytes Not Reportable 11/27/19 16:21 Malaria parasites Not Reportable 11/27/19 16:21 Chevy Bodies Not Reportable 11/27/19 16:21 Hem Pathologist Commnt No 11/27/19 16:21 PT 26.5 Sec. (12.2-14.9) H 11/28/19 06:17 INR 2.40 (0.87-1.13) H 11/28/19 06:17 APTT 42.5 Sec. (24.2-36.6) H 11/27/19 16:21 Sodium 134 mmol/L (137-145) L 11/28/19 06:17 Potassium 4.2 mmol/L (3.6-5.0) 11/28/19 06:17 Chloride 101.3 mmol/L (98-107) 11/28/19 06:17 Carbon Dioxide 25 mmol/L (22-30) 11/28/19 06:17 Anion Gap 12 mmol/L 11/28/19 06:17 BUN 9 mg/dL (9-20) 11/28/19 06:17 Creatinine 0.6 mg/dL (0.8-1.3) L 11/28/19 06:17 Estimated GFR > 60 ml/min 11/28/19 06:17 BUN/Creatinine Ratio 15 % 11/28/19 06:17 Glucose 84 mg/dL (75-100) 11/28/19 06:17 Calcium 7.6 mg/dL (8.4-10.2) L 11/28/19 06:17 Magnesium 1.30 mg/dL (1.7-2.3) L 11/27/19 16:21 Total Bilirubin 2.10 mg/dL (0.1-1.2) H 11/27/19 16:21 AST 44 units/L (5-40) H 11/27/19 16:21 ALT 21 units/L (7-56) 11/27/19 16:21 Alkaline Phosphatase 138 units/L (35-129) H 11/27/19 16:21 Total Protein 6.3 g/dL (6.3-8.2) 11/27/19 16:21 Albumin 2.1 g/dL (3.9-5) L 11/27/19 16:21 Albumin/Globulin Ratio 0.5 % 11/27/19 16:21 Lipase 48 units/L (13-60) 11/27/19 16:21 Urine Color Em (Yellow) 11/27/19 Unknown Urine Turbidity Clear (Clear) 11/27/19 Unknown Urine pH 5.0 (5.0-7.0) 11/27/19 Unknown Ur Specific [place] 1.056 (1.003-1.030) H 11/27/19 Unknown Urine Protein <15 mg/dl mg/dL (Negative) 11/27/19 Unknown Urine Glucose (UA) Neg mg/dL (Negative) 11/27/19 Unknown Urine Ketones Neg mg/dL (Negative) 11/27/19 Unknown Urine Blood Neg (Negative) 11/27/19 Unknown Urine Nitrite Neg (Negative) 11/27/19 Unknown Urine Bilirubin Neg (Negative) 11/27/19 Unknown Urine Urobilinogen 4.0 mg/dL (<2.0) 11/27/19 Unknown Ur Leukocyte Esterase Neg (Negative) 11/27/19 Unknown Urine WBC (Auto) 1.0 /HPF (0.0-6.0) 11/27/19 Unknown Urine RBC (Auto) 2.0 /HPF (0.0-6.0) 11/27/19 Unknown Urine Mucus 2+ /HPF 11/27/19 Unknown Plasma/Serum Alcohol < 0.01 % (0-0.07) 11/27/19 16:26 Grubbs/IV: IV Catheter Type [Left INT / Saline Lock Antecubital] Active Medications - Current Medications Current Medications: Generic Name Dose Route Start Last Admin Trade Name Freq PRN Reason Stop Dose Admin Sodium Chloride 1,000 mls @ 75 mls/hr 11/27/19 23:00 11/28/19 02:33 Nacl 0.9% 1000 Ml IV 75 mls/hr DIRECT JORDAN Administration Morphine Sulfate 2 mg 11/27/19 22:54 11/28/19 02:14 Morphine IV 2 mg Q4H PRN Administration Pain, Moderate (4-6) Ondansetron HCl 4 mg 11/27/19 22:54 11/28/19 02:16 Zofran IV 4 mg Q8H PRN Administration Nausea And Vomiting Sodium Chloride 10 ml 11/28/19 10:00 Sodium Chloride Flush Syringe 10 Ml IV BID JORDAN Sodium Chloride 10 ml 11/27/19 22:54 Sodium Chloride Flush Syringe 10 Ml IV PRN PRN LINE FLUSH
[2019-11-28 08:50] LABS: Total Cells Counted 100
[2019-11-28 08:51] LABS: Anisocytosis 1+; Platelet Estimate Consistent w Auto
--- NOTE | 2019-11-28 11:59 | Consultation ---
History of Present Illness Consult date: 11/28/19 Reason for consult: abdominal pain (44 yo alcoholic male who presented to the ED with SBO secondary to an incarcerated periumbilical hernia. This was reduced in the ED with the aid of Ketamine. He denies further N/V since his hernia was reduced. His abdominal pain has significantly improved.) Past History Past Medical History: diabetes, hypertension, other (Esophageal Varices,Alcohol induced pancreatitis) Past Surgical History: Other (Esophageal Varices Banding 2019) Social history: alcohol abuse (Quit alcohol use 3-4 months ago.) Family history: no significant family history Medications and Allergies Allergies Allergy/AdvReac Type Severity Reaction Status Date / Time No Known Allergies Allergy Verified 11/27/19 19:27 Home Medications Medication Instructions Recorded Confirmed Last Taken Type Ondansetron [Zofran Odt] 4 mg PO Q8HR PRN #15 tab.rapdis 09/05/19 11/28/19 11/27/19 Rx Pantoprazole [Protonix TAB] 40 mg PO BID #60 tablet 09/05/19 11/28/19 11/27/19 Rx Active Meds: Active Medications Sodium Chloride (Nacl 0.9% 1000 Ml) 1,000 mls @ 75 mls/hr IV DIRECT JORDAN Last Admin: 11/28/19 02:33 Dose: 75 mls/hr Documented by: Magnesium Sulfate 1 gm/ Sodium (Chloride) 52 mls @ 52 mls/hr IV ONCE NR Stop: 11/28/19 15:00 Morphine Sulfate (Morphine) 2 mg IV Q4H PRN PRN Reason: Pain, Moderate (4-6) Last Admin: 11/28/19 02:14 Dose: 2 mg Documented by: Ondansetron HCl (Zofran) 4 mg IV Q8H PRN PRN Reason: Nausea And Vomiting Last Admin: 11/28/19 02:16 Dose: 4 mg Documented by: Sodium Chloride (Sodium Chloride Flush Syringe 10 Ml) 10 ml IV BID JORDAN Sodium Chloride (Sodium Chloride Flush Syringe 10 Ml) 10 ml IV PRN PRN PRN Reason: LINE FLUSH Review of Systems All systems: negative (none) Exam Vital Signs Temp Pulse Resp BP Pulse Ox 98.4 F 90 16 127/80 98 11/27/19 15:30 11/27/19 15:30 11/27/19 15:30 11/27/19 15:30 11/27/19 15:30 - General physical appearance Positive: well developed, well nourished, no distress - Eyes Positive: PERRL, normal occular movement - ENT Positive: normal pinna, normal nares, normal mucosa, no hearing loss, no congestion - Neck Positive: no masses, no bruits, trachea midline, no venous distension - Respiratory Positive: normal expansion, normal respiratory effort, clear to auscultation - Cardiovascular Rhythm: regular Heart Sounds: Present: S1 & S2. Absent: rub, click - Extremities Extremities: no ischemia, pulses symmetrical, No edema - Breasts Breasts: deferred - Abdomen Abdomen: Present: soft, bowel sounds normal, other (1.5 cm periumbilical hernia is present without incarceration.). Absent: tender, distended Hernia: none - Genitourinary Male Genitourinary: deferred - Integumentary no rash, no growths, no abnormal pigmentation - Neurologic Neurologic: alert and oriented to time, place and person, motor strength and sensation are grossly intact - Musculoskeletal normal gait, normal posture - Psychiatric Psychiatric: appropriate mood/affect, intact judgment & insight Results - Labs 11/28/19 06:17 11/28/19 06:17 Abnormal lab results 11/27/19 11/27/19 11/27/19 Range/Units 16:21 16:21 16:21 WBC 1.3 L* (4.5-11.0) K/mm3 RBC 3.36 L (3.65-5.03) M/mm3 Hgb 9.8 L (11.8-15.2) gm/dl Hct 29.7 L (35.5-45.6) % RDW 18.9 H (13.2-15.2) % Plt Count 30 L (140-440) K/mm3 Seg Neuts % (Manual) 90.0 H (40.0-70.0) % Lymphocytes % (Manual) 3.0 L (13.4-35.0) % Seg Neutrophils # Man 1.2 L (1.8-7.7) K/mm3 Lymphocytes # (Manual) 0.0 L (1.2-5.4) K/mm3 PT 26.1 H (12.2-14.9) Sec. INR 2.35 H (0.87-1.13) APTT 42.5 H (24.2-36.6) Sec. Sodium 133 L (137-145) mmol/L BUN 8 L (9-20) mg/dL Creatinine 0.6 L (0.8-1.3) mg/dL Glucose 112 H (75-100) mg/dL Calcium 7.4 L (8.4-10.2) mg/dL Magnesium 1.30 L (1.7-2.3) mg/dL Total Bilirubin 2.10 H (0.1-1.2) mg/dL AST 44 H (5-40) units/L Alkaline Phosphatase 138 H (35-129) units/L Albumin 2.1 L (3.9-5) g/dL Ur Specific [place] (1.003-1.030) 11/27/19 11/28/19 11/28/19 Range/Units Unknown 06:17 06:17 WBC 1.3 L* (4.5-11.0) K/mm3 RBC 3.19 L (3.65-5.03) M/mm3 Hgb 9.4 L (11.8-15.2) gm/dl Hct 28.1 L (35.5-45.6) % RDW 18.5 H (13.2-15.2) % Plt Count 28 L (140-440) K/mm3 Seg Neuts % (Manual) 79.0 H (40.0-70.0) % Lymphocytes % (Manual) 13.0 L (13.4-35.0) % Seg Neutrophils # Man 1.0 L (1.8-7.7) K/mm3 Lymphocytes # (Manual) 0.2 L (1.2-5.4) K/mm3 PT 26.5 H (12.2-14.9) Sec. INR 2.40 H (0.87-1.13) APTT (24.2-36.6) Sec. Sodium (137-145) mmol/L BUN (9-20) mg/dL Creatinine (0.8-1.3) mg/dL Glucose (75-100) mg/dL Calcium (8.4-10.2) mg/dL Magnesium (1.7-2.3) mg/dL Total Bilirubin (0.1-1.2) mg/dL AST (5-40) units/L Alkaline Phosphatase (35-129) units/L Albumin (3.9-5) g/dL Ur Specific [place] 1.056 H (1.003-1.030) 11/28/19 11/28/19 Range/Units 06:17 09:21 WBC (4.5-11.0) K/mm3 RBC (3.65-5.03) M/mm3 Hgb (11.8-15.2) gm/dl Hct (35.5-45.6) % RDW (13.2-15.2) % Plt Count (140-440) K/mm3 Seg Neuts % (Manual) (40.0-70.0) % Lymphocytes % (Manual) (13.4-35.0) % Seg Neutrophils # Man (1.8-7.7) K/mm3 Lymphocytes # (Manual) (1.2-5.4) K/mm3 PT (12.2-14.9) Sec. INR (0.87-1.13) APTT (24.2-36.6) Sec. Sodium 134 L (137-145) mmol/L BUN (9-20) mg/dL Creatinine 0.6 L (0.8-1.3) mg/dL Glucose (75-100) mg/dL Calcium 7.6 L (8.4-10.2) mg/dL Magnesium 1.50 L (1.7-2.3) mg/dL Total Bilirubin (0.1-1.2) mg/dL AST (5-40) units/L Alkaline Phosphatase (35-129) units/L Albumin (3.9-5) g/dL Ur Specific [place] (1.003-1.030) Diabetes panel 11/27/19 11/28/19 Range/Units 16:21 06:17 Sodium 133 L 134 L (137-145) mmol/L Potassium 3.8 4.2 (3.6-5.0) mmol/L Chloride 101.9 101.3 (98-107) mmol/L Carbon Dioxide 23 25 (22-30) mmol/L BUN 8 L 9 (9-20) mg/dL Creatinine 0.6 L 0.6 L (0.8-1.3) mg/dL Glucose 112 H 84 (75-100) mg/dL Calcium 7.4 L 7.6 L (8.4-10.2) mg/dL AST 44 H (5-40) units/L ALT 21 (7-56) units/L Alkaline Phosphatase 138 H (35-129) units/L Total Protein 6.3 (6.3-8.2) g/dL Albumin 2.1 L (3.9-5) g/dL Calcium panel 11/27/19 11/28/19 Range/Units 16:21 06:17 Calcium 7.4 L 7.6 L (8.4-10.2) mg/dL Albumin 2.1 L (3.9-5) g/dL Pituitary panel 11/27/19 11/28/19 Range/Units 16:21 06:17 Sodium 133 L 134 L (137-145) mmol/L Potassium 3.8 4.2 (3.6-5.0) mmol/L Chloride 101.9 101.3 (98-107) mmol/L Carbon Dioxide 23 25 (22-30) mmol/L BUN 8 L 9 (9-20) mg/dL Creatinine 0.6 L 0.6 L (0.8-1.3) mg/dL Glucose 112 H 84 (75-100) mg/dL Calcium 7.4 L 7.6 L (8.4-10.2) mg/dL Adrenal panel 11/27/19 11/28/19 Range/Units 16:21 06:17 Sodium 133 L 134 L (137-145) mmol/L Potassium 3.8 4.2 (3.6-5.0) mmol/L Chloride 101.9 101.3 (98-107) mmol/L Carbon Dioxide 23 25 (22-30) mmol/L BUN 8 L 9 (9-20) mg/dL Creatinine 0.6 L 0.6 L (0.8-1.3) mg/dL Glucose 112 H 84 (75-100) mg/dL Calcium 7.4 L 7.6 L (8.4-10.2) mg/dL Total Bilirubin 2.10 H (0.1-1.2) mg/dL AST 44 H (5-40) units/L ALT 21 (7-56) units/L Alkaline Phosphatase 138 H (35-129) units/L Total Protein 6.3 (6.3-8.2) g/dL Albumin 2.1 L (3.9-5) g/dL - Imaging CT scan - abdomen: report reviewed CT scan - pelvis: report reviewed Additional studies: INR 2.4 Albumin 2.1 T bili 2.1 Assessment and Plan - Patient Problems (1) Small bowel obstruction Current Visit: Yes Status: Acute Plan to address problem: 1) Because of the pt's thrombocytopenia, coagulopathy, cirrhosis and ascites, he is a prohibitive operative risk. IR has refused to do his paracentesis b/o these issues. His prognosis, if he does not stop drinking is very poor. 2) I will check AXR to see if his sbo is improving, which is expected.
[2019-11-28] MEDS ORDERED: MAGNESIUM SULFATE 1 GM in SODIUM CHLORIDE 0.9% 50 ML IV NR (12:00)
--- NOTE | 2019-11-28 13:12 | XRay Report ---
ABDOMEN 2 VIEWS INDICATION / CLINICAL INFORMATION: sbo. COMPARISON: CT abdomen and pelvis with contrast from 11/27/2019. FINDINGS: TUBES / LINES: None. BOWEL GAS PATTERN: Mildly dilated small bowel loops are again seen centrally along the mid abdomen. S cattered gas is present along the colon without dilatation. FREE AIR / EXTRALUMINAL GAS: None seen. ADDITIONAL FINDINGS: Previously administered contrast remains in the bladder. CHEST: There is probable bibasilar atelectasis. IMPRESSION: Similar small bowel dilatation compared to the CT performed yesterday. Signer Name: Jani Montalvo MD Signed: 11/28/2019 1:07 PM Workstation Name: [id number]
[2019-11-29] MEDS ORDERED: SODIUM CHLORIDE 0.9% 500 ML 500 ML IV ONE (01:50)
[2019-11-29 02:26] LABS: Hematocrit 26.9 % (35.5-45.6); Hemoglobin 9.1 gm/dl (11.8-15.2); Mean Corpuscular HGB Conc 34 % (32-34); Mean Corpuscular Volume 88 fl (84-94); Red Blood Count 3.06 M/mm3 (3.65-5.03); Red Cell Distribution Width 18.6 % (13.2-15.2)
[2019-11-29 02:32] LABS: Platelet Count 28 K/mm3 (140-440)
[2019-11-29 02:48] LABS: Alanine Aminotransferase 19 units/L (7-56); Albumin 1.9 g/dL (3.9-5); Blood Urea Nitrogen 10 mg/dL (9-20); Calcium 7.3 mg/dL (8.4-10.2); Hemolysis Index 1
[2019-11-29 03:19] LABS: BUN/Creatinine Ratio 17
[2019-11-29 05:46] VITALS: BP 111/68
--- NOTE | 2019-11-29 08:59 | Progress Note ---
Assessment and Plan Assessment and plan: 44-year-old male with known history of diabetes mellitus, hypertension, alcoholic liver cirrhosis with previous esophageal varices requiring banding in the past presenting to the emergency room today complaining of abdominal pain which has been ongoing for the past 2 months. Abdominal pain is said to have gotten worse over the past 2 days. He has been no relieving or exacerbating factor. He has had some fever at home but denies any nausea vomiting, denies any diarrhea, he has had some black stools over the past couple of days. Patient denies any chest pain or shortness of breath, denies any headache or dizziness. He has had occasional dysuria but no hematuria. Upon arrival in the emergency room here patient was evaluated in the ER, CT scan of the abdomen and pelvis reveals:Small bowel obstruction with a transition point located within an umbilical hernia . Findings of cirrhosis and portal hypertension with a large amount of ascites. Further work-up reveals pancytopenia and also hypomagnesemia. General surgeon Dr. Siegel has been consulted by the ER physician for further evaluation. 11/27: Patient had reduction done in the ED with aid of Ketamin, continue to monitor, will obtain Diagnostic and therapeutic paracentesis, Give a dose of FFP 11/28: Awaiting paracenthesis, possible discharge in am, thrombocytopenia AND Leukopenia chronic, (1) Incarcerated umbilical hernia/SBO Current Visit: Yes Status: Acute Plan to address problem: Patient currently made n.p.o. We will place on analgesic medication and IV fluid. Patient also had findings of a small bowel obstruction on the CT scan of the abdomen and pelvis. General surgeon has been consulted for further evaluation. (2) Ascites Current Visit: Yes Status: Acute Plan to address problem: Patient has known history of alcoholic liver cirrhosis. We will request paracentesis if needed (3) Hypomagnesemia Current Visit: Yes Status: Acute Plan to address problem: Magnesium will be repleted and will monitor chemistry. (4) Pancytopenia/leukopenia Current Visit: Yes Status: Acute Plan to address problem: Possibly secondary to history of alcoholic liver disease. We will monitor CBC closely. 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 Full code status Current Visit: No Status: Acute .) Hospitalist Physical - Constitutional Vitals: Temp Pulse Resp BP Pulse Ox 98.1 F 90 18 111/68 97 11/29/19 05:32 11/29/19 05:32 11/29/19 05:32 11/29/19 05:32 11/29/19 00:13 General appearance: Present: no acute distress, well-nourished Results - Labs CBC & Chem 7: 11/29/19 02:15 11/29/19 02:15 Labs: Laboratory Last Values WBC 1.3 K/mm3 (4.5-11.0) L* 11/29/19 02:15 RBC 3.06 M/mm3 (3.65-5.03) L 11/29/19 02:15 Hgb 9.1 gm/dl (11.8-15.2) L 11/29/19 02:15 Hct 26.9 % (35.5-45.6) L 11/29/19 02:15 MCV 88 fl (84-94) 11/29/19 02:15 MCH 30 pg (28-32) 11/29/19 02:15 MCHC 34 % (32-34) 11/29/19 02:15 RDW 18.6 % (13.2-15.2) H 11/29/19 02:15 Plt Count 28 K/mm3 (140-440) L 11/29/19 02:15 Cloud % (Auto) [employer] Of [employer]s 11/27/19 16:21 Add Manual Diff Complete 11/28/19 06:17 Total Counted 100 11/28/19 06:17 Seg Neuts % (Manual) 79.0 % (40.0-70.0) H 11/28/19 06:17 Band Neutrophils % 0 % 11/28/19 06:17 Lymphocytes % (Manual) 13.0 % (13.4-35.0) L 11/28/19 06:17 Reactive Lymphs % (Man) 0 % 11/28/19 06:17 Monocytes % (Manual) 3.0 % (0.0-7.3) 11/28/19 06:17 Eosinophils % (Manual) 4.0 % (0.0-4.3) 11/28/19 06:17 Basophils % (Manual) 1.0 % (0.0-1.8) 11/28/19 06:17 Metamyelocytes % 0 % 11/28/19 06:17 Myelocytes % 0 % 11/28/19 06:17 Promyelocytes % 0 % 11/28/19 06:17 Blast Cells % 0 % 11/28/19 06:17 Nucleated RBC % Not Reportable 11/28/19 06:17 Seg Neutrophils # Man 1.0 K/mm3 (1.8-7.7) L 11/28/19 06:17 Band Neutrophils # 0.0 K/mm3 11/28/19 06:17 Lymphocytes # (Manual) 0.2 K/mm3 (1.2-5.4) L 11/28/19 06:17 Abs React Lymphs (Man) 0.0 K/mm3 11/28/19 06:17 Monocytes # (Manual) 0.0 K/mm3 (0.0-0.8) 11/28/19 06:17 Eosinophils # (Manual) 0.1 K/mm3 (0.0-0.4) 11/28/19 06:17 Basophils # (Manual) 0.0 K/mm3 (0.0-0.1) 11/28/19 06:17 Metamyelocytes # 0.0 K/mm3 11/28/19 06:17 Myelocytes # 0.0 K/mm3 11/28/19 06:17 Promyelocytes # 0.0 K/mm3 11/28/19 06:17 Blast Cells # 0.0 K/mm3 11/28/19 06:17 WBC Morphology Not Reportable 11/28/19 06:17 Hypersegmented Neuts Not Reportable 11/28/19 06:17 Hyposegmented Neuts Not Reportable 11/28/19 06:17 Hypogranular Neuts Not Reportable 11/28/19 06:17 Smudge Cells Not Reportable 11/28/19 06:17 Toxic Granulation Not Reportable 11/28/19 06:17 Toxic Vacuolation Not Reportable 11/28/19 06:17 Dohle Bodies Not Reportable 11/28/19 06:17 Pelger-Huet Anomaly Not Reportable 11/28/19 06:17 El Rods Not Reportable 11/28/19 06:17 Platelet Estimate Consistent w auto 11/28/19 06:17 Clumped Platelets Not Reportable 11/28/19 06:17 Plt Clumps, EDTA Not Reportable 11/28/19 06:17 Large Platelets Not Reportable 11/28/19 06:17 Giant Platelets Not Reportable 11/28/19 06:17 Platelet Satelliting Not Reportable 11/28/19 06:17 Plt Morphology Comment Not Reportable 11/28/19 06:17 RBC Morphology Not Reportable 11/28/19 06:17 Dimorphic RBCs Not Reportable 11/28/19 06:17 Polychromasia Not Reportable 11/28/19 06:17 Hypochromasia Not Reportable 11/28/19 06:17 Poikilocytosis Not Reportable 11/28/19 06:17 Anisocytosis 1+ 11/28/19 06:17 Microcytosis Not Reportable 11/28/19 06:17 Macrocytosis Not Reportable 11/28/19 06:17 Spherocytes Not Reportable 11/28/19 06:17 Pappenheimer Bodies Not Reportable 11/28/19 06:17 Sickle Cells Not Reportable 11/28/19 06:17 Target Cells Not Reportable 11/28/19 06:17 Tear Drop Cells Not Reportable 11/28/19 06:17 Ovalocytes Not Reportable 11/28/19 06:17 Helmet Cells Not Reportable 11/28/19 06:17 [place]-Jackpot Bodies Not Reportable 11/28/19 06:17 [place] Rings Not Reportable 11/28/19 06:17 Damian Cells Not Reportable 11/28/19 06:17 Bite Cells Not Reportable 11/28/19 06:17 Crenated Cell Not Reportable 11/28/19 06:17 Elliptocytes Not Reportable 11/28/19 06:17 Acanthocytes (Spur) Not Reportable 11/28/19 06:17 Rouleaux Not Reportable 11/28/19 06:17 Hemoglobin C Crystals Not Reportable 11/28/19 06:17 Schistocytes Not Reportable 11/28/19 06:17 Malaria parasites Not Reportable 11/28/19 06:17 Chevy Bodies Not Reportable 11/28/19 06:17 Hem Pathologist Commnt No 11/28/19 06:17 PT 26.5 Sec. (12.2-14.9) H 11/28/19 06:17 INR 2.40 (0.87-1.13) H 11/28/19 06:17 APTT 42.5 Sec. (24.2-36.6) H 11/27/19 16:21 Sodium 136 mmol/L (137-145) L 11/29/19 02:15 Potassium 3.8 mmol/L (3.6-5.0) 11/29/19 02:15 Chloride 105.0 mmol/L (98-107) 11/29/19 02:15 Carbon Dioxide 22 mmol/L (22-30) 11/29/19 02:15 Anion Gap 13 mmol/L 11/29/19 02:15 BUN 10 mg/dL (9-20) 11/29/19 02:15 Creatinine 0.6 mg/dL (0.8-1.3) L 11/29/19 02:15 Estimated GFR > 60 ml/min 11/29/19 02:15 BUN/Creatinine Ratio 17 % 11/29/19 02:15 Glucose 90 mg/dL (75-100) 11/29/19 02:15 Calcium 7.3 mg/dL (8.4-10.2) L 11/29/19 02:15 Magnesium 1.50 mg/dL (1.7-2.3) L 11/28/19 09:21 Total Bilirubin 2.30 mg/dL (0.1-1.2) H 11/29/19 02:15 AST 38 units/L (5-40) 11/29/19 02:15 ALT 19 units/L (7-56) 11/29/19 02:15 Alkaline Phosphatase 117 units/L (35-129) 11/29/19 02:15 Total Protein 6.0 g/dL (6.3-8.2) L 11/29/19 02:15 Albumin 1.9 g/dL (3.9-5) L 11/29/19 02:15 Albumin/Globulin Ratio 0.5 % 11/29/19 02:15 Lipase 48 units/L (13-60) 11/27/19 16:21 Urine Color Em (Yellow) 11/27/19 Unknown Urine Turbidity Clear (Clear) 11/27/19 Unknown Urine pH 5.0 (5.0-7.0) 11/27/19 Unknown Ur Specific [place] 1.056 (1.003-1.030) H 11/27/19 Unknown Urine Protein <15 mg/dl mg/dL (Negative) 11/27/19 Unknown Urine Glucose (UA) Neg mg/dL (Negative) 11/27/19 Unknown Urine Ketones Neg mg/dL (Negative) 11/27/19 Unknown Urine Blood Neg (Negative) 11/27/19 Unknown Urine Nitrite Neg (Negative) 11/27/19 Unknown Urine Bilirubin Neg (Negative) 11/27/19 Unknown Urine Urobilinogen 4.0 mg/dL (<2.0) 11/27/19 Unknown Ur Leukocyte Esterase Neg (Negative) 11/27/19 Unknown Urine WBC (Auto) 1.0 /HPF (0.0-6.0) 11/27/19 Unknown Urine RBC (Auto) 2.0 /HPF (0.0-6.0) 11/27/19 Unknown Urine Mucus 2+ /HPF 11/27/19 Unknown Plasma/Serum Alcohol < 0.01 % (0-0.07) 11/27/19 16:26 Blood Type O POSITIVE 11/29/19 02:15 Antibody Screen Negative 11/29/19 02:15 Grubbs/IV: Voiding Method Urinal IV Catheter Type [Left INT / Saline Lock Antecubital] Active Medications - Current Medications Current Medications: Generic Name Dose Route Start Last Admin Trade Name Mateoq PRN Reason Stop Dose Admin Sodium Chloride 1,000 mls @ 75 mls/hr 11/27/19 23:00 11/28/19 16:05 Nacl 0.9% 1000 Ml IV 75 mls/hr DIRECT JORDAN Administration Morphine Sulfate 2 mg 11/27/19 22:54 11/28/19 02:14 Morphine IV 2 mg Q4H PRN Administration Pain, Moderate (4-6) Ondansetron HCl 4 mg 11/27/19 22:54 11/28/19 02:16 Zofran IV 4 mg Q8H PRN Administration Nausea And Vomiting Sodium Chloride 10 ml 11/28/19 10:00 11/28/19 21:35 Sodium Chloride Flush Syringe 10 Ml IV 10 ml BID JORDAN Administration Sodium Chloride 10 ml 11/27/19 22:54 Sodium Chloride Flush Syringe 10 Ml IV PRN PRN LINE FLUSH
--- NOTE | 2019-11-29 09:13 | XRay Report ---
ABDOMEN 2 VIEWS INDICATION / CLINICAL INFORMATION: sbo. COMPARISON: Abdominal series from 11/28/2019. FINDINGS: TUBES / LINES: None. BOWEL GAS PATTERN: The previously described small bowel dilatation has resolved. No new acute abnorma lity. FREE AIR / EXTRALUMINAL GAS: None seen. ADDITIONAL FINDINGS: No significant additional findings. CHEST: Visualized chest shows no significant abnormality. IMPRESSION: Interval resolution of the previously described small bowel dilatation. No new acute abnormality. Signer Name: Jani Montalvo MD Signed: 11/29/2019 9:09 AM Workstation Name: [id number]
[2019-11-29 11:34] LABS: Hematocrit 27.9 % (35.5-45.6); Hemoglobin 9.4 gm/dl (11.8-15.2); Mean Corpuscular HGB Conc 34 % (32-34); Mean Corpuscular Volume 87 fl (84-94); Red Blood Count 3.19 M/mm3 (3.65-5.03); Red Cell Distribution Width 17.9 % (13.2-15.2)
[2019-11-29 11:37] LABS: Platelet Count 29 K/mm3 (140-440)
[2019-11-29 11:45] LABS: Blood Urea Nitrogen 10 mg/dL (9-20); Calcium 7.5 mg/dL (8.4-10.2); Hemolysis Index 20
[2019-11-29 11:47] LABS: BUN/Creatinine Ratio 20
[2019-11-29 13:12] LABS: Basophils % (Manual) 0 % (0.0-1.8); Eosinophils % (Manual) 0 % (0.0-4.3); Total Cells Counted 50
[2019-11-29 13:13] LABS: Anisocytosis 1+; Platelet Estimate Consistent w Auto
--- NOTE | 2019-11-29 13:43 | Discharge Summary ---
Providers - Providers Date of Admission: 11/28/19 09:24 Attending physician: PETER ST MD 11/27/19 22:06 Consult to Physician [CONS] Urgent Comment: Consulting Provider: DAYSI SIEGEL Physician Instructions: Reason For Exam: umbical herniaw with sbo reduced in ED Primary care physician: [facility], Hospitalization Reason for admission: ABDOMINAL PAIN Condition: Stable Hospital course: 44-year-old male with known history of diabetes mellitus, hypertension, alcoholic liver cirrhosis with previous esophageal varices requiring banding in the past presenting to the emergency room today complaining of abdominal pain which has been ongoing for the past 2 months. Abdominal pain is said to have gotten worse over the past 2 days. He has been no relieving or exacerbating factor. He has had some fever at home but denies any nausea vomiting, denies any diarrhea, he has had some black stools over the past couple of days. Patient denies any chest pain or shortness of breath, denies any headache or dizziness. He has had occasional dysuria but no hematuria. Upon arrival in the emergency room here patient was evaluated in the ER, CT scan of the abdomen and pelvis reveals:Small bowel obstruction with a transition point located within an umbilical hernia . Findings of cirrhosis and portal hypertension with a large amount of ascites. Further work-up reveals pancytopenia and also hypomagnesemia. General surgeon Dr. Siegel has been consulted by the ER physician for further evaluation. 11/27: Patient had reduction done in the ED with aid of Ketamin, continue to monitor, will obtain Diagnostic and therapeutic paracentesis, Give a dose of FFP Patient this a.m. is doing well discussed with surgeon no indication for paracentesis since abdominal swelling has reduced and patient is tolerating clear liquid diet. Also patient is a high risk as FFP is significantly increased. No mental status changes is noted at this time. I had extensive conversation with the patient about his prognosis which remains poor considering his laboratory findings and overall medical condition have stressed the import ance of follow-up with primary care physician and also GI doctor and the surgeon outpatient and to remain with electrolyte replacement he verbalized understanding and is stable for discharge. Advanced directive discussion 35 minutes (1) Incarcerated umbilical hernia/SBO Current Visit: Yes Status: Acute Plan to address problem: (2) Ascites Current Visit: Yes Status: Acute Plan to address problem: (3) Hypomagnesemia Current Visit: Yes Status: Acute Plan to address problem: Magnesium will be repleted and will monitor chemistry. (4) Pancytopenia/leukopenia Current Visit: Yes Status: Acute Plan to address problem: Possibly secondary to history of alcoholic liver disease. We will monitor CBC closely. 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 GENERAL: The patient appears normally developed, Vital signs as documented. HEAD: No signs of head trauma. EYES: Pupils are equal. Extraocular motions intact. EARS: Hearing grossly intact. MOUTH: Oropharynx is normal. NECK: No adenopathy, no JVD. CHEST: Chest with clear breath sounds bilaterally. No wheezes, rales, or rhonchi. CARDIAC: Regular rate and rhythm. S1 and S2, without murmurs, gallops, or rub s. VASCULAR: No Edema. Peripheral pulses normal and equal in all extremities. ABDOMEN: Soft, non tender, distended with positive fluid shift. No rebound or guarding, and no masses palpated. Bowel Sounds normal. MUSCULOSKELETAL: Good range of motion of all major joints. Extremities without clubbing, cyanosis or edema. NEUROLOGIC EXAM: Alert and oriented x 3 No focal sensory or strength deficits. Speech normal. Follows commands. PSYCHIATRIC: Mood normal. SKIN: detail exam as documented in skin assessment - Constitutional Vitals: Temp Pulse Resp BP Pulse Ox 98.1 F 90 18 111/68 97 11/29/19 05:32 11/29/19 05:32 11/29/19 05:32 11/29/19 05:32 11/29/19 00:13 Plan Activity: advance as tolerated, fall precautions Diet: low fat Special Instructions: restrict fluid intake to (1000CC/DAY) Additional Instructions: Recommend patient to follow-up with primary care physician in 3 to 5 days for lab work. Follow up with: BRANDEE RIOS MD [Primary Care Provider] - 3-5 Days DAYSI SIEGEL MD [Staff Physician] - 7 Days AUGUST SUN MD [Staff Physician] - 7 Days Prescriptions: Spironolactone [Aldactone] 25 mg PO QDAY #30 tablet Furosemide [Lasix TAB] 40 mg PO QDAY #30 tablet
--- NOTE | 2019-11-29 14:28 | Progress Note ---
Assessment and Plan - Patient Problems (1) Small bowel obstruction Current Visit: Yes Status: Acute Plan to address problem: 1) Advance diet as tolerated. 2) May be discharged from my perspective. 3) He is a prohibitive operative risk related to his thrombocytopenia, severe hypoalbuminemia, cirrhosis and alcoholism. I don't believe he will find a surgeon who recommends repair of his hernia under any conditions unless it was performed as a life saving measure. Subjective Patient Reports: Positive: no new complaints, feels better, afebrile (No nausea or vomiting. He is thirsty and hungry.) Objective Vital Signs - 12hr 11/29/19 11/29/19 11/29/19 04:17 04:32 05:02 Temperature 98.2 F 98.2 F 98.4 F Pulse Rate 91 H 57 L 90 Respiratory 18 18 20 Rate Blood Pressure 104/68 110/69 113/56 11/29/19 05:32 Temperature 98.1 F Pulse Rate 90 Respiratory 18 Rate Blood Pressure 111/68 - Abdomen PM_46_EXABD1 4, PM_46_EXABD1 6, PM_46_EXABD1 8 Hernia: none - Labs 11/29/19 11:04 11/29/19 11:04 Diabetes panel 11/29/19 11/29/19 Range/Units 02:15 11:04 Sodium 136 L 134 L (137-145) mmol/L Potassium 3.8 4.0 (3.6-5.0) mmol/L Chloride 105.0 103.7 (98-107) mmol/L Carbon Dioxide 22 20 L (22-30) mmol/L BUN 10 10 (9-20) mg/dL Creatinine 0.6 L 0.5 L (0.8-1.3) mg/dL Glucose 90 87 (75-100) mg/dL Calcium 7.3 L 7.5 L (8.4-10.2) mg/dL AST 38 (5-40) units/L ALT 19 (7-56) units/L Alkaline Phosphatase 117 (35-129) units/L Total Protein 6.0 L (6.3-8.2) g/dL Albumin 1.9 L (3.9-5) g/dL Calcium panel 11/29/19 11/29/19 Range/Units 02:15 11:04 Calcium 7.3 L 7.5 L (8.4-10.2) mg/dL Albumin 1.9 L (3.9-5) g/dL Pituitary panel 11/29/19 11/29/19 Range/Units 02:15 11:04 Sodium 136 L 134 L (137-145) mmol/L Potassium 3.8 4.0 (3.6-5.0) mmol/L Chloride 105.0 103.7 (98-107) mmol/L Carbon Dioxide 22 20 L (22-30) mmol/L BUN 10 10 (9-20) mg/dL Creatinine 0.6 L 0.5 L (0.8-1.3) mg/dL Glucose 90 87 (75-100) mg/dL Calcium 7.3 L 7.5 L (8.4-10.2) mg/dL Adrenal panel 11/29/19 11/29/19 Range/Units 02:15 11:04 Sodium 136 L 134 L (137-145) mmol/L Potassium 3.8 4.0 (3.6-5.0) mmol/L Chloride 105.0 103.7 (98-107) mmol/L Carbon Dioxide 22 20 L (22-30) mmol/L BUN 10 10 (9-20) mg/dL Creatinine 0.6 L 0.5 L (0.8-1.3) mg/dL Glucose 90 87 (75-100) mg/dL Calcium 7.3 L 7.5 L (8.4-10.2) mg/dL Total Bilirubin 2.30 H (0.1-1.2) mg/dL AST 38 (5-40) units/L ALT 19 (7-56) units/L Alkaline Phosphatase 117 (35-129) units/L Total Protein 6.0 L (6.3-8.2) g/dL Albumin 1.9 L (3.9-5) g/dL - Imaging Additional Studies: AXR are normal.
== END 2019-11-29 14:45 | disposition home or self-care (01) | DRG 394 ==
LOC: ED 15:21 → 3A 22:29 → 3B-SURG 23:17 → OBSVTOIN 11-28 09:24
PROVIDERS: ADMIT Internal Medicine Geriatric Medicine; ATTEND Internal Medicine
PROC: 30233K1 Transfusion of Nonautologous Frozen Plasma into Peripheral Vein, Percutaneous Approach (ICD-10-PCS; principal; 2019-11-29)
DX: K42.0 Umbilical hernia with obstruction, without gangrene (principal); D61.818 Other pancytopenia; E87.1 Hypo-osmolality and hyponatremia; E83.42 Hypomagnesemia; E11.9 Type 2 diabetes mellitus without complications; I10 Essential (primary) hypertension; R79.1 Abnormal coagulation profile; K70.31 Alcoholic cirrhosis of liver with ascites; F10.10 Alcohol abuse, uncomplicated; Y90.9 Presence of alcohol in blood, level not specified; D69.6 Thrombocytopenia, unspecified; Z79.899 Other long term (current) drug therapy
CPT/HCPCS: 36415; 74019; 74177; 80048; 80053; 80320; 81001; 83690; 83735; 85007; 85025; 85027; 85610; 85730; 86850; 86900; 86901; 96361; 96374; 96375; G0378; G0480; J1170; J1200; J2270; J2405; J3475; J7030; J7040; P9017; Q9967

== ENCOUNTER 2020-05-13 23:14 | Emergency (ER) | payer SELFPAY ==
[2020-05-14 00:44] LABS: Hematocrit 28.1 % (35.5-45.6); Mean Corpuscular HGB Conc 32 % (32-34); Mean Corpuscular Volume 81 fl (84-94); Red Blood Count 3.48 M/mm3 (3.65-5.03); Red Cell Distribution Width 16.7 % (13.2-15.2)
[2020-05-14 00:53] LABS: Platelet Count 21 K/mm3 (140-440)
[2020-05-14 00:59] LABS: Eosinophils % (Auto) 0.3 % (0.0-4.3); Lymphocytes # (Auto) 0.3 K/mm3 (1.2-5.4); Monocytes # (Auto) 0.2 K/mm3 (0.0-0.8)
[2020-05-14 01:06] LABS: Alanine Aminotransferase 22 units/L (7-56); Albumin 2.9 g/dL (3.9-5); Blood Urea Nitrogen 10 mg/dL (9-20); Calcium 7.5 mg/dL (8.4-10.2); Hemolysis Index 2
[2020-05-14 01:07] LABS: BUN/Creatinine Ratio 14
[2020-05-14] MEDS ORDERED: HYDROmorphone 1 MG/1 ML INJ IV ONE (01:53)
[2020-05-14] MEDS ORDERED: ONDANSETRON 4 MG/2 ML INJ IV ONE (01:53)
--- NOTE | 2020-05-14 01:58 | Emergency Department Report ---
HPI - General Chief Complaint: Abdominal Pain Time Seen by Provider: 05/14/20 01:39 - HPI HPI: Room 5 The patient is a 44-year-old male present with a chief complaint of abdominal pain. Patient has a history of umbilical hernia states 2 days ago began giving him pain. Patient denies nausea vomiting states he had a fever earlier. Patient states he normally has 2-3 bowel movements a week and his last bowel movement occurred approximately 2 days ago ED Past Medical Hx - Past Medical History Previous Medical History?: Yes Hx Hypertension: Yes (as stated by patient.) Hx Diabetes: Yes Additional medical history: Alcohol-induced pancreatitis, alcohol induced liver cirrhosis, pancytopenia esophageal varices - Surgical History Past Surgical History?: Yes Additional Surgical History: Esophageal varices banding here in August 2018 - Family History Family history: no significant - Social History Smoking Status: Never Smoker Substance Use Type: None (Denies illicit drug use) - Medications Home Medications: Home Medications Medication Instructions Recorded Confirmed Last Taken Type Ondansetron [Zofran ODT TAB] 4 mg PO Q8HR PRN #15 tab.rapdis 09/05/19 11/28/19 11/27/19 Rx Pantoprazole [Protonix TAB] 40 mg PO BID #60 tablet 09/05/19 11/28/19 11/27/19 Rx Furosemide [Lasix TAB] 40 mg PO QDAY #30 tablet 11/29/19 Unknown Rx Spironolactone [Aldactone] 25 mg PO QDAY #30 tablet 11/29/19 Unknown Rx HYDROcodone/APAP 5-325 [[place] 1 - 2 each PO Q6HR PRN #10 tablet 05/14/20 Unknown Rx 5/325] ED Review of Systems ROS: Stated complaint: HERNIA Other details as noted in HPI Constitutional: fever Eyes: denies: eye pain ENT: denies: throat pain Respiratory: no symptoms reported Cardiovascular: denies: chest pain Endocrine: no symptoms reported Gastrointestinal: abdominal pain. denies: nausea, vomiting Genitourinary: denies: dysuria Musculoskeletal: denies: back pain Neurological: denies: headache Physical Exam - Physical Exam Vital Signs: Vital Signs 05/13/20 05/14/20 23:42 01:41 Temperature 98.6 F Pulse Rate 94 H Respiratory 16 Rate Blood Pressure 127/67 O2 Sat by Pulse 100 100 Oximetry Physical Exam: GENERAL: The patient is well-developed well-nourished male lying on stretcher not appearing to be in acute distress. [] HEENT: Normocephalic. Atraumatic. Extraocular motions are intact. Patient has moist mucous membranes. NECK: Supple. Trachea midline CHEST/LUNGS: Clear to auscultation. There is no respiratory distress noted. HEART/CARDIOVASCULAR: Regular. There is no tachycardia. There is no gallop rub or murmur. ABDOMEN: Abdomen is soft, with diffuse tenderness greatest at the umbilicus. No ventral hernia palpated. Patient has normal bowel sounds. There is no abdominal distention. SKIN: There is no rash. There is no edema. There is no diaphoresis. NEURO: The patient is awake, alert, and oriented. The patient is cooperative. The patient has normal speech MUSCULOSKELETAL: There is no evidence of acute injury. ED Course Vital Signs 05/13/20 05/14/20 23:42 01:41 Temperature 98.6 F Pulse Rate 94 H Respiratory 16 Rate Blood Pressure 127/67 O2 Sat by Pulse 100 100 Oximetry ED Medical Decision Making - Lab Data Result diagrams: 05/14/20 00:11 05/14/20 00:11 Laboratory Tests 05/14/20 05/14/20 05/14/20 00:11 00:11 02:12 WBC 1.3 L* RBC 3.48 L Hgb 9.0 L Hct 28.1 L MCV 81 L MCH 26 L MCHC 32 RDW 16.7 H Plt Count 21 L Lymph % (Auto) 23.0 Simpson % (Auto) 17.0 H Eos % (Auto) 0.3 Baso % (Auto) 0.0 Lymph # (Auto) 0.3 L Simpson # (Auto) 0.2 Eos # (Auto) 0.0 Baso # (Auto) 0.0 Total Counted Cancelled Seg Neutrophils % 59.0 Seg Neuts % (Manual) Cancelled Band Neutrophils % Cancelled Lymphocytes % (Manual) Cancelled Reactive Lymphs % (Man) Cancelled Monocytes % (Manual) Cancelled Eosinophils % (Manual) Cancelled Basophils % (Manual) Cancelled Metamyelocytes % Cancelled Myelocytes % Cancelled Promyelocytes % Cancelled Blast Cells % Cancelled Nucleated RBC % Cancelled Seg Neutrophils # 0.8 L Seg Neutrophils # Man Cancelled Band Neutrophils # Cancelled Lymphocytes # (Manual) Cancelled Abs React Lymphs (Man) Cancelled Monocytes # (Manual) Cancelled Eosinophils # (Manual) Cancelled Basophils # (Manual) Cancelled Metamyelocytes # Cancelled Myelocytes # Cancelled Promyelocytes # Cancelled Blast Cells # Cancelled WBC Morphology Cancelled Hypersegmented Neuts Cancelled Hyposegmented Neuts Cancelled Hypogranular Neuts Cancelled Hypersegmented Polys Cancelled Smudge Cells Cancelled Toxic Granulation Cancelled Toxic Vacuolation Cancelled Dohle Bodies Cancelled Pelger-Huet Anomaly Cancelled [place] Cancelled Platelet Estimate Cancelled Clumped Platelets Cancelled Plt Clumps, EDTA Cancelled Large Platelets Cancelled Giant Platelets Cancelled Platelet Satelliting Cancelled Plt Morphology Comment Cancelled RBC Morphology Cancelled Dimorphic RBCs Cancelled Polychromasia Cancelled Hypochromasia Cancelled Poikilocytosis Cancelled Basophilic Stippling Cancelled Anisocytosis Cancelled Microcytosis Cancelled Macrocytosis Cancelled Spherocytes Cancelled Pappenheimer Bodies Cancelled Sickle Cells Cancelled Target Cells Cancelled Tear Drop Cells Cancelled Ovalocytes Cancelled Stomatocytes Cancelled Helmet Cells Cancelled [place] Bodies Cancelled [place] Rings Cancelled Damian Cells Cancelled Bite Cells Cancelled Crenated Cell Cancelled Elliptocytes Cancelled Acanthocytes (Spur) Cancelled Rouleaux Cancelled Hemoglobin C Crystals Cancelled Schistocytes Cancelled Malaria parasites Cancelled Chevy Bodies Cancelled Hem Pathologist Commnt Cancelled Sodium 134 L Potassium 3.5 L Chloride 103.3 Carbon Dioxide 22 Anion Gap 12 BUN 10 Creatinine 0.7 L Estimated GFR > 60 BUN/Creatinine Ratio 14 Glucose 137 H Calcium 7.5 L Total Bilirubin 1.30 H AST 40 ALT 22 Alkaline Phosphatase 212 H Total Protein 6.6 Albumin 2.9 L Albumin/Globulin Ratio 0.8 Lipase 73 H Urine Color Yellow Urine Turbidity Clear Urine pH 6.0 Ur Specific [place] 1.011 Urine Protein <15 mg/dl Urine Glucose (UA) Neg Urine Ketones Neg Urine Blood Sm Urine Nitrite Neg Urine Bilirubin Neg Urine Urobilinogen 4.0 Ur Leukocyte Esterase Neg Urine WBC (Auto) < 1.0 Urine RBC (Auto) 2.0 - Radiology Data Radiology results: report reviewed (CT abdomen pelvis, CT head), image reviewed (CT abdomen pelvis, CT head) [facility] [address] [place] [address] Cat Scan Report Signed Patient: MIKAELA THOMPSON MR#: [id number] : 1975 Acct:[id number] Age/Sex: 44 / M ADM Date: 05/13/20 Loc: ED Attending Dr: Ordering Physician: ARYAN GILBERT MD Date of Service: 05/14/20 Procedure(s): CT abdomen pelvis w con Accession Number(s): [id number] cc: ARYAN GILBERT MD CT abdomen pelvis w con INDICATION: Patient complains of Umbilical pain. COMPARISON: 11/27/2019 TECHNIQUE: Abdominal and pelvic CT exam performed. [facility] CT [facility] at[facility] are performed using CT dose reduction for ALARA by means of automated exposure control. FINDINGS: CT ABDOMEN and PELVIS: Lung Bases: No significant abnormality. Liver: Small liver demonstrating nodular contour consistent with cirrhosis. Small volume of ascites. Biliary: Pericholecystic fluid consistent most consistent with hepatocellular disease. No stones. Spleen: Spleen is enlarged measuring approximately 19 cm in craniocaudal dimension. Pancreas: No significant abnormality. Adrenals: No significant abnormality. Kidneys: No significant abnormality. Lymphatics: No lymphadenopathy. Vasculature: No significant abnormality. Bowel: No significant abnormality. Normal appendix. Pelvis: No significant abnormality. Osseous Structures: No aggressive osseous lesion. Additional Findings: Moderate-sized umbilical hernia containing ascites. IMPRESSION: 1. Cirrhosis with sequela of portal venous hypertension including massive splenomegaly and small volume of ascites. There is a moderate-sized hiatal hernia distended by ascites. Otherwise, no significant abnormality. Signer Name: Jose Angel Loya MD Signed: 05/14/2020 3:07 AM Workstation Name: [id number] Transcribed By: SURI Dictated By: Jose Angel Loya MD Electronically Authenticated By: Jose Angel Loya MD Signed Date/Time: 05/14/20306 DD/ 3 TD/TT: Print Cancel [facility] [address] [place] [address] Cat Scan Report Signed Patient: MIKAELA THOMPSON MR#: [id number] : 1975 Acct:[id number] Age/Sex: 44 / M ADM Date: 05/13/20 Loc: ED Attending Dr: Ordering Physician: ARYAN GILBERT MD Date of Service: 05/14/20 Procedure(s): CT head/brain wo con Accession Number(s): [id number] cc: ARYAN GILBERT MD CT head/brain wo con INDICATION: Patient complains of a headache, thrombocytopenia. TECHNIQUE: Routine CT head. All CT scans at this location are performed using CT dose reduction for ALARA by means of automated exposure control. COMPARISON: None. FINDINGS: Intracranial: Bustillo-white matter differentiation is maintained. No intracranial hemorrhage. No extra axial collection. No hydrocephalus. No herniation. Sinuses: Paranasal sinuses and mastoid air cells are essentially clear. Orbits: Globes are intact. Calvarium: No acute fracture. IMPRESSION: 1. No acute intracranial abnormality. Signer Name: Jose Angel Loya MD Signed: 05/14/2020 3:04 AM Workstation Name: [id number] Transcribed By: CS Dictated By: Jose Angel Loya MD Electronically Authenticated By: Jose Angel Loya MD Signed Date/Time: 05/14/20303 DD/ 2 TD/TT: - Medical Decision Making Pancytopenia essentially unchanged from previous visits. CT scan does not rev eal any acute abnormalities. - Differential Diagnosis Hernia, gastritis, diverticulitis, Critical care attestation.: If time is entered above; I have spent that time in minutes in the direct care of this critically ill patient, excluding procedure time. ED Disposition Clinical Impression: Hiatal hernia, Acute abdominal pain, Cirrhosis Disposition: - TO HOME OR SELFCARE Is pt being admited?: No Does the pt Need Aspirin: No Condition: Stable Instructions: Hiatal Hernia Additional Instructions: Return to the emergency department should you develop worsening symptoms, inability to tolerate food or liquids, high fever or any other concerns Prescriptions: HYDROcodone/APAP 5-325 [[place] 5/325] 1 - 2 each PO Q6HR PRN #10 tablet PRN Reason: Pain Referrals: SHERRY LUDWIG MD [Primary Care Provider] - 3-5 Days DIPAK REYNOSO MD [Staff Physician] - 3-5 Days (Dr. Reynoso is a manager of sustainability. Please follow-up with him for further evaluation) Time of Disposition: 03:53
[2020-05-14 02:34] LABS: Bilirubin,Urine NEG (Negative); Blood,Urine SM (Negative); Color,Urine Yellow (Yellow); Protein,Urine <15 mg/dL mg/dL (Negative); WBC,Urine < 1.0 /HPF (0.0-6.0)
--- NOTE | 2020-05-14 03:09 | Cat Scan Report ---
CT head/brain wo con INDICATION: Patient complains of a headache, thrombocytopenia. TECHNIQUE: Routine CT head. All CT scans at this location are performed using CT dose reduction for A NAJMA by means of automated exposure control. COMPARISON: None. FINDINGS: Intracranial: Bustillo-white matter differentiation is maintained. No intracranial hemorrhage. No extra a xial collection. No hydrocephalus. No herniation. Sinuses: Paranasal sinuses and mastoid air cells are essentially clear. Orbits: Globes are intact. Calvarium: No acute fracture. IMPRESSION: 1. No acute intracranial abnormality. Signer Name: Jose Angel Loya MD Signed: 05/14/2020 3:04 AM Workstation Name: [id number]
--- NOTE | 2020-05-14 03:12 | Cat Scan Report ---
CT abdomen pelvis w con INDICATION: Patient complains of Umbilical pain. COMPARISON: 11/27/2019 TECHNIQUE: Abdominal and pelvic CT exam performed. All CT scans at this location are performed using CT dose reduction for ALARA by means of automated exposure control. FINDINGS: CT ABDOMEN and PELVIS: Lung Bases: No significant abnormality. Liver: Small liver demonstrating nodular contour consistent with cirrhosis. Small volume of ascites. Biliary: Pericholecystic fluid consistent most consistent with hepatocellular disease. No stones. Spleen: Spleen is enlarged measuring approximately 19 cm in craniocaudal dimension. Pancreas: No significant abnormality. Adrenals: No significant abnormality. Kidneys: No significant abnormality. Lymphatics: No lymphadenopathy. Vasculature: No significant abnormality. Bowel: No significant abnormality. Normal appendix. Pelvis: No significant abnormality. Osseous Structures: No aggressive osseous lesion. Additional Findings: Moderate-sized umbilical hernia containing ascites. IMPRESSION: 1. Cirrhosis with sequela of portal venous hypertension including massive splenomegaly and small volu me of ascites. There is a moderate-sized hiatal hernia distended by ascites. Otherwise, no significan t abnormality. Signer Name: Jose Angel Loya MD Signed: 05/14/2020 3:07 AM Workstation Name: [id number]
[2020-05-14 04:14] VITALS: BP 106/68
== END 2020-05-14 04:22 | disposition home or self-care (01) ==
LOC: ED 23:14
DX: K74.60 Unspecified cirrhosis of liver (principal); K44.9 Diaphragmatic hernia without obstruction or gangrene; R10.9 Unspecified abdominal pain; I10 Essential (primary) hypertension; E11.9 Type 2 diabetes mellitus without complications; Z79.899 Other long term (current) drug therapy; Z98.890 Other specified postprocedural states
CPT/HCPCS: 36415; 70450; 74177; 80053; 81001; 83690; 85025; 96374; 96375; 99284; J1170; J2405; Q9967